=== PATIENT | female | born 1980 | race Caucasian/White ===

== ENCOUNTER 2022-02-20 18:25 | Emergency (ER) | payer MEDICARE, SELFPAY ==
[2022-02-20 18:26] VITALS: BP 118/79; PULSE 84; RESP 16; TEMP 36.2; O2SAT 98; BMI 19.8
[2022-02-20 20:07] VITALS: O2SAT 94
[2022-02-20] MEDS: predniSONE 20 MG Tablet 60 MG PO (20:52)
[2022-02-20] MEDS: Albuterol 2.5 MG/3 ML VIAL.NEB. INHALATION (21:10)
--- NOTE | 2022-02-20 21:45 | RAD_ITS ---
STUDY: X-RAY CHEST REASON FOR EXAM: Female, 41 years old. cough TECHNIQUE: PA and lateral views of the chest. COMPARISON: None. FINDINGS: The lungs are clear and expanded. There is no demonstrated pleural abnormality. There is moderate cardiac enlargement. Normal mediastinum and krystin. Normal visualized pulmonary arteries. Normal visualized aortic arch and descending thoracic aorta. Normal visualized thoracic spine. Normal visualized ribs, clavicles, and shoulders. There is no demonstrated abnormality of the visualized soft tissue structures of the upper abdomen. RAD/Chest PA and Lateral IMPRESSION: No active disease. Electronically Signed: Sven Winter MD at 22:02 EST ,
[2022-02-20 22:25] VITALS: PULSE 75; RESP 16; O2SAT 96
--- NOTE | 2022-02-20 22:57 | EDS_ITS ---
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 Patient has had prior tracheostomies. Patient is presenting with a couple days of chest congestion and now shortness of breath. Feels like an asthma attack. She recently moved to this area does not have a primary care doctor. She states she does have inhalers at home. She is been using them a couple times a day. She think she needs steroids. She denies any fever or chills. No other complaints at this time. Patient received breathing treatment in route via EMS and had significant improvement of her symptoms. [facility] Medical History Asthma CVA (cerebral vascular accident) History of endocarditis Home Medications prednisone 20 mg tablet 40 mg PO DAILY #8 tabs 02/20/22 [Rx Last Taken Unknown] Allergy/AdvReac Type Severity Reaction Status Date / Time No Known Allergies Allergy Verified 02/20/22 18:32 Surgical History Hx of tracheostomy Social History Smoking Status: Current every day smoker tobacco type: cigarettes ROS ROS ED Constitutional Constitutional ED: Denies chills or fever(s) Eyes Eyes: Denies change in vision ENT ENT ED: Denies rhinorrhea or sore throat Cardiovascular Cardiovascular: Denies chest pain or palpitations Respiratory/Chest Respiratory/Chest: Reports cough and dyspnea Gastrointestinal Gastrointestinal: Denies abdominal pain or vomiting Musculoskeletal Musculoskeletal: Denies arthralgias or myalgias Integumentary Denies rash Neurologic Neurologic: Denies weakness EXAM Physical Exam Const Vital Signs: 02/20/22 18:26 02/20/22 20:07 Temperature 97.2 F L Temperature Source Temporal Pulse Rate 84 Respiratory Rate 16 Respiratory Effort Normal Non-Labored Respiratory Depth Normal Respiratory Pattern Normal Blood Pressure 118/79 Blood Pressure Mean 92 Pulse Ox 98 Oxygen Delivery Method Room Air Room Air Constitutional Narrative: Thin, chronically ill-appearing HEENT Reports TM's clear and moist mucous membranes HEENT Narrative: Dentures in place Tympanic Membrane ED: Yes TM's clear Neck supple Neck Narrative: Scar in the center of the neck consistent with a prior tracheostomy Resp normal respiratory effort Resp Narrative: Coarse breath sounds throughout with end expiratory wheezing present Cardio regular rate and regular rhythm Cardio Narrative: Positive systolic murmur Extremity normal to inspection General Extremety ED: Negative for edema General Extremity: Negative for edema Neuro Neuro Narrative: Patient has dysphagia is somewhat difficult to understand but can write things down easily. Chronic deficit on the left side with associated muscle wasting of the left upper extremity Sensorium / Orientation: alert Psych mental status grossly normal Skin no wounds Rashes: no rashes MDM MDM MDM Narrative Medical decision making narrative: Patient evaluated for couple days of chest congestion and now shortness of breath with wheezing. Symptoms significantly improved with breathing treatment in route. Patient is given a second albuterol treatment. She has significant improvement of her breath sounds on repeat evaluation. Vital signs are normal and she is not requiring supplemental oxygen. At this time I do not think she needs lab work. Chest x-ray is obtained interpreted by myself as well as radiology does not show any active disease. Patient will be started on a prednisone burst and given first dose in the emergency room. She states she has albuterol at home and does not need any refills of this. There is no signs of a secondary pneumonia and I do not think antibiotics are indicated. Patient is given return precautions. She is given referral to primary care doctor as well as [facility]. She does not currently have a local primary care doctor as well as her history of stroke with subsequent disability that might make outpatient follow-up more difficult. Radiography Diagnostic Testing: Clinical Impression(s) from Imaging Studies Chest X-Ray 02/20/22 21:45 IMPRESSION: No active disease. Electronically Signed: Sven Winter MD at 22:02 EST , Discharge Plan Triage Chief Complaint: Asthma ED Provider: Paula Zamudio Dx/Rx/DC Orders Clinical Impression: Asthma exacerbation, Acute viral syndrome Instructions: ED Asthma, Acute (Adult), ED Viral Syndrome (Adult) Prescriptions: New prednisone 20 mg tablet 40 mg PO DAILY Qty: 8 0RF Primary Care Provider: Care Physician,No Primary Referrals: [facility] [Non-Staff] - As soon as possible Parish Magaña MD [Med Staff - Hydration Plant Operator] - As soon as possible Care Physician,No Primary [Primary Care Provider] - Disposition Disposition: Home, Self Care
== END 2022-02-20 23:21 | disposition home or self-care (01) ==
PROVIDERS: Emergency Provider Emergency Medicine; Visit Provider Emergency Medicine
DX: J45.901 Unspecified asthma with (acute) exacerbation (principal); B34.9 Viral infection, unspecified; F17.210 Nicotine dependence, cigarettes, uncomplicated; I69.320 Aphasia following cerebral infarction
CPT/HCPCS: 71046; 99284

== ENCOUNTER 2022-03-07 23:01 | Emergency (ER) | payer MEDICARE, MEDICAID, SELFPAY ==
[2022-03-07 23:02] VITALS: BP 105/64; PULSE 99; RESP 22; TEMP 36.6; O2SAT 94; BMI 20.2
[2022-03-07 23:08] VITALS: O2SAT 94
--- NOTE | 2022-03-07 23:18 | RAD_ITS ---
INDICATION: wheezing EXAMINATION/TECHNIQUE: X-RAY - XR Chest 1 View COMPARISON: 02/20/2023 FINDINGS: LIFE-SUPPORT AND LINES: 1. None HEART AND VESSELS: The cardiac silhouette, pulmonary vasculature have normal appearance. No evidence of congestive failure. LUNGS AND PLEURAL SPACES: There is subtle area of interstitial prominence in the RIGHT mid lung which appears to have developed in the interval. No consolidation noted. Interstitial prominence in the RIGHT infrahilar region. Stable blunting LEFT CP angle. No lobar consolidation. MEDIASTINUM AND HILAR REGIONS: No masses adenopathy noted. No areas of calcification. Visualized upper airway is normal in position. BONY ELEMENTS: No acute bony changes noted. RAD/Chest 1 View (Portable) IMPRESSION: 1. Subtle areas of interstitial prominence in the RIGHT midlung and in the RIGHT infrahilar region. Subtle interstitial infiltrate is a consideration. 2. Blunting of the LEFT CP angle, trace pleural fluid suspected. 3. No lobar consolidation or priya congestive failure. Electronically Signed: Sven Marroquin MD at 0:08 EST ,
--- NOTE | 2022-03-07 23:19 | EDS_ITS ---
HPI History of Present Illness Chief Complaint: Asthma Detail of Chief Complaint: 5 Dayhist presents Sunday. Informant: patient Onset/Context/Timing Onset: Days Context: gradual Timing: Continuous Quality: Positive for Wheezing Current Severity: Moderate Maximum Severity: Moderate Worsened by: Nothing Relieved by: Nothing Associated Symptoms Negative for cough, fever, sore throat, chills, sweats, clear sputum, white sputum, yellow sputum or green sputum Chest Pain: Positive for None Narrative Narrative: 41-year-old female history of asthma. Also history of 2 prior strokes with left-sided paralysis of the left arm and leg. History of IV drug abuse and endocarditis from that. She has had a prior tracheostomy. States since Sunday she has had wheezing and shortness of breath. Denies any fever. No chest pain. No hemoptysis. Similar to her prior asthma flareups. PE Risk Factors: Negative for Cancer, OCP + Smoking + > 35, Prior DVT or PE, Recent immobilization, Recent surgery or Recent travel Prior similar symptoms: Yes Recent Illness/Hospitalization: No PFSH PFSH Medical History Asthma CVA (cerebral vascular accident) History of endocarditis Home Medications albuterol sulfate 90 mcg/actuation aerosol inhaler inhalation 03/07/22 [History Last Taken Unknown] buspirone 5 mg tablet mg 03/07/22 [History Last Taken Unknown] carvedilol 3.125 mg tablet mg 03/07/22 [History Last Taken Unknown] cyclobenzaprine 10 mg tablet mg 03/07/22 [History Last Taken Unknown] docusate sodium 100 mg capsule mg PO 03/07/22 [History Last Taken Unknown] gabapentin 600 mg tablet mg 03/07/22 [History Last Taken Unknown] prednisone 20 mg tablet 40 mg PO DAILY 7 days #14 tabs 03/07/22 [Rx Last Taken Unknown] umeclidinium 62.5 mcg/actuation blister powder for inhalation (Incruse Ellipta) inhalation 03/07/22 [History Last Taken Unknown] Allergy/AdvReac Type Severity Reaction Status Date / Time No Known Allergies Allergy Verified 02/20/22 18:32 Surgical History Hx of tracheostomy Social History Smoking Status: Current every day smoker tobacco type: cigarettes ROS ROS ED ROS Narrative Wheezing. Short of breath. Review of Systems ROS Unobtainable: Denies due to encephalopathy Constitutional Constitutional ED: Denies chills or fever(s) Eyes Eyes: Denies blurry vision or change in vision ENT ENT ED: Denies ear pain, rhinorrhea or sore throat Cardiovascular Cardiovascular: Denies chest pain or palpitations Respiratory/Chest Respiratory/Chest: Reports dyspnea; Denies cough Gastrointestinal Gastrointestinal: Denies abdominal pain, constipation, diarrhea, melena, nausea or vomiting Genitourinary Genitourinary ED: Denies dysuria or hematuria Musculoskeletal Musculoskeletal: Denies arthralgias Integumentary Denies abscess or Abrasions Neurologic Neurologic: Denies headache(s) Psychiatric Psychiatric: Denies anxiety Endocrine Endocrinology: Denies cold intolerance Hematologic/Lymphatic Hematologic/Lymphatic: Denies easy bleeding or easy bruising Allergic/Immunologic Allergic/Immunologic ED: Denies mouth swelling or tongue swelling EXAM Physical Exam Narrative Exam Narrative: 41-year-old female vital signs are stable. Pulse ox 94% on room air. H EENT exam unremarkable. Neck nontender. No lymphadenopathy. No JVD. Well-healed midline tracheostomy scar. Closed. Lungs inspiratory and expiratory wheezing bilaterally. Heart regular rhythm rate about 99 no murmur. Chest wall nontender. Abdomen soft nontender. She has paralysis of her left arm and left leg from prior stroke. 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 Normal dorsi plantarflexion of her right leg. Calves are nontender without any edema. Const Vital Signs: 03/07/22 23:02 03/07/22 23:08 03/07/22 23:25 Temperature 97.9 F Temperature Source Temporal Pulse Rate 99 101 H Respiratory Rate 22 H 18 Respiratory Effort Normal Non-Labored Respiratory Depth Normal Respiratory Pattern Normal Blood Pressure 105/64 Blood Pressure Mean 77 Pulse Ox 94 Oxygen Delivery Method Room Air Room Air Positive well nourished and well developed; Negative for obese, cachectic, contractures or unkempt General Appearance ED: well developed and NAD; Negative for unkempt, cachectic, contractures or pallor Nutritional Appearance: Negative for cachectic or obese HEENT Reports moist mucous membranes; Denies dry mucous membranes atraumatic; Negative for trauma or tenderness Mouth ED: No dry mucous membranes Mouth: No dry mucous membranes Eyes PERRL and EOMs intact bilaterally General Eye ED: Negative for pale conjunctiva or scleral icterus Neck no lymphadenopathy, supple, no meningeal signs and no JVD General: Negative for tenderness Lymph Lymphatic: Negative for other Chest Wall Chest: Negative for other Resp No normal respiratory effort and No clear to auscultation bilaterally Resp Narrative: Increased respiratory effort. Wheezing throughout bilaterally both inspiratory and expiratory. No rales or rhonchi. Equal symmetrical. Prolonged expiratory phase. Auscultation: wheezes; Negative for rales or rhonchi Cardio regular rate, regular rhythm, S1 normal heart sound, S2 normal heart sound and no murmurs Rate: Negative for bradycardia or tachycardic Rhythm: abnormal rhythm GI non-tender, non-distended and no masses Inspection: Negative for other Auscultation: normoactive bowel sounds Palpation: soft; Negative for tender or guarding Back/Spine no CVA tenderness and normal to inspection General Back: Negative for CVA tenderness or tenderness Extremity normal to inspection Extremity Narrative: Left-sided paralysis. General Extremety ED: Negative for edema or tenderness General Extremity: Negative for edema Neuro oriented x3 Sensorium / Orientation: alert, oriented to person, oriented to place and oriented to time; Negative for orientation impaired, confused, lethargic or stuporous Speech: Negative for speech normal Motor Exam: Negative for strength 5/5 throughout Psych mental status grossly normal Appearance: Negative for unkempt Attitude: No agitated Mood & Affect: Negative for depressed, anxious or tearful Thought Process: normal thought process Skin no wounds General Skin Exam: Negative for jaundice or pallor Lesions: no lesions Rashes: no rashes Trauma: Negative for abrasion or laceration MDM MDM MDM Narrative Medical decision making narrative: 41-year-old female with extensive past medical history including stroke for left-sided paralysis and endocarditis from IV drug use. Has had wheezing now for 4 to 5 days. Appears to be an asthma flare. She will be treated with prednisone 60 mg p.o. with both the DuoNeb and albuterol aerosol. Chest x-ray will be obtained. Clinically do not think she has pneumonia. This does not appear to be cardiac. I do not hear any signs of pneumonia. I did review her prior records. Repeat exam the patient is improving. We discussed her normal chest x-ray results. Patient is improving after aerosols and prednisone. Her pulse ox is 94%. Prior to arrival she was hypoxic before the squad gave her an aerosol treatment. She feels comfortable being discharged to home. She has a primary care physician mari Acosta that she sees in [place]. Radiography Chest X-Ray - ED: 1 View, Read by ED Physician, Heart, Lungs, Mediastinum, Bony Structures, No Acute Disease and Chronic Changes Diagnostic Testing: Chest x-ray, portable, single view interpreted by myself shows no acute abnormality. Normal cardiac silhouette. No infiltrates. No pneumothorax. Discharge Plan Triage Chief Complaint: Asthma ED Provider: [place] Dx/Rx/DC Orders Clinical Impression: Acute asthma flare, History of stroke, History of endocarditis Instructions: ED Asthma, Acute (Adult) Prescriptions: New prednisone 20 mg tablet 40 mg PO DAILY 7 Days Qty: 14 0RF No Action cyclobenzaprine 10 mg tablet Label Comments: TAKE 1 TABLET BY MOUTH EVERY DAY AT BEDTIME buspirone 5 mg tablet Label Comments: TAKE 1 TABLET BY MOUTH THREE TIMES A DAY gabapentin 600 mg tablet Label Comments: TAKE 1 TABLET BY MOUTH THREE TIMES DAILY carvedilol 3.125 mg tablet Label Comments: TAKE 1 TABLET BY MOUTH TWICE A DAY docusate sodium 100 mg capsule PO Label Comments: TAKE 1 TO 2 CAPSULES BY MOUTH ONCE DAILY albuterol sulfate 90 mcg/actuation HFA aerosol inhaler INHALATION Label Comments: INHALE 1 TO 2 PUFFS EVERY 4 TO 6 HOURS NEEDED Incruse Ellipta 62.5 mcg/actuation blister with device INHALATION Label Comments: INHALE 1 PUFF BY MOUTH EVERY DAY Primary Care Provider: Care Physician,No Primary Referrals: Care Physician,No Primary [Primary Care Provider] - Activity Restrictions/Additional Instructions: Follow-up with your primary care provider. Prednisone daily 40 mg till your wheezing is resolved or its gone. Use your inhaler as needed. Return if worse. Disposition Disposition: Home, Self Care
[2022-03-07] MEDS: Ipratropium/Albuterol Sulfate 3 ML AMPUL.NEB INHALATION (23:24)
[2022-03-07] MEDS: Albuterol 2.5 MG/3 ML VIAL.NEB. INHALATION (23:24)
[2022-03-07 23:25] VITALS: PULSE 101; RESP 18
[2022-03-07] MEDS: predniSONE 20 MG Tablet 60 MG PO (23:30)
[2022-03-08 00:03] VITALS: BP 115/92; PULSE 100; RESP 18; O2SAT 95
== END 2022-03-08 00:04 | disposition home or self-care (01) ==
LOC: ED 23:40
PROVIDERS: Emergency Provider Emergency Medicine; Visit Provider Emergency Medicine
DX: J45.901 Unspecified asthma with (acute) exacerbation (principal); F17.210 Nicotine dependence, cigarettes, uncomplicated; Z86.73 Personal history of transient ischemic attack (TIA), and cerebral infarction without residual deficits; Z86.79 Personal history of other diseases of the circulatory system
CPT/HCPCS: 71045; 94640; 99284

== ENCOUNTER 2022-05-02 20:52 | Emergency (ER) | payer MEDICARE, MEDICAID, SELFPAY ==
[2022-05-02 20:53] VITALS: BP 129/95; PULSE 104; RESP 18; TEMP 35.5; O2SAT 92; BMI 20.3
--- NOTE | 2022-05-02 21:05 | ED.VIS.DYS ---
HPI History of Present Illness Chief Complaint: Shortness of Breath Detail of Chief Complaint: As of breath with productive cough. 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 Patient had endocarditis. She was treated at [facility]. Those records are not available through [facility]. Patient presents today because of productive cough of white-colored sputum with shortness of breath and wheezing. Patient quit smoking 1 month ago. She denies headache, photophobia, neck pain or stiffness. She denies ear pain or drainage. She does report mild nasal congestion. She denies sore throat. She denies chest discomfort. Patient states she drools due to the stroke. She denies GI symptoms. She denies urologic symptoms. PE Risk Factors: Negative for Cancer, OCP + Smoking + > 35, Prior DVT or PE, Recent immobilization, Recent surgery or Recent travel Prior similar symptoms: Yes Recent Illness/Hospitalization: No PFSH [facility] Medical History Asthma CVA (cerebral vascular accident) History of endocarditis Home Medications albuterol sulfate 90 mcg/actuation aerosol inhaler 90 mcg inhalation PRN PRN asthma 03/07/22 [History Last Taken Unknown] buspirone 5 mg tablet 5 mg PO TID 03/07/22 [History Last Taken Unknown] cyclobenzaprine 10 mg tablet 10 mg PO TID 03/07/22 [History Last Taken Unknown] gabapentin 600 mg tablet 600 mg PO TID 03/07/22 [History Last Taken Unknown] baclofen 10 mg tablet 10 mg PO TID 05/02/22 [History Last Taken Unknown] doxycycline monohydrate 100 mg capsule 100 mg PO BID #10 CAPSULES 05/02/22 [Rx Last Taken Unknown] prednisone 20 mg tablet 60 mg PO DAILY #15 TABLETS 05/02/22 [Rx Last Taken Unknown] Allergy/AdvReac Type Severity Reaction Status Date / Time No Known Allergies Allergy Verified 05/02/22 20:53 Surgical History Hx of tracheostomy Social History (Updated 05/02/22 @ 21:[address] Jermaine Orellana MD) household members: none Smoking Status: Former smoker substance use type: former substance user ROS ROS ED Constitutional Constitutional ED: Denies chills, fever(s), sweats or weight loss Eyes Eyes: Denies blurry vision, change in vision or diplopia ENT ENT ED: Denies ear pain, rhinorrhea or sore throat Cardiovascular Cardiovascular: Denies chest pain, orthopnea, palpitations, paroxysmal nocturnal dyspnea or racing heartbeat Respiratory/Chest Respiratory/Chest: Reports cough, dyspnea, dyspnea on exertion and sputum; Denies orthopnea or paroxysmal nocturnal dyspnea Gastrointestinal Gastrointestinal: Denies abdominal pain, melena, nausea or vomiting Genitourinary Genitourinary ED: Denies dysuria, hematuria or urinary frequency Musculoskeletal Musculoskeletal: Denies arthralgias, back pain, myalgias or neck pain Integumentary Denies Abrasions or rash Neurologic Neurologic: Reports weakness and other Details: Significant weakness left lower extremity and inability to use left upper extremity due to septic emboli secondary to endocarditis aortic valve ; Denies headache(s) or paresthesias Psychiatric Psychiatric: Denies anxiety or depression Endocrine Endocrinology: Denies cold intolerance or heat intolerance Hematologic/Lymphatic Hematologic/Lymphatic: Denies easy bleeding or easy bruising EXAM Physical Exam Const Vital Signs: 05/02/22 20:53 05/02/22 21:01 05/02/22 21:31 Temperature 96 F L Temperature Source Temporal Pulse Rate 104 H 98 Respiratory Rate 18 20 H Respiratory Effort Short of Breath Blood Pressure 129/95 H Blood Pressure Mean 106 Pulse Ox 92 Oxygen Delivery Method Room Air Positive well nourished and well developed Constitutional Narrative: Patient has minimal use of accessory muscles and minor/minimal retractions. General Appearance ED: well developed; Negative for pallor HEENT Reports moist mucous membranes HEENT Narrative: Head is atraumatic normocephalic. Ears normal. TMs normal. Nares patent. Posterior pharynx out erythema or exudate. Eyes PERRL and EOMs intact bilaterally General Eye ED: Negative for pale conjunctiva or scleral icterus Neck no lymphadenopathy, supple, no meningeal signs and no JVD Neck Narrative: Tracheostomy scar noted. There are suprasternal retractions noted. Resp No normal respiratory effort and No clear to auscultation bilaterally Auscultation: wheezes expiratory wheezes and throughout Cardio regular rhythm, S1 normal heart sound, S2 normal heart sound and no murmurs Rate: tachycardic GI non-tender, non-distended and no masses Back/Spine no CVA tenderness Extremity Extremity Narrative: Contractures left upper extremity due to prior stroke Neuro oriented x3 and No CN's II-XII intact bilaterally Neuro Narrative: Facial droop due to prior stroke [place] Coma Scale: document GCS findings Spontaneous Obeys Commands Oriented 15 Sensorium / Orientation: alert Speech: speech normal Gait (Neuro): Negative for normal gait Motor Exam: Negative for strength 5/5 throughout Psych mental status grossly normal Skin no wounds and skin turgor normal General Skin Exam: Negative for jaundice or pallor Lesions: no lesions Rashes: no rashes MDM MDM MDM Narrative Medical decision making narrative: Patient with productive cough wheezing abnormal respiratory findings will obtain chest x-ray to evaluate for pneumonia. Since she has history of asthma she was treated with aerosol treatments and given 60 mg of Solu-Medrol IV push. CBC was obtained to assess white count and rule out anemia. Basic metabolic panel to assess renal function and glucose. History & Record Review Additional record(s) reviewed:: Prior labs Lab Data Attestation: I reviewed the patient's lab results. Lab results narrative: White count is elevated 13.2 with no shift. There is eosinophils noted. Basic metabolic panel is unremarkable. Labs: Laboratory Results - last 24 hr 05/02/22 05/02/22 21:25 21:25 WBC 13.2 H RBC 5.04 Hgb 15.3 H Hct 43.3 MCV 85.9 MCH 30.4 MCHC 35.3 RDW Std Deviation 42.1 RDW Coeff of Min 13.8 Plt Count 208 MPV 10.0 Immature Gran % (Auto) 0.500 Neut % (Auto) 49.3 Lymph % (Auto) 25.5 [place] % (Auto) 8.6 Eos % (Auto) 14.8 H Baso % (Auto) 1.3 H Absolute Neuts (auto) 6.5 Absolute Lymphs (auto) 3.37 Nucleated RBC % 0 Sodium 139 Potassium 3.9 Chloride 107 Carbon Dioxide 26.0 Anion Gap 6 BUN 12 Creatinine 0.53 L Estim Creat Clear Calc 136.78 Est GFR (MDRD) Af Amer 166 Est GFR (MDRD) Non-Af 137 BUN/Creatinine Ratio 22.8 H Glucose 110 H Calcium 8.9 Radiography Chest X-Ray - ED: 2 View and Read by ED Physician (2 view x-ray of the chest independently viewed and interpreted by me at 2218. The chest x-ray is unremarkable. Cardiac silhouette and size normal. Perihilar region normal. Osseous structures are normal. There is no evidence of effusion or infiltrate.) Diagnostic Testing: Clinical Impression(s) from Imaging Studies Chest X-Ray 05/02/22 21:58 IMPRESSION: No confluent airspace disease. Query emphysema. Mild chronic interstitial changes. Electronically Signed: Baljai Hidalgo MD at 22:27 EDT Reading Location ID and State: [facility] / [place] Tel , Service support , Treatment and Re-Evaluation :: Patient was reassessed at 2222. Patient no longer has retraction use of accessory muscles. There is wheezing noted. Since patient has elevated white count productive cough will prescribe 5-day course of doxycycline and burst of steroids. Discharge Plan Triage Chief Complaint: Shortness of Breath ED Provider: Jermaine Orellana Dx/Rx/DC Orders Clinical Impression: Acute purulent bronchitis, Exacerbation of asthma, Eosinophilia, Embolic stroke involving middle cerebral artery Instructions: ED Upper Resp Infec Abx Tx Prescriptions: New prednisone 20 mg tablet 60 mg PO DAILY Qty: 15 0RF doxycycline monohydrate 100 mg capsule 100 mg PO BID Qty: 10 0RF No Action cyclobenzaprine 10 mg tablet 10 mg PO TID Label Comments: TAKE 1 TABLET BY MOUTH EVERY DAY AT BEDTIME buspirone 5 mg tablet 5 mg PO TID Label Comments: TAKE 1 TABLET BY MOUTH THREE TIMES A DAY gabapentin 600 mg tablet 600 mg PO TID Label Comments: TAKE 1 TABLET BY MOUTH THREE TIMES DAILY albuterol sulfate 90 mcg/actuation HFA aerosol inhaler 90 mcg INHALATION PRN PRN (Reason: asthma) Label Comments: INHALE 1 TO 2 PUFFS EVERY 4 TO 6 HOURS NEEDED baclofen 10 mg Tablet 10 mg PO TID Primary Care Provider: Care Physician,No Primary Referrals: Care Physician,No Primary [Primary Care Provider] - Doctor,Your [Non-Staff] - 3-5 Days Disposition Disposition: Home, Self Care
[2022-05-02] MEDS: Ipratropium/Albuterol Sulfate 3 ML AMPUL.NEB INHALATION (21:30)
[2022-05-02] MEDS: Albuterol 2.5 MG/3 ML VIAL.NEB. INHALATION (21:30)
[2022-05-02 21:31] VITALS: PULSE 98; RESP 20
[2022-05-02] MEDS: MethylPREDNISolone 125 MG/2 ML Vial 60 MG IV (21:32)
[2022-05-02 21:38] LABS: Absolute Lymphocyte Count 3.37 X10^3/uL (0.83-4.51); Absolute Neutrophil Count 6.5 X10^3/uL (2.0-7.7); Basophil# 0.17 X10^3/uL; Basophil% 1.3 % (0-1); Eosinophil# 1.96 X10^3/uL; Eosinophils% 14.8 % (0-5); Hematocrit 43.3 % (37-47); Hemoglobin 15.3 g/dL (12.0-15.0); Lymphocyte # 3.37 X10^3/ul (0.83-4.51); Lymphocyte % 25.5 % (19-41); Mean Corp Hgb Conc 35.3 g/dL (32-36); Mean Corpuscular Hgb 30.4 pg (27.0-32.0); Mean Corpuscular Volume 85.9 fL (81-99); Monocyte# 1.14 X10^3/uL; Monocyte% 8.6 % (0-10); NRBC Flagged by Analyzer 0 % (0-5); Neutrophil # 6.49 X10^3/uL (2.7-7.7); Neutrophil % 49.3 % (47-70); Platelet Count 208 K/mm3 (150-450); RBC Distribution Width CV 13.8 % (11.6-14.6); RBC Distribution Width SD 42.1 fl (35.1-43.9); Red Blood Count 5.04 M/mm3 (4.2-5.4); White Blood Count 13.2 K/mm3 (4.4-11.0)
[2022-05-02 21:44] LABS: Anion Gap 6 (5-15); BUN 12 mg/dL (7-18); BUN/Creat Ratio 22.8 RATIO (10-20); Calcium,Total 8.9 mg/dL (8.5-10.1); Chloride 107 mmol/L (98-107); Creatinine, Serum 0.53 mg/dL (0.55-1.02); EST Glomerular Filtration Rate 137 mL/min (>60); Est Glom Filt Rate - Afr Amer 166 mL/min (>60); Estimated Creatinine Clearance 136.78 ml/min; Glucose 110 mg/dL (74-106); Potassium 3.9 mmol/L (3.5-5.1); Sodium Level 139 mmol/L (136-145)
--- NOTE | 2022-05-02 21:58 | RAD_ITS ---
INDICATION: Productive cough and wheezing EXAMINATION: Frontal and lateral views of the chest. COMPARISON: Chest x-ray March 07, 2022. FINDINGS: Frontal and lateral views of the chest were obtained. The cardiac silhouette is mildly enlarged. Emphysematous changes are suspected, greatest in the left upper lung. Mild chronic interstitial changes are without significant change from the prior exam. No confluent airspace disease. No pleural effusion or pneumothorax. RAD/Chest PA and Lateral IMPRESSION: No confluent airspace disease. Query emphysema. Mild chronic interstitial changes. Electronically Signed: Balaji Hidalgo MD at 22:27 EDT ,
[2022-05-02] MEDS: Doxycycline 100 MG CAPSULE PO (22:51)
== END 2022-05-02 23:59 | disposition home or self-care (01) ==
PROVIDERS: Emergency Provider Emergency Medicine; Visit Provider Emergency Medicine
DX: J20.9 Acute bronchitis, unspecified (principal); J45.901 Unspecified asthma with (acute) exacerbation; D72.10 Eosinophilia, unspecified; Z79.899 Other long term (current) drug therapy; Z87.891 Personal history of nicotine dependence; I69.328 Other speech and language deficits following cerebral infarction
CPT/HCPCS: 71046; 80048; 85025; 94640; 96374; 99285; A4216

== ENCOUNTER 2022-05-16 21:32 | Inpatient (IN) | payer MEDICARE, MEDICAID, SELFPAY ==
[2022-05-16 21:33] VITALS: BP 159/9; PULSE 107; RESP 31; TEMP 35.8; O2SAT 99; BMI 20.2
--- NOTE | 2022-05-16 21:41 | EKG12_ITS ---
Test Reason : SOB Blood Pressure : / mmHG Vent. Rate : 099 BPM Atrial Rate : 099 BPM P-R Int : 152 ms QRS Dur : 116 ms QT Int : 354 ms P-R-T Axes : 086 107 054 degrees QTc Int : 454 ms Normal sinus rhythm Biatrial enlargement Pulmonary disease pattern Incomplete right bundle branch block Right ventricular hypertrophy Abnormal ECG Confirmed by ELYSIA LOPEZ, MING ([id number]), photographic editor ELISSA RASMUSSEN ([id number]) on 05/22/2022 6:55:48 AM Referred By: Confirmed By:CHIRAG NAIDU MD
[2022-05-16 22:00] VITALS: BP 119/96; PULSE 99; RESP 32; O2SAT 99
[2022-05-16] MEDS: Ipratropium/Albuterol Sulfate 3 ML AMPUL.NEB INHALATION (22:00)
[2022-05-16] MEDS: Albuterol 2.5 MG/3 ML VIAL.NEB. INHALATION ×2 (22:00)
[2022-05-16 22:01] VITALS: PULSE 101; PULSE 99; RESP 12; RESP 28; O2SAT 100
[2022-05-16] MEDS: MethylPREDNISolone 125 MG/2 ML Vial IV (22:05)
[2022-05-16] MEDS: Ondansetron 4 MG/2 ML Vial IV (22:13)
[2022-05-16 22:25] VITALS: O2SAT 99
--- NOTE | 2022-05-16 22:48 | EX.ED.DYSGE1 ---
HPI History of Present Illness Chief Complaint: Shortness of Breath Informant: patient Onset/Context/Timing Onset: Days Context: Gradual Onset Narrative Narrative: Patient presents in respiratory distress secondary to asthma exacerbation. She is a history of asthma. She also had endocarditis with septic emboli and a stroke. She has left-sided weakness. Patient states she started getting more short of breath again last evening, but does admit to being seen here 2 weeks ago with an asthma exacerbation states she never got back to baseline. She denies chest pain. EMS notes her pulse ox was in the 70s on room air. She was placed on a nonrebreather and transported with DuoNeb treatment. [facility] Medical History Asthma CVA (cerebral vascular accident) History of endocarditis no medical history Home Medications albuterol sulfate 90 mcg/actuation aerosol inhaler 90 mcg inhalation PRN PRN asthma 03/07/22 [History Last Taken Unknown] buspirone 5 mg tablet 5 mg PO TID 03/07/22 [History Last Taken Unknown] cyclobenzaprine 10 mg tablet 10 mg PO TID 03/07/22 [History Last Taken Unknown] gabapentin 600 mg tablet 600 mg PO TID 03/07/22 [History Last Taken Unknown] baclofen 10 mg tablet 10 mg PO TID 05/02/22 [History Last Taken Unknown] doxycycline monohydrate 100 mg capsule 100 mg PO BID #10 CAPSULES 05/02/22 [Rx Last Taken Unknown] prednisone 20 mg tablet 60 mg PO DAILY #15 TABLETS 05/02/22 [Rx Last Taken Unknown] Allergy/AdvReac Type Severity Reaction Status Date / Time No Known Allergies Allergy Verified 05/02/22 20:53 Surgical History Hx of tracheostomy Social History household members: none Smoking Status: Former smoker substance use type: former substance user ROS ROS ED Constitutional Constitutional ED: Denies chills or fever(s) Eyes Eyes: Denies change in vision or discharge from eye(s) ENT ENT ED: Denies discharge from eye(s), rhinorrhea or sore throat Cardiovascular Cardiovascular: Reports racing heartbeat; Denies chest pain or palpitations Respiratory/Chest Respiratory/Chest: Reports dyspnea; Denies cough Gastrointestinal Gastrointestinal: Reports nausea; Denies abdominal pain or vomiting Musculoskeletal Musculoskeletal: Denies back pain Integumentary Denies Abrasions or rash Neurologic Neurologic: Denies headache(s) or weakness Psychiatric Psychiatric: Reports anxiety Allergic/Immunologic Allergic/Immunologic ED: Denies lip swelling or urticaria EXAM Physical Exam Const Vital Signs: 05/16/22 21:33 05/16/22 22:01 05/16/22 22:01 Temperature 96.5 F L Temperature Source Temporal Pulse Rate 107 H 101 H 99 Respiratory Rate 31 H 28 H 28 H Respiratory Effort Respiratory Depth Respiratory Pattern Tachypnea Tachypnea Blood Pressure 159/9 H Blood Pressure Mean 59 Pulse Ox 99 100 Oxygen Delivery Method Non-Rebreather Oxygen Flow Rate (L/min) 15 Fraction of Inspired Oxygen (FIO2) 45 05/16/22 23:16 05/16/22 22:00 05/16/22 22:25 Temperature Temperature Source Pulse Rate 85 99 Respiratory Rate 16 32 H Respiratory Effort Short of Breath Labored Respiratory Depth Shallow Respiratory Pattern Tachypnea Blood Pressure 105/91 H 119/96 H Blood Pressure Mean 95 103 Pulse Ox 97 99 Oxygen Delivery Method Bi-pap Bi-pap Bi-pap Oxygen Flow Rate (L/min) Fraction of Inspired Oxygen (FIO2) 45 Positive well nourished and well developed General Appearance ED: well developed HEENT Reports normocephalic and head/scalp atraumatic HEENT Narrative: Old tracheostomy scar noted on anterior neck. Eyes PERRL and EOMs intact bilaterally Neck supple Chest Wall inspection of chest normal and palpation of chest normal Resp Resp Narrative: Tachypnea with diminished air movement throughout. Cardio regular rhythm Rate: tachycardic GI non-tender Palpation: soft Extremity Extremity Narrative: Left hand contracture secondary to prior stroke. Neuro oriented x3 Neuro Narrative: Chronic left-sided weakness secondary to prior stroke. Sensorium / Orientation: alert Psych Mood & Affect: anxious Skin no rashes or lesions noted MDM MDM MDM Narrative Medical decision making narrative: Patient is immediately placed on BiPAP. EKG obtained to evaluate for dysrhythmia. Chest x-ray obtained to evaluate for acute lung pathology, cardiac size, or mediastinal abnormality. Labwork obtained to evaluate for leukocytosis, anemia, and electrolyte derangement. Patient given Solu-Medrol along with DuoNeb and albuterol treatments. History & Record Review Discussion w/independent historian: EMS personnel and Patient Additional record(s) reviewed:: Prior ED visit Lab Data Labs: Laboratory Results - last 24 hr 05/16/22 05/16/22 05/16/22 22:05 22:05 22:05 WBC 15.8 H RBC 5.39 Hgb 16.4 H Hct 46.9 MCV 87.0 MCH 30.4 MCHC 35.0 RDW Std Deviation 40.7 RDW Coeff of Min 13.1 Plt Count 228 MPV 10.8 Immature Gran % (Auto) 1.800 H Neut % (Auto) 44.1 L Lymph % (Auto) 28.3 [place] % (Auto) 7.2 Eos % (Auto) 17.6 H Baso % (Auto) 1.0 Absolute Neuts (auto) 6.9 Absolute Lymphs (auto) 4.46 Nucleated RBC % 0 Differential Comment SCANNED Diff Path Review May foll D-Dimer Quant (PE/DVT) 0.47 Sodium 136 Potassium 4.2 Chloride 104 Carbon Dioxide 28.0 Anion Gap 4 L BUN 13 Creatinine 0.60 Estim Creat Clear Calc 120.03 Est GFR (MDRD) Af Amer 142 Est GFR (MDRD) Non-Af 118 BUN/Creatinine Ratio 21.6 H Glucose 85 Calcium 8.9 Troponin I High Sens 17 Serum , Qual 05/16/22 22:05 WBC RBC Hgb Hct MCV MCH MCHC RDW Std Deviation RDW Coeff of Min Plt Count MPV Immature Gran % (Auto) Neut % (Auto) Lymph % (Auto) [place] % (Auto) Eos % (Auto) Baso % (Auto) Absolute Neuts (auto) Absolute Lymphs (auto) Nucleated RBC % Differential Comment Diff Path Review D-Dimer Quant (PE/DVT) Sodium Potassium Chloride Carbon Dioxide Anion Gap BUN Creatinine Estim Creat Clear Calc Est GFR (MDRD) Af Amer Est GFR (MDRD) Non-Af BUN/Creatinine Ratio Glucose Calcium Troponin I High Sens Serum , Qual NEGATIVE Radiography Diagnostic Testing: Clinical Impression(s) from Imaging Studies Chest X-Ray 05/16/22 22:50 IMPRESSION: 1. No acute cardiopulmonary abnormality. 2. Chronic blunting of the left costophrenic angle unchanged. Electronically Signed: Ricardo Hyde MD at 23:19 EDT , EKG Initial EKG: Attestation: I personally reviewed and interpreted this EKG as follows: Interpretation: Sinus Rhythm (Sinus at 99 with no acute ischemia.) Differential Diagnosis Chest pain/SOB: pulmonary embolism Reason(s) PE less likely: Positive for D-Dimer negative, pneumothorax Reason(s) pneumothorax less likely: Positive for bilateral breath sounds and [employer] withhout PTX and pneumonia Reason(s) pneumonia less likely: Positive for no infiltrate on CXR, no elevation in WBC count and no noted fever Treatment and Re-Evaluation :: On repeat evaluation patient gives me thumbs up and states that she is feeling better. Respiratory rate is still in the mid to high 20s. She is sitting with her BiPAP mask on and texting on her phone. CBC reveals a white count of 15.8 with normal differential. Hemoglobin concentrated at 16.4. Chemistry studies unremarkable. Troponin is normal at 17. D-dimer is normal at 0.47. test is negative. Normal chest x-ray per my interpretation reveals clear lung fay bilaterally with no evidence of infiltrate or pneumothorax. Radiology interpretation is reviewed. EKG is sinus at 99 with no acute ischemia. At this time patient is much improved. We will take her off the BiPAP and transition her to nasal cannula. I will speak with hospitalist regarding admission. Discharge Plan Triage Chief Complaint: Shortness of Breath ED Provider: Lexi Navarro Dx/Rx/DC Orders Clinical Impression: Asthma exacerbation, Respiratory failure Prescriptions: No Action cyclobenzaprine 10 mg tablet 10 mg PO TID Label Comments: TAKE 1 TABLET BY MOUTH EVERY DAY AT BEDTIME buspirone 5 mg tablet 5 mg PO TID Label Comments: TAKE 1 TABLET BY MOUTH THREE TIMES A DAY gabapentin 600 mg tablet 600 mg PO TID Label Comments: TAKE 1 TABLET BY MOUTH THREE TIMES DAILY albuterol sulfate 90 mcg/actuation HFA aerosol inhaler 90 mcg INHALATION PRN PRN (Reason: asthma) Label Comments: INHALE 1 TO 2 PUFFS EVERY 4 TO 6 HOURS NEEDED baclofen 10 mg Tablet 10 mg PO TID prednisone 20 mg tablet 60 mg PO DAILY Qty: 15 0RF doxycycline monohydrate 100 mg capsule 100 mg PO BID Qty: 10 0RF Primary Care Provider: Care Physician,No Primary Referrals: Care Physician,No Primary [Primary Care Provider] - Disposition Disposition: Acute Care Hospital [facility]
--- NOTE | 2022-05-16 22:50 | RAD_ITS ---
EXAM: XR CHEST, 1 VIEW CLINICAL INDICATION: sob TECHNIQUE: Frontal view of the chest. This report was created using [employer] report generation technology. COMPARISON: 05/02/2022 and 02/20/2022. FINDINGS: LUNGS AND PLEURAL SPACES: Chronic blunting of the left costophrenic angle unchanged. No pneumothorax. No effusion. HEART: Unremarkable. Cardiac silhouette not enlarged. MEDIASTINUM: Central airways and mediastinal contour are unremarkable. BONES/JOINTS: Unremarkable. SOFT TISSUES: Unremarkable. RAD/Chest 1 View (Portable) IMPRESSION: 1. No acute cardiopulmonary abnormality. 2. Chronic blunting of the left costophrenic angle unchanged. Electronically Signed: Ricardo Hyde MD at 23:19 EDT ,
[2022-05-16 23:16] VITALS: BP 105/91; PULSE 85; RESP 16; O2SAT 97
[2022-05-16 23:21] LABS: Internal QC Validated? YES +Cl - CLEAR BKGD; Pregnancy, Serum, hCG Quali. NEGATIVE Negative
[2022-05-16 23:22] LABS: Absolute Lymphocyte Count 4.46 X10^3/uL (0.83-4.51); Absolute Neutrophil Count 6.9 X10^3/uL (2.0-7.7); Basophil# 0.16 X10^3/uL; Eosinophils% 17.6 % (0-5); Hematocrit 46.9 % (37-47); Hemoglobin 16.4 g/dL (12.0-15.0); Lymphocyte # 4.46 X10^3/ul (0.83-4.51); Lymphocyte % 28.3 % (19-41); Mean Corpuscular Hgb 30.4 pg (27.0-32.0); Mean Platelet Vol. 10.8 fl (6.2-12.0); Monocyte# 1.14 X10^3/uL; Monocyte% 7.2 % (0-10); NRBC Flagged by Analyzer 0 % (0-5); Neutrophil # 6.94 X10^3/uL (2.7-7.7); Neutrophil % 44.1 % (47-70); POSITIVE DIFFERENTIAL YES; Platelet Count 228 K/mm3 (150-450); RBC Distribution Width CV 13.1 % (11.6-14.6); RBC Distribution Width SD 40.7 fl (35.1-43.9); Red Blood Count 5.39 M/mm3 (4.2-5.4); White Blood Count 15.8 K/mm3 (4.4-11.0)
[2022-05-16 23:27] LABS: Anion Gap 4 (5-15); BUN 13 mg/dL (7-18); BUN/Creat Ratio 21.6 RATIO (10-20); Calcium,Total 8.9 mg/dL (8.5-10.1); Chloride 104 mmol/L (98-107); EST Glomerular Filtration Rate 118 mL/min (>60); Est Glom Filt Rate - Afr Amer 142 mL/min (>60); Estimated Creatinine Clearance 120.03 ml/min; Glucose 85 mg/dL (74-106); Potassium 4.2 mmol/L (3.5-5.1); Sodium Level 136 mmol/L (136-145); Troponin-I HS 17 pg/mL (3.0-54.0)
[2022-05-16 23:35] LABS: Differential Indicated SCAN CRITERIA MET; Eosinophil# 2.78 X10^3/uL
[2022-05-16 23:36] LABS: Differential Comment SCANNED
[2022-05-16 23:37] LABS: D-Dimer Quantitative (DVT/PE) 0.47 FEU/ug/m (0.27-0.49)
[2022-05-17] VITALS (16 sets, daily range): BP systolic 103–136; BP diastolic 67–82; PULSE 76–105; RESP 16–24; TEMP 36.1–37.6; O2SAT 89–98; BMI 18.8
--- NOTE | 2022-05-17 00:19 | PCM.HP.STD ---
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 Associated with a symptoms is wheezing. Patient was coughing but her coughing has since resolved. Also patient was diaphoretic. When paramedics found patient her oxygen saturation was about 76% on room air. Patient was placed on nonrebreather mask and received DuoNeb. On presentation to the emergency department her respiratory rate was in the 30s. Patient was pale, diaphoretic. She was placed on BiPAP and she was given Solu-Medrol. [facility] Medical History Asthma CVA (cerebral vascular accident) History of endocarditis Medical History no medical history Home Medications albuterol sulfate 90 mcg/actuation aerosol inhaler 90 mcg inhalation PRN PRN asthma 03/07/22 [History Last Taken Unknown] gabapentin 600 mg tablet 600 mg PO TID 03/07/22 [History Last Taken Unknown] baclofen 10 mg tablet 10 mg PO TID 05/02/22 [History Last Taken Unknown] Allergy/AdvReac Type Severity Reaction Status Date / Time No Known Allergies Allergy Verified 05/02/22 20:53 Family History (Updated 05/17/22 @ 00:[address] Patrice Larose MD) Other COPD (chronic obstructive pulmonary disease) Cancer Surgical History Hx of tracheostomy Social History household members: none Smoking Status: Former smoker substance use type: former substance user ROS ROS Narrative Pertinent positives and pertinent negatives as noted in HPI. All other systems were reviewed and are negative Vital Signs Vital Signs Vital Signs: 05/16/22 21:33 05/16/22 22:01 05/16/22 22:01 Temperature 96.5 F L Temperature Source Temporal Pulse Rate 107 H 101 H 99 Respiratory Rate 31 H 28 H 28 H Respiratory Effort Respiratory Depth Respiratory Pattern Tachypnea Tachypnea Blood Pressure 159/9 H Blood Pressure Mean 59 Pulse Ox 99 100 Oxygen Delivery Method Non-Rebreather Oxygen Flow Rate (L/min) 15 Fraction of Inspired Oxygen (FIO2) 45 05/16/22 23:16 05/16/22 22:00 05/16/22 22:25 Temperature Temperature Source Pulse Rate 85 99 Respiratory Rate 16 32 H Respiratory Effort Short of Breath Labored Respiratory Depth Shallow Respiratory Pattern Tachypnea Blood Pressure 105/91 H 119/96 H Blood Pressure Mean 95 103 Pulse Ox 97 99 Oxygen Delivery Method Bi-pap Bi-pap Bi-pap Oxygen Flow Rate (L/min) Fraction of Inspired Oxygen (FIO2) 45 Weight Weight: 60.4 kg Body Mass Index (BMI) 20.2 Physical Exam Narrative Physical exam: General: Well-nourished, well-developed. Head: Normocephalic, atraumatic, no tenderness Eyes: Vision is grossly intact. EOMI ENT, no trauma, moist mucous membranes, no rhinorrhea Neck: Nontender, No thyromegaly. CVS: Regular rate and rhythm. S1-S2 present. No murmur, gallop or rub. Respiratory : Tachypnea. Diminished. Wheezing, chest wall nontender Abdomen: Soft, nontender, nondistended, normal bowel sounds, no masses : Deferred Back: Nontender, no CVA tenderness, no midline spinal tenderness, deformities, step-offs Extremities: Nontender full range of motion, no trauma Skin: Normal color, no trauma, abrasions Neuro: Alert, oriented, cranial nerves II through XII grossly intact. Strength in right upper and right lower extremity 5 out of 5 and full range of motion. Left lower extremity with decreased range of motion and strength 4 out of 5. Flaccid left upper extremity and a contracted fingers of left hand Psychiatry: Normal mood. Normal affect. Not depressed. Not anxious. Results Lab / Micro Data Result Diagrams: 05/16/22 22:05 05/16/22 22:05 Labs: Laboratory Results - last 24 hr 05/16/22 22:05: WBC 15.8 H, RBC 5.39, Hgb 16.4 H, Hct 46.9, MCV 87.0, MCH 30.4, MCHC 35.0, RDW Std Deviation 40.7, RDW Coeff of Min 13.1, Plt Count 228, MPV 10.8, Immature Gran % (Auto) 1.800 H, Neut % (Auto) 44.1 L, Lymph % (Auto) 28.3, [place] % (Auto) 7.2, Eos % (Auto) 17.6 H, Baso % (Auto) 1.0, Absolute Neuts (auto) 6.9, Absolute Lymphs (auto) 4.46, Nucleated RBC % 0, Differential Comment SCANNED, Diff Path Review May foll 05/16/22 22:05: D-Dimer Quant (PE/DVT) 0.47 05/16/22 22:05: Sodium 136, Potassium 4.2, Chloride 104, Carbon Dioxide 28.0, Anion Gap 4 L, BUN 13, Creatinine 0.60, Estim Creat Clear Calc 120.03, Est GFR (MDRD) Af Amer 142, Est GFR (MDRD) Non-Af 118, BUN/Creatinine Ratio 21.6 H, Glucose 85, Calcium 8.9, Troponin I High Sens 17 05/16/22 22:05: Serum , Qual NEGATIVE Radiology Impression Chest X-Ray 05/16/22 22:50 IMPRESSION: 1. No acute cardiopulmonary abnormality. 2. Chronic blunting of the left costophrenic angle unchanged. Electronically Signed: Ricardo Hyde MD at 23:19 EDT , Assessment & Plan Assessment/Plan (1) Asthma exacerbation: PLAN: Plan Acute exacerbation of asthma with hypoxia Impression of chest x-ray by radiology: No acute cardiopulmonary process. Chest x-ray was visualized and independently interpreted. I agree with radiology interpretation. Review of records show the patient was seen at the emergency department on 05/02/2022 for acute purulent bronchitis. Scheduled DuoNeb Albuterol as needed Solu-Medrol ordered. Titrate down oxygen. At baseline patient does not use oxygen White count on presentation was 15,800 patient has no fever or chills. Monitor BMP and CBC DVT prophylaxis Subcutaneous Lovenox ordered. Charges/Coding Visit Charges Inpatient E&M: 87416 Init Hosp L2
[2022-05-17] MEDS: Ondansetron 4 MG/2 ML Vial IV (03:11)
[2022-05-17] MEDS: 0.9% Saline Lock 10 ML Syringe IV ×4 (03:13→21:04)
[2022-05-17] MEDS: Albuterol 2.5 MG/3 ML VIAL.NEB. INHALATION (04:32)
[2022-05-17] MEDS: Acetaminophen 325 MG Tablet 650 MG PO ×2 (05:42→15:35)
[2022-05-17] MEDS: Gabapentin 600 MG Tablet PO ×3 (05:43→21:04)
[2022-05-17] MEDS: Baclofen 10 MG Tablet PO ×3 (05:43→21:04)
[2022-05-17 06:19] LABS: Absolute Lymphocyte Count 0.99 X10^3/uL (0.83-4.51); Absolute Neutrophil Count 7.5 X10^3/uL (2.0-7.7); Basophil# 0.04 X10^3/uL; Basophil% 0.5 % (0-1); Eosinophil# 0.06 X10^3/uL; Eosinophils% 0.7 % (0-5); Hematocrit 45.7 % (37-47); Lymphocyte # 0.99 X10^3/ul (0.83-4.51); Lymphocyte % 11.4 % (19-41); Mean Corpuscular Hgb 30.2 pg (27.0-32.0); Mean Corpuscular Volume 86.2 fL (81-99); Mean Platelet Vol. 10.4 fl (6.2-12.0); Monocyte# 0.08 X10^3/uL; Monocyte% 0.9 % (0-10); NRBC Flagged by Analyzer 0 % (0-5); Neutrophil # 7.46 X10^3/uL (2.7-7.7); Neutrophil % 85.7 % (47-70); Platelet Count 165 K/mm3 (150-450); RBC Distribution Width CV 13.1 % (11.6-14.6); RBC Distribution Width SD 39.9 fl (35.1-43.9); White Blood Count 8.7 K/mm3 (4.4-11.0)
[2022-05-17 06:49] LABS: Anion Gap 5 (5-15); BUN 14 mg/dL (7-18); BUN/Creat Ratio 20.1 RATIO (10-20); Calcium,Total 9.2 mg/dL (8.5-10.1); Chloride 104 mmol/L (98-107); EST Glomerular Filtration Rate 99 mL/min (>60); Est Glom Filt Rate - Afr Amer 120 mL/min (>60); Glucose 167 mg/dL (74-106); Potassium 4.4 mmol/L (3.5-5.1); Sodium Level 133 mmol/L (136-145)
[2022-05-17] MEDS: guaiFENesin 600 MG Tablet PO ×2 (06:59→21:04)
[2022-05-17] MEDS: Ipratropium/Albuterol Sulfate 3 ML AMPUL.NEB INHALATION ×4 (07:19→21:12)
--- NOTE | 2022-05-17 10:10 | PCM.HOSP.N ---
Hospitalist Note Feeling better today compared to yesterday, still has high O2 requirement, continue current management and will likely be able to de-escalate tomorrow to oral prednisone
--- NOTE | 2022-05-17 10:55 | CASEMGMT ---
RN CM Face to Face with patient for initial transition planning/care coordination assessment. RN CM introduced self and role at [facility]. Patient lying in bed, alert and oriented. Patient willing to participate in assessment and is able to answer all questions appropriately. Care providers, pharmacy, and demographics verified. Patient wishes to discharge home. Patient states she has no further needs or concerns at this time. CM to follow for discharge planning needs that may arise. PCP: No PCP, was going to get established with [facility] Specialists: none Preferred Pharmacy: [facility] Insurance: [facility] Prescription Benefit: yes Living Will/HPOA: yes, step father Geoff Geronimo LNOK: step father, anton Living Arrangements: Patient lives with anton in a 2 story home. Fiance assists patient with ADLs and ambulating stairs. Transportation: [facility] DME/HHC: Patient has wheelchair, BSC, shower chair, grab bars, and nebulizer. No previous HHC, patient has been to [facility] previously. Patient voices interest in HHC but will not be able to setup until she is established with PCP. CM to provide HHC list for patient to use in the future once established with PCP Disposition Plan: Patient to discharge home with family support and follow-up plans in place. Rosemary LAMB, RN, CM
[2022-05-17] MEDS: Enoxaparin 40 MG/0.4 ML Syringe SC (11:52)
[2022-05-17 13:34] LABS: Pathologist Review Reviewed
[2022-05-17] MEDS: DiphenhydrAMINE 25 MG Capsule PO ×2 (16:22→23:40)
[2022-05-18] VITALS (7 sets, daily range): BP systolic 97–127; BP diastolic 59–86; PULSE 64–96; RESP 14–20; TEMP 36.6–36.8; O2SAT 94–98
[2022-05-18 05:30] LABS: Absolute Lymphocyte Count 1.59 X10^3/uL (0.83-4.51); Absolute Neutrophil Count 13.2 X10^3/uL (2.0-7.7); Basophil# 0.03 X10^3/uL; Basophil% 0.2 % (0-1); Hematocrit 38.1 % (37-47); Hemoglobin 13.5 g/dL (12.0-15.0); Lymphocyte # 1.59 X10^3/ul (0.83-4.51); Lymphocyte % 9.7 % (19-41); Mean Corp Hgb Conc 35.4 g/dL (32-36); Mean Corpuscular Hgb 30.8 pg (27.0-32.0); Monocyte# 1.42 X10^3/uL; Monocyte% 8.7 % (0-10); NRBC Flagged by Analyzer 0 % (0-5); Neutrophil # 13.21 X10^3/uL (2.7-7.7); Neutrophil % 80.7 % (47-70); Platelet Count 132 K/mm3 (150-450); RBC Distribution Width CV 13.1 % (11.6-14.6); RBC Distribution Width SD 40.3 fl (35.1-43.9); Red Blood Count 4.38 M/mm3 (4.2-5.4); White Blood Count 16.4 K/mm3 (4.4-11.0)
[2022-05-18] MEDS: Gabapentin 600 MG Tablet PO ×2 (05:44→13:42)
[2022-05-18] MEDS: 0.9% Saline Lock 10 ML Syringe IV (05:45)
[2022-05-18] MEDS: Baclofen 10 MG Tablet PO ×2 (05:45→13:42)
[2022-05-18 05:47] LABS: Anion Gap 4 (5-15); BUN 11 mg/dL (7-18); BUN/Creat Ratio 20.4 RATIO (10-20); Calcium,Total 8.4 mg/dL (8.5-10.1); Chloride 104 mmol/L (98-107); Creatinine, Serum 0.54 mg/dL (0.55-1.02); EST Glomerular Filtration Rate 134 mL/min (>60); Est Glom Filt Rate - Afr Amer 162 mL/min (>60); Estimated Creatinine Clearance 124.31 ml/min; Glucose 133 mg/dL (74-106); Potassium 4.1 mmol/L (3.5-5.1); Sodium Level 133 mmol/L (136-145)
[2022-05-18] MEDS: Ipratropium/Albuterol Sulfate 3 ML AMPUL.NEB INHALATION ×3 (07:14→15:20)
[2022-05-18] MEDS: Enoxaparin 40 MG/0.4 ML Syringe SC (09:15)
[2022-05-18] MEDS: guaiFENesin 600 MG Tablet PO (09:15)
[2022-05-18] MEDS: busPIRone 5 MG Tablet PO (11:03)
[2022-05-18] MEDS: Carvedilol 3.125 MG TABLET PO (12:03)
--- NOTE | 2022-05-18 12:11 | PCM.DC.SUM ---
Providers Date of Admission: 05/17/22 Date of Discharge: 05/18/22 Primary Care Physician: No Primary Care Phys Reason For Visit: ASTHMA EXACERBATION Diagnosis Discharge Diagnosis (1) Asthma exacerbation: Status: Acute Code(s): J45.901 - Unspecified asthma with (acute) exacerbation Medications at Discharge Home Medications gabapentin 600 mg tablet 600 mg PO TID 03/07/22 baclofen 10 mg tablet 10 mg PO TID 05/02/22 albuterol sulfate 90 mcg/actuation aerosol inhaler 90 mcg inhalation PRN PRN asthma 30 days #8.5 grams 05/18/22 carvedilol 3.125 mg tablet 3.125 mg PO BID heart 05/18/22 mometasone-formoterol HFA 200 mcg-5 mcg/actuation aerosol inhaler 2 inh inhalation Q12H #13 grams 05/18/22 prednisone 20 mg tablet See Rx Instructions .Route .COMPLEX #14 tabs 05/18/22 Hospital Course Summary of Care Provided Minutes Spent on Discharge: 32 Hospital Course: SALIMA MISTRY, is a 41 F with a significant history of asthma; 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 Correction to duration with 76% on room air and she is given DuoNebs and nonrebreather mask but respiratory rate was in the 30s and she was placed on BiPAP and given Solu-Medrol. Chest x-ray with no acute pulmonary process. She was admitted to the hospital and had albuterol, scheduled DuoNebs, Solu-Medrol and was placed on O2. By the following day she was significantly improved. By 05/18 she is maintaining her saturations on room air. She does not walk so walk test was not able to be performed but she did not qualify for O2 based on room air sat. She had no other complaints on day of discharge. Discharge instructions as followed: -[facility] discharge to establish care -You will be discharged on inhalers for your breathing as well as a course of steroids. -You will be discharged with a prescription for mometasone?formoterol inhaler for which you will use 2 elations twice daily for 7 days. -Additionally will be given another prescription for the albuterol inhaler which she will use as needed in addition to the medication that you will take twice daily -You will take prednisone 60 mg for 2 days followed by 40 mg for an additional 4 days -Continue other home medications -Please call your primary care provider's office upon discharge to schedule a hospital follow up within 1 week. -For any concerning signs or symptoms please call 911 or proceed to the nearest emergency department Physical Exam Narrative General: Alert, oriented, no apparent distress HEENT: Atraumatic, normocephalic Eyes: Anicteric, normal conjunctiva, extraocular movements grossly intact Neck: Supple Respiratory: Very faint wheeze in right upper lobe otherwise clear, normal respiratory effort Cardiovascular: Regular rate and rhythm GI: Soft, nontender, nondistended Extremities: No edema Musculoskeletal: Cannot move left upper extremity Neuro: Has residual paralysis from previous stroke Skin: No rashes appreciated Psych: Cooperative Weight / BMI Weight Weight: 56.3 kg Body Mass Index (BMI) 18.8 ABG / Lab / Microbiology Data Result Diagrams: 05/18/22 05:07 05/18/22 05:07 Laboratory: Laboratory Results - last 24 hr 05/16/22 22:05: Diff Path Review Reviewed 05/18/22 05:07: WBC 16.4 H, RBC 4.38, Hgb 13.5, Hct 38.1, MCV 87.0, MCH 30.8, MCHC 35.4, RDW Std Deviation 40.3, RDW Coeff of Min 13.1, Plt Count 132 L, MPV 11.0, Immature Gran % (Auto) 0.700, Neut % (Auto) 80.7 H, Lymph % (Auto) 9.7 L, [place] % (Auto) 8.7, Eos % (Auto) 0.0, Baso % (Auto) 0.2, Absolute Neuts (auto) 13.2 H, Absolute Lymphs (auto) 1.59, Nucleated RBC % 0 05/18/22 05:07: Sodium 133 L, Potassium 4.1, Chloride 104, Carbon Dioxide 25.0, Anion Gap 4 L, BUN 11, Creatinine 0.54 L, Estim Creat Clear Calc 124.31, Est GFR (MDRD) Af Amer 162, Est GFR (MDRD) Non-Af 134, BUN/Creatinine Ratio 20.4 H, Glucose 133 H, Calcium 8.4 L D/C Instructions Discharge Diet: No restrictions Meaningful Use Info Meaningful Use Diagnoses (Choose all that apply): None applicable Discharge Plan Admission Admit Date/Time: 05/17/22 00:12 Primary Reason for Your Visit: Shortness of breath Attending Provider: Leila Esparza Primary Care Provider: Care Physician,No Primary Consulting Providers: Patrice Larose Instructions Additional Instructions / Restrictions: DISCHARGE INSTRUCTIONS PLEASE READ *Please take this with you to your next doctors appointment* -Please follow with [facility] upon discharge to establish care -You will be discharged on inhalers for your breathing as well as a course of steroids. -You will be discharged with a prescription for mometasone?formoterol inhaler for which you will use 2 elations twice daily for 7 days. -Additionally will be given another prescription for the albuterol inhaler which she will use as needed in addition to the medication that you will take twice daily -You will take prednisone 60 mg for 2 days followed by 40 mg for an additional 4 days -Continue other home medications -Please call your primary care provider's office upon discharge to schedule a hospital follow up within 1 week. -For any concerning signs or symptoms please call 911 or proceed to the nearest emergency department Discharge Orders/Prescriptions Prescriptions: New prednisone 20 mg tablet See Rx Instructions .ROUTE .COMPLEX Qty: 14 0RF Rx Instructions: Take 60mg for 2 days followed by 40mg for 4 days mometasone-formoterol 200-5 mcg/actuation HFA aerosol inhaler 2 inh inhalation Q12H Qty: 13 0RF Rx Instructions: 2 inhalations twice daily for 7 days Continued gabapentin 600 mg tablet 600 mg PO TID Label Comments: TAKE 1 TABLET BY MOUTH THREE TIMES DAILY baclofen 10 mg Tablet 10 mg PO TID carvedilol 3.125 mg Tablet 3.125 mg PO BID Rx Instructions: must administer with a meal/food albuterol sulfate 90 mcg/actuation HFA aerosol inhaler 90 mcg INHALATION PRN PRN (Reason: asthma) 30 Days Qty: 8.5 0RF Referrals / Follow Up: Yue Chavis [Other] Care Physician,No Primary [Primary Care Provider] - Disposition Disposition (needs filled in before D/C Order can be placed): Home, Self Care Charges/Coding Visit Charges Inpatient E&M: 49548 Disch Hosp >30min
== END 2022-05-18 16:59 | disposition home or self-care (01) | DRG 202 ==
LOC: ED 05-17 00:02 → PCU 05-17 00:51
PROVIDERS: Admitting Provider Hospitalist; Emergency Provider Emergency Medicine; Visit Provider Internal Medicine
DX: J45.901 Unspecified asthma with (acute) exacerbation (principal); I69.354 Hemiplegia and hemiparesis following cerebral infarction affecting left non-dominant side; Z87.891 Personal history of nicotine dependence
CPT/HCPCS: 36415; 71045; 80048; 84484; 84703; 85025; 85379; 93005; 94002; 94640; 99285; A4216; J2405

== ENCOUNTER 2022-06-24 21:54 | Inpatient (IN) | payer MEDICARE, MEDICAID, SELFPAY ==
[2022-06-24 21:55] VITALS: BP 113/83; PULSE 109; RESP 18; TEMP 36.6; O2SAT 91; BMI 21.0
[2022-06-24 21:59] VITALS: O2SAT 92
--- NOTE | 2022-06-24 22:06 | EX.ED.DYSGE1 ---
HPI History of Present Illness Chief Complaint: Cough [facility] Medical History (Updated 06/25/22 @ 00:[address] Vani Jiménez MD) Asthma Embolic stroke involving middle cerebral artery Former tobacco use History of endocarditis History of substance abuse Home Medications gabapentin 600 mg tablet 600 mg PO TID nerve pain 03/07/22 [History Last Taken Unknown] baclofen 10 mg tablet 10 mg PO TID spasms 05/02/22 [History Last Taken Unknown] albuterol sulfate 90 mcg/actuation aerosol inhaler 90 mcg inhalation PRN PRN asthma 30 days #8.5 grams 05/18/22 [Rx Last Taken Unknown] carvedilol 3.125 mg tablet 3.125 mg PO BID blood pressure 05/18/22 [History Last Taken Unknown] mometasone-formoterol HFA 200 mcg-5 mcg/actuation aerosol inhaler 2 inh inhalation Q12H #13 grams 05/18/22 [Rx Last Taken Unknown] Allergy/AdvReac Type Severity Reaction Status Date / Time No Known Allergies Allergy Verified 05/02/22 20:53 Family History (Updated 06/25/22 @ 00:[address] Vani Jiménez MD) Father COPD (chronic obstructive pulmonary disease) Polysubstance abuse Mother Cancer Uterine CA. Surgical History (Updated 06/25/22 @ 00:[address] Vani Jiménez MD) Hx of tracheostomy Previous section S/P percutaneous endoscopic gastrostomy (PEG) tube placement Social History (Updated 06/25/22 @ 00:[address] Vani Jiménez MD) household members: none Smoking Status: Former smoker how long ago did patient quit smoking: Quit smoking 04/2022, smoked ~ 1 ppd since 19 y/o until quit recently. alcohol intake: never substance use type: former substance user Date of last use: Clean x 5 years as of 06/25/22. EXAM Physical Exam Const Vital Signs: 06/24/22 21:55 06/24/22 21:59 06/24/22 22:43 Temperature 97.9 F Temperature Source Oral Pulse Rate 109 H 103 H Respiratory Rate 18 20 H Respiratory Effort Normal Non-Labored Respiratory Depth Normal Respiratory Pattern Normal Blood Pressure 113/83 H Blood Pressure Mean 93 Pulse Ox 91 Oxygen Delivery Method Room Air Room Air Oxygen Flow Rate (L/min) 06/24/22 23:23 06/24/22 23:54 06/25/22 00:15 Temperature Temperature Source Pulse Rate 95 Respiratory Rate 18 Respiratory Effort Respiratory Depth Respiratory Pattern Blood Pressure Blood Pressure Mean Pulse Ox 92 86 Oxygen Delivery Method Nasal Cannula Room Air Oxygen Flow Rate (L/min) 1 06/25/22 00:00 06/25/22 00:38 06/25/22 00:52 Temperature 97.8 F Temperature Source Temporal Pulse Rate 100 105 H Respiratory Rate 22 H 24 H Respiratory Effort Respiratory Depth Respiratory Pattern Blood Pressure 103/71 121/79 H Blood Pressure Mean 81 93 Pulse Ox 90 96 96 Oxygen Delivery Method Nasal Cannula Nasal Cannula Nasal Cannula Oxygen Flow Rate (L/min) 3 3 3 MDM MDM MDM Narrative Medical decision making narrative: HISTORY OF PRESENT ILLNESS: 41-year-old female here with shortness of breath. Patient states that started 1 week ago has been getting worse. Think she is having an bad asthma attack. She does note a cough productive of white sputum. She denies smoking cigarettes. She denies any chest pain. Denies any lower extremity edema. Denies any bleeding diathesis such as melena, hematochezia, mopped assist hematuria or vaginal bleeding. She denies any volume loss such as vomiting, diarrhea. The patient denies recent surgery in the last 4 weeks or immobilization in the last 3 days, denies previous diagnosis of DVT or PE, hemoptysis, unilateral leg swelling or malignancy with treatment the last 6 months. No estrogen use noted. REVIEW OF SYMTPTOMS: Pertinent positives: Shortness of breath Pertinent negatives: Chest pain, syncope, lower extremity edema PHYSICAL EXAM: Nursing triage notes reviewed, Vital signs reviewed Constitutional: please see mdm HENT: MMM Eyes: Pupils equal round and reactive to light, Extraocular muscles intact Neck: No stridor, no JVD, full neck ROM, old tracheostomy scar noted Lungs: Increased work of breathing, diffuse wheezing, mild accessory muscle use, mild conversational dyspnea, no obvious focal consolidation on exam Heart: Regular rate and rhythm, No murmurs, No rubs and No gallops, 2+ distal pulses (radial, femoral, posterior tibial) in all extremities Abdomen: Soft, there is no tenderness, rigidity, rebound or guarding, no obvious peritoneal signs, no palpable pulsatile abdominal masses, no auscultated abdominal bruit : No CVAT Extremities: No edema, chronic contractures in the left upper and lower extremity secondary to chronic paralysis Neuro: Alert, oriented x3, intact sensation all 4 extremities, decreased movement in the left upper and lower extremity secondary to history of prior CVA, Skin: No rash or lesions noted MEDICAL DECISION MAKING: Chief Complaint: Shortness of breath External records reviewed: Chest x-ray from April 2022 shows no acute cardiopulmonary abnormality MDM Narrative: Patient was initially tachycardic, hypoxic with 89% with a good waveform on room air, with increased work of breathing and diffuse wheezing in bilateral fay with prolonged expiratory phase. I ordered nasal cannula oxygen immediately. Exam initially most consistent with obstructive lung disease likely asthma. I considered the following differential diagnosis: Asthma exacerbation, pneumonia, COVID, PE, ACS, arrhythmia IV access was difficult. This necessitated me placing a left external jugular vein 20-gauge Angiocath with the assistance of RN. I obtained a broad lab and imaging work-up to further elucidate etiology of patient's complaints. I considered pulmonary embolism given the patient's initial tachycardia obtain a D-dimer. D-dimer was negative essentially ruling out VTE. The remainder the patient's labs images were negative for arrhythmia, ACS, COVID, pneumonia. Patient was given breathing treatments here, steroids. She was monitored. She was transiently off oxygen saturating in the low 90s. We discussed admission versus discharge. During his discussion patient desatted to the upper 80s requiring nasal cannula oxygen. Given hypoxia and concern for severe asthma exacerbation I thought the patient to be admitted to the hospital. Discussed with hospitalist Dr. Jiménez. Dr. Jiménez recommended admission to [facility]. Factors affecting care: History of asthma, respiratory failure, endocarditis, CVA with chronic left-sided weakness, asthma Social determinants of health: History obtained from others: Shared decision making: I will have a discussion with the patient and or visitors regarding risk/benefits of further testing or admission. They will be made aware of of the risk/benefits inherent in this decision they will be given the opportunity to voice understanding. Consults: Internal medicine Lab Data Attestation: I reviewed the patient's lab results. Lab results narrative: CBC without leukocytosis, severe anemia, no thrombocytopenia. EKG with sinus tachycardia, right axis deviation, right bundle branch block, no STEMI. Similar to prior EKG in April of 2022 Troponin is negative, no evidence of myocardial ischemia D-dimer negative making VTE less likely BNP within normal limits making heart failure less likely Labs: Laboratory Results - last 24 hr 06/24/22 06/24/22 06/24/22 22:45 22:45 22:45 WBC 10.1 RBC 4.74 Hgb 14.1 Hct 42.2 MCV 89.0 MCH 29.7 MCHC 33.4 RDW Std Deviation 44.6 H RDW Coeff of Min 13.7 Plt Count 155 MPV 10.6 Immature Gran % (Auto) 0.200 Neut % (Auto) 38.3 L Lymph % (Auto) 31.2 Bland % (Auto) 7.3 Eos % (Auto) 21.7 H Baso % (Auto) 1.3 H Absolute Neuts (auto) 3.9 Absolute Lymphs (auto) 3.14 Nucleated RBC % 0 Differential Comment SCANNED Diff Path Review May foll D-Dimer Quant (PE/DVT) Sodium 140 Potassium 4.4 Chloride 112 H Carbon Dioxide 20.0 L Anion Gap 8 BUN 17 Creatinine 0.81 Estim Creat Clear Calc 92.89 Est GFR (MDRD) Af Amer 101 Est GFR (MDRD) Non-Af 84 BUN/Creatinine Ratio 21.1 H Glucose 106 Calcium 8.4 L Troponin I High Sens 11 B-Natriuretic Peptide 16.0 06/24/22 23:14 WBC RBC Hgb Hct MCV MCH MCHC RDW Std Deviation RDW Coeff of Min Plt Count MPV Immature Gran % (Auto) Neut % (Auto) Lymph % (Auto) [place] % (Auto) Eos % (Auto) Baso % (Auto) Absolute Neuts (auto) Absolute Lymphs (auto) Nucleated RBC % Differential Comment Diff Path Review D-Dimer Quant (PE/DVT) 0.40 Sodium Potassium Chloride Carbon Dioxide Anion Gap BUN Creatinine Estim Creat Clear Calc Est GFR (MDRD) Af Amer Est GFR (MDRD) Non-Af BUN/Creatinine Ratio Glucose Calcium Troponin I High Sens B-Natriuretic Peptide Radiography Chest X-Ray - ED: Read by ED Physician Diagnostic Testing: Clinical Impression(s) from Imaging Studies Chest X-Ray 06/24/22 22:13 IMPRESSION: No significant interval change. No acute cardiopulmonary disease process identified. Electronically Signed: Job Castillo MD at 23:55 EDT , I have personally reviewed the patient's chest x-ray. Chest x-ray is unremarkable for pulmonary edema, pneumothorax, pneumonia or focal cardiopulmonary abnormality. Discharge Plan Triage Chief Complaint: Cough ED Provider: Flaquito Solorio Dx/Rx/DC Orders Prescriptions: No Action gabapentin 600 mg tablet 600 mg PO TID Label Comments: TAKE 1 TABLET BY MOUTH THREE TIMES DAILY baclofen 10 mg Tablet 10 mg PO TID carvedilol 3.125 mg Tablet 3.125 mg PO BID Rx Instructions: must administer with a meal/food mometasone-formoterol 200-5 mcg/actuation HFA aerosol inhaler 2 inh inhalation Q12H Qty: 13 0RF Rx Instructions: 2 inhalations twice daily for 7 days albuterol sulfate 90 mcg/actuation HFA aerosol inhaler 90 mcg INHALATION PRN PRN (Reason: asthma) 30 Days Qty: 8.5 0RF Primary Care Provider: Care Physician,No Primary Referrals: Care Physician,No Primary [Primary Care Provider] - Disposition Disposition: Acute Care Hospital [facility]
--- NOTE | 2022-06-24 22:13 | RAD_ITS ---
EXAM: XR CHEST, 2 VIEWS CLINICAL INDICATION: Shortness of breath, wheezing TECHNIQUE: Frontal and lateral views of the chest. COMPARISON: Previous chest radiographs of 05/16/2022, 05/02/2022 and 02/20/2022.. FINDINGS: LUNGS AND PLEURAL SPACES: The lungs are not hyperinflated. Lateral view shows mild chronic parenchymal scarring in the upper retrosternal region. No acute pulmonary infiltrates are identified. No peribronchial cuffing is noted. There is chronic blunting of the left lateral costophrenic angle, consistent with basilar pleural thickening. No pneumothorax. HEART: Heart size remains mildly enlarged, with normal pulmonary vasculature. MEDIASTINUM: Central airways and mediastinal contour are unremarkable. BONES/JOINTS: No acute osseous abnormality. SOFT TISSUES: Unremarkable. RAD/Chest PA and Lateral IMPRESSION: No significant interval change. No acute cardiopulmonary disease process identified. Electronically Signed: Job Castillo MD at 23:55 EDT ,
--- NOTE | 2022-06-24 22:13 | EKG12_ITS ---
Test Reason : SOB Blood Pressure : / mmHG Vent. Rate : 104 BPM Atrial Rate : 104 BPM P-R Int : 148 ms QRS Dur : 116 ms QT Int : 356 ms P-R-T Axes : 076 056 022 degrees QTc Int : 468 ms Sinus tachycardia Possible Left atrial enlargement Incomplete right bundle branch block Borderline ECG Confirmed by ELYSIA LOPEZ, MING ([id number]), market editor GERARD MORA ([id number]) on 06/26/2022 2:47:37 PM Referred By: Confirmed By:CHIRAG NAIDU MD
[2022-06-24] MEDS: Ipratropium/Albuterol Sulfate 3 ML AMPUL.NEB INHALATION ×2 (22:31→23:54)
[2022-06-24 22:43] VITALS: PULSE 103; RESP 20
[2022-06-24 22:51] LABS: Absolute Lymphocyte Count 3.14 X10^3/uL (0.83-4.51); Absolute Neutrophil Count 3.9 X10^3/uL (2.0-7.7); Basophil# 0.13 X10^3/uL; Basophil% 1.3 % (0-1); Eosinophils% 21.7 % (0-5); Hematocrit 42.2 % (37-47); Hemoglobin 14.1 g/dL (12.0-15.0); Lymphocyte # 3.14 X10^3/ul (0.83-4.51); Lymphocyte % 31.2 % (19-41); Mean Corp Hgb Conc 33.4 g/dL (32-36); Mean Corpuscular Hgb 29.7 pg (27.0-32.0); Mean Platelet Vol. 10.6 fl (6.2-12.0); Monocyte# 0.74 X10^3/uL; Monocyte% 7.3 % (0-10); NRBC Flagged by Analyzer 0 % (0-5); Neutrophil # 3.85 X10^3/uL (2.7-7.7); Neutrophil % 38.3 % (47-70); POSITIVE DIFFERENTIAL YES; Platelet Count 155 K/mm3 (150-450); RBC Distribution Width CV 13.7 % (11.6-14.6); RBC Distribution Width SD 44.6 fl (35.1-43.9); Red Blood Count 4.74 M/mm3 (4.2-5.4); White Blood Count 10.1 K/mm3 (4.4-11.0)
[2022-06-24 22:56] LABS: Differential Indicated SCAN CRITERIA MET; Eosinophil# 2.19 X10^3/uL
[2022-06-24 23:09] LABS: Anion Gap 8 (5-15); BUN 17 mg/dL (7-18); BUN/Creat Ratio 21.1 RATIO (10-20); Calcium,Total 8.4 mg/dL (8.5-10.1); Chloride 112 mmol/L (98-107); Creatinine, Serum 0.81 mg/dL (0.55-1.02); EST Glomerular Filtration Rate 84 mL/min (>60); Est Glom Filt Rate - Afr Amer 101 mL/min (>60); Estimated Creatinine Clearance 92.89 ml/min; Glucose 106 mg/dL (74-106); Potassium 4.4 mmol/L (3.5-5.1); Sodium Level 140 mmol/L (136-145); Troponin-I HS 11 pg/mL (3.0-54.0)
[2022-06-24] MEDS: MethylPREDNISolone 125 MG/2 ML Vial IV (23:15)
[2022-06-24 23:23] VITALS: O2SAT 92
[2022-06-24 23:31] LABS: Differential Comment SCANNED
[2022-06-24 23:54] VITALS: PULSE 95; RESP 18
[2022-06-25] VITALS (20 sets, daily range): BP systolic 103–124; BP diastolic 64–85; PULSE 60–105; RESP 20–24; TEMP 36–36.9; O2SAT 65–98; BMI 20.4
--- NOTE | 2022-06-25 00:33 | HP.PCM.HOS_ITS ---
HPI - General General Date of Admission: 06/25/22 Date of Service: 06/25/22 Chief Complaint: Dyspnea, wheezing. 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 Work-up in the ED included T97.9, heart initially 109, BP 113/83, respiratory rate 18, 91% on room air however patient eventually was noted to be hypoxic 86% on room air requiring increased supplementation, CBC with WC 10.1, and 114.1, platelet 155 without marked shift, D-dimer 0.40, BMP with chloride 112, carbon oxide 20, calcium 8.4, BNP 16, troponin 11, chest x-ray with no acute cardiopulmonary findings, rapid SARS COVID and influenza antigen negative. In the ED patient ministered Solu-Medrol, magnesium sulfate 1 g IV x1, Haldol 2 mg IV x1 as well as DuoNeb therapies. [facility] Medical History Asthma Embolic stroke involving middle cerebral artery Former tobacco use History of endocarditis History of substance abuse Home Medications gabapentin 600 mg tablet 600 mg PO TID nerve pain 03/07/22 [History Last Taken Unknown] baclofen 10 mg tablet 10 mg PO TID spasms 05/02/22 [History Last Taken Unknown] albuterol sulfate 90 mcg/actuation aerosol inhaler 90 mcg inhalation PRN PRN asthma 30 days #8.5 grams 05/18/22 [Rx Last Taken Unknown] carvedilol 3.125 mg tablet 3.125 mg PO BID blood pressure 05/18/22 [History Last Taken Unknown] mometasone-formoterol HFA 200 mcg-5 mcg/actuation aerosol inhaler 2 inh inhalation Q12H Check with primary doctor 06/25/22 [History Last Taken 06/24/22] Allergy/AdvReac Type Severity Reaction Status Date / Time No Known Allergies Allergy Verified 05/02/22 20:53 Family History (Updated 06/25/22 @ 00:[address] Vani Jiménez MD) Father COPD (chronic obstructive pulmonary disease) Polysubstance abuse Mother Cancer Uterine CA. Surgical History Hx of tracheostomy Previous section S/P percutaneous endoscopic gastrostomy (PEG) tube placement Social History (Updated 06/25/22 @ 00:[address] Vani Jiménez MD) household members: none Smoking Status: Former smoker how long ago did patient quit smoking: Quit smoking 04/2022, smoked ~ 1 ppd since 19 y/o until quit recently. alcohol intake: never substance use type: former substance user Date of last use: Clean x 5 years as of 06/25/22. ROS ROS Narrative Admission Review of Systems: CONSTITUTIONAL: No weight loss, fever, chills, + weakness or fatigue. HEENT: + Mild congestion, sneezing. Eyes: No visual loss, blurred vision, double vision or yellow sclerae. Ears, Nose, Throat: No hearing loss, runny nose or sore throat. SKIN: No rash or itching, lesions, wounds. CARDIOVASCULAR: No chest pain, chest pressure or chest discomfort, palpitations, edema, orthopnea, syncopal events. RESPIRATORY: + shortness of breath, cough without marked sputum, wheezing, No hemoptysis. GASTROINTESTINAL: No anorexia, nausea, vomiting or diarrhea, abdominal pain, melena, BRBPR. GENITOURINARY: No dysuria, frequency, urgency or retention. NEUROLOGICAL: + s/p prior CVA with residual L sided weakness, LUE contractures, altered speech. No headache, dizziness, syncope, change in bowel or bladder control, seizure. MUSCULOSKELETAL: + muscle, back pain, joint pain or stiffness. HEMATOLOGIC: No anemia, bleeding or bruising. LYMPHATICS: No enlarged nodes. No history of splenectomy. PSYCHIATRIC: No history of depression or anxiety. ENDOCRINOLOGIC: No reports of sweating, cold or heat intolerance. No polyuria or polydipsia. ALLERGIES: + history of asthma, rhinitis. Vital Signs Vital Signs Vital Signs: 06/24/22 21:55 06/24/22 21:59 06/24/22 22:43 Temperature 97.9 F Temperature Source Oral Pulse Rate 109 H 103 H Respiratory Rate 18 20 H Respiratory Effort Normal Non-Labored Respiratory Depth Normal Respiratory Pattern Normal Blood Pressure 113/83 H Blood Pressure Mean 93 Pulse Ox 91 Oxygen Delivery Method Room Air Room Air Oxygen Flow Rate (L/min) 06/24/22 23:23 06/24/22 23:54 06/25/22 00:15 Temperature Temperature Source Pulse Rate 95 Respiratory Rate 18 Respiratory Effort Respiratory Depth Respiratory Pattern Blood Pressure Blood Pressure Mean Pulse Ox 92 86 Oxygen Delivery Method Nasal Cannula Room Air Oxygen Flow Rate (L/min) 1 06/25/22 00:00 Temperature Temperature Source Pulse Rate 100 Respiratory Rate 22 H Respiratory Effort Respiratory Depth Respiratory Pattern Blood Pressure 103/71 Blood Pressure Mean 81 Pulse Ox 90 Oxygen Delivery Method Nasal Cannula Oxygen Flow Rate (L/min) 3 Weight Weight: 139 lb 1.787 oz Body Mass Index (BMI) 21.0 Physical Exam Narrative Physical Examination: General: Awake, alert, oriented x 3 and cooperative, seated upright in the ED bed in no apparent distress but fatigued appearing. Skin: Normal color, normal turgor, no icterus, no cyanosis. HEENT: AT/NC, EOMI, PERRLA, moderately dry MM, no carotid bruits or JVD noted, chronically altered speech. Lungs: Diffusely diminished, tight, mildly increased RR but no respiratory distress noted, diffuse inspiratory and expiratory primarily wheezing. Heart: Mildly tachycardic with regular rhythm; no gallop, rub audible. Abdomen: Soft, NTTP, ND, distant normal BS, no HSM. Extremities: No cyanosis, no clubbing, no marked edema, s/p prior CVA w/ L sided weakness, LUE contracture. Neurological: Patient awake, alert, oriented as noted, chronically altered speech s/p CVA, cognitive function intact; pupils equally reactive to light and accommodation, cranial nerves grossly normal, s/p CVA with L sided weakness, LUE w/ chronic contractures, strength moderately to severely globally decreased secondary to underlying comorbidities and acute presentation. Psychiatric: Affect appears fatigued, no acute evidence of depressive or anxiety feelings. Results Lab / Micro Data Result Diagrams: 06/24/22 22:45 06/24/22 22:45 Labs: Laboratory Results - last 24 hr 06/24/22 22:45: WBC 10.1, RBC 4.74, Hgb 14.1, Hct 42.2, MCV 89.0, MCH 29.7, MCHC 33.4, RDW Std Deviation 44.6 H, RDW Coeff of Min 13.7, Plt Count 155, MPV 10.6, Immature Gran % (Auto) 0.200, Neut % (Auto) 38.3 L, Lymph % (Auto) 31.2, [place] % (Auto) 7.3, Eos % (Auto) 21.7 H, Baso % (Auto) 1.3 H, Absolute Neuts (auto) 3.9, Absolute Lymphs (auto) 3.14, Nucleated RBC % 0, Differential Comment SCANNED, Diff Path Review June06/24/22 22:45: Sodium 140, Potassium 4.4, Chloride 112 H, Carbon Dioxide 20.0 L , Anion Gap 8, BUN 17, Creatinine 0.81, Estim Creat Clear Calc 92.89, Est GFR (MDRD) Af Amer 101, Est GFR (MDRD) Non-Af 84, BUN/Creatinine Ratio 21.1 H, Gl ucose 106, Calcium 8.4 L, Troponin I High Sens 11 06/24/22 22:45: B-Natriuretic Peptide 16.0 06/24/22 23:14: D-Dimer Quant (PE/DVT) 0.40 Micro: Microbiology 06/24/22 22:18 Nasal Secretion SARS-CoV-2 & FLU Antigen (Rapid) - Final Radiology Impression Chest X-Ray 06/24/22 22:13 IMPRESSION: No significant interval change. No acute cardiopulmonary disease process identified. 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 #1. Acute hypoxia secondary to Acute on chronic Asthma exacerbation w/ allergic rhinitis: Will admit to medical surgical floor, maintain on oxygen with wean as tolerated to room air, will hold home inhaler and transition in the interim to ATC duonebs, PRN albuterol, IV methylprednisolone, HOB, IS parameters, per cussion vest, will obtain sputum culture if able to provide, procalcitonin, full respiratory viral panel and COVID PCR to be cautious, magnesium sulfate already administered in the ED. #2. Hx Endocarditis with septic emboli and CVA associated: Patient with residual L sided weakness and altered speech, maintain on fall precautions, encourage frequent positional changes, encourage continued clean status, continue chronic baclofen, Coreg therapy, not on statin. #3. Former tobacco use: Encourage continued tobacco cessation. #4. Former Substance abuse: Encourage continued clean status, notes clean x 5 years. #5. DVT prophylaxis: Lovenox. #6. CODE STATUS: Full code. Admission Evaluation Time spent evaluating chart, patient history, patient evaluation, care planning and discussion with specialists: 60 minutes. Charges/Coding Visit Charges Inpatient E&M: 28254 Init Hosp L2
[2022-06-25 01:36] LABS: Procalcitonin < 0.04 ng/mL (0.00-0.09)
[2022-06-25] MEDS: 0.9% Normal Saline 1,000 ML 100 ML IV (02:08)
[2022-06-25] MEDS: DiphenhydrAMINE 25 MG Capsule PO ×2 (02:27→15:01)
[2022-06-25] MEDS: Albuterol 2.5 MG/3 ML VIAL.NEB. INHALATION (05:12)
[2022-06-25] MEDS: Methylprednisolone Sod Succ 40 MG/ML VIAL IV ×3 (07:00→21:30)
[2022-06-25] MEDS: busPIRone 5 MG Tablet PO ×3 (07:01→21:29)
[2022-06-25] MEDS: Baclofen 10 MG Tablet PO ×3 (07:01→21:29)
[2022-06-25] MEDS: 0.9% Saline Lock 10 ML Syringe IV ×2 (07:04→21:49)
[2022-06-25] MEDS: Gabapentin 600 MG Tablet PO ×3 (07:06→21:29)
[2022-06-25 07:18] LABS: Absolute Lymphocyte Count 0.86 X10^3/uL (0.83-4.51); Absolute Neutrophil Count 6.1 X10^3/uL (2.0-7.7); Basophil# 0.05 X10^3/uL; Basophil% 0.7 % (0-1); Eosinophil# 0.04 X10^3/uL; Eosinophils% 0.6 % (0-5); Hematocrit 41.6 % (37-47); Hemoglobin 14.4 g/dL (12.0-15.0); Lymphocyte # 0.86 X10^3/ul (0.83-4.51); Mean Corp Hgb Conc 34.6 g/dL (32-36); Mean Corpuscular Hgb 30.4 pg (27.0-32.0); Mean Corpuscular Volume 87.9 fL (81-99); Mean Platelet Vol. 10.9 fl (6.2-12.0); Monocyte# 0.07 X10^3/uL; NRBC Flagged by Analyzer 0 % (0-5); Neutrophil # 6.08 X10^3/uL (2.7-7.7); Neutrophil % 85.1 % (47-70); Platelet Count 144 K/mm3 (150-450); RBC Distribution Width CV 13.7 % (11.6-14.6); RBC Distribution Width SD 43.8 fl (35.1-43.9); Red Blood Count 4.73 M/mm3 (4.2-5.4); White Blood Count 7.1 K/mm3 (4.4-11.0)
[2022-06-25 07:53] LABS: AST(SGOT) 18 U/L (15-37); Alanine Aminotransfer ALT/SGPT 18 U/L (13-56); Albumin, Serum 3.6 g/dL (3.2-5.0); Alkaline Phosphatase 79 U/L (45-117); Anion Gap 8 (5-15); BUN 16 mg/dL (7-18); BUN/Creat Ratio 19.6 RATIO (10-20); Calcium,Total 8.5 mg/dL (8.5-10.1); Chloride 108 mmol/L (98-107); Creatinine, Serum 0.82 mg/dL (0.55-1.02); EST Glomerular Filtration Rate 83 mL/min (>60); Est Glom Filt Rate - Afr Amer 100 mL/min (>60); Estimated Creatinine Clearance 88.55 ml/min; Globulin 3.7 g/dL (2.2-4.2); Glucose 182 mg/dL (74-106); Protein, Total 7.3 g/dL (6.4-8.2); Sodium Level 137 mmol/L (136-145)
[2022-06-25] MEDS: Ipratropium/Albuterol Sulfate 3 ML AMPUL.NEB INHALATION ×4 (07:55→19:44)
[2022-06-25] MEDS: Menthol/Lanolin/Calamine/Znox 113 GM Tube 1 APPLIC TOPICAL ×2 (11:10→21:30)
[2022-06-25] MEDS: Enoxaparin 40 MG/0.4 ML Syringe SC (11:11)
[2022-06-25] MEDS: Carvedilol 3.125 MG TABLET PO ×2 (11:12→21:29)
--- NOTE | 2022-06-25 11:26 | CPS ---
Pt is unable to I.S. or PEP Therapy. Pt did not want to try Vest Therapy @this time but says she will at the next tx.
--- NOTE | 2022-06-25 11:28 | NURSING ---
pt assisted with ordering diet, pt request aerosol and CPS notified pt unable to produce sputum at this time but given cup and instructions for collection
--- NOTE | 2022-06-25 11:38 | PN_ITS ---
Subjective Subjective Patient seen and examined. She was lying in bed. She had no active complaints. Her breathing had improved. She was on 4L of oxygen, though she said she felt her breathing was improving. Review of systems is otherwise negative. Objective Data Objective Data Vital Signs: Vital Signs Temp Pulse Resp BP Pulse Ox O2 Del Method O2 Flow Rate 98.1 F 85 20 H 118/70 97 Nasal Cannula 4 06/25/22 08:56 06/25/22 11:26 06/25/22 11:26 06/25/22 08:56 06/25/22 08:56 06/25/22 08:56 06/25/22 08:56 Oxygen Flow Rate (L/min) 4 Oxygen Delivery Method Nasal Cannula Weight: 134 lb 4.184 oz Body Mass Index (BMI) 20.4 Intake & Output: Intake and Output for Last 24 Hours 06/23/22 06/24/22 06/25/22 23:59 23:59 23:59 Intake Total 102 / 102 Output Total 50 / 50 Balance 102 / 102 -50 / -50 Lab / Micro Data Result Diagrams: 06/25/22 06:50 06/25/22 06:50 Labs: Laboratory Results - last 24 hr 06/24/22 22:45: WBC 10.1, RBC 4.74, Hgb 14.1, Hct 42.2, MCV 89.0, MCH 29.7, MCHC 33.4, RDW Std Deviation 44.6 H, RDW Coeff of Min 13.7, Plt Count 155, MPV 10.6, Immature Gran % (Auto) 0.200, Neut % (Auto) 38.3 L, Lymph % (Auto) 31.2, [place] % (Auto) 7.3, Eos % (Auto) 21.7 H, Baso % (Auto) 1.3 H, Absolute Neuts (auto) 3.9, Absolute Lymphs (auto) 3.14, Nucleated RBC % 0, Differential Comment SCANNED, Diff Path Review June06/24/22 22:45: Sodium 140, Potassium 4.4, Chloride 112 H, Carbon Dioxide 20.0 L , Anion Gap 8, BUN 17, Creatinine 0.81, Estim Creat Clear Calc 92.89, Est GFR (MDRD) Af Amer 101, Est GFR (MDRD) Non-Af 84, BUN/Creatinine Ratio 21.1 H, Glucose 106, Calcium 8.4 L, Troponin I High Sens 11 06/24/22 22:45: B-Natriuretic Peptide 16.0 06/24/22 23:14: D-Dimer Quant (PE/DVT) 0.40 06/25/22 00:45: Procalcitonin < 0.04 06/25/22 00:45: COVID-19 ([place]) Not Detected 06/25/22 06:50: WBC 7.1, RBC 4.73, Hgb 14.4, Hct 41.6, MCV 87.9, MCH 30.4, MCHC 34.6, RDW Std Deviation 43.8, RDW Coeff of Min 13.7, Plt Count 144 L, MPV 10.9, Immature Gran % (Auto) 0.600, Neut % (Auto) 85.1 H, Lymph % (Auto) 12.0 L, [place] % (Auto) 1.0, Eos % (Auto) 0.6, Baso % (Auto) 0.7, Absolute Neuts (auto) 6.1, Absolute Lymphs (auto) 0.86, Nucleated RBC % 0 06/25/22 06:50: Sodium 137, Potassium 4.0, Chloride 108 H, Carbon Dioxide 21.0, Anion Gap 8, BUN 16, Creatinine 0.82, Estim Creat Clear Calc 88.55, Est GFR (MDRD) Af Amer 100, Est GFR (MDRD) Non-Af 83, BUN/Creatinine Ratio 19.6, Glucose 182 H, Calcium 8.5, Total Bilirubin 0.40, AST 18, ALT 18, Alkaline Phosphatase 79, Total Protein 7.3, Albumin 3.6, Globulin 3.7, Albumin/Globulin Ratio 1.0 Micro: Microbiology 06/25/22 00:45 Mucosa - Nose Respiratory Panel (PCR) - Final 06/24/22 22:18 Nasal Secretion SARS-CoV-2 & FLU Antigen (Rapid) - Final Radiography Diagnostic Testing: Radiology Impression Chest X-Ray 06/24/22 22:13 IMPRESSION: No significant interval change. No acute cardiopulmonary disease process identified. Electronically Signed: Job Castillo MD at 23:55 EDT , Physical Exam Const alert and oriented x3 Constitutional Narrative: frail HEENT normocephalic, head/scalp atraumatic, moist oral mucous membranes and oropharynx normal Eyes PERRL and EOMs intact bilaterally Neck no lymphadenopathy and supple Lymph Lymphatic: no lymphadenopathy noted and no lymphedema noted Resp Resp Narrative: mildly diminished breath sounds bibasally, few crackles and rhonchi. On 4L of oxygen by nasal canula. Auscultation: rhonchi and wheezes Cardio regular rate, regular rhythm, S1 normal heart sound, S2 normal heart sound and no murmurs GI normal to inspection, nondistended, normoactive bowel sounds, soft to palpation and non-tender Extremity normal capillary refill, no clubbing, cyanosis or edema and no calf tenderness Skin General Skin Exam: no breakdown Neuro CN's II-XII intact bilaterally, no focal motor deficits and no sensory deficits noted Neuro Narrative: chronic left sided weakness Psych thought process normal, cooperative and affect normal Appearance: appropriate Assessment & Plan Assessment/Plan (1) Asthma exacerbation: PLAN: Plan # Hypoxia due to acute asthma exacerbation * on 4L of oxygen. * on IV solumedrol * breathing treatment with bronchodilators. * titrate oxygen to maintain sats >90% * respiratory panel was negative for influenza and covid 19 infection. * #History of CVA due to septic emboli from infective endocarditis * has residual left sided weakness * fall precautions. * on baclofen. Not on statin; unclear why * Pt/OT on board. Fall precautions. * #Hypertension; on carvedilol. DVT prophylaxis; lovenox Total time spent on evaluation and management of patient, reviewing chart and specialist notes, discussing plan with patient, discussion with nursing and a ncillary staff as well as documentation: 42 mins Charges/Coding Visit Charges Inpatient E&M: 89978 Subs Hosp L2
[2022-06-25] MEDS: guaiFENesin 1,200 MG Tablet 1200 MG PO ×2 (16:30→21:34)
[2022-06-25] MEDS: traZODone 50 MG Tablet PO (21:29)
[2022-06-26] VITALS (10 sets, daily range): BP systolic 105–112; BP diastolic 60–72; PULSE 72–104; RESP 18–20; TEMP 36.2–36.5; O2SAT 94–96
--- NOTE | 2022-06-26 03:22 | NURSING ---
Pt got into a coughing spell. po drop to 84%. resp called for breathing tx. increased 02 to 4lnc. Pt very anxious at this time
[2022-06-26] MEDS: Ipratropium/Albuterol Sulfate 3 ML AMPUL.NEB INHALATION ×5 (03:34→19:32)
[2022-06-26] MEDS: DiphenhydrAMINE 25 MG Capsule PO ×2 (03:53→23:05)
[2022-06-26] MEDS: Methylprednisolone Sod Succ 40 MG/ML VIAL IV ×3 (05:57→22:40)
[2022-06-26] MEDS: Baclofen 10 MG Tablet PO ×3 (05:57→22:41)
[2022-06-26] MEDS: Gabapentin 600 MG Tablet PO ×3 (05:57→22:41)
[2022-06-26] MEDS: busPIRone 5 MG Tablet PO ×3 (05:58→22:41)
[2022-06-26] MEDS: 0.9% Saline Lock 10 ML Syringe IV ×2 (05:59→22:50)
[2022-06-26 06:27] LABS: Absolute Lymphocyte Count 0.89 X10^3/uL (0.83-4.51); Absolute Neutrophil Count 8.8 X10^3/uL (2.0-7.7); Basophil# 0.02 X10^3/uL; Basophil% 0.2 % (0-1); Hematocrit 38.2 % (37-47); Hemoglobin 13.1 g/dL (12.0-15.0); Lymphocyte # 0.89 X10^3/ul (0.83-4.51); Lymphocyte % 8.8 % (19-41); Mean Corp Hgb Conc 34.3 g/dL (32-36); Mean Corpuscular Hgb 30.6 pg (27.0-32.0); Mean Corpuscular Volume 89.3 fL (81-99); Mean Platelet Vol. 11.2 fl (6.2-12.0); Monocyte% 3.9 % (0-10); NRBC Flagged by Analyzer 0 % (0-5); Neutrophil # 8.77 X10^3/uL (2.7-7.7); Neutrophil % 86.5 % (47-70); Platelet Count 131 K/mm3 (150-450); RBC Distribution Width CV 14.1 % (11.6-14.6); RBC Distribution Width SD 45.2 fl (35.1-43.9); Red Blood Count 4.28 M/mm3 (4.2-5.4); White Blood Count 10.1 K/mm3 (4.4-11.0)
[2022-06-26 07:00] LABS: Anion Gap 6 (5-15); BUN 15 mg/dL (7-18); BUN/Creat Ratio 28.8 RATIO (10-20); Calcium,Total 8.3 mg/dL (8.5-10.1); Chloride 109 mmol/L (98-107); Creatinine, Serum 0.52 mg/dL (0.55-1.02); EST Glomerular Filtration Rate 139 mL/min (>60); Est Glom Filt Rate - Afr Amer 168 mL/min (>60); Estimated Creatinine Clearance 139.64 ml/min; Glucose 219 mg/dL (74-106); Potassium 3.9 mmol/L (3.5-5.1); Sodium Level 140 mmol/L (136-145)
--- NOTE | 2022-06-26 07:44 | CPS ---
pt refused vest this morning
--- NOTE | 2022-06-26 08:31 | PN.HOSP_ITS ---
Reason for Visit Reason for Visit: Diagnoses Unspecified asthma with (acute) exacerbation (06/25/22) Subjective Subjective Sitting up in bed but very sleepy at time of exam Objective Data Objective Data Vital Signs: Vital Signs Temp Pulse Resp BP Pulse Ox O2 Del Method O2 Flow Rate 97.7 F L 90 18 105/64 94 Nasal Cannula 3 06/26/22 03:46 06/26/22 07:43 06/26/22 07:43 06/26/22 03:46 06/26/22 07:43 06/26/22 07:43 06/26/22 07:43 Oxygen Flow Rate (L/min) 3 Oxygen Delivery Method Nasal Cannula Weight: 60.9 kg Body Mass Index (BMI) 20.4 Intake & Output: Intake and Output for Last 24 Hours 06/24/22 06/25/22 06/26/22 23:59 23:59 23:59 Intake Total 102 / 102 2156 / 2156 Output Total 50 / 300 350 / 350 Balance 102 / 102 2106 / 1856 -350 / -350 Lab / Micro Data Result Diagrams: 06/26/22 05:54 06/26/22 05:54 Labs: Laboratory Results - last 24 hr 06/26/22 05:54: WBC 10.1, RBC 4.28, Hgb 13.1, Hct 38.2, MCV 89.3, MCH 30.6, MCHC 34.3, RDW Std Deviation 45.2 H, RDW Coeff of Min 14.1, Plt Count 131 L, MPV 11.2, Immature Gran % (Auto) 0.600, Neut % (Auto) 86.5 H, Lymph % (Auto) 8.8 L, [place] % (Auto) 3.9, Eos % (Auto) 0.0, Baso % (Auto) 0.2, Absolute Neuts (auto) 8.8 H, Absolute Lymphs (auto) 0.89, Nucleated RBC % 0 06/26/22 05:54: Sodium 140, Potassium 3.9, Chloride 109 H, Carbon Dioxide 25.0, Anion Gap 6, BUN 15, Creatinine 0.52 L, Estim Creat Clear Calc 139.64, Est GFR (MDRD) Af Amer 168, Est GFR (MDRD) Non-Af 139, BUN/Creatinine Ratio 28.8 H, Glucose 219 H, Calcium 8.3 L Micro: Microbiology 06/25/22 00:45 Mucosa - Nose Respiratory Panel (PCR) - Final 06/24/22 22:18 Nasal Secretion SARS-CoV-2 & FLU Antigen (Rapid) - Final Physical Exam Narrative General: Tired HEENT: Atraumatic, normocephalic Eyes: Anicteric, normal conjunctiva, extraocular movements grossly intact Neck: Supple Respiratory: Somewhat diminished bilaterally, normal respiratory effort Cardiovascular: Regular rate and rhythm GI: Soft, nontender, nondistended Extremities: No edema Musculoskeletal: Moving all extremities Neuro: Chronic deficits from previous stroke Skin: No rashes appreciated Psych: Cooperative Assessment & Plan Assessment/Plan (1) Asthma exacerbation: PLAN: Plan # Hypoxia due to acute asthma exacerbation * on 4L of oxygen. * on IV solumedrol * breathing treatment with bronchodilators. * titrate oxygen to maintain sats >90% * respiratory panel was negative for influenza and covid 19 infection. -06/26: Weaning O2, currently on 3 L, remains on IV Solu-Medrol and DuoNebs, will de-escalate as tolerated #History of CVA due to septic emboli from infective endocarditis * has residual left sided weakness * fall precautions. * on baclofen. Not on statin; unclear why * Pt/OT on board. Fall precautions. #Hypertension; on carvedilol. DVT prophylaxis; lovenox subq Total time spent on evaluation and management of patient, reviewing chart and specialist notes, discussing plan with patient, discussion with nursing and ancillary staff as well as documentation: 30 mins Charges/Coding Visit Charges Inpatient E&M: 58745 Subs Hosp L2
[2022-06-26] MEDS: Carvedilol 3.125 MG TABLET PO ×2 (09:31→22:41)
[2022-06-26] MEDS: Menthol/Lanolin/Calamine/Znox 113 GM Tube 1 APPLIC TOPICAL ×2 (09:31→23:14)
[2022-06-26] MEDS: Enoxaparin 40 MG/0.4 ML Syringe SC (09:32)
[2022-06-26] MEDS: guaiFENesin 1,200 MG Tablet 1200 MG PO ×2 (09:32→22:42)
--- NOTE | 2022-06-26 14:04 | CHAPLAIN ---
Type of Pastoral Visit _x__ Initial Visit ___ Follow-up Visit ___ On-call Visit ___ General Patient Visit ___ Spiritual Assessment ___ Family Conference ___ Bereavement ___ Rapid Response ___ Code Blue ___ Other (describe below) Pastoral Care Referral From _x__ Patient ___ Family ___ Nurse ___ Physician ___ Screener Operator ___ Financial Reporting Accountant ___ Other (describe below) Sacrament/Intervention _x__ Active listening ___ Anointing ___ Worship ___ Bereavement ___ Communion ___ Nancy exploration ___ ___ Life review _x__ Prayer ___ Reconciliation ___ Sacrament of Sick _x__ Supportive presence ___ Wedding ___ Other (describe below) Pastoral Comments patient is welcoming but is also hard to understand as her voice is petite and abnormal sounding; pt says she has lived with asthma all her life; pt has supportive instrument and electrical technician; pt asks for prayer
[2022-06-26] MEDS: traZODone 50 MG Tablet PO (22:41)
[2022-06-26] MEDS: Ibuprofen 400 MG Tablet PO (22:49)
[2022-06-27] VITALS (11 sets, daily range): BP systolic 97–113; BP diastolic 59–80; PULSE 76–92; RESP 16–26; TEMP 36.1–36.7; O2SAT 80–97
[2022-06-27] MEDS: Methylprednisolone Sod Succ 40 MG/ML VIAL IV (05:24)
[2022-06-27] MEDS: Gabapentin 600 MG Tablet PO ×3 (05:24→23:27)
[2022-06-27] MEDS: busPIRone 5 MG Tablet PO ×3 (05:25→23:26)
[2022-06-27] MEDS: Baclofen 10 MG Tablet PO ×3 (05:25→23:27)
[2022-06-27] MEDS: Ibuprofen 400 MG Tablet PO ×2 (05:25→23:41)
[2022-06-27] MEDS: 0.9% Saline Lock 10 ML Syringe IV (05:31)
[2022-06-27] MEDS: Ipratropium/Albuterol Sulfate 3 ML AMPUL.NEB INHALATION ×3 (07:15→19:30)
[2022-06-27 07:36] LABS: Absolute Lymphocyte Count 0.86 X10^3/uL (0.83-4.51); Absolute Neutrophil Count 10.1 X10^3/uL (2.0-7.7); Basophil# 0.01 X10^3/uL; Basophil% 0.1 % (0-1); Hematocrit 39.2 % (37-47); Hemoglobin 13.2 g/dL (12.0-15.0); Lymphocyte # 0.86 X10^3/ul (0.83-4.51); Lymphocyte % 7.5 % (19-41); Mean Corp Hgb Conc 33.7 g/dL (32-36); Mean Corpuscular Hgb 30.2 pg (27.0-32.0); Mean Corpuscular Volume 89.7 fL (81-99); Mean Platelet Vol. 10.9 fl (6.2-12.0); Monocyte# 0.46 X10^3/uL; NRBC Flagged by Analyzer 0 % (0-5); Neutrophil # 10.11 X10^3/uL (2.7-7.7); Neutrophil % 87.5 % (47-70); Platelet Count 148 K/mm3 (150-450); RBC Distribution Width CV 13.8 % (11.6-14.6); RBC Distribution Width SD 45.5 fl (35.1-43.9); Red Blood Count 4.37 M/mm3 (4.2-5.4); White Blood Count 11.5 K/mm3 (4.4-11.0)
[2022-06-27 07:55] LABS: AST(SGOT) 8 U/L (15-37); Alanine Aminotransfer ALT/SGPT 13 U/L (13-56); Albumin, Serum 3.1 g/dL (3.2-5.0); Alkaline Phosphatase 77 U/L (45-117); Anion Gap 5 (5-15); BUN 17 mg/dL (7-18); BUN/Creat Ratio 28.1 RATIO (10-20); Calcium,Total 8.2 mg/dL (8.5-10.1); Chloride 107 mmol/L (98-107); EST Glomerular Filtration Rate 117 mL/min (>60); Est Glom Filt Rate - Afr Amer 142 mL/min (>60); Estimated Creatinine Clearance 121.02 ml/min; Glucose 120 mg/dL (74-106); Protein, Total 6.1 g/dL (6.4-8.2); Sodium Level 140 mmol/L (136-145)
--- NOTE | 2022-06-27 08:34 | PN.HOSP_ITS ---
Reason for Visit Reason for Visit: Diagnoses Unspecified asthma with (acute) exacerbation (06/25/22) Subjective Subjective Still short of breath and coughing, does feel she is slowly improving Objective Data Objective Data Vital Signs: Vital Signs Temp Pulse Resp BP Pulse Ox O2 Del Method O2 Flow Rate 98.1 F 76 16 104/65 96 Room Air 2 06/27/22 07:59 06/27/22 07:59 06/27/22 07:59 06/27/22 07:59 06/27/22 08:04 06/27/22 08:04 06/27/22 07:59 Oxygen Flow Rate (L/min) 2 Oxygen Delivery Method Room Air Weight: 60.9 kg Body Mass Index (BMI) 20.4 Intake & Output: Intake and Output for Last 24 Hours 06/25/22 06/26/22 06/27/22 23:59 23:59 23:59 Intake Total 2156 / 2156 600 / 600 Output Total 50 / 300 850 / 850 Balance 2106 / 1856 -250 / -250 Lab / Micro Data Result Diagrams: 06/27/22 07:05 06/27/22 07:05 Labs: Laboratory Results - last 24 hr 06/27/22 07:05: WBC 11.5 H, RBC 4.37, Hgb 13.2, Hct 39.2, MCV 89.7, MCH 30.2, MCHC 33.7, RDW Std Deviation 45.5 H, RDW Coeff of Min 13.8, Plt Count 148 L, MPV 10.9, Immature Gran % (Auto) 0.900, Neut % (Auto) 87.5 H, Lymph % (Auto) 7.5 L, [place] % (Auto) 4.0, Eos % (Auto) 0.0, Baso % (Auto) 0.1, Absolute Neuts (auto) 10.1 H, Absolute Lymphs (auto) 0.86, Nucleated RBC % 0 06/27/22 07:05: Sodium 140, Potassium 4.0, Chloride 107, Carbon Dioxide 28.0, Anion Gap 5, BUN 17, Creatinine 0.60, Estim Creat Clear Calc 121.02, Est GFR (MDRD) Af Amer 142, Est GFR (MDRD) Non-Af 117, BUN/Creatinine Ratio 28.1 H, Glucose 120 H, Calcium 8.2 L, Total Bilirubin 0.30, AST 8 L, ALT 13, Alkaline Phosphatase 77, Total Protein 6.1 L, Albumin 3.1 L, Globulin 3.0, Albumin/Globulin Ratio 1.0 Micro: Microbiology 06/25/22 00:45 Mucosa - Nose Respiratory Panel (PCR) - Final 06/24/22 22:18 Nasal Secretion SARS-CoV-2 & FLU Antigen (Rapid) - Final Physical Exam Narrative General: Awake, alert, oriented HEENT: Atraumatic, normocephalic Eyes: Anicteric, normal conjunctiva, extraocular movements grossly intact Neck: Supple Respiratory: Somewhat diminished bilaterally, normal respiratory effort Cardiovascular: Regular rate and rhythm GI: Soft, nontender, nondistended Extremities: No edema Musculoskeletal: Moving all extremities Neuro: Chronic deficits from previous stroke Skin: No rashes appreciated Psych: Cooperative Assessment & Plan Assessment/Plan (1) Asthma exacerbation: PLAN: Plan # Hypoxia due to acute asthma exacerbation * on 4L of oxygen. * on IV solumedrol * breathing treatment with bronchodilators. * titrate oxygen to maintain sats >90% * respiratory panel was negative for influenza and covid 19 infection. -06/26: Weaning O2, currently on 3 L, remains on IV Solu-Medrol and DuoNebs, will de-escalate as tolerated -06/27: De-escalating IV Solu-Medrol to p.o. prednisone and will likely benefit from outpatient taper, DuoNebs changed to every 4 and as she was on home inhaled corticosteroid previously budesonide added. Possible DC tomorrow if tolerating this #History of CVA due to septic emboli from infective endocarditis * has residual left sided weakness * fall precautions. * on baclofen. #Hypertension; on carvedilol. DVT prophylaxis; lovenox subq Total time spent on evaluation and management of patient, reviewing chart and specialist notes, discussing plan with patient, discussion with nursing and ancillary staff as well as documentation: 30 mins Charges/Coding Visit Charges Inpatient E&M: 50030 Subs Hosp L2
[2022-06-27 09:35] LABS: Pathologist Review Reviewed
[2022-06-27] MEDS: Menthol/Lanolin/Calamine/Znox 113 GM Tube 1 APPLIC TOPICAL ×2 (10:50→23:27)
[2022-06-27] MEDS: guaiFENesin 1,200 MG Tablet 1200 MG PO ×2 (10:51→23:27)
[2022-06-27] MEDS: Carvedilol 3.125 MG TABLET PO ×2 (10:51→23:26)
[2022-06-27] MEDS: Enoxaparin 40 MG/0.4 ML Syringe SC (10:51)
--- NOTE | 2022-06-27 10:58 | CASEMGMT ---
BUBBA COOPER Assessment: Face to Face with pt for initial transition planning/care coordination assessment. RN ALLISON introduced self and role at [facility], pt voices understanding and consents to assessment. Pt is A/O x4 and answers all questions appropriately at this time. Pt at times is difficult to understand and writes answers with pen and paper. Pt sitting up in bed on RA in no distress. Care providers, pharmacy, and demographics verified/updated. Admitting Dx: asthma exac, hypoxia PCP:Mandy Acosta in [place] Specialists:Pt denies. Preferred Pharmacy: [facility] Insurance: [facility] Prescription Benefit: yes LNOK: SARAH Kate; Gael Pavon, sig other Living Arrangements: Pt lives with sig other in a two story home with 1 step to enter. Pt uses a w/c to enter and sig other lifts over the step. Sig other assists with all ADL/IADL's. Transportation: Pt sig other transports to medical appts. DME/HHC/SNF: Pt has a nebulizer and w/c at home. Pt denies hx of [facility] and has been to [facility] in [facility]. Pt states no concerns with going home at time of dc. She states it is ok to contact her sig other. She is asking for a new w/c. Will discuss with hospitalist. Pt states no further concerns/needs. CM to follow. Advised pt to ask CM if any further question/concerns/needs arise, voices understanding. Pt Goal: Home Plan: Home TC to sig other. He states he is able and willing to continue caring for pt and denies any other needs in the home.
--- NOTE | 2022-06-27 11:13 | NS ---
Call from BUBBA Luna- pt w/ hx of stroke, needs foods cut up. Added cut up foods to diet order. Earle Huerta MS, RDN, LD
[2022-06-27] MEDS: Budesonide Respules 0.5 MG/2 ML AMPUL.NEB. INHALATION (19:30)
[2022-06-27] MEDS: traZODone 50 MG Tablet PO (23:26)
[2022-06-27] MEDS: DiphenhydrAMINE 25 MG Capsule PO (23:42)
[2022-06-28] VITALS (10 sets, daily range): BP systolic 94–109; BP diastolic 58–70; PULSE 76–104; RESP 16–26; TEMP 36.4–36.8; O2SAT 93–97
[2022-06-28] MEDS: Ipratropium/Albuterol Sulfate 3 ML AMPUL.NEB INHALATION ×3 (00:35→19:44)
[2022-06-28 06:23] LABS: Absolute Lymphocyte Count 3.05 X10^3/uL (0.83-4.51); Absolute Neutrophil Count 4.7 X10^3/uL (2.0-7.7); Basophil# 0.01 X10^3/uL; Basophil% 0.1 % (0-1); Eosinophil# 0.02 X10^3/uL; Eosinophils% 0.2 % (0-5); Hematocrit 39.1 % (37-47); Hemoglobin 13.1 g/dL (12.0-15.0); Lymphocyte # 3.05 X10^3/ul (0.83-4.51); Lymphocyte % 35.4 % (19-41); Mean Corp Hgb Conc 33.5 g/dL (32-36); Mean Corpuscular Hgb 30.1 pg (27.0-32.0); Mean Corpuscular Volume 89.9 fL (81-99); Mean Platelet Vol. 10.3 fl (6.2-12.0); Monocyte# 0.83 X10^3/uL; Monocyte% 9.6 % (0-10); NRBC Flagged by Analyzer 0 % (0-5); Neutrophil # 4.65 X10^3/uL (2.7-7.7); Neutrophil % 54.1 % (47-70); Platelet Count 135 K/mm3 (150-450); RBC Distribution Width SD 46.1 fl (35.1-43.9); Red Blood Count 4.35 M/mm3 (4.2-5.4); White Blood Count 8.6 K/mm3 (4.4-11.0)
[2022-06-28 07:04] LABS: AST(SGOT) 9 U/L (15-37); Alanine Aminotransfer ALT/SGPT 14 U/L (13-56); Albumin, Serum 2.9 g/dL (3.2-5.0); Alkaline Phosphatase 65 U/L (45-117); Anion Gap 4 (5-15); BUN 23 mg/dL (7-18); BUN/Creat Ratio 35.3 RATIO (10-20); Calcium,Total 7.9 mg/dL (8.5-10.1); Chloride 107 mmol/L (98-107); Creatinine, Serum 0.65 mg/dL (0.55-1.02); EST Glomerular Filtration Rate 107 mL/min (>60); Est Glom Filt Rate - Afr Amer 130 mL/min (>60); Estimated Creatinine Clearance 111.72 ml/min; Globulin 2.9 g/dL (2.2-4.2); Glucose 88 mg/dL (74-106); Potassium 3.4 mmol/L (3.5-5.1); Protein, Total 5.8 g/dL (6.4-8.2); Sodium Level 140 mmol/L (136-145)
[2022-06-28] MEDS: Baclofen 10 MG Tablet PO (10:02)
[2022-06-28] MEDS: Carvedilol 3.125 MG TABLET PO ×2 (10:02→22:55)
[2022-06-28] MEDS: predniSONE 20 MG Tablet 60 MG PO (10:02)
[2022-06-28] MEDS: busPIRone 5 MG Tablet PO ×3 (10:02→23:27)
[2022-06-28] MEDS: guaiFENesin 1,200 MG Tablet 1200 MG PO ×2 (10:02→22:55)
[2022-06-28] MEDS: Enoxaparin 40 MG/0.4 ML Syringe SC (10:02)
[2022-06-28] MEDS: Menthol/Lanolin/Calamine/Znox 113 GM Tube 1 APPLIC TOPICAL ×2 (10:03→22:54)
[2022-06-28] MEDS: Potassium Chloride Oral Tablet 20 MEQ 40 MEQ PO (10:03)
[2022-06-28] MEDS: Gabapentin 600 MG Tablet PO ×3 (10:03→22:55)
[2022-06-28] MEDS: Albuterol 2.5 MG/3 ML VIAL.NEB. INHALATION (10:15)
--- NOTE | 2022-06-28 13:11 | PN.HOSP_ITS ---
Reason for Visit Reason for Visit: Diagnoses Unspecified asthma with (acute) exacerbation (06/25/22) Subjective Subjective Had been resting comfortably this morning but felt it became harder to breathe as the day went on, since she had slight cough but had not been able to bring up any sputum Objective Data Objective Data Vital Signs: Vital Signs Temp Pulse Resp BP Pulse Ox O2 Del Method O2 Flow Rate 97.8 F 104 H 26 H 108/67 93 Nasal Cannula 2 06/28/22 09:30 06/28/22 12:58 06/28/22 12:58 06/28/22 09:30 06/28/22 09:30 06/28/22 09:30 06/28/22 09:30 Oxygen Flow Rate (L/min) 2 Oxygen Delivery Method Nasal Cannula Weight: 60.9 kg Body Mass Index (BMI) 20.4 Intake & Output: Intake and Output for Last 24 Hours 06/26/22 06/27/22 06/28/22 23:59 23:59 23:59 Intake Total 600 / 600 Output Total 850 / 850 500 / 500 Balance -250 / -250 -500 / -500 Lab / Micro Data Result Diagrams: 06/28/22 06:14 06/28/22 06:14 Labs: Laboratory Results - last 24 hr 06/28/22 06:14: WBC 8.6, RBC 4.35, Hgb 13.1, Hct 39.1, MCV 89.9, MCH 30.1, MCHC 33.5, RDW Std Deviation 46.1 H, RDW Coeff of Min 14.0, Plt Count 135 L, MPV 10.3, Immature Gran % (Auto) 0.600, Neut % (Auto) 54.1, Lymph % (Auto) 35.4, [place] % (Auto) 9.6, Eos % (Auto) 0.2, Baso % (Auto) 0.1, Absolute Neuts (auto) 4.7, Absolute Lymphs (auto) 3.05, Nucleated RBC % 0 06/28/22 06:14: Sodium 140, Potassium 3.4 L, Chloride 107, Carbon Dioxide 29.0, Anion Gap 4 L, BUN 23 H, Creatinine 0.65, Estim Creat Clear Calc 111.72, Est GFR (MDRD) Af Amer 130, Est GFR (MDRD) Non-Af 107, BUN/Creatinine Ratio 35.3 H, G lucose 88, Calcium 7.9 L, Total Bilirubin 0.30, AST 9 L, ALT 14, Alkaline Phosphatase 65, Total Protein 5.8 L, Albumin 2.9 L, Globulin 2.9, Albumin/Globulin Ratio 1.0 Micro: Microbiology 06/25/22 00:45 Mucosa - Nose Respiratory Panel (PCR) - Final 06/24/22 22:18 Nasal Secretion SARS-CoV-2 & FLU Antigen (Rapid) - Final Physical Exam Narrative General: Awake, alert, oriented HEENT: Atraumatic, normocephalic Eyes: Anicteric, normal conjunctiva, extraocular movements grossly intact Neck: Supple Respiratory: On reevaluation diffuse wheezing today, somewhat increased respiratory effort Cardiovascular: Regular rate and rhythm GI: Soft, nontender, nondistended Extremities: No edema Musculoskeletal: Chronic deficits from previous stroke noted Neuro: Chronic deficits from previous stroke Skin: No rashes appreciated Psych: Cooperative Assessment & Plan Assessment/Plan (1) Asthma exacerbation: PLAN: Plan # Hypoxia due to acute asthma exacerbation * on 4L of oxygen. * on IV solumedrol * breathing treatment with bronchodilators. * titrate oxygen to maintain sats >90% * respiratory panel was negative for influenza and covid 19 infection. -06/26: Weaning O2, currently on 3 L, remains on IV Solu-Medrol and DuoNebs, will de-escalate as tolerated -06/27: De-escalating IV Solu-Medrol to p.o. prednisone and will likely benefit from outpatient taper, DuoNebs changed to every 4 and as she was on home inhaled corticosteroid previously budesonide added. Possible DC tomorrow if tolerating this -06/28: Had difficulty with de-escalation of steroids and spacing out of nebs and has been acutely wheezy and more tachypneic. 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 * on baclofen. #Hypertension; on carvedilol. DVT prophylaxis; lovenox subq Total time spent on evaluation and management of patient, reviewing chart and specialist notes, discussing plan with patient, discussion with nursing and ancillary staff as well as documentation: 30 mins Charges/Coding Visit Charges Inpatient E&M: 32041 Subs Hosp L2
--- NOTE | 2022-06-28 13:15 | RAD_ITS ---
STUDY: X-RAY CHEST REASON FOR EXAM: Female, 41 years old. Respiratory distress TECHNIQUE: AP and lateral views of the chest. COMPARISON: Comparison is made with prior study dated June 24, 2022. FINDINGS: The lungs are clear and expanded. There is no demonstrated pleural abnormality. There is moderate cardiac enlargement. Normal mediastinum and krystin. Normal visualized pulmonary arteries. Normal visualized aortic arch and descending thoracic aorta. Normal visualized thoracic spine. Normal visualized ribs, clavicles, and shoulders. There is no demonstrated abnormality of the visualized soft tissue structures of the upper abdomen. RAD/Chest PA and Lateral IMPRESSION: Moderate cardiomegaly. No acute abnormality is seen. Electronically Signed: Kyle Carrasco MD at 13:30 EDT ,
[2022-06-28] MEDS: Baclofen 10 MG Tablet 5 MG PO ×2 (14:52→22:54)
[2022-06-28] MEDS: Methylprednisolone Sod Succ 40 MG/ML VIAL IV ×2 (14:54→22:54)
[2022-06-28] MEDS: Ibuprofen 400 MG Tablet PO (22:56)
[2022-06-28] MEDS: DiphenhydrAMINE 25 MG Capsule PO (22:56)
[2022-06-28] MEDS: 0.9% Saline Lock 10 ML Syringe IV (23:23)
[2022-06-29] VITALS (9 sets, daily range): BP systolic 97–108; BP diastolic 61–67; PULSE 76–96; RESP 16–22; TEMP 36.6–36.9; O2SAT 94–95
[2022-06-29 06:05] LABS: Absolute Lymphocyte Count 0.83 X10^3/uL (0.83-4.51); Absolute Neutrophil Count 7.9 X10^3/uL (2.0-7.7); Basophil# 0.02 X10^3/uL; Basophil% 0.2 % (0-1); Hematocrit 38.6 % (37-47); Lymphocyte # 0.83 X10^3/ul (0.83-4.51); Mean Corp Hgb Conc 33.7 g/dL (32-36); Mean Corpuscular Volume 89.1 fL (81-99); Mean Platelet Vol. 10.4 fl (6.2-12.0); Monocyte# 0.37 X10^3/uL; NRBC Flagged by Analyzer 0 % (0-5); Neutrophil # 7.93 X10^3/uL (2.7-7.7); Neutrophil % 85.5 % (47-70); Platelet Count 143 K/mm3 (150-450); RBC Distribution Width CV 13.5 % (11.6-14.6); RBC Distribution Width SD 44.1 fl (35.1-43.9); Red Blood Count 4.33 M/mm3 (4.2-5.4); White Blood Count 9.3 K/mm3 (4.4-11.0)
[2022-06-29] MEDS: Baclofen 10 MG Tablet 5 MG PO ×3 (06:19→22:15)
[2022-06-29] MEDS: Ibuprofen 400 MG Tablet PO (06:19)
[2022-06-29] MEDS: 0.9% Saline Lock 10 ML Syringe IV ×3 (06:19→22:16)
[2022-06-29] MEDS: Gabapentin 600 MG Tablet PO ×3 (06:20→22:15)
[2022-06-29] MEDS: busPIRone 5 MG Tablet PO ×3 (06:20→22:15)
[2022-06-29] MEDS: Methylprednisolone Sod Succ 40 MG/ML VIAL IV (06:20)
[2022-06-29 06:36] LABS: ALB/GLOB Ratio 1.1 RATIO (0.9-2.4); AST(SGOT) 13 U/L (15-37); Alanine Aminotransfer ALT/SGPT 19 U/L (13-56); Albumin, Serum 3.1 g/dL (3.2-5.0); Alkaline Phosphatase 73 U/L (45-117); Anion Gap 3 (5-15); BUN 17 mg/dL (7-18); BUN/Creat Ratio 30.2 RATIO (10-20); Calcium,Total 8.1 mg/dL (8.5-10.1); Chloride 106 mmol/L (98-107); Creatinine, Serum 0.56 mg/dL (0.55-1.02); EST Glomerular Filtration Rate 127 mL/min (>60); Est Glom Filt Rate - Afr Amer 154 mL/min (>60); Estimated Creatinine Clearance 129.67 ml/min; Globulin 2.8 g/dL (2.2-4.2); Glucose 166 mg/dL (74-106); Potassium 4.4 mmol/L (3.5-5.1); Protein, Total 5.9 g/dL (6.4-8.2); Sodium Level 138 mmol/L (136-145)
[2022-06-29] MEDS: Ipratropium/Albuterol Sulfate 3 ML AMPUL.NEB INHALATION ×3 (07:51→19:59)
--- NOTE | 2022-06-29 07:51 | CPS ---
Pt declined Vest Therapy.
--- NOTE | 2022-06-29 08:31 | PN.HOSP_ITS ---
Reason for Visit Reason for Visit: Diagnoses Unspecified asthma with (acute) exacerbation (06/25/22) Subjective Subjective Feeling better today, no longer in respiratory distress Objective Data Objective Data Vital Signs: Vital Signs Temp Pulse Resp BP Pulse Ox O2 Del Method O2 Flow Rate 98 F 96 22 H 104/67 94 Nasal Cannula 2 06/29/22 03:19 06/29/22 07:51 06/29/22 07:51 06/29/22 03:19 06/29/22 07:51 06/29/22 07:51 06/29/22 07:51 Oxygen Flow Rate (L/min) 2 Oxygen Delivery Method Nasal Cannula Weight: 60.9 kg Body Mass Index (BMI) 20.4 Intake & Output: Intake and Output for Last 24 Hours 06/27/22 06/28/22 06/29/22 23:59 23:59 23:59 Intake Total 104 / 104 Output Total 500 / 500 Balance -396 / -396 Lab / Micro Data Result Diagrams: 06/29/22 05:55 06/29/22 05:55 Labs: Laboratory Results - last 24 hr 06/29/22 05:55: WBC 9.3, RBC 4.33, Hgb 13.0, Hct 38.6, MCV 89.1, MCH 30.0, MCHC 33.7, RDW Std Deviation 44.1 H, RDW Coeff of Min 13.5, Plt Count 143 L, MPV 10.4, Immature Gran % (Auto) 1.300 H, Neut % (Auto) 85.5 H, Lymph % (Auto) 9.0 L , [place] % (Auto) 4.0, Eos % (Auto) 0.0, Baso % (Auto) 0.2, Absolute Neuts (auto) 7.9 H, Absolute Lymphs (auto) 0.83, Nucleated RBC % 0 06/29/22 05:55: Sodium 138, Potassium 4.4, Chloride 106, Carbon Dioxide 29.0, Anion Gap 3 L, BUN 17, Creatinine 0.56, Estim Creat Clear Calc 129.67, Est GFR (MDRD) Af Amer 154, Est GFR (MDRD) Non-Af 127, BUN/Creatinine Ratio 30.2 H, Glucose 166 H, Calcium 8.1 L, Total Bilirubin 0.20, AST 13 L, ALT 19, Alkaline Phosphatase 73, Total Protein 5.9 L, Albumin 3.1 L, Globulin 2.8, Albumin/Globulin Ratio 1.1 Micro: Microbiology 06/28/22 14:40 Mucosa - Nasopharyngeal Respiratory Panel (PCR) - Final 06/28/22 14:40 Nasal Secretion SARS-CoV-2 & FLU Antigen (Rapid) - Final 06/25/22 00:45 Mucosa - Nose Respiratory Panel (PCR) - Final 06/24/22 22:18 Nasal Secretion SARS-CoV-2 & FLU Antigen (Rapid) - Final Radiography Diagnostic Testing: Radiology Impression Chest X-Ray 06/28/22 13:15 IMPRESSION: Moderate cardiomegaly. No acute abnormality is seen. Electronically Signed: Kyle Carrasco MD at 13:30 EDT , Physical Exam Narrative General: Awake, alert, oriented HEENT: Atraumatic, normocephalic Eyes: Anicteric, normal conjunctiva, extraocular movements grossly intact Neck: Supple Respiratory: No wheezes appreciated, no increased work of breathing Cardiovascular: Regular rate and rhythm GI: Soft, nontender, nondistended Extremities: No edema Musculoskeletal: Chronic deficits from previous stroke noted Neuro: Chronic deficits from previous stroke Skin: No rashes appreciated Psych: Cooperative Assessment & Plan Assessment/Plan (1) Asthma exacerbation: PLAN: Plan # Hypoxia due to acute asthma exacerbation * on 4L of oxygen. * on IV solumedrol * breathing treatment with bronchodilators. * titrate oxygen to maintain sats >90% * respiratory panel was negative for influenza and covid 19 infection. -06/26: Weaning O2, currently on 3 L, remains on IV Solu-Medrol and DuoNebs, will de-escalate as tolerated -06/27: De-escalating IV Solu-Medrol to p.o. prednisone and will likely benefit from outpatient taper, DuoNebs changed to every 4 and as she was on home inhaled corticosteroid previously budesonide added. Possible DC tomorrow if tolerating this -06/28: Had difficulty with de-escalation of steroids and spacing out of nebs and has been acutely wheezy and more tachypneic. 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 * on baclofen. #Hypertension; on carvedilol. DVT prophylaxis; lovenox subq Total time spent on evaluation and management of patient, reviewing chart and specialist notes, discussing plan with patient, discussion with nursing and ancillary staff as well as documentation: 30 mins Charges/Coding Visit Charges Inpatient E&M: 89200 Subs Hosp L2
[2022-06-29] MEDS: guaiFENesin 1,200 MG Tablet 1200 MG PO ×2 (09:52→22:16)
[2022-06-29] MEDS: Enoxaparin 40 MG/0.4 ML Syringe SC (09:53)
[2022-06-29] MEDS: Menthol/Lanolin/Calamine/Znox 113 GM Tube 1 APPLIC TOPICAL ×2 (09:54→22:15)
[2022-06-29] MEDS: Metoprolol Tartrate 25 MG Tablet 12.5 MG PO (10:00)
--- NOTE | 2022-06-29 11:05 | CASEMGMT ---
Addendum entered by Shanique Solomon 06/29/22 14:50: [facility] liaison called and states that w/c is available and asks if pt wants this delivered to her home. BUBBA COOPER into room, pt states yes, it can be delivered to her home but no one is there before 3pm. Updated Graciela. She then asks if pt family can black pickler at [facility]. BUBBA COOPER into pt room and she states to call her sig other for this. TC to sig other, he states he can pick this up tomorrow. Provided sig other with available times for pickup and when office is closed for lunch. Addendum entered by Shanique Solomon 06/29/22 11:40: Referral for w/c sent to [facility] via [facility] at this time. Original Note: Pt is interested in a new w/c. Measured pt hip to hip at 20 inches. Spoke with Graciela from [facility], she will see if there is a chair available at the [facility].
--- NOTE | 2022-06-29 12:13 | CASEMGMT ---
Social Work As per admitting assessment manager, pt has Geoff SMITH, but is not able to bring in the document. Pt does not have LW. BAKARI Garcia
[2022-06-29] MEDS: Methylprednisolone Sod Succ 40 MG/ML VIAL 20 MG IV ×2 (13:56→22:16)
[2022-06-29] MEDS: traZODone 50 MG Tablet PO (22:21)
[2022-06-30] VITALS (10 sets, daily range): BP systolic 96–114; BP diastolic 66–84; PULSE 78–99; RESP 16–20; TEMP 36.3–37.5; O2SAT 93–98
[2022-06-30] MEDS: Baclofen 10 MG Tablet 5 MG PO ×3 (06:01→22:24)
[2022-06-30] MEDS: 0.9% Saline Lock 10 ML Syringe IV (06:01)
[2022-06-30] MEDS: Gabapentin 600 MG Tablet PO (06:01)
[2022-06-30] MEDS: busPIRone 5 MG Tablet PO ×3 (06:01→22:24)
[2022-06-30] MEDS: Methylprednisolone Sod Succ 40 MG/ML VIAL 20 MG IV (06:01)
[2022-06-30 06:18] LABS: Absolute Neutrophil Count 11.8 X10^3/uL (2.0-7.7); Basophil# 0.02 X10^3/uL; Basophil% 0.1 % (0-1); Hematocrit 40.4 % (37-47); Hemoglobin 13.5 g/dL (12.0-15.0); Lymphocyte % 6.6 % (19-41); Mean Corp Hgb Conc 33.4 g/dL (32-36); Mean Corpuscular Hgb 30.1 pg (27.0-32.0); Monocyte# 0.72 X10^3/uL; Monocyte% 5.3 % (0-10); NRBC Flagged by Analyzer 0 % (0-5); Neutrophil # 11.78 X10^3/uL (2.7-7.7); Neutrophil % 86.2 % (47-70); Platelet Count 152 K/mm3 (150-450); RBC Distribution Width CV 13.5 % (11.6-14.6); RBC Distribution Width SD 44.6 fl (35.1-43.9); Red Blood Count 4.49 M/mm3 (4.2-5.4); White Blood Count 13.7 K/mm3 (4.4-11.0)
[2022-06-30 07:20] LABS: AST(SGOT) 9 U/L (15-37); Alanine Aminotransfer ALT/SGPT 15 U/L (13-56); Alkaline Phosphatase 73 U/L (45-117); Anion Gap 5 (5-15); BUN 19 mg/dL (7-18); BUN/Creat Ratio 35.1 RATIO (10-20); Chloride 102 mmol/L (98-107); Creatinine, Serum 0.54 mg/dL (0.55-1.02); EST Glomerular Filtration Rate 133 mL/min (>60); Est Glom Filt Rate - Afr Amer 161 mL/min (>60); Estimated Creatinine Clearance 134.47 ml/min; Glucose 159 mg/dL (74-106); Potassium 4.2 mmol/L (3.5-5.1); Sodium Level 136 mmol/L (136-145)
[2022-06-30] MEDS: Ipratropium/Albuterol Sulfate 3 ML AMPUL.NEB INHALATION ×3 (07:37→19:26)
--- NOTE | 2022-06-30 08:33 | PCM.PN.HOSP ---
Reason for Visit Reason for Visit: Diagnoses Unspecified asthma with (acute) exacerbation (06/25/22) Subjective Subjective Slow bleed for better, doing better on slow steroid taper Objective Data Objective Data Vital Signs: Vital Signs Temp Pulse Resp BP Pulse Ox O2 Del Method O2 Flow Rate 97.4 F L 80 16 105/75 94 Nasal Cannula 2 06/30/22 05:45 06/30/22 07:37 06/30/22 07:37 06/30/22 05:45 06/30/22 07:37 06/30/22 07:37 06/30/22 07:37 Oxygen Flow Rate (L/min) 2 Oxygen Delivery Method Nasal Cannula Weight: 60.9 kg Body Mass Index (BMI) 20.4 Intake & Output: Intake and Output for Last 24 Hours 06/28/22 06/29/22 06/30/22 23:59 23:59 23:59 Intake Total 104 / 104 300 / 300 Output Total 500 / 500 100 / 100 Balance -396 / -396 200 / 200 Lab / Micro Data Result Diagrams: 06/30/22 05:30 06/30/22 05:30 Labs: Laboratory Results - last 24 hr 06/30/22 05:30: WBC 13.7 H, RBC 4.49, Hgb 13.5, Hct 40.4, MCV 90.0, MCH 30.1, MCHC 33.4, RDW Std Deviation 44.6 H, RDW Coeff of Min 13.5, Plt Count 152, MPV 11.0, Immature Gran % (Auto) 1.800 H, Neut % (Auto) 86.2 H, Lymph % (Auto) 6.6 L, [place] % (Auto) 5.3, Eos % (Auto) 0.0, Baso % (Auto) 0.1, Absolute Neuts (auto) 11.8 H, Absolute Lymphs (auto) 0.90, Nucleated RBC % 0 06/30/22 05:30: Sodium 136, Potassium 4.2, Chloride 102, Carbon Dioxide 29.0, Anion Gap 5, BUN 19 H, Creatinine 0.54 L, Estim Creat Clear Calc 134.47, Est GFR (MDRD) Af Amer 161, Est GFR (MDRD) Non-Af 133, BUN/Creatinine Ratio 35.1 H, Glucose 159 H, Calcium 8.0 L, Total Bilirubin 0.40, AST 9 L, ALT 15, Alkaline Phosphatase 73, Total Protein 6.0 L, Albumin 3.0 L, Globulin 3.0, Albumin/Globulin Ratio 1.0 Micro: Microbiology 06/28/22 14:40 Mucosa - Nasopharyngeal Respiratory Panel (PCR) - Final 06/28/22 14:40 Nasal Secretion SARS-CoV-2 & FLU Antigen (Rapid) - Final 06/25/22 00:45 Mucosa - Nose Respiratory Panel (PCR) - Final 06/24/22 22:18 Nasal Secretion SARS-CoV-2 & FLU Antigen (Rapid) - Final Physical Exam Narrative General: Awake, alert, oriented HEENT: Atraumatic, normocephalic Eyes: Anicteric, normal conjunctiva, extraocular movements grossly intact Neck: Supple Respiratory: No wheezes appreciated, breathing more comfortably Cardiovascular: Regular rate and rhythm GI: Soft, nontender, nondistended Extremities: No edema Musculoskeletal: Chronic deficits from previous stroke noted Neuro: Chronic deficits from previous stroke Skin: No rashes appreciated Psych: Cooperative Assessment & Plan Assessment/Plan (1) Asthma exacerbation: PLAN: Plan # Hypoxia due to acute asthma exacerbation on 4L of oxygen. on IV solumedrol breathing treatment with bronchodilators. titrate oxygen to maintain sats >90% respiratory panel was negative for influenza and covid 19 infection. -06/26: Weaning O2, currently on 3 L, remains on IV Solu-Medrol and DuoNebs, will de-escalate as tolerated -06/27: De-escalating IV Solu-Medrol to p.o. prednisone and will likely benefit from outpatient taper, DuoNebs changed to every 4 and as she was on home inhaled corticosteroid previously budesonide added. Possible DC tomorrow if tolerating this -06/28: Had difficulty with de-escalation of steroids and spacing out of nebs and has been acutely wheezy and more tachypneic. Chest x-ray with no acute process, will give IV mag, change back to IV steroids and increase nebs as well as check for viral pathogens -06/29: We will change from carvedilol to a cardioselective beta-fany, go down to 20 IV every 8 Methylpred today and try to transition to oral steroids again tomorrow, start ICS/LABA 2 puffs twice daily and attempt to wean nebs -06/30: Did well with 20 IV every 8 and Methylpred which is equivalent to 75 mg of prednisone in a day. We will give an additional 40 of prednisone orally which will give the equivalent of 65 of prednisone today and will start 60 oral prednisone tomorrow and slow taper. Likely can DC home tomorrow. 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 on baclofen. #Hypertension; on carvedilol. DVT prophylaxis; lovenox subq Total time spent on evaluation and management of patient, reviewing chart and specialist notes, discussing plan with patient, discussion with nursing and ancillary staff as well as documentation: 30 mins Charges/Coding Visit Charges Inpatient E&M: 97361 Subs Hosp L2
[2022-06-30] MEDS: predniSONE 20 MG Tablet 40 MG PO (09:48)
[2022-06-30] MEDS: Menthol/Lanolin/Calamine/Znox 113 GM Tube 1 APPLIC TOPICAL ×2 (09:48→22:43)
[2022-06-30] MEDS: guaiFENesin 1,200 MG Tablet 1200 MG PO ×2 (10:21→22:25)
--- NOTE | 2022-06-30 13:16 | NURSING ---
Addendum entered by Joy Hampton 06/30/22 16:13: Pt now states that she is on her period. Notified Dr Esparza, said to cancel occult stool and urinalysis order. Original Note: Pt had bowel movement and voided in bedside commode. Urine was blood tinged. Purewick was also brownish color. Hard to tell if there is blood in stool or if it is from urine. Pt states her last period was two weeks ago. Seems unsure of whether it is time for her period again. This RN contacted Dr Esparza, ordered urinalysis and occult blood sample for next void/BM since these samples are contaminated
[2022-06-30] MEDS: Gabapentin 300 MG Capsule 600 MG PO ×2 (14:21→22:24)
[2022-06-30] MEDS: Ibuprofen 400 MG Tablet PO ×2 (15:57→22:34)
[2022-06-30] MEDS: DiphenhydrAMINE 25 MG Capsule PO (18:19)
[2022-06-30] MEDS: traZODone 50 MG Tablet PO (22:35)
--- NOTE | 2022-06-30 23:36 | NURSING ---
Pt received ibuprofen for period cramps per request.
[2022-07-01] VITALS (9 sets, daily range): BP systolic 100–116; BP diastolic 63–78; PULSE 80–93; RESP 16–18; TEMP 36.4–36.7; O2SAT 93–98
[2022-07-01] MEDS: Gabapentin 300 MG Capsule 600 MG PO ×2 (05:37→13:44)
[2022-07-01] MEDS: Baclofen 10 MG Tablet 5 MG PO ×2 (05:38→13:41)
[2022-07-01] MEDS: busPIRone 5 MG Tablet PO ×2 (05:38→13:41)
[2022-07-01] MEDS: Ipratropium/Albuterol Sulfate 3 ML AMPUL.NEB INHALATION ×2 (07:03→13:20)
[2022-07-01 07:47] LABS: Absolute Lymphocyte Count 2.04 X10^3/uL (0.83-4.51); Absolute Neutrophil Count 5.5 X10^3/uL (2.0-7.7); Basophil# 0.07 X10^3/uL; Basophil% 0.8 % (0-1); Eosinophil# 0.04 X10^3/uL; Eosinophils% 0.5 % (0-5); Hematocrit 40.5 % (37-47); Hemoglobin 13.4 g/dL (12.0-15.0); Lymphocyte # 2.04 X10^3/ul (0.83-4.51); Mean Corp Hgb Conc 33.1 g/dL (32-36); Mean Corpuscular Hgb 30.4 pg (27.0-32.0); Mean Corpuscular Volume 91.8 fL (81-99); Mean Platelet Vol. 10.1 fl (6.2-12.0); Monocyte# 0.86 X10^3/uL; Monocyte% 9.7 % (0-10); NRBC Flagged by Analyzer 0 % (0-5); Neutrophil # 5.48 X10^3/uL (2.7-7.7); Neutrophil % 61.6 % (47-70); Platelet Count 133 K/mm3 (150-450); RBC Distribution Width CV 13.6 % (11.6-14.6); RBC Distribution Width SD 45.4 fl (35.1-43.9); Red Blood Count 4.41 M/mm3 (4.2-5.4); White Blood Count 8.9 K/mm3 (4.4-11.0)
[2022-07-01] MEDS: predniSONE 20 MG Tablet 60 MG PO (07:49)
[2022-07-01] MEDS: guaiFENesin 1,200 MG Tablet 1200 MG PO (07:49)
[2022-07-01] MEDS: Menthol/Lanolin/Calamine/Znox 113 GM Tube 1 APPLIC TOPICAL (07:50)
[2022-07-01 08:30] LABS: ALB/GLOB Ratio 0.9 RATIO (0.9-2.4); AST(SGOT) 9 U/L (15-37); Alanine Aminotransfer ALT/SGPT 17 U/L (13-56); Albumin, Serum 2.7 g/dL (3.2-5.0); Alkaline Phosphatase 68 U/L (45-117); Anion Gap 5 (5-15); BUN 30 mg/dL (7-18); BUN/Creat Ratio 57.1 RATIO (10-20); Calcium,Total 7.8 mg/dL (8.5-10.1); Chloride 102 mmol/L (98-107); Creatinine, Serum 0.52 mg/dL (0.55-1.02); EST Glomerular Filtration Rate 138 mL/min (>60); Est Glom Filt Rate - Afr Amer 166 mL/min (>60); Estimated Creatinine Clearance 139.64 ml/min; Globulin 2.9 g/dL (2.2-4.2); Glucose 89 mg/dL (74-106); Potassium 4.2 mmol/L (3.5-5.1); Protein, Total 5.6 g/dL (6.4-8.2); Sodium Level 136 mmol/L (136-145)
[2022-07-01] MEDS: Enoxaparin 40 MG/0.4 ML Syringe SC (09:32)
[2022-07-01] MEDS: Metoprolol Tartrate 25 MG Tablet 12.5 MG PO (09:33)
[2022-07-01] MEDS: Ibuprofen 400 MG Tablet PO (09:41)
--- NOTE | 2022-07-01 09:47 | NURSING ---
Requested a breathing treatment, respiratory called for this.
[2022-07-01] MEDS: Albuterol 2.5 MG/3 ML VIAL.NEB. INHALATION (09:53)
--- NOTE | 2022-07-01 12:39 | DCINST_ITS ---
Discharge Instructions Diet Discharge Diet: No restrictions Activity Discharge Activity: - (Prescription for wheelchair will be provided) Follow Up Care Test Results: Test results from this visit will be discussed in further detail at your follow- up appointment, if applicable. Discharge Plan Admission Admit Date/Time: 06/25/22 00:37 Primary Reason for Your Visit: Shortness of breath Attending Provider: Leila Esparza Primary Care Provider: Care Physician,No Primary Consulting Providers: Vani Jiménez ; Julia Holcomb Instructions Patient Instructions: About Your Asthma Action Plan, Acute Severe Asthma Additional Instructions / Restrictions: DISCHARGE INSTRUCTIONS PLEASE READ *Please take this with you to your next doctors appointment* -You will be discharged on a prednisone taper: -60 mg daily x3 days -50mg daily x3 days -40mg daily x3 days -30mg daily x3 days -20mg daily x3 days -10mg daily x3 days -Prescriptions for your inhalers have been sent to preferred pharmacy on file -Would recommend following up closely with your PCP and repeat blood work in 3 to 5 days. Call your primary care physician's office to obtain order for CBC and BMP -He will stop taking her carvedilol as this can worsen your breathing and instead you will take metoprolol, a prescription for this has been sent to preferred pharmacy on file -Please call your primary care provider's office upon discharge to schedule a hospital follow up within 1 week. -If you do not have a primary care physician of list of local primary care physicians can be provided for you upon discharge. Please ask for this list prior to discharge -For any concerning signs or symptoms please call 911 or proceed to the nearest emergency department Discharge Orders/Prescriptions Prescriptions: New prednisone 20 mg Tablet See Taper PO BREAKFAST Qty: 32 0RF Taper: Prednisone Taper 60 mg WITH BREAKFAST for 3 Days and 0 Hour 50 mg WITH BREAKFAST for 3 Days and 0 Hour 40 mg WITH BREAKFAST for 3 Days and 0 Hour 30 mg WITH BREAKFAST for 3 Days and 0 Hour 20 mg WITH BREAKFAST for 3 Days and 0 Hour 10 mg WITH BREAKFAST for 3 Days and 0 Hour metoprolol tartrate 25 mg Tablet 12.5 mg PO BID 30 Days Qty: 30 0RF Continued gabapentin 600 mg tablet 600 mg PO TID Label Comments: TAKE 1 TABLET BY MOUTH THREE TIMES DAILY baclofen 10 mg Tablet 10 mg PO TID buspirone 5 mg tablet 5 mg PO TID trazodone 50 mg tablet 50 mg PO QHS Label Comments: TAKE 1 TABLET BY MOUTH EVERYDAY AT BEDTIME albuterol sulfate 90 mcg/actuation HFA aerosol inhaler 90 mcg INHALATION PRN PRN (Reason: asthma) 30 Days Qty: 8.5 0RF mometasone-formoterol 200-5 mcg/actuation HFA aerosol inhaler 2 inh inhalation Q12H 30 Days Qty: 13 0RF Rx Instructions: 2 inhalations twice daily for 7 days Discontinued carvedilol 3.125 mg Tablet 3.125 mg PO BID Rx Instructions: must administer with a meal/food Referrals / Follow Up: Care Physician,No Primary [Primary Care Provider] - See Referral Note (-If you do not have a primary care physician of list of local primary care physicians can be provided for you upon discharge. Please ask for this list prior to discharge) Disposition Disposition (needs filled in before D/C Order can be placed): Home, Self Care
--- NOTE | 2022-07-01 12:46 | PCM.DC.SUM ---
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 #Hypertension Medications at Discharge Home Medications gabapentin 600 mg tablet 600 mg PO TID nerve pain 03/07/22 baclofen 10 mg tablet 10 mg PO TID spasms 05/02/22 buspirone 5 mg tablet 5 mg PO TID Check with primary doctor 06/25/22 trazodone 50 mg tablet 50 mg PO QHS Check with primary doctor 06/25/22 albuterol sulfate 90 mcg/actuation aerosol inhaler 90 mcg inhalation PRN PRN asthma 30 days #8.5 grams 07/01/22 metoprolol tartrate 25 mg tablet 12.5 mg PO BID 30 days #30 tabs 07/01/22 mometasone-formoterol HFA 200 mcg-5 mcg/actuation aerosol inhaler 2 inh inhalation Q12H Check with primary doctor 30 days #13 grams 07/01/22 prednisone 20 mg tablet See Taper PO BREAKFAST #32 tabs 07/01/22 Hospital Course Summary of Care Provided Minutes Spent on Discharge: 31 Hospital Course: The patient is a 41 y/o F w/ PMHx: HTN, Hx Endocarditis with septic emboli and CVA associated with residual L sided weakness and altered speech, Asthma, Former tobacco use, Former Substance abuse, most recently discharged 05/18/22 following treatment and interventions for an acute asthma exacerbation discharged on prednisone taper and memetasone-formoterol inhaler who presented to the [facility] ED on 06/25/22 with increasing shortness of breath and repeat asthma exacerbation. She required IV Solu-Medrol and O2. Respiratory panel and COVID were negative. Did attempt to de-escalate IV steroids to p.o. prednisone on 06/27 but had significant wheezing and flare of symptoms with respiratory distress. Went back on 40 IV every 8 and tapered to 40 IV p.o. and then back to oral and she did well on that. On day of discharge no wheezing, breathing better, denied any cough, no burning on urination, no belly pain or any other complaints. Looking forward to going home. Discharge instructions as followed: -You will be discharged on a prednisone taper: ? -60 mg daily x3 days ? -50mg daily x3 days ? -40mg daily x3 days ? -30mg daily x3 days ? -20mg daily x3 days ? -10mg daily x3 days -Prescriptions for your inhalers have been sent to preferred pharmacy on file -Would recommend following up closely with your PCP and repeat blood work in 3 to 5 days. Call your primary care physician's office to obtain order for CBC and BMP -He will stop taking her carvedilol as this can worsen your breathing and instead you will take metoprolol, a prescription for this has been sent to preferred pharmacy on file -Please call your primary care provider's office upon discharge to schedule a hospital follow up within 1 week. -If you do not have a primary care physician of list of local primary care physicians can be provided for you upon discharge.? Please ask for this list prior to discharge -For any concerning signs or symptoms please call 911 or proceed to the nearest emergency department Physical Exam Narrative General: Awake, alert, oriented HEENT: Atraumatic, normocephalic Eyes: Anicteric, normal conjunctiva, extraocular movements grossly intact Neck: Supple Respiratory: No wheezes appreciated, breathing comfortably Cardiovascular: Regular rate and rhythm GI: Soft, nontender, nondistended Extremities: No edema Musculoskeletal: Chronic deficits from previous stroke noted Neuro: Chronic deficits from previous stroke Skin: No rashes appreciated Psych: Cooperative Weight / BMI Weight Weight: 60.9 kg Body Mass Index (BMI) 20.4 ABG / Lab / Microbiology Data Result Diagrams: 07/01/22 07:25 07/01/22 07:25 Laboratory: Laboratory Results - last 24 hr 07/01/22 07:25: WBC 8.9, RBC 4.41, Hgb 13.4, Hct 40.5, MCV 91.8, MCH 30.4, MCHC 33.1, RDW Std Deviation 45.4 H, RDW Coeff of Min 13.6, Plt Count 133 L, MPV 10.1, Immature Gran % (Auto) 4.400 H, Neut % (Auto) 61.6, Lymph % (Auto) 23.0, [place] % (Auto) 9.7, Eos % (Auto) 0.5, Baso % (Auto) 0.8, Absolute Neuts (auto) 5.5, Absolute Lymphs (auto) 2.04, Nucleated RBC % 0 07/01/22 07:25: Sodium 136, Potassium 4.2, Chloride 102, Carbon Dioxide 29.0, Anion Gap 5, BUN 30 H, Creatinine 0.52 L, Estim Creat Clear Calc 139.64, Est GFR (MDRD) Af Amer 166, Est GFR (MDRD) Non-Af 138, BUN/Creatinine Ratio 57.1 H, Glucose 89, Calcium 7.8 L, Total Bilirubin 0.30, AST 9 L, ALT 17, Alkaline Phosphatase 68, Total Protein 5.6 L, Albumin 2.7 L, Globulin 2.9, Albumin/Globulin Ratio 0.9 Microbiology: Microbiology 06/28/22 14:40 Mucosa - Nasopharyngeal Respiratory Panel (PCR) - Final 06/28/22 14:40 Nasal Secretion SARS-CoV-2 & FLU Antigen (Rapid) - Final 06/25/22 00:45 Mucosa - Nose Respiratory Panel (PCR) - Final 06/24/22 22:18 Nasal Secretion SARS-CoV-2 & FLU Antigen (Rapid) - Final D/C Instructions Discharge Diet: No restrictions Meaningful Use Info Meaningful Use Diagnoses (Choose all that apply): None applicable Discharge Plan Admission Admit Date/Time: 06/25/22 00:37 Primary Reason for Your Visit: Shortness of breath Attending Provider: Leila Esparza Primary Care Provider: Care Physician,No Primary Consulting Providers: Vani Jiménez ; Julia Holcomb Instructions Patient Instructions: About Your Asthma Action Plan, Acute Severe Asthma Additional Instructions / Restrictions: DISCHARGE INSTRUCTIONS PLEASE READ *Please take this with you to your next doctors appointment* -You will be discharged on a prednisone taper: -60 mg daily x3 days -50mg daily x3 days -40mg daily x3 days -30mg daily x3 days -20mg daily x3 days -10mg daily x3 days -Prescriptions for your inhalers have been sent to [facility] pharmacy on file -Would recommend following up closely with your PCP and repeat blood work in 3 to 5 days. Call your primary care physician's office to obtain order for CBC and BMP -He will stop taking her carvedilol as this can worsen your breathing and instead you will take metoprolol, a prescription for this has been sent to [facility] pharmacy on file -Please call your primary care provider's office upon discharge to schedule a hospital follow up within 1 week. -If you do not have a primary care physician of list of local primary care physicians can be provided for you upon discharge. Please ask for this list prior to discharge -For any concerning signs or symptoms please call 911 or proceed to the nearest emergency department Discharge Orders/Prescriptions Prescriptions: New prednisone 20 mg Tablet See Taper PO BREAKFAST Qty: 32 0RF Taper: Prednisone Taper 60 mg WITH BREAKFAST for 3 Days and 0 Hour 50 mg WITH BREAKFAST for 3 Days and 0 Hour 40 mg WITH BREAKFAST for 3 Days and 0 Hour 30 mg WITH BREAKFAST for 3 Days and 0 Hour 20 mg WITH BREAKFAST for 3 Days and 0 Hour 10 mg WITH BREAKFAST for 3 Days and 0 Hour metoprolol tartrate 25 mg Tablet 12.5 mg PO BID 30 Days Qty: 30 0RF Continued gabapentin 600 mg tablet 600 mg PO TID Label Comments: TAKE 1 TABLET BY MOUTH THREE TIMES DAILY baclofen 10 mg Tablet 10 mg PO TID buspirone 5 mg tablet 5 mg PO TID trazodone 50 mg tablet 50 mg PO QHS Label Comments: TAKE 1 TABLET BY MOUTH EVERYDAY AT BEDTIME albuterol sulfate 90 mcg/actuation HFA aerosol inhaler 90 mcg INHALATION PRN PRN (Reason: asthma) 30 Days Qty: 8.5 0RF mometasone-formoterol 200-5 mcg/actuation HFA aerosol inhaler 2 inh inhalation Q12H 30 Days Qty: 13 0RF Rx Instructions: 2 inhalations twice daily for 7 days Discontinued carvedilol 3.125 mg Tablet 3.125 mg PO BID Rx Instructions: must administer with a meal/food Referrals / Follow Up: Care Physician,No Primary [Primary Care Provider] - See Referral Note (-If you do not have a primary care physician of list of local primary care physicians can be provided for you upon discharge. Please ask for this list prior to discharge) Disposition Disposition (needs filled in before D/C Order can be placed): Home, Self Care Charges/Coding Visit Charges Inpatient E&M: 65148 Disch Hosp >30min
== END 2022-07-01 14:23 | disposition home or self-care (01) | DRG 202 ==
LOC: ED 22:51 → MS3 06-25 00:56
PROVIDERS: Student in an Organized Health Care Education/Training Program; Admitting Provider Family Medicine; Emergency Provider Emergency Medicine; Visit Provider Internal Medicine
DX: J45.901 Unspecified asthma with (acute) exacerbation (principal); I69.354 Hemiplegia and hemiparesis following cerebral infarction affecting left non-dominant side; I10 Essential (primary) hypertension; I69.328 Other speech and language deficits following cerebral infarction; R09.02 Hypoxemia; Z79.899 Other long term (current) drug therapy; Z86.79 Personal history of other diseases of the circulatory system; Z87.891 Personal history of nicotine dependence
CPT/HCPCS: 36415; 71046; 80048; 80053; 83880; 84145; 84484; 85025; 85379; 87428; 87633; 87635; 93005; 94640; 94667; 94668; 94762; 99285; J7030; A4216; J3475; U0003; U0005

== ENCOUNTER 2022-07-29 06:03 | Inpatient (IN) | payer MEDICARE, MEDICAID, SELFPAY ==
[2022-07-29] VITALS (18 sets, daily range): BP systolic 96–123; BP diastolic 59–97; PULSE 89–115; RESP 18–36; TEMP 36.3–36.7; O2SAT 83–99; BMI 21.7; BMI 20.9
--- NOTE | 2022-07-29 06:25 | EX.ED.DYSGE1 ---
HPI History of Present Illness Chief Complaint: Asthma Informant: patient and EMS Narrative Narrative: Patient is a 41-year-old female with past medical history of IV drug abuse and septic emboli from that. She also has asthma but states that she does not need supplemental oxygen normally secondary to her asthma and that is controlled with home albuterol treatments. She denies any daily maintenance inhaler. She was seen 1 month ago secondary to a similar event and had to be admitted secondary to hypoxia. Patient states that she felt normal throughout the day on Sunday but throughout the night into this morning was having difficulty breathing that was not responding to her home treatments and therefore EMS was called. EMS states when they arrived patient had increased work of breathing and her pulse ox was 63% on room air. [facility] Medical History (Updated 07/29/22 @ 07:[address] Sunny Monroe DO) Asthma Embolic stroke involving middle cerebral artery Former tobacco use Hepatitis History of endocarditis History of substance abuse Home Medications gabapentin 600 mg tablet 600 mg PO TID nerve pain 03/07/22 [History Last Taken 06/24/22] baclofen 10 mg tablet 10 mg PO TID spasms 05/02/22 [History Last Taken 06/24/22] buspirone 5 mg tablet 5 mg PO TID Check with primary doctor 06/25/22 [History Last Taken 06/24/22] trazodone 50 mg tablet 50 mg PO QHS Check with primary doctor 06/25/22 [History Last Taken Unknown] albuterol sulfate 90 mcg/actuation aerosol inhaler 90 mcg inhalation PRN PRN asthma 30 days #8.5 grams 07/01/22 [Rx Last Taken Unknown] metoprolol tartrate 25 mg tablet 12.5 mg PO BID 30 days #30 tabs 07/01/22 [Rx Last Taken Unknown] mometasone-formoterol HFA 200 mcg-5 mcg/actuation aerosol inhaler 2 inh inhalation Q12H Check with primary doctor 30 days #13 grams 07/01/22 [Rx Last Taken Unknown] prednisone 20 mg tablet See Taper PO BREAKFAST #32 tabs 07/01/22 [Rx Last Taken Unknown] Allergy/AdvReac Type Severity Reaction Status Date / Time No Known Allergies Allergy Verified 07/29/22 06:10 Family History (Updated 06/25/22 @ 00:[address] Vani Jiménez MD) Father COPD (chronic obstructive pulmonary disease) Polysubstance abuse Mother Cancer Uterine CA. Surgical History Hx of tracheostomy Previous section S/P percutaneous endoscopic gastrostomy (PEG) tube placement Social History (Updated 06/25/22 @ 00:[address] Vani Jiménez MD) household members: none Smoking Status: Former smoker how long ago did patient quit smoking: Quit smoking 04/2022, smoked ~ 1 ppd since 19 y/o until quit recently. alcohol intake: never substance use type: former substance user Date of last use: Clean x 5 years as of 06/25/22. ROS ROS ED Constitutional Constitutional ED: Denies chills or fever(s) ENT ENT ED: Reports rhinorrhea; Denies sore throat Cardiovascular Cardiovascular: Denies chest pain Respiratory/Chest Respiratory/Chest: Reports cough and dyspnea Gastrointestinal Gastrointestinal: Denies abdominal pain, diarrhea, nausea or vomiting Genitourinary Genitourinary ED: Denies dysuria Musculoskeletal Musculoskeletal: Denies myalgias Integumentary Denies rash Neurologic Neurologic: Denies headache(s) Hematologic/Lymphatic Hematologic/Lymphatic: Denies easy bleeding or easy bruising EXAM Physical Exam Const Vital Signs: 07/29/22 06:04 07/29/22 06:09 07/29/22 06:10 Temperature 97.6 F L 97.6 F L Temperature Source Temporal Temporal Pulse Rate 115 H 114 H Respiratory Rate 36 H 36 H Respiratory Effort Short of Breath Labored Accessory Muscle Use Head [place] Respiratory Pattern Tachypnea Blood Pressure 121/80 H 121/80 H Blood Pressure Mean 93 93 Pulse Ox 84 83 Oxygen Delivery Method Room Air Nasal Cannula Nasal Cannula Oxygen Flow Rate (L/min) 3 5 Fraction of Inspired Oxygen (FIO2) 07/29/22 06:27 07/29/22 06:25 07/29/22 07:05 Temperature Temperature Source Pulse Rate 89 110 H Respiratory Rate 21 H 22 H Respiratory Effort Respiratory Pattern Blood Pressure Blood Pressure Mean Pulse Ox 96 98 Oxygen Delivery Method Nasal Cannula Oxygen Flow Rate (L/min) 4.5 Fraction of Inspired Oxygen (FIO2) 35 07/29/22 07:13 Temperature 97.4 F L Temperature Source Temporal Pulse Rate 96 Respiratory Rate 22 H Respiratory Effort Respiratory Pattern Blood Pressure 102/59 L Blood Pressure Mean 73 Pulse Ox 97 Oxygen Delivery Method Airvo Oxygen Flow Rate (L/min) 40 Fraction of Inspired Oxygen (FIO2) 35 Positive well nourished and well developed General Appearance ED: well developed HEENT Reports dry mucous membranes HEENT Narrative: No tongue or lip swelling noted no airway edema or compromise. There is mucus present in the posterior pharynx but no secondary changes to suggest infection Mouth ED: Yes dry mucous membranes Mouth: dry mucous membranes Eyes PERRL and EOMs intact bilaterally General Eye ED: Yes pale conjunctiva Neck supple and no JVD Neck Narrative: No nuchal rigidity or meningeal signs or crepitance noted Chest Wall palpation of chest normal Chest Narrative: No bony deformity or crepitance present Resp Resp Narrative: Patient is in respiratory distress with tachypnea retractions and accessory muscle use. Breath sounds are severely diminished throughout with diffuse inspiratory and expiratory wheezing. Cardio regular rhythm Rate: tachycardic and other Other Details: Radial pulses are plus 2 out of 4 bilaterally are equal and symmetric Extremity normal to inspection Extremity Narrative: No asymmetric edema no pitting edema negative Homans' sign bilaterally Neuro oriented x3 and CN's II-XII intact bilaterally Sensorium / Orientation: alert Psych Psych Narrative: Patient has a flat affect Skin no rashes or lesions noted Skin Narrative: Skin is pale in color but capillary refill is less than 3 seconds MDM MDM MDM Narrative Medical decision making narrative: Patient presented to the ER in respiratory distress with tachypnea retractions and accessory muscle use. Moreover EMS reported a room air pulse ox of 63% at home and patient states that she does not need supplemental oxygen normally. Chart review reveals that she was admitted approximate 1 month ago for the same event. At that time work-up was negative for infection acute blood loss anemia electrolyte derangement or cardiac event. As patient has diffuse inspiratory and expiratory wheezing that came on suddenly this is most consistent with repeat bronchospasm from her asthma. As the previous work-up was negative regarding DVT/PE or cardiac event I do not feel the need to recheck a troponin or proBNP or D-dimer. Patient was given repeat breathing treatment upon arrival with minimal symptom improvement. Her pulse ox did increase to 95 to 96% on 5 to 6 L but she remained with tachypnea retractions and accessory muscle use and therefore she was transitioned to high flow nasal cannula/Airvo at 40 L and 35% and her work of breathing improved and her pulse ox remained in the mid 90s. At this time she is requiring supplemental oxygen to keep her pulse ox greater than 90% at rest and as she does not have this at home she cannot be discharged and now will need to be admitted to the hospital once again for further care. Secondary to this medicine was contacted and they do agree to accept the patient at this time Lab Data Attestation: I reviewed the patient's lab results. Labs: Laboratory Results - last 24 hr 07/29/22 07/29/22 06:45 06:45 WBC 9.0 RBC 4.71 Hgb 14.5 Hct 41.9 MCV 89.0 MCH 30.8 MCHC 34.6 RDW Std Deviation 45.1 H RDW Coeff of Min 14.2 Plt Count 180 MPV 10.4 Immature Gran % (Auto) 0.400 Neut % (Auto) 62.4 Lymph % (Auto) 22.1 [place] % (Auto) 8.4 Eos % (Auto) 5.8 H Baso % (Auto) 0.9 Absolute Neuts (auto) 5.6 Absolute Lymphs (auto) 2.00 Nucleated RBC % 0 Sodium 140 Potassium 4.1 Chloride 112 H Carbon Dioxide 23.0 Anion Gap 5 BUN 15 Creatinine 0.61 Estim Creat Clear Calc 124.90 Est GFR (MDRD) Af Amer 140 Est GFR (MDRD) Non-Af 116 BUN/Creatinine Ratio 24.7 H Glucose 105 Calcium 8.4 L Magnesium 2.0 Radiography Diagnostic Testing: Clinical Impression(s) from Imaging Studies Chest X-Ray 07/29/22 07:15 IMPRESSION: Moderate cardiomegaly. Electronically Signed: Blas Farfan MD at 7:36 EDT , 1 view chest x-ray as interpreted by the emergency medicine physician reveals no acute infiltrate pneumothorax or pleural effusion Management Discussion w/another healthcare provider: Hospitalist Discharge Plan Dx/Rx/DC Orders Clinical Impression: Acute respiratory failure with hypoxia, Asthma exacerbation, Former tobacco use, History of embolic stroke Disposition Disposition: [facility]
[2022-07-29] MEDS: Ipratropium/Albuterol Sulfate 3 ML AMPUL.NEB INHALATION ×5 (06:27→23:40)
[2022-07-29 06:51] LABS: Absolute Neutrophil Count 5.6 X10^3/uL (2.0-7.7); Basophil# 0.08 X10^3/uL; Basophil% 0.9 % (0-1); Eosinophil# 0.52 X10^3/uL; Eosinophils% 5.8 % (0-5); Hematocrit 41.9 % (37-47); Hemoglobin 14.5 g/dL (12.0-15.0); Lymphocyte % 22.1 % (19-41); Mean Corp Hgb Conc 34.6 g/dL (32-36); Mean Corpuscular Hgb 30.8 pg (27.0-32.0); Mean Platelet Vol. 10.4 fl (6.2-12.0); Monocyte# 0.76 X10^3/uL; Monocyte% 8.4 % (0-10); NRBC Flagged by Analyzer 0 % (0-5); Neutrophil # 5.64 X10^3/uL (2.7-7.7); Neutrophil % 62.4 % (47-70); Platelet Count 180 K/mm3 (150-450); RBC Distribution Width CV 14.2 % (11.6-14.6); RBC Distribution Width SD 45.1 fl (35.1-43.9); Red Blood Count 4.71 M/mm3 (4.2-5.4)
[2022-07-29 07:05] LABS: BUN 15 mg/dL (7-18); Creatinine, Serum 0.61 mg/dL (0.55-1.02); Glucose 105 mg/dL (74-106)
[2022-07-29 07:06] LABS: Anion Gap 5 (5-15); BUN/Creat Ratio 24.7 RATIO (10-20); Calcium,Total 8.4 mg/dL (8.5-10.1); Chloride 112 mmol/L (98-107); EST Glomerular Filtration Rate 116 mL/min (>60); Est Glom Filt Rate - Afr Amer 140 mL/min (>60); Potassium 4.1 mmol/L (3.5-5.1); Sodium Level 140 mmol/L (136-145)
--- NOTE | 2022-07-29 07:15 | RAD_ITS ---
INDICATION: dyspnea EXAMINATION/TECHNIQUE: X-RAY - XR Chest 1 View COMPARISON: 06/28/2022 FINDINGS: LINES/DEVICES: None. LUNGS: No consolidation, edema or effusion. No pneumothorax. MEDIASTINUM AND CARDIOVASCULAR STRUCTURES: Moderate cardiomegaly. BONES AND SOFT TISSUES: Unremarkable. RAD/Chest 1 View (Portable) IMPRESSION: Moderate cardiomegaly. Electronically Signed: Blas Farfan MD at 7:36 EDT ,
[2022-07-29] MEDS: MethylPREDNISolone 125 MG/2 ML Vial IV (07:40)
--- NOTE | 2022-07-29 07:56 | NURSING ---
MED SURG MARTINEZ RESP FAILURE WITH HYPOXIA/ASTHMA EXAC
--- NOTE | 2022-07-29 08:12 | PCM.HP.STD ---
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 She had been in her usual health until the night prior to presentation when she had increasing shortness of breath and when she woke up in the morning her symptoms were refractory to inhalers. She had squad called and on arrival she had an O2 sat of 63% and was placed on nasal cannula, in the ED she was satting 93% on 5 to 6 L nasal cannula however due to increased work of breathing she was placed on Airvo and still satting low to mid 90s. She was given albuterol, Methylpred, mag and did start to have some improvement. Hospitalist consulted for admission. Patient seen at bedside and she is upset and apologizing that she had come back to the hospital for an asthma exacerbation and perseverated on this, had difficulty answering further questions but was able to say that she had a cough over this past week with sputum, mostly had worsening shortness of breath over the past 2 days, denied fever. [facility] Medical History (Updated 07/29/22 @ 07:[address] Sunny Monroe, DO) Asthma Embolic stroke involving middle cerebral artery Former tobacco use Hepatitis History of endocarditis History of substance abuse Home Medications gabapentin 600 mg tablet 600 mg PO TID nerve pain 03/07/22 [History Last Taken 06/24/22] baclofen 10 mg tablet 10 mg PO TID spasms 05/02/22 [History Last Taken 06/24/22] buspirone 5 mg tablet 5 mg PO TID Check with primary doctor 06/25/22 [History Last Taken 06/24/22] trazodone 50 mg tablet 50 mg PO QHS Check with primary doctor 06/25/22 [History Last Taken Unknown] albuterol sulfate 90 mcg/actuation aerosol inhaler 90 mcg inhalation PRN PRN asthma 30 days #8.5 grams 05/13/23 [Rx Last Taken Unknown] metoprolol tartrate 25 mg tablet 12.5 mg PO BID 30 days #30 tabs 07/01/22 [Rx Last Taken Unknown] mometasone-formoterol HFA 200 mcg-5 mcg/actuation aerosol inhaler 2 inh inhalation Q12H Check with primary doctor 30 days #13 grams 07/01/22 [Rx Last Taken Unknown] prednisone 20 mg tablet See Taper PO BREAKFAST #32 tabs 07/01/22 [Rx Last Taken Unknown] Allergy/AdvReac Type Severity Reaction Status Date / Time No Known Allergies Allergy Verified 07/29/22 06:10 Family History (Updated 06/25/22 @ 00:[address] Vani Jiménez MD) Father COPD (chronic obstructive pulmonary disease) Polysubstance abuse Mother Cancer Uterine CA. Surgical History Hx of tracheostomy Previous section S/P percutaneous endoscopic gastrostomy (PEG) tube placement Social History (Updated 06/25/22 @ 00:[address] Vani Jiménez MD) household members: none Smoking Status: Former smoker how long ago did patient quit smoking: Quit smoking 04/2022, smoked ~ 1 ppd since 19 y/o until quit recently. alcohol intake: never substance use type: former substance user Date of last use: Clean x 5 years as of 06/25/22. ROS ROS Narrative Patient denied fever, did endorse cough with sputum and shortness of breath over the past day, had difficulty answering any other questions due to perseverating on apologizing for going back to the hospital Vital Signs Vital Signs Vital Signs: 07/29/22 06:04 07/29/22 06:09 07/29/22 06:10 Temperature 97.6 F L 97.6 F L Temperature Source Temporal Temporal Pulse Rate 115 H 114 H Respiratory Rate 36 H 36 H Respiratory Effort Short of Breath Labored Accessory Muscle Use Head [place] Respiratory Pattern Tachypnea Blood Pressure 121/80 H 121/80 H Blood Pressure Mean 93 93 Pulse Ox 84 83 Oxygen Delivery Method Room Air Nasal Cannula Nasal Cannula Oxygen Flow Rate (L/min) 3 5 Fraction of Inspired Oxygen (FIO2) 07/29/22 06:27 07/29/22 06:25 07/29/22 07:05 Temperature Temperature Source Pulse Rate 89 110 H Respiratory Rate 21 H 22 H Respiratory Effort Respiratory Pattern Blood Pressure Blood Pressure Mean Pulse Ox 96 98 Oxygen Delivery Method Nasal Cannula Oxygen Flow Rate (L/min) 4.5 Fraction of Inspired Oxygen (FIO2) 35 07/29/22 07:13 07/29/22 08:05 Temperature 97.4 F L 97.3 F L Temperature Source Temporal Temporal Pulse Rate 96 111 H Respiratory Rate 22 H 20 H Respiratory Effort Respiratory Pattern Blood Pressure 102/59 L 123/97 H Blood Pressure Mean 73 105 Pulse Ox 97 98 Oxygen Delivery Method Airvo Airvo Oxygen Flow Rate (L/min) 40 40 Fraction of Inspired Oxygen (FIO2) 35 35 Weight Weight: 64.7 kg Body Mass Index (BMI) 21.7 Physical Exam Narrative General: Was resting comfortably, when woken up patient anxious HEENT: Atraumatic Eyes: Anicteric, normal conjunctiva, extraocular movements grossly intact Neck: Supple Respiratory: Slight increased work of breathing without accessory muscle use at time of exam, Airvo in place, poor airflow bilaterally Cardiovascular: Regular rhythm GI: Soft, nontender, nondistended Extremities: No edema Musculoskeletal: Does not move left upper extremity Neuro: History of CVA, does not move left upper extremity/has residual deficits Skin: No rashes appreciated Psych: Appears anxious Results Lab / Micro Data Result Diagrams: 07/29/22 06:45 07/29/22 06:45 Labs: Laboratory Results - last 24 hr 07/29/22 06:45: Sodium 140, Potassium 4.1, Chloride 112 H, Carbon Dioxide 23.0, Anion Gap 5, BUN 15, Creatinine 0.61, Estim Creat Clear Calc 124.90, Est GFR (MDRD) Af Amer 140, Est GFR (MDRD) Non-Af 116, BUN/Creatinine Ratio 24.7 H, Glucose 105, Calcium 8.4 L, Magnesium 2.0 07/29/22 06:45: WBC 9.0, RBC 4.71, Hgb 14.5, Hct 41.9, MCV 89.0, MCH 30.8, MCHC 34.6, RDW Std Deviation 45.1 H, RDW Coeff of Min 14.2, Plt Count 180, MPV 10.4, Immature Gran % (Auto) 0.400, Neut % (Auto) 62.4, Lymph % (Auto) 22.1, [place] % (Auto) 8.4, Eos % (Auto) 5.8 H, Baso % (Auto) 0.9, Absolute Neuts (auto) 5.6, Absolute Lymphs (auto) 2.00, Nucleated RBC % 0 Radiology Impression Chest X-Ray 07/29/22 07:15 IMPRESSION: Moderate cardiomegaly. 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
[2022-07-29 10:31] LABS: Allen Test Negative; Base Excess 0 mmol/L (-2 to +2); Bicarbonate 25.1 mmol/L (22-26); FI02 36; O2 Delivery Device Cannula; PO2 49 mmHG (75-100); SITE R Radial; SO2 83 % (95-99); Total Carbon Dioxide 26 mmol/L; pCO2 42.8 mmHg (35-45); pH 7.38 (7.35-7.45)
[2022-07-29 10:57] LABS: Blood Gas Specimen Type VEN
--- NOTE | 2022-07-29 11:50 | CASEMGMT ---
BUBBA COOPER Face to Face with patient for initial transition planning/care coordination assessment. RN ALLISON introduced self and role at [facility]. Patient lying in bed, alert and oriented. Patient willing to participate in assessment and is able to answer all questions appropriately. Care providers, pharmacy, and demographics verified. Patient wishes to discharge home, denies need for home health at this time. Patient states she has no further needs or concerns at this time. CM to follow for discharge planning needs that may arise. PCP: Jaxon Mallory Specialists: none Preferred Pharmacy: [facility] Insurance: [id number] Prescription Benefit: yes Living Will/HPOA: yes, step father Geoff Geronimo LNOK: Step brother, significant other Living Arrangements: Patient lives with significant other in a 2 floor apartment. Significant other carries patient up to apartment. Significant other assists patient with ADLs. Transportation: friend or public DME/HHC: Patient has wheelchair and nebulizer at home. Patient denies HHC. Patient has been to [facility] in the past. Will monitor for home oxygen, prefers [employer]. Disposition Plan: Patient to discharge home with support of significant other and follow-up plans in place. Will monitor for home oxygen at discharge. Rosemary LAMB, RN, CM
[2022-07-29] MEDS: Azithromycin 250 MG Tablet 500 MG PO (12:05)
[2022-07-29] MEDS: guaiFENesin 1,200 MG Tablet 1200 MG PO ×2 (12:05→21:13)
[2022-07-29] MEDS: Enoxaparin 40 MG/0.4 ML Syringe SC (12:05)
[2022-07-29] MEDS: Gabapentin 300 MG Capsule PO ×2 (15:13→21:14)
[2022-07-29] MEDS: 0.9% Saline Lock 10 ML Syringe IV ×2 (15:13→21:14)
[2022-07-29] MEDS: Baclofen 10 MG Tablet 5 MG PO ×2 (15:13→21:13)
[2022-07-29] MEDS: busPIRone 5 MG Tablet PO ×2 (15:13→21:13)
[2022-07-29] MEDS: traZODone 50 MG Tablet PO (21:13)
[2022-07-29] MEDS: Metoprolol Tartrate 25 MG Tablet 12.5 MG PO (21:24)
[2022-07-30] VITALS (12 sets, daily range): BP systolic 102–107; BP diastolic 61–81; PULSE 88–96; RESP 16–18; TEMP 36.7–36.9; O2SAT 94–97
[2022-07-30] MEDS: Ipratropium/Albuterol Sulfate 3 ML AMPUL.NEB INHALATION ×6 (02:51→22:50)
--- NOTE | 2022-07-30 02:55 | CPS ---
PEP & IS not done due to patient sleeping
[2022-07-30] MEDS: busPIRone 5 MG Tablet PO ×3 (05:23→22:35)
[2022-07-30] MEDS: Gabapentin 300 MG Capsule PO ×3 (05:23→22:34)
[2022-07-30] MEDS: 0.9% Saline Lock 10 ML Syringe IV ×2 (05:23→14:25)
[2022-07-30] MEDS: Baclofen 10 MG Tablet 5 MG PO ×3 (05:23→22:34)
[2022-07-30 06:14] LABS: Absolute Lymphocyte Count 1.15 X10^3/uL (0.83-4.51); Absolute Neutrophil Count 8.3 X10^3/uL (2.0-7.7); Basophil# 0.02 X10^3/uL; Basophil% 0.2 % (0-1); Eosinophil# 0.01 X10^3/uL; Eosinophils% 0.1 % (0-5); Hematocrit 37.8 % (37-47); Hemoglobin 13.1 g/dL (12.0-15.0); Lymphocyte # 1.15 X10^3/ul (0.83-4.51); Lymphocyte % 10.7 % (19-41); Mean Corp Hgb Conc 34.7 g/dL (32-36); Mean Corpuscular Hgb 31.1 pg (27.0-32.0); Mean Corpuscular Volume 89.8 fL (81-99); Mean Platelet Vol. 10.8 fl (6.2-12.0); Monocyte# 1.26 X10^3/uL; Monocyte% 11.7 % (0-10); NRBC Flagged by Analyzer 0 % (0-5); Neutrophil # 8.29 X10^3/uL (2.7-7.7); Neutrophil % 76.8 % (47-70); Platelet Count 173 K/mm3 (150-450); RBC Distribution Width CV 14.3 % (11.6-14.6); RBC Distribution Width SD 45.1 fl (35.1-43.9); Red Blood Count 4.21 M/mm3 (4.2-5.4); White Blood Count 10.8 K/mm3 (4.4-11.0)
[2022-07-30 06:45] LABS: ALB/GLOB Ratio 1.2 RATIO (0.9-2.4); AST(SGOT) 11 U/L (15-37); Alanine Aminotransfer ALT/SGPT 18 U/L (13-56); Albumin, Serum 3.4 g/dL (3.2-5.0); Alkaline Phosphatase 77 U/L (45-117); Anion Gap 5 (5-15); BUN 11 mg/dL (7-18); BUN/Creat Ratio 18.4 RATIO (10-20); Calcium,Total 8.4 mg/dL (8.5-10.1); Chloride 111 mmol/L (98-107); EST Glomerular Filtration Rate 119 mL/min (>60); Est Glom Filt Rate - Afr Amer 143 mL/min (>60); Globulin 2.9 g/dL (2.2-4.2); Glucose 108 mg/dL (74-106); Potassium 3.5 mmol/L (3.5-5.1); Protein, Total 6.3 g/dL (6.4-8.2); Sodium Level 140 mmol/L (136-145)
--- NOTE | 2022-07-30 08:12 | PCM.PN.HOSP ---
Reason for Visit Reason for Visit: Diagnoses Unspecified asthma with (acute) exacerbation (07/29/22) Subjective Subjective Feeling much better today, minimal cough with no production of sputum Objective Data Objective Data Vital Signs: Vital Signs Temp Pulse Resp BP Pulse Ox O2 Del Method O2 Flow Rate 98.0 F 94 18 104/81 H 94 Nasal Cannula 3 07/30/22 05:15 07/30/22 07:08 07/30/22 07:08 07/30/22 05:15 07/30/22 07:08 07/30/22 07:55 07/30/22 07:55 FiO2 35 07/29/22 08:05 Oxygen Flow Rate (L/min) 3 Oxygen Delivery Method Nasal Cannula Weight: 62.596 kg Body Mass Index (BMI) 20.9 Intake & Output: Intake and Output for Last 24 Hours 07/28/22 07/29/22 07/30/22 23:59 23:59 23:59 Intake Total 454 / 454 Output Total 150 / 150 Balance 454 / 304 -150 / -150 Lab / Micro Data Result Diagrams: 07/30/22 05:59 07/30/22 05:59 Labs: Laboratory Results - last 24 hr 07/30/22 05:59: WBC 10.8, RBC 4.21, Hgb 13.1, Hct 37.8, MCV 89.8, MCH 31.1, MCHC 34.7, RDW Std Deviation 45.1 H, RDW Coeff of Min 14.3, Plt Count 173, MPV 10.8, Immature Gran % (Auto) 0.500, Neut % (Auto) 76.8 H, Lymph % (Auto) 10.7 L, [place] % (Auto) 11.7 H, Eos % (Auto) 0.1, Baso % (Auto) 0.2, Absolute Neuts (auto) 8.3 H, Absolute Lymphs (auto) 1.15, Nucleated RBC % 0 07/30/22 05:59: Sodium 140, Potassium 3.5, Chloride 111 H, Carbon Dioxide 24.0, Anion Gap 5, BUN 11, Creatinine 0.60, Estim Creat Clear Calc 124.40, Est GFR (MDRD) Af Amer 143, Est GFR (MDRD) Non-Af 119, BUN/Creatinine Ratio 18.4, Glucose 108 H, Calcium 8.4 L, Total Bilirubin 0.50, AST 11 L, ALT 18, Alkaline Phosphatase 77, Total Protein 6.3 L, Albumin 3.4, Globulin 2.9, Albumin/Globulin Ratio 1.2 Micro: Microbiology 07/29/22 10:00 Mucosa - Nasopharyngeal Respiratory Panel (PCR) - Final 07/29/22 09:35 Nasal Secretion SARS-CoV-2 Antigen (Rapid) - Final ABG Data ABG results: ABG 07/29/22 10:26 Specimen Type JEAN CLAUDE Sample Site R Radial pH 7.38 Bicarbonate Actual 25.1 Total CO2 26 Base Excess 0 O2 Saturation 83 L O2 % 36 ABG pCO2 42.8 ABG pO2 49 L Kei Test Negative O2 Delivery Device Cannula Physical Exam Narrative General: Laying in bed resting HEENT: Atraumatic Eyes: Anicteric, normal conjunctiva, extraocular movements grossly intact Neck: Supple Respiratory: Air flow improving, no increased work of breathing Cardiovascular: Regular rhythm GI: Soft, nontender, nondistended Extremities: No edema Musculoskeletal: Does not move left upper extremity Neuro: History of CVA, does not move left upper extremity/has residual deficits Skin: No rashes appreciated Psych: Calm and cooperative Assessment & Plan Assessment/Plan (1) Asthma exacerbation: PLAN: Plan #Acute exacerbation of chronic asthma -Admit to floor, continuous O2 monitoring -Chest x-ray: Without acute process, no pneumonia appreciated -We will obtain COVID, respiratory panel, sputum culture if able -O2 in place, wean as tolerated -IV methylprednisone -Scheduled DuoNebs -Incentive spirometer -Mucinex -She received mag infusion as well -07/30: Improving with current measures, previously of de-escalated to oral steroids too quickly patient significantly decompensates, will change DuoNebs to every 4 while awake and continue IV Methylpred through today and azithromycin, may be able to de-escalate to oral and space out nebs tomorrow if patient doing well #History of CVA due to septic 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
[2022-07-30] MEDS: Enoxaparin 40 MG/0.4 ML Syringe SC (08:44)
[2022-07-30] MEDS: Azithromycin 250 MG Tablet 500 MG PO (08:44)
[2022-07-30] MEDS: Metoprolol Tartrate 25 MG Tablet 12.5 MG PO ×2 (08:45→22:35)
[2022-07-30] MEDS: guaiFENesin 1,200 MG Tablet 1200 MG PO ×2 (08:45→22:34)
--- NOTE | 2022-07-30 11:00 | NURSING ---
This RN taking over care of patient at this time.
[2022-07-30] MEDS: Ibuprofen 200 MG Tablet PO (12:46)
[2022-07-30] MEDS: traZODone 50 MG Tablet PO (22:34)
[2022-07-30] MEDS: MELATONIN 3 MG TABLET PO (22:34)
[2022-07-31] VITALS (12 sets, daily range): BP systolic 100–104; BP diastolic 63–83; PULSE 85–92; RESP 16–20; TEMP 36.4–37.1; O2SAT 93–96
[2022-07-31] MEDS: Ipratropium/Albuterol Sulfate 3 ML AMPUL.NEB INHALATION ×5 (02:55→19:03)
[2022-07-31] MEDS: busPIRone 5 MG Tablet PO ×3 (06:27→21:23)
[2022-07-31] MEDS: 0.9% Saline Lock 10 ML Syringe IV ×2 (06:28→09:52)
[2022-07-31] MEDS: Gabapentin 300 MG Capsule PO ×3 (06:28→21:22)
[2022-07-31] MEDS: Baclofen 10 MG Tablet 5 MG PO ×3 (06:28→21:22)
[2022-07-31 06:44] LABS: Absolute Neutrophil Count 8.2 X10^3/uL (2.0-7.7); Basophil# 0.01 X10^3/uL; Basophil% 0.1 % (0-1); Hematocrit 38.1 % (37-47); Hemoglobin 12.7 g/dL (12.0-15.0); Mean Corp Hgb Conc 33.3 g/dL (32-36); Mean Corpuscular Hgb 30.3 pg (27.0-32.0); Mean Corpuscular Volume 90.9 fL (81-99); Mean Platelet Vol. 11.1 fl (6.2-12.0); NRBC Flagged by Analyzer 0 % (0-5); Neutrophil # 8.17 X10^3/uL (2.7-7.7); Neutrophil % 82.1 % (47-70); Platelet Count 174 K/mm3 (150-450); RBC Distribution Width CV 14.6 % (11.6-14.6); RBC Distribution Width SD 47.2 fl (35.1-43.9); Red Blood Count 4.19 M/mm3 (4.2-5.4)
[2022-07-31 07:09] LABS: ALB/GLOB Ratio 1.1 RATIO (0.9-2.4); AST(SGOT) 10 U/L (15-37); Alanine Aminotransfer ALT/SGPT 14 U/L (13-56); Albumin, Serum 3.3 g/dL (3.2-5.0); Alkaline Phosphatase 65 U/L (45-117); Anion Gap 4 (5-15); BUN 15 mg/dL (7-18); BUN/Creat Ratio 23.8 RATIO (10-20); Calcium,Total 8.5 mg/dL (8.5-10.1); Chloride 109 mmol/L (98-107); Creatinine, Serum 0.63 mg/dL (0.55-1.02); EST Glomerular Filtration Rate 111 mL/min (>60); Est Glom Filt Rate - Afr Amer 135 mL/min (>60); Estimated Creatinine Clearance 118.47 ml/min; Globulin 2.9 g/dL (2.2-4.2); Glucose 113 mg/dL (74-106); Potassium 4.1 mmol/L (3.5-5.1); Protein, Total 6.2 g/dL (6.4-8.2); Sodium Level 139 mmol/L (136-145)
--- NOTE | 2022-07-31 09:14 | PN.HOSP_ITS ---
Reason for Visit Reason for Visit: Diagnoses Unspecified asthma with (acute) exacerbation (07/29/22) Subjective Subjective Breathing better. Currently off oxygen. Objective Data Objective Data Vital Signs: Vital Signs Temp Pulse Resp BP Pulse Ox O2 Del Method O2 Flow Rate 36.4 C L 88 16 104/63 94 Nasal Cannula 2 07/31/22 06:30 07/31/22 06:46 07/31/22 06:46 07/31/22 06:30 07/31/22 06:46 07/31/22 06:46 07/31/22 06:46 FiO2 35 07/29/22 08:05 Oxygen Flow Rate (L/min) 2 Oxygen Delivery Method Nasal Cannula Weight: 62.596 kg Body Mass Index (BMI) 20.9 Intake & Output: Intake and Output for Last 24 Hours 07/29/22 07/30/22 07/31/22 23:59 23:59 23:59 Intake Total 454 / 454 240 / 240 Output Total 500 / 650 250 / 250 Balance 454 / 304 -260 / -410 -250 / -250 Lab / Micro Data Result Diagrams: 07/31/22 06:21 07/31/22 06:21 Labs: Laboratory Results - last 24 hr 07/31/22 06:21: WBC 10.0, RBC 4.19 L, Hgb 12.7, Hct 38.1, MCV 90.9, MCH 30.3, MCHC 33.3, RDW Std Deviation 47.2 H, RDW Coeff of Min 14.6, Plt Count 174, MPV 11.1, Immature Gran % (Auto) 0.800, Neut % (Auto) 82.1 H, Lymph % (Auto) 10.0 L, [place] % (Auto) 7.0, Eos % (Auto) 0.0, Baso % (Auto) 0.1, Absolute Neuts (auto) 8.2 H, Absolute Lymphs (auto) 1.00, Nucleated RBC % 0 07/31/22 06:21: Sodium 139, Potassium 4.1, Chloride 109 H, Carbon Dioxide 26.0, Anion Gap 4 L, BUN 15, Creatinine 0.63, Estim Creat Clear Calc 118.47, Est GFR (MDRD) Af Amer 135, Est GFR (MDRD) Non-Af 111, BUN/Creatinine Ratio 23.8 H, Glucose 113 H, Calcium 8.5, Total Bilirubin 0.50, AST 10 L, ALT 14, Alkaline Phosphatase 65, Total Protein 6.2 L, Albumin 3.3, Globulin 2.9, Albumin/Globulin Ratio 1.1 Micro: Microbiology 07/29/22 10:00 Mucosa - Nasopharyngeal Respiratory Panel (PCR) - Final 07/29/22 09:35 Nasal Secretion SARS-CoV-2 Antigen (Rapid) - Final Physical Exam Const Constitutional Narrative: dysarthria. Resp normal respiratory effort, no retractions, no use of accessory muscles and clear to auscultation bilaterally Cardio regular rate, regular rhythm, S1 normal heart sound and S2 normal heart sound GI normal to inspection, nondistended, normoactive bowel sounds, soft to palpation, non-tender and non-distended Assessment & Plan Assessment/Plan (1) Asthma exacerbation: PLAN: CXR unremarkable Respiratory panel and COVID [address], wean as tolerated IV methylprednisone, change to prednisone. Scheduled DuoNebs Incentive spirometer Mucinex She received mag infusion as well PLAN: 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-on baclofen, gabapentin-supportive care * HTN hx-On metoprolol, holdin parameters added #DVT ppx: Lovenox subcu Charges/Coding Visit Charges Inpatient E&M: 93382 Subs Hosp L2
[2022-07-31] MEDS: Enoxaparin 40 MG/0.4 ML Syringe SC (09:40)
[2022-07-31] MEDS: Metoprolol Tartrate 25 MG Tablet 12.5 MG PO ×2 (09:40→21:23)
[2022-07-31] MEDS: guaiFENesin 1,200 MG Tablet 1200 MG PO ×2 (09:41→21:22)
[2022-07-31] MEDS: Azithromycin 250 MG Tablet 500 MG PO (09:41)
[2022-07-31] MEDS: predniSONE 20 MG Tablet 40 MG PO (14:26)
--- NOTE | 2022-07-31 14:35 | CHAPLAIN ---
Type of Pastoral Visit ___ Initial Visit ___ Follow-up Visit ___ On-call Visit ___ General Patient Visit ___ Spiritual Assessment ___ Family Conference ___ Bereavement ___ Rapid Response ___ Code Blue ___ Other (describe below) Pastoral Care Referral From _x__ Patient ___ Family ___ Nurse ___ Physician ___ Can Patcher ___ Barrel Assembler ___ Other (describe below) Sacrament/Intervention _x__ Active listening ___ Anointing ___ Worship ___ Bereavement ___ Communion ___ Nancy exploration ___ _x__ Life review _x__ Prayer ___ Reconciliation ___ Sacrament of Sick ___ Supportive presence ___ Wedding ___ Other (describe below) Pastoral Comments patient has difficulty in speaking clearly; pt is quick to give thanks for waking up and living today; pt speaks of her experience and her nancy which helps her in these times; when asked about concerns pt was willing to identify 'weekness'
[2022-07-31] MEDS: Ibuprofen 200 MG Tablet PO ×2 (14:48→21:36)
[2022-07-31] MEDS: traZODone 50 MG Tablet PO (21:22)
[2022-08-01 04:00] VITALS: BP 100/77; PULSE 83; RESP 18; TEMP 36.6; O2SAT 93
[2022-08-01] MEDS: Ibuprofen 200 MG Tablet PO (04:59)
[2022-08-01] MEDS: Baclofen 10 MG Tablet 5 MG PO (04:59)
[2022-08-01] MEDS: busPIRone 5 MG Tablet PO (04:59)
[2022-08-01] MEDS: Gabapentin 300 MG Capsule PO (04:59)
[2022-08-01 07:13] LABS: Basophil# 0.02 X10^3/uL; Basophil% 0.3 % (0-1); Differential Indicated SCAN CRITERIA MET; Eosinophil# 0.01 X10^3/uL; Eosinophils% 0.1 % (0-5); Hemoglobin 13.5 g/dL (12.0-15.0); Lymphocyte % 25.1 % (19-41); Mean Corp Hgb Conc 33.8 g/dL (32-36); Mean Corpuscular Hgb 30.7 pg (27.0-32.0); Mean Corpuscular Volume 90.9 fL (81-99); Mean Platelet Vol. 11.5 fl (6.2-12.0); Monocyte# 0.84 X10^3/uL; Monocyte% 10.6 % (0-10); NRBC Flagged by Analyzer 0 % (0-5); Neutrophil # 5.01 X10^3/uL (2.7-7.7); Neutrophil % 62.9 % (47-70); POSITIVE COUNT YES; Platelet Count 142 K/mm3 (150-450); RBC Distribution Width CV 14.6 % (11.6-14.6); RBC Distribution Width SD 46.9 fl (35.1-43.9)
[2022-08-01 07:41] LABS: Differential Comment SCANNED
--- NOTE | 2022-08-01 07:45 | PN.HOSP_ITS ---
Reason for Visit Reason for Visit: Diagnoses Unspecified asthma with (acute) exacerbation (07/29/22) Subjective Subjective Breathing better. Feels well. Anxious to go home. Objective Data Objective Data Vital Signs: Vital Signs Temp Pulse Resp BP Pulse Ox O2 Del Method O2 Flow Rate 36.6 C 83 18 100/77 93 Room Air 2 08/01/22 04:00 08/01/22 04:00 08/01/22 04:00 08/01/22 04:00 08/01/22 04:00 08/01/22 04:00 07/31/22 06:46 FiO2 35 07/29/22 08:05 Oxygen Flow Rate (L/min) 2 Oxygen Delivery Method Room Air Weight: 62.596 kg Body Mass Index (BMI) 20.9 Intake & Output: Intake and Output for Last 24 Hours 07/30/22 07/31/22 08/01/22 23:59 23:59 23:59 Intake Total 240 / 240 340 / 340 Output Total 500 / 650 350 / 350 Balance -260 / -410 -10 / -10 Lab / Micro Data Result Diagrams: 08/01/22 06:25 08/01/22 06:25 Labs: Laboratory Results - last 24 hr 08/01/22 06:25: WBC 8.0, RBC 4.40, Hgb 13.5, Hct 40.0, MCV 90.9, MCH 30.7, MCHC 33.8, RDW Std Deviation 46.9 H, RDW Coeff of Min 14.6, Plt Count 142 L, MPV 11.5, Immature Gran % (Auto) 1.000 H, Neut % (Auto) 62.9, Lymph % (Auto) 25.1, [place] % (Auto) 10.6 H, Eos % (Auto) 0.1, Baso % (Auto) 0.3, Absolute Neuts (auto) 5.0, Absolute Lymphs (auto) 2.00, Nucleated RBC % 0, Differential Comment SCANNED Micro: Microbiology 07/29/22 10:00 Mucosa - Nasopharyngeal Respiratory Panel (PCR) - Final 07/29/22 09:35 Nasal Secretion SARS-CoV-2 Antigen (Rapid) - Final Physical Exam Const alert and no apparent distress Resp Resp Narrative: Expiratory wheeze. No respiratory distress. No conversational dyspnea. Cardio regular rate, regular rhythm, S1 normal heart sound and S2 normal heart sound Assessment & Plan Assessment/Plan (1) Asthma exacerbation: PLAN: CXR unremarkable Respiratory panel and COVID [address], wean as tolerated IV methylprednisone, change to prednisone. Scheduled DuoNebs Incentive spirometer Mucinex She received mag infusion as well We will plan for prednisone taper. 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
[2022-08-01 07:52] LABS: ALB/GLOB Ratio 0.9 RATIO (0.9-2.4); AST(SGOT) 9 U/L (15-37); Alanine Aminotransfer ALT/SGPT 15 U/L (13-56); Albumin, Serum 2.7 g/dL (3.2-5.0); Alkaline Phosphatase 60 U/L (45-117); Anion Gap 5 (5-15); BUN 18 mg/dL (7-18); BUN/Creat Ratio 32.6 RATIO (10-20); Chloride 108 mmol/L (98-107); Creatinine, Serum 0.55 mg/dL (0.55-1.02); EST Glomerular Filtration Rate 130 mL/min (>60); Est Glom Filt Rate - Afr Amer 157 mL/min (>60); Globulin 3.1 g/dL (2.2-4.2); Glucose 79 mg/dL (74-106); Potassium 3.7 mmol/L (3.5-5.1); Protein, Total 5.8 g/dL (6.4-8.2); Sodium Level 136 mmol/L (136-145)
[2022-08-01 08:39] VITALS: BP 111/76; PULSE 95; RESP 20; TEMP 36.7; O2SAT 93
[2022-08-01 08:44] VITALS: PULSE 95
[2022-08-01] MEDS: predniSONE 20 MG Tablet 40 MG PO (08:44)
[2022-08-01] MEDS: Azithromycin 250 MG Tablet 500 MG PO (08:44)
[2022-08-01] MEDS: Metoprolol Tartrate 25 MG Tablet 12.5 MG PO (08:44)
[2022-08-01] MEDS: Enoxaparin 40 MG/0.4 ML Syringe SC (08:45)
[2022-08-01] MEDS: guaiFENesin 1,200 MG Tablet 1200 MG PO (08:49)
--- NOTE | 2022-08-01 09:23 | PCM.DC ---
Discharge Instructions Diet Discharge Diet: Low fat / Low cholesterol Dressing / Incision Call your doctor if you observe: Fever of 101 or Higher and Shortness of breath Follow Up Care Test Results: Test results from this visit will be discussed in further detail at your follow-up appointment, if applicable. Discharge Plan Admission Admit Date/Time: 07/29/22 08:11 Primary Reason for Your Visit: Asthma exacerbation. Attending Provider: Jn Arreola Primary Care Provider: Care Physician,No Primary Consulting Providers: Leila Esparza Instructions Additional Instructions / Restrictions: You presented with an asthma exacerbation and did well with steroids and breathing treatments. We will have a prescription for a prednisone taper, please complete as instructed. He also have a prescription for albuterol for your nebulizer. Please follow-up with a primary care provider at your earliest convenience to get established and maek referrals to specialists including a neurologist for your history of stroke as well as thermite welder for your asthma. Discharge Orders/Prescriptions Prescriptions: New albuterol sulfate 2.5 mg /3 mL (0.083 %) Solution For Nebulization 2.5 mg inhalation Q2H PRN PRN (Reason: Shortness of Breath/Wheezing) Qty: 75 0RF azithromycin 250 mg Tablet 500 mg PO Q24 Qty: 1 0RF Mucus Relief ER 1,200 mg Tablet Extended Release 12hr 1,200 mg PO BID Qty: 20 0RF prednisone 10 mg tablet 10 mg PO DAILY Qty: 22 0RF Rx Instructions: 4 tabs daily for 1 days, then 3 tabs daily for 3 days, then 2 tabs daily for 3 days, then 1 tab daily for 3 days Continued gabapentin 600 mg tablet 600 mg PO TID Label Comments: TAKE 1 TABLET BY MOUTH THREE TIMES DAILY baclofen 10 mg Tablet 10 mg PO TID buspirone 5 mg tablet 5 mg PO TID trazodone 50 mg tablet 50 mg PO QHS Label Comments: TAKE 1 TABLET BY MOUTH EVERYDAY AT BEDTIME metoprolol tartrate 25 mg Tablet 12.5 mg PO BID 30 Days Qty: 30 0RF albuterol sulfate 90 mcg/actuation HFA aerosol inhaler 90 mcg INHALATION PRN PRN (Reason: asthma) 30 Days Qty: 8.5 0RF mometasone-formoterol 200-5 mcg/actuation HFA aerosol inhaler 2 inh inhalation Q12H 30 Days Qty: 13 0RF Rx Instructions: 2 inhalations twice daily for 7 days Discontinued prednisone 20 mg Tablet See Taper PO BREAKFAST Qty: 32 0RF Taper: Prednisone Taper 60 mg WITH BREAKFAST for 3 Days and 0 Hour 50 mg WITH BREAKFAST for 3 Days and 0 Hour 40 mg WITH BREAKFAST for 3 Days and 0 Hour 30 mg WITH BREAKFAST for 3 Days and 0 Hour 20 mg WITH BREAKFAST for 3 Days and 0 Hour 10 mg WITH BREAKFAST for 3 Days and 0 Hour Referrals / Follow Up: Care Physician,No Primary [Primary Care Provider] - Disposition Disposition (needs filled in before D/C Order can be placed): Home, Self Care
--- NOTE | 2022-08-01 09:29 | DS.PCM_ITS ---
Providers Date of Admission: 07/29/22 Primary Care Physician: No Primary Care Phys Reason For Visit: ASTHMA EXACERBATION Diagnosis Discharge Diagnosis (1) Asthma exacerbation: Status: Resolved Code(s): J45.901 - Unspecified asthma with (acute) exacerbation Plan: CXR unremarkable Respiratory panel and COVID [address], wean as tolerated IV methylprednisone, change to prednisone. Scheduled DuoNebs Incentive spirometer Mucinex She received mag infusion as well We will plan for prednisone taper. 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-on baclofen, gabapentin-supportive care * HTN hx-On metoprolol, holdin parameters added #DVT ppx: Lovenox subcu Medications at Discharge Home Medications gabapentin 600 mg tablet 600 mg PO TID nerve pain 03/07/22 baclofen 10 mg tablet 10 mg PO TID spasms 05/02/22 buspirone 5 mg tablet 5 mg PO TID Check with primary doctor 06/25/22 trazodone 50 mg tablet 50 mg PO QHS Check with primary doctor 06/25/22 albuterol sulfate 90 mcg/actuation aerosol inhaler 90 mcg inhalation PRN PRN asthma 30 days #8.5 grams 07/01/22 metoprolol tartrate 25 mg tablet 12.5 mg PO BID 30 days #30 tabs 07/01/22 mometasone-formoterol HFA 200 mcg-5 mcg/actuation aerosol inhaler 2 inh inhalation Q12H Check with primary doctor 30 days #13 grams 07/01/22 albuterol sulfate 2.5 mg/3 mL (0.083 %) solution for nebulization 2.5 mg (3 mL) inhalation Q2H PRN PRN Shortness of Breath/Wheezing #75 mL 08/01/22 azithromycin 250 mg tablet 500 mg PO Q24 #1 TAB 08/01/22 guaifenesin 1,200 mg tablet, extended release 12 hr (Mucus Relief ER) 1,200 mg PO BID #20 tabs 08/01/22 prednisone 10 mg tablet 10 mg PO DAILY #22 tabs 08/01/22 Weight / BMI Weight Weight: 62.596 kg Body Mass Index (BMI) 20.9 ABG / Lab / Microbiology Data Result Diagrams: 08/01/22 06:25 08/01/22 06:25 Laboratory: Laboratory Results - last 24 hr 08/01/22 06:25: WBC 8.0, RBC 4.40, Hgb 13.5, Hct 40.0, MCV 90.9, MCH 30.7, MCHC 33.8, RDW Std Deviation 46.9 H, RDW Coeff of Min 14.6, Plt Count 142 L, MPV 11.5, Immature Gran % (Auto) 1.000 H, Neut % (Auto) 62.9, Lymph % (Auto) 25.1, Bowman % (Auto) 10.6 H, Eos % (Auto) 0.1, Baso % (Auto) 0.3, Absolute Neuts (auto) 5.0, Absolute Lymphs (auto) 2.00, Nucleated RBC % 0, Differential Comment SCANNED 08/01/22 06:25: Sodium 136, Potassium 3.7, Chloride 108 H, Carbon Dioxide 23.0, Anion Gap 5, BUN 18, Creatinine 0.55, Estim Creat Clear Calc 135.70, Est GFR (MDRD) Af Amer 157, Est GFR (MDRD) Non-Af 130, BUN/Creatinine Ratio 32.6 H, Glucose 79, Calcium 8.0 L, Total Bilirubin 0.30, AST 9 L, ALT 15, Alkaline Phosphatase 60, Total Protein 5.8 L, Albumin 2.7 L, Globulin 3.1, A lbumin/Globulin Ratio 0.9 Microbiology: Microbiology 07/29/22 10:00 Mucosa - Nasopharyngeal Respiratory Panel (PCR) - Final 07/29/22 09:35 Nasal Secretion SARS-CoV-2 Antigen (Rapid) - Final D/C Instructions Discharge Diet: Low fat / Low cholesterol Call your doctor if you observe: Fever of 101 or Higher and Shortness of breath Meaningful Use Info Meaningful Use Diagnoses (Choose all that apply): None applicable Discharge Plan Admission Admit Date/Time: 07/29/22 08:11 Primary Reason for Your Visit: Asthma exacerbation. Attending Provider: Jn Arreola Primary Care Provider: Care Physician,No Primary Consulting Providers: Leila Esparza Instructions Additional Instructions / Restrictions: You presented with an asthma exacerbation and did well with steroids and bal athing treatments. We will have a prescription for a prednisone taper, please complete as instructed. He also have a prescription for albuterol for your nebulizer. Please follow-up with a primary care provider at your earliest convenience to get established and maek referrals to specialists including a neurologist for your history of stroke as well as supervisor brake repair for your asthma. Discharge Orders/Prescriptions Prescriptions: New albuterol sulfate 2.5 mg /3 mL (0.083 %) Solution For Nebulization 2.5 mg inhalation Q2H PRN PRN (Reason: Shortness of Breath/Wheezing) Qty: 75 0RF azithromycin 250 mg Tablet 500 mg PO Q24 Qty: 1 0RF Mucus Relief ER 1,200 mg Tablet Extended Release 12hr 1,200 mg PO BID Qty: 20 0RF prednisone 10 mg tablet 10 mg PO DAILY Qty: 22 0RF Rx Instructions: 4 tabs daily for 1 days, then 3 tabs daily for 3 days, then 2 tabs daily for 3 days, then 1 tab daily for 3 days Continued gabapentin 600 mg tablet 600 mg PO TID Label Comments: TAKE 1 TABLET BY MOUTH THREE TIMES DAILY baclofen 10 mg Tablet 10 mg PO TID buspirone 5 mg tablet 5 mg PO TID trazodone 50 mg tablet 50 mg PO QHS Label Comments: TAKE 1 TABLET BY MOUTH EVERYDAY AT BEDTIME metoprolol tartrate 25 mg Tablet 12.5 mg PO BID 30 Days Qty: 30 0RF albuterol sulfate 90 mcg/actuation HFA aerosol inhaler 90 mcg INHALATION PRN PRN (Reason: asthma) 30 Days Qty: 8.5 0RF mometasone-formoterol 200-5 mcg/actuation HFA aerosol inhaler 2 inh inhalation Q12H 30 Days Qty: 13 0RF Rx Instructions: 2 inhalations twice daily for 7 days Discontinued prednisone 20 mg Tablet See Taper PO BREAKFAST Qty: 32 0RF Taper: Prednisone Taper 60 mg WITH BREAKFAST for 3 Days and 0 Hour 50 mg WITH BREAKFAST for 3 Days and 0 Hour 40 mg WITH BREAKFAST for 3 Days and 0 Hour 30 mg WITH BREAKFAST for 3 Days and 0 Hour 20 mg WITH BREAKFAST for 3 Days and 0 Hour 10 mg WITH BREAKFAST for 3 Days and 0 Hour Referrals / Follow Up: Care Physician,No Primary [Primary Care Provider] - Disposition Disposition (needs filled in before D/C Order can be placed): Home, Self Care Charges/Coding Visit Charges Inpatient E&M: 62585 Disch Hosp
--- NOTE | 2022-08-01 10:22 | CASEMGMT ---
Addendum entered by Jhonny Gonzalez 08/01/22 15:47: 1400: E-mail received from Bren that referral was received and they are reviewing it. Awaiting acceptance. 1545: Pt has been discharged. No response from [facility] yet re: acceptance. Mery @ [facility] aware referral w/[facility] is pending. She states she will continue to try and contact PCP Martinez re: following for HHC or may need to f/u with [facility] re: acceptance and appt so HHC can be started. Addendum entered by Jhonny Gonzalez 08/01/22 12:53: Per Bren @ [facility], she has not received referral yet. She clarified that e-mail address is [email or web address]. Re-sent at this time. Addendum entered by Jhonny Gonzalez 08/01/22 12:03: BUBBA COOPER spoke w/Bren @ [facility]. She requests referral be emailed to her @ [facility]. She states they will review the referral and will try to respond to this RN ALLISON by the end of the day. Addendum entered by Jhonny Gonzalez 08/01/22 10:53: Gael voiced understanding of the info provided and denies having any further questions. Original Note: RN ALLISON NOTE: Discharge order is in. RN CM to room. Introduced self and role. Pt states would like some assistance in the home w/bathing and would also like a nurse to f/u d/t her asthma/breathing. Pt discussed that if HHC is set up for SN that OT could also see her to assess/educate on bathing @ home. Pt agreeable to this. She was made aware that OT or an aide would not be able to follow long-term, as it would just be while needing the skilled service. Pt voices understanding. Pt states would like [facility] and declines wanting list of other HHC options. Order placed for HHC: SN, OT, and SW and referral made w/Mery @ [facility]. Per Mery, she has attempted to contact pt's PCP, Bonita Henriquez, but has been unsuccessful w/reaching her. Pt states Bonita has her own practice and is only in on [facility]. Pt verified Bonita's contact # is [phone] and also provided # of [phone], which pt states is Bonita's personal #. Mery @ [facility] made aware. Mery has been unable to reach pt's PCP. Pt made aware establishment of HHC is not able to be set up today, as her PCP/Bonita Henriquez is unable to be reached at this time. She voices understanding and states is okay w/going home, even w/HHC not being able to be set up. She was made aware [facility] will continue to try and reach her PCP to inquire if she is able to follow pt for HHC orders and will contact her fiance to f/u with him. She voices understanding. Pt states her fiance will be picking her up today, but that he is not driving currently and will be finding them a ride to take pt home. Discussed possible option of [facility] and asked pt if she is interested in referral so PCP can come to her home. She asked BUBBA COOPER to contact her fiance to discuss this w/him. Call placed to Gael/[place]. Discussed HHC w/him and made aware [facility] working on contacting PCP re: following for HH. Also made aware of Waiver program/[facility] Home info provided to pt. Discussed [facility] ([facility]). Gael payne would be agreeable to referral to them. Call to Bren @ [facility] re: referral. No answer. VM left. Awaiting return call. Elyse LAMB RN, CM
--- NOTE | 2022-08-01 10:25 | CASEMGMT ---
Social Work SW met with pt and provided information on the [place] [facility] Waiver Program. Pt appreciative of information and will review. Pt denies SW making a referral at this time. Pt has phone number to call if she would like to initiate this service. No other SW needs. SRINATH Smith
--- NOTE | 2022-08-01 10:30 | CASEMGMT ---
Discharge Planning HH referral sent to [facility] via [facility]. May Estrada, Discharge Planning Asst.
--- NOTE | 2022-08-01 10:48 | PHA.DC.MC ---
Pharmacy Service has performed discharge medication reconciliation and counseling for this patient. 1. AZITHROMYCIN 500MG PO X1 2. GUAIFENESIN 1200MG PO BID The patient's discharge medication list was reviewed for discrepancies and discrepancies were resolved. Home Medications gabapentin 600 mg tablet 600 mg PO TID nerve pain 03/07/22 baclofen 10 mg tablet 10 mg PO TID spasms 05/02/22 buspirone 5 mg tablet 5 mg PO TID Check with primary doctor 06/25/22 trazodone 50 mg tablet 50 mg PO QHS Check with primary doctor 06/25/22 albuterol sulfate 90 mcg/actuation aerosol inhaler 90 mcg inhalation PRN PRN asthma 30 days #8.5 grams 07/01/22 metoprolol tartrate 25 mg tablet 12.5 mg PO BID 30 days #30 tabs 07/01/22 mometasone-formoterol HFA 200 mcg-5 mcg/actuation aerosol inhaler 2 inh inhalation Q12H Check with primary doctor 30 days #13 grams 07/01/22 albuterol sulfate 2.5 mg/3 mL (0.083 %) solution for nebulization 2.5 mg (3 mL) inhalation Q2H PRN PRN Shortness of Breath/Wheezing #75 mL 08/01/22 azithromycin 500 mg tablet 500 mg PO DAILY #1 TAB 08/01/22 guaifenesin 1,200 mg tablet, extended release 12 hr (Mucus Relief ER) 1,200 mg PO BID #20 tabs 08/01/22 prednisone 10 mg tablet 10 mg PO DAILY #22 tabs 08/01/22 The patient was counseled on the following discharge medications and changes in medications for homegoing were reviewed. The Reason for Use, instructions for use, and potential side effects were reviewed for all new medications. The patient's questions regarding all of their medications were answered. The patient was able to verbally demonstrate an understanding of their discharge medications. Patient counseled by instructor adjunct pharmacy technicianFabian.
[2022-08-01 11:12] VITALS: PULSE 89; RESP 18
[2022-08-01] MEDS: Ipratropium/Albuterol Sulfate 3 ML AMPUL.NEB INHALATION (11:12)
[2022-08-01 15:17] VITALS: BP 138/90; PULSE 74; RESP 16; TEMP 36.5; O2SAT 94
--- NOTE | 2022-08-02 13:06 | CASEMGMT ---
BUBBA COOPER NOTE: Call received from Bren @ [facility] ([facility]). They are able to accept pt. They will reach out to pt's fiance (per pt's request) to notify him and to make arrangements for PCP to meet w/pt to get established for care w/them. Bren states they will try and schedule 1st appt ONUR, as pt wants [facility] set up. Bren is hoping appt can be scheduled as early as this Sun, or at the latest, early next week. She states they will reach out to [facility] once they get this arranged. Mery @ [facility] made aware of above. Elyse LAMB RN CM
== END 2022-08-01 15:26 | disposition home or self-care (01) | DRG 202 ==
LOC: ED 07:33 → MS3 08:27
PROVIDERS: Admitting Provider Internal Medicine; Emergency Provider Emergency Medicine
DX: J45.901 Unspecified asthma with (acute) exacerbation (principal); J96.01 Acute respiratory failure with hypoxia; I69.354 Hemiplegia and hemiparesis following cerebral infarction affecting left non-dominant side; I10 Essential (primary) hypertension; I69.322 Dysarthria following cerebral infarction; Z79.51 Long term (current) use of inhaled steroids; Z79.899 Other long term (current) drug therapy; Z86.79 Personal history of other diseases of the circulatory system; Z87.891 Personal history of nicotine dependence
CPT/HCPCS: 36415; 36600; 71045; 80048; 80053; 82803; 83735; 85025; 87633; 87811; 94640; 94660; 94668; 94762; 99252; 99285; A4216; G0463

== ENCOUNTER 2022-08-18 23:27 | Emergency (ER) | payer MEDICARE, MEDICAID, SELFPAY ==
--- NOTE | 2022-08-18 00:20 | RAD_ITS ---
STUDY: X-RAY CHEST REASON FOR EXAM: Female, 41 years old patient with cough. TECHNIQUE: Single AP portable view of the chest. COMPARISON: July 29, 2022. FINDINGS: Cardiac monitoring leads are present. The lungs are clear and expanded. There is no demonstrated pleural abnormality. There is mild cardiac enlargement. Normal mediastinum and krystin. Normal visualized pulmonary arteries. Normal visualized aortic arch and descending thoracic aorta. Normal visualized thoracic spine. Normal visualized ribs, clavicles, and shoulders. There is no demonstrated abnormality of the visualized soft tissue structures of the upper abdomen. RAD/Chest 1 View (Portable) IMPRESSION: Cardiomegaly without obvious acute cardiopulmonary disease. Electronically Signed: Jennifer Chaney MD at 0:44 EDT ,
[2022-08-18 23:28] VITALS: BP 138/90; PULSE 113; RESP 25; TEMP 36.7; O2SAT 93; BMI 22.0
[2022-08-18 23:31] VITALS: O2SAT 93
[2022-08-18 23:56] VITALS: PULSE 106; RESP 26
[2022-08-18] MEDS: predniSONE 20 MG Tablet 60 MG PO (23:56)
[2022-08-18] MEDS: Ipratropium/Albuterol Sulfate 3 ML AMPUL.NEB INHALATION ×2 (23:56→23:57)
--- NOTE | 2022-08-19 00:05 | CPS ---
[2356] Additional x1 Duoneb given to pt. in ER as well
--- NOTE | 2022-08-19 01:36 | EX.ED.DYSGE1 ---
HPI History of Present Illness Chief Complaint: Asthma Informant: patient and EMS Narrative Narrative: Patient is a 41-year-old female with past medical history of asthma as well as previous smoking who quit roughly 3 to 4 months ago and left-sided paralysis. She states that today she had increasing shortness of breath that was not responding to her home medication and therefore called EMS. EMS states when they arrived patient was awake and alert but having increased rate of breathing and her pulse ox was 84% on room air. They gave her an DuoNeb treatment and transported to the hospital because she has needed admission in the past secondary to asthma exacerbations. Patient denies any known sick contacts and she denies any fevers chills or chest pain associated with this. [facility] Medical History (Updated 08/19/22 @ 06:[address] Sunny Monroe, ) Asthma Embolic stroke involving middle cerebral artery Former tobacco use Former tobacco use Hepatitis History of embolic stroke History of endocarditis History of substance abuse Home Medications gabapentin 600 mg tablet 600 mg PO TID nerve pain 03/07/22 [History Last Taken 06/24/22] baclofen 10 mg tablet 10 mg PO TID spasms 05/02/22 [History Last Taken 06/24/22] buspirone 5 mg tablet 5 mg PO TID Check with primary doctor 06/25/22 [History Last Taken 06/24/22] trazodone 50 mg tablet 50 mg PO QHS Check with primary doctor 06/25/22 [History Last Taken Unknown] albuterol sulfate 90 mcg/actuation aerosol inhaler 90 mcg inhalation PRN PRN asthma 30 days #8.5 grams 07/01/22 [Rx Last Taken Unknown] metoprolol tartrate 25 mg tablet 12.5 mg (1/2 x 25 mg) PO BID 30 days #30 tabs 07/01/22 [Rx Last Taken Unknown] mometasone-formoterol HFA 200 mcg-5 mcg/actuation aerosol inhaler 2 inh inhalation Q12H Check with primary doctor 30 days #13 grams 07/01/22 [Rx Last Taken Unknown] albuterol sulfate 2.5 mg/3 mL (0.083 %) solution for nebulization 2.5 mg (3 mL) inhalation Q2H PRN PRN Shortness of Breath/Wheezing #75 mL 08/01/22 [Rx Last Taken Unknown] azithromycin 500 mg tablet 500 mg PO DAILY #1 TAB 08/01/22 [Rx Last Taken Unknown] guaifenesin 1,200 mg tablet, extended release 12 hr (Mucus Relief ER) 1,200 mg PO BID #20 tabs 08/01/22 [Rx Last Taken Unknown] prednisone 10 mg tablet 10 mg PO DAILY #22 tabs 08/01/22 [Rx Last Taken Unknown] prednisone 10 mg tablet 10 mg PO DAILY #30 TABLETS 08/19/22 [Rx Last Taken Unknown] Allergy/AdvReac Type Severity Reaction Status Date / Time No Known Allergies Allergy Verified 07/29/22 06:10 Family History (Updated 06/25/22 @ 00:[address] Vani Jiménez MD) Father COPD (chronic obstructive pulmonary disease) Polysubstance abuse Mother Cancer Uterine CA. Surgical History Hx of tracheostomy Previous section S/P percutaneous endoscopic gastrostomy (PEG) tube placement Social History (Updated 06/25/22 @ 00:[address] Vani Jiménez MD) household members: none Smoking Status: Former smoker how long ago did patient quit smoking: Quit smoking 04/2022, smoked ~ 1 ppd since 19 y/o until quit recently. alcohol intake: never substance use type: former substance user Date of last use: Clean x 5 years as of 06/25/22. ROS ROS ED Constitutional Constitutional ED: Denies chills or fever(s) ENT ENT ED: Denies sore throat Cardiovascular Cardiovascular: Denies chest pain Respiratory/Chest Respiratory/Chest: Reports cough and dyspnea Gastrointestinal Gastrointestinal: Denies abdominal pain, diarrhea, nausea or vomiting Genitourinary Genitourinary ED: Denies dysuria Musculoskeletal Musculoskeletal: Denies myalgias Integumentary Denies rash Neurologic Neurologic: Denies headache(s) Hematologic/Lymphatic Hematologic/Lymphatic: Denies easy bleeding or easy bruising EXAM Physical Exam Const Vital Signs: 08/18/22 23:28 08/18/22 23:31 08/18/22 23:56 Temperature 98.1 F Temperature Source Temporal Pulse Rate 113 H 106 H Respiratory Rate 25 H 26 H Respiratory Effort Short of Breath Respiratory Depth Normal Respiratory Pattern Normal Tachypnea Blood Pressure 138/90 H Blood Pressure Mean 106 Pulse Ox 93 Oxygen Delivery Method Room Air Room Air 08/19/22 01:56 08/19/22 02:05 Temperature Temperature Source Pulse Rate 99 Respiratory Rate 13 22 H Respiratory Effort Respiratory Depth Respiratory Pattern Blood Pressure Blood Pressure Mean Pulse Ox 96 Oxygen Delivery Method Positive well nourished and well developed General Appearance ED: well developed HEENT HEENT Narrative: No tongue or lip swelling no oral lesions no airway edema or compromise Eyes PERRL and EOMs intact bilaterally Neck supple and no JVD Chest Wall palpation of chest normal Resp Resp Narrative: Patient is mildly tachypneic with diminished breath sounds with diffuse inspiratory and expiratory wheezing present. Cardio regular rhythm Rate: tachycardic Extremity Extremity Narrative: No asymmetric edema no pitting edema negative Homans' sign bilaterally Neuro oriented x3 and CN's II-XII intact bilaterally Neuro Narrative: Patient has chronic findings of paralysis to the left arm and leg but no new or acute findings Sensorium / Orientation: alert Psych mental status grossly normal Skin no rashes or lesions noted MDM MDM MDM Narrative Medical decision making narrative: Patient arrived to the ER with improvement to her pulse ox compared to what EMS had at home as she is now 92 to 94% on room air. However patient does have a significant history of asthma exacerbations requiring admission and his differential diagnosis also includes pneumonia versus pneumothorax or pleural effusion I did elect to perform a chest x-ray. Chest x-ray revealed no acute finding. I do not feel there is need for blood work at this time as the patient had spontaneous improvement of her hypoxia and work of breathing which is 1 breathing medication. She was given 2 more DuoNebs and watched in the ER for approximately 2 hours. Her pulse ox remained 92 to 96% on room air and her work of breathing was greatly diminished from her initial presentation. Therefore at this time as patient is not displaying any hypoxia at rest and work of breathing has improved I do not feel she requires admission to the hospital at this time and can be discharged home with symptomatic care. History & Record Review Discussion w/independent historian: EMS personnel and Patient Radiography Diagnostic Testing: Clinical Impression(s) from Imaging Studies Chest X-Ray 08/18/22 00:20 IMPRESSION: Cardiomegaly without obvious acute cardiopulmonary disease. Electronically Signed: Jennifer Chaney MD at 0:44 EDT , Chest x-ray as interpreted by the emergency medicine physician reveals no acute infiltrate pneumothorax or pleural effusion Discharge Plan Triage Chief Complaint: Asthma ED Provider: Sunny Monroe Dx/Rx/DC Orders Clinical Impression: Asthma exacerbation, History of embolic stroke, Former tobacco use Instructions: Asthma Action Plan, Controlling Your Asthma Prescriptions: New prednisone 10 mg tablet 10 mg PO DAILY Qty: 30 0RF Rx Instructions: 4 po qd x 3 days, 3 po qd x 3 days, 2 po qd x 3 days, 1 po qd x 3 days No Action gabapentin 600 mg tablet 600 mg PO TID Patient Comments: TAKE 1 TABLET BY MOUTH THREE TIMES DAILY baclofen 10 mg Tablet 10 mg PO TID buspirone 5 mg tablet 5 mg PO TID trazodone 50 mg tablet 50 mg PO QHS Patient Comments: TAKE 1 TABLET BY MOUTH EVERYDAY AT BEDTIME metoprolol tartrate 25 mg Tablet 12.5 mg PO BID 30 Days Qty: 30 0RF albuterol sulfate 90 mcg/actuation HFA aerosol inhaler 90 mcg INHALATION PRN PRN (Reason: asthma) 30 Days Qty: 8.5 0RF mometasone-formoterol 200-5 mcg/actuation HFA aerosol inhaler 2 inh inhalation Q12H 30 Days Qty: 13 0RF Rx Instructions: 2 inhalations twice daily for 7 days albuterol sulfate 2.5 mg /3 mL (0.083 %) Solution For Nebulization 2.5 mg inhalation Q2H PRN PRN (Reason: Shortness of Breath/Wheezing) Qty: 75 0RF Mucus Relief ER 1,200 mg Tablet Extended Release 12hr 1,200 mg PO BID Qty: 20 0RF prednisone 10 mg tablet 10 mg PO DAILY Qty: 22 0RF Rx Instructions: 4 tabs daily for 1 days, then 3 tabs daily for 3 days, then 2 tabs daily for 3 days, then 1 tab daily for 3 days azithromycin 500 mg tablet 500 mg PO DAILY Qty: 1 0RF Primary Care Provider: Care Physician,No Primary Referrals: Joaquim Lance DO [Med Staff - Active Staff] - Care Physician,No Primary [Primary Care Provider] - Disposition Disposition: Home, Self Care Discharge Date/Time: 08/19/22 02:07
[2022-08-19 01:56] VITALS: RESP 13
[2022-08-19 02:05] VITALS: PULSE 99; RESP 22; O2SAT 96
== END 2022-08-19 02:07 | disposition home or self-care (01) ==
PROVIDERS: Emergency Provider Emergency Medicine; Visit Provider Emergency Medicine
DX: J45.901 Unspecified asthma with (acute) exacerbation (principal); Z87.891 Personal history of nicotine dependence; Z79.899 Other long term (current) drug therapy; Z86.73 Personal history of transient ischemic attack (TIA), and cerebral infarction without residual deficits
CPT/HCPCS: 71045; 94640; 99284

== ENCOUNTER 2022-09-05 15:22 | Emergency (ER) | payer MEDICARE, MEDICAID, SELFPAY ==
[2022-09-05 15:23] VITALS: BP 110/86; PULSE 96; RESP 16; TEMP 36.6; O2SAT 96
[2022-09-05 15:25] VITALS: BMI 22.8
--- NOTE | 2022-09-05 15:41 | ED.VIS.DYS ---
HPI History of Present Illness Chief Complaint: Asthma Informant: patient and spouse/S.O. Narrative Narrative: Patient presents with exacerbation of asthma. This patient states her asthma started acting up yesterday because of the smoke from [place]. It still going today. But it sounds like she is not using her nebulizer more than normal. Her states that she used it maybe a couple hours ago but she states it was somewhere in the morning that she last used her inhaler. She has more wheezing. But she does not have any more coughing than normal. No change in sputum. No fevers chills. No chest pain. No leg swelling. Patient used to smoke but quit many months ago. She is also had prior stroke about 5 years ago with left-sided weakness. She had tracheostomy when she had a stroke not due to her breathing problems. There have been no change in medicines. She was on prednisone just about 2 to 3 weeks ago. She was doing well until yesterday. [facility] Medical History Asthma Embolic stroke involving middle cerebral artery Former tobacco use Former tobacco use Hepatitis History of embolic stroke History of endocarditis History of substance abuse Home Medications gabapentin 600 mg tablet 600 mg PO TID nerve pain 03/07/22 [History Last Taken 06/24/22] baclofen 10 mg tablet 10 mg PO TID spasms 05/02/22 [History Last Taken 06/24/22] buspirone 5 mg tablet 5 mg PO TID Check with primary doctor 06/25/22 [History Last Taken 06/24/22] trazodone 50 mg tablet 50 mg PO QHS Check with primary doctor 06/25/22 [History Last Taken Unknown] albuterol sulfate 90 mcg/actuation aerosol inhaler 90 mcg inhalation PRN PRN asthma 30 days #8.5 grams 07/01/22 [Rx Last Taken Unknown] metoprolol tartrate 25 mg tablet 12.5 mg (1/2 x 25 mg) PO BID 30 days #30 tabs 07/01/22 [Rx Last Taken Unknown] mometasone-formoterol HFA 200 mcg-5 mcg/actuation aerosol inhaler 2 inh inhalation Q12H Check with primary doctor 30 days #13 grams 07/01/22 [Rx Last Taken Unknown] albuterol sulfate 2.5 mg/3 mL (0.083 %) solution for nebulization 2.5 mg (3 mL) inhalation Q2H PRN PRN Shortness of Breath/Wheezing #75 mL 08/01/22 [Rx Last Taken Unknown] azithromycin 500 mg tablet 500 mg PO DAILY #1 TAB 08/01/22 [Rx Last Taken Unknown] guaifenesin 1,200 mg tablet, extended release 12 hr (Mucus Relief ER) 1,200 mg PO BID #20 tabs 08/01/22 [Rx Last Taken Unknown] prednisone 10 mg tablet 10 mg PO DAILY #22 tabs 08/01/22 [Rx Last Taken Unknown] prednisone 10 mg tablet 10 mg PO DAILY #30 TABLETS 08/19/22 [Rx Last Taken Unknown] albuterol sulfate 2.5 mg/3 mL (0.083 %) solution for nebulization 2.5 mg (3 mL) inhalation Q4H PRN #25 vials 09/05/22 [Rx Last Taken Unknown] ipratropium bromide 0.02 % solution for inhalation 2.5 ml inhalation Q6H PRN shortness of breath or wheezing #62.5 mL 09/05/22 [Rx Last Taken Unknown] prednisone 20 mg tablet 40 mg (2 x 20 mg) PO DAILY #10 TABLETS 09/05/22 [Rx Last Taken Unknown] Allergy/AdvReac Type Severity Reaction Status Date / Time No Known Allergies Allergy Verified 09/05/22 15:25 Family History Father COPD (chronic obstructive pulmonary disease) Polysubstance abuse Mother Cancer Uterine CA. Surgical History Hx of tracheostomy Previous section S/P percutaneous endoscopic gastrostomy (PEG) tube placement Social History household members: none Smoking Status: Former smoker how long ago did patient quit smoking: Quit smoking 04/2022, smoked ~ 1 ppd since 19 y/o until quit recently. alcohol intake: never substance use type: former substance user Date of last use: Clean x 5 years as of 06/25/22. ROS ROS ED ROS Narrative A complete review of systems was performed and is negative except as documented in the history of present illness. Some specific details below. Constitutional: No recent fevers or chills. No malaise. EYE: No discharge ENT: No difficulty swallowing. No swelling. No pain. CV: No chest pain or palpitations. She does have a prior history of endocarditis but has not been having fevers or symptoms related to this. Respiratory: See history of present illness. GI: No abdominal pain. No nausea vomiting diarrhea. No blood in stool. : No frequency dysuria or hematuria. Musculoskeletal: No recent trauma. No pains. No swelling. Skin: No rash. Nondiaphoretic. Neuro: No weakness or numbness. Endocrine: No polyuria or polydipsia. EXAM Physical Exam Narrative Exam Narrative: CONSTITUTIONAL: Patient is nontoxic in appearance. The patient looks comfortable. Work of breathing looks normal. However, I can hear some wheezing from the bedside. HEENT: No notable trauma. Mucous membranes moist. No swelling. EYES: No conjunctival injection. No proptosis. NECK:No JVD. No stridor. Well-healed tracheotomy scar. CARDIOVASCULAR: Regular rate. Regular rhythm. No notable murmur. No JVD. RESPIRATORY: No respiratory distress. Breathing is unlabored. But patient does have some diffuse expiratory wheezes. I hear no rhonchi. No indication of pain with a deep breath. No coughing while I am in the room. GASTROINTESTINAL: Not distended. Bowel sounds are normal. No tenderness. GENITOURINARY: No tenderness over the bladder. No CVA tenderness. MUSCULOSKELETAL: Atraumatic. No peripheral edema. No cord. No tenderness along the deep venous system. No asymmetry. No distended veins. NEUROLOGICAL: Patient is alert and appropriate. Patient has both left-sided weakness and speech difficulties remaining from her prior stroke but this is not new or worse. SKIN: No noted rashes. No diaphoresis. No pallor. PSYCHIATRIC: Patient is calm. Mood is appropriate. Const Vital Signs: 09/05/22 15:23 09/05/22 15:56 09/05/22 16:13 Temperature 98 F Temperature Source Temporal Pulse Rate 96 98 Respiratory Rate 16 16 Respiratory Effort Normal Non-Labored Blood Pressure 110/86 H Blood Pressure Mean 94 Pulse Ox 96 Oxygen Delivery Method Room Air MDM MDM MDM Narrative Medical decision making narrative: Dependent interpretation the patient's single view chest x-ray shows no sign of acute process. No pneumothorax or infiltrate. Final reading by radiology is nonspecific cardiomegaly. No acute cardiopulmonary pathology. Patient is rechecked. Her wheezes are almost gone. She has a hint of wheeze when she coughs or with forced expiration. She states she feels well. I now find out that she does not have any meds for her nebulizer. She has been out of them for a few days. I will write for albuterol and Atrovent. We will do a short course of steroids. She is anxious to leave. Radiography Diagnostic Testing: Clinical Impression(s) from Imaging Studies Chest X-Ray 09/05/22 16:13 IMPRESSION: Nonspecific cardiomegaly. No acute cardiopulmonary pathology. Electronically Signed: Dewey Marrufo MD at 16:26 EDT , EKG Initial EKG: Comments: And isMy independent interpretation of the patient's EKG done for borderline tachycardia rhythm with right bundle branch block. Overall rate is 95. No ventricular ectopy. DC interval is normal. QRS duration is a bit long and 120 ms. QTc is normal. Discharge Plan Triage Chief Complaint: Asthma ED Provider: Von Barragan Dx/Rx/DC Orders Clinical Impression: Asthma exacerbation Instructions: ED Asthma, Acute (Adult) Prescriptions: New albuterol sulfate 2.5 mg /3 mL (0.083 %) solution for nebulization 2.5 mg inhalation Q4H PRN Qty: 25 2RF Rx Instructions: Use q4 hours and PRN for wheezing prednisone 20 mg tablet 40 mg PO DAILY Qty: 10 0RF ipratropium bromide 0.02 % solution 2.5 ml inhalation Q6H PRN (Reason: shortness of breath or wheezing) Qty: 62.5 1RF No Action gabapentin 600 mg tablet 600 mg PO TID Patient Comments: TAKE 1 TABLET BY MOUTH THREE TIMES DAILY baclofen 10 mg Tablet 10 mg PO TID buspirone 5 mg tablet 5 mg PO TID trazodone 50 mg tablet 50 mg PO QHS Patient Comments: TAKE 1 TABLET BY MOUTH EVERYDAY AT BEDTIME metoprolol tartrate 25 mg Tablet 12.5 mg PO BID 30 Days Qty: 30 0RF albuterol sulfate 90 mcg/actuation HFA aerosol inhaler 90 mcg INHALATION PRN PRN (Reason: asthma) 30 Days Qty: 8.5 0RF mometasone-formoterol 200-5 mcg/actuation HFA aerosol inhaler 2 inh inhalation Q12H 30 Days Qty: 13 0RF Rx Instructions: 2 inhalations twice daily for 7 days albuterol sulfate 2.5 mg /3 mL (0.083 %) Solution For Nebulization 2.5 mg inhalation Q2H PRN PRN (Reason: Shortness of Breath/Wheezing) Qty: 75 0RF Mucus Relief ER 1,200 mg Tablet Extended Release 12hr 1,200 mg PO BID Qty: 20 0RF prednisone 10 mg tablet 10 mg PO DAILY Qty: 22 0RF Rx Instructions: 4 tabs daily for 1 days, then 3 tabs daily for 3 days, then 2 tabs daily for 3 days, then 1 tab daily for 3 days azithromycin 500 mg tablet 500 mg PO DAILY Qty: 1 0RF prednisone 10 mg tablet 10 mg PO DAILY Qty: 30 0RF Rx Instructions: 4 po qd x 3 days, 3 po qd x 3 days, 2 po qd x 3 days, 1 po qd x 3 days Primary Care Provider: Alin Mueller Referrals: Alin Mueller MD [Primary Care Provider] - 3-5 Days if not improving Disposition Disposition: Home, Self Care
[2022-09-05] MEDS: predniSONE 20 MG Tablet 60 MG PO (15:48)
[2022-09-05] MEDS: Albuterol 2.5 MG/3 ML VIAL.NEB. INHALATION (15:48)
[2022-09-05] MEDS: Ipratropium/Albuterol Sulfate 3 ML AMPUL.NEB INHALATION (15:48)
[2022-09-05 15:56] VITALS: PULSE 98; RESP 16
--- NOTE | 2022-09-05 16:13 | RAD_ITS ---
STUDY: X-RAY CHEST REASON FOR EXAM: Female, 41 years old. cough TECHNIQUE: AP portable COMPARISON: August 19, 2022. FINDINGS: The lungs are clear and expanded. There is no demonstrated pleural abnormality. Heart is enlarged.. Normal mediastinum and krystin. Normal visualized pulmonary arteries. Normal visualized aortic arch and descending thoracic aorta. Normal visualized thoracic spine. Normal visualized ribs, clavicles, and shoulders. There is no demonstrated abnormality of the visualized soft tissue structures of the upper abdomen. RAD/Chest 1 View (Portable) IMPRESSION: Nonspecific cardiomegaly. No acute cardiopulmonary pathology. Electronically Signed: Dewey Marrufo MD at 16:26 EDT ,
== END 2022-09-05 18:26 | disposition home or self-care (01) ==
PROVIDERS: Emergency Provider Emergency Medicine; PCP Internal Medicine; Visit Provider Emergency Medicine
DX: J45.901 Unspecified asthma with (acute) exacerbation (principal); Z86.73 Personal history of transient ischemic attack (TIA), and cerebral infarction without residual deficits; Z87.891 Personal history of nicotine dependence
CPT/HCPCS: 71045; 93005; 94640; 99282

== ENCOUNTER 2022-09-18 22:29 | Emergency (ER) | payer MEDICARE, MEDICAID, SELFPAY ==
[2022-09-18 22:30] VITALS: BP 133/94; PULSE 106; PULSE 107; RESP 18; RESP 22; TEMP 36.6; O2SAT 92; BMI 19.8
[2022-09-18] MEDS: Albuterol 2.5 MG/3 ML VIAL.NEB. INHALATION (22:30)
[2022-09-18] MEDS: Ipratropium/Albuterol Sulfate 3 ML AMPUL.NEB INHALATION ×2 (22:30→23:29)
[2022-09-18 23:14] VITALS: O2SAT 95
--- NOTE | 2022-09-18 23:24 | CPS ---
x1 Albuterol given to pt. in ER as well
--- NOTE | 2022-09-18 23:49 | CPS ---
[2329] x1 Duoneb given additionally to pt. in ER. Pre-HR = 101, RR = 20 with clear, diminished breath sounds. Scattered wheezes noted. Post-HR = 91, RR = 20 with clearer breath sounds through out. Scattered wheezes are still noted.
[2022-09-19] MEDS: predniSONE 20 MG Tablet 60 MG PO (00:21)
--- NOTE | 2022-09-19 00:21 | EX.ED.DYSGE1 ---
HPI History of Present Illness Chief Complaint: Shortness of Breath Informant: patient and EMS Narrative Narrative: Patient is a 41-year-old female with past medical history of polysubstance abuse which led to embolic stroke and paralysis of her left side. She also has a past medical history of asthma. She states that over the last 24 to 48 hours she has had increasing shortness of breath and wheeze for which she has been trying her home inhaler and nebulizer with minimal symptom improvement. She states that symptoms seem to be worse today and with this she called EMS and they brought her in for evaluation. She denies any need for supplemental oxygen at home [facility] Medical History Asthma Embolic stroke involving middle cerebral artery Former tobacco use Former tobacco use Hepatitis History of embolic stroke History of endocarditis History of substance abuse Home Medications gabapentin 600 mg tablet 600 mg PO TID nerve pain 03/07/22 [History Last Taken 06/24/22] baclofen 10 mg tablet 10 mg PO TID spasms 05/02/22 [History Last Taken 06/24/22] buspirone 5 mg tablet 5 mg PO TID Check with primary doctor 06/25/22 [History Last Taken 06/24/22] trazodone 50 mg tablet 50 mg PO QHS Check with primary doctor 06/25/22 [History Last Taken Unknown] albuterol sulfate 90 mcg/actuation aerosol inhaler 90 mcg inhalation PRN PRN asthma 30 days #8.5 grams 07/01/22 [Rx Last Taken Unknown] metoprolol tartrate 25 mg tablet 12.5 mg (1/2 x 25 mg) PO BID 30 days #30 tabs 07/01/22 [Rx Last Taken Unknown] mometasone-formoterol HFA 200 mcg-5 mcg/actuation aerosol inhaler 2 inh inhalation Q12H Check with primary doctor 30 days #13 grams 07/01/22 [Rx Last Taken Unknown] albuterol sulfate 2.5 mg/3 mL (0.083 %) solution for nebulization 2.5 mg (3 mL) inhalation Q2H PRN PRN Shortness of Breath/Wheezing #75 mL 08/01/22 [Rx Last Taken Unknown] azithromycin 500 mg tablet 500 mg PO DAILY #1 TAB 08/01/22 [Rx Last Taken Unknown] guaifenesin 1,200 mg tablet, extended release 12 hr (Mucus Relief ER) 1,200 mg PO BID #20 tabs 08/01/22 [Rx Last Taken Unknown] prednisone 10 mg tablet 10 mg PO DAILY #22 tabs 08/01/22 [Rx Last Taken Unknown] prednisone 10 mg tablet 10 mg PO DAILY #30 TABLETS 08/19/22 [Rx Last Taken Unknown] albuterol sulfate 2.5 mg/3 mL (0.083 %) solution for nebulization 2.5 mg (3 mL) inhalation Q4H PRN #25 vials 09/05/22 [Rx Last Taken Unknown] ipratropium bromide 0.02 % solution for inhalation 2.5 ml inhalation Q6H PRN shortness of breath or wheezing #62.5 mL 09/05/22 [Rx Last Taken Unknown] prednisone 20 mg tablet 40 mg (2 x 20 mg) PO DAILY #10 TABLETS 09/05/22 [Rx Last Taken Unknown] fluticasone fur. 100 mcg-umeclid 62.5 mcg-vilant 25 mcg inhalat.powder (Trelegy Ellipta) 1 inh inhalation DAILY #60 ea 09/19/22 [Rx Last Taken Unknown] prednisone 10 mg tablet 10 mg PO DAILY #48 TABLETS 09/19/22 [Rx Last Taken Unknown] Allergy/AdvReac Type Severity Reaction Status Date / Time No Known Allergies Allergy Verified 09/18/22 22:34 Family History Father COPD (chronic obstructive pulmonary disease) Polysubstance abuse Mother Cancer Uterine CA. Surgical History Hx of tracheostomy Previous section S/P percutaneous endoscopic gastrostomy (PEG) tube placement Social History household members: none Smoking Status: Unknown if ever smoked how long ago did patient quit smoking: Quit smoking 04/2022, smoked ~ 1 ppd since 19 y/o until quit recently. alcohol intake: never substance use type: former substance user Date of last use: Clean x 5 years as of 06/25/22. ROS ROS ED Constitutional Constitutional ED: Denies chills or fever(s) ENT ENT ED: Denies rhinorrhea or sore throat Cardiovascular Cardiovascular: Denies chest pain Respiratory/Chest Respiratory/Chest: Reports cough and dyspnea Gastrointestinal Gastrointestinal: Denies abdominal pain, diarrhea, nausea or vomiting Genitourinary Genitourinary ED: Denies dysuria Musculoskeletal Musculoskeletal: Denies myalgias Integumentary Denies rash Neurologic Neurologic: Denies headache(s) Hematologic/Lymphatic Hematologic/Lymphatic: Denies easy bleeding or easy bruising EXAM Physical Exam Const Vital Signs: 09/18/22 22:30 09/18/22 23:13 09/18/22 23:14 Temperature 97.9 F Temperature Source Oral Pulse Rate 106 H Respiratory Rate 18 Respiratory Effort Normal Non-Labored Respiratory Depth Normal Respiratory Pattern Normal Blood Pressure 133/94 H Blood Pressure Mean 107 Pulse Ox 92 95 Oxygen Delivery Method Room Air Nasal Cannula Oxygen Flow Rate (L/min) 2 09/18/22 22:30 09/19/22 00:24 Temperature Temperature Source Pulse Rate 107 H 93 Respiratory Rate 22 H 18 Respiratory Effort Respiratory Depth Respiratory Pattern Tachypnea Blood Pressure 111/68 Blood Pressure Mean Pulse Ox 91 Oxygen Delivery Method Oxygen Flow Rate (L/min) Positive well nourished and well developed General Appearance ED: well developed HEENT Reports moist mucous membranes HEENT Narrative: No tongue or lip swelling no oral lesions no airway edema or compromise Eyes PERRL and EOMs intact bilaterally General Eye ED: Negative for pale conjunctiva Neck supple and no JVD Neck Narrative: No crepitance palpated Chest Wall palpation of chest normal Resp Resp Narrative: Breath sounds are diminished throughout with diffuse inspiratory and expiratory wheezing and rhonchi in the bilateral lobes. There is tachypnea with slight accessory muscle use present upon arrival. Cardio regular rate and regular rhythm Extremity normal to inspection Extremity Narrative: No asymmetric edema no pitting edema negative Homans' sign bilaterally Neuro oriented x3 and CN's II-XII intact bilaterally Neuro Narrative: Patient has paralysis of her left arm secondary to previous embolic stroke no new or acute changes noted Sensorium / Orientation: alert Psych mental status grossly normal Skin no rashes or lesions noted MDM MDM MDM Narrative Medical decision making narrative: Patient arrived to the ER with increased work of breathing and diffuse inspiratory expiratory wheezing consistent with asthma exacerbation. She was given breathing medications and steroids. Following application of these medications she had improvement of her breath sounds and work of breathing. Differential diagnosis does include pneumonia versus pneumothorax versus pleural effusion versus acute asthma exacerbation. Based on the patient's history asthma exacerbation is most likely diagnosis and as symptoms have improved with oral steroids and breathing medications this goes against pneumonia pneumothorax or pleural effusion as a cause of her symptom. Therefore do not feel need for imaging or laboratory studies at this time. Following application of the medication work of breathing improved and pulse ox was 90 to 92% on room air. Therefore at this time as patient is not requiring supplemental oxygen and has had improvement of symptoms with treatment I do not feel there is need for further work-up and she is otherwise safe for discharge History & Record Review Discussion w/independent historian: EMS personnel and Patient Discharge Plan Triage Chief Complaint: Shortness of Breath ED Provider: Sunny Monroe Dx/Rx/DC Orders Clinical Impression: Asthma exacerbation, History of embolic stroke Instructions: Asthma Action Plan, ED Asthma, Acute (Adult) Prescriptions: New prednisone 10 mg tablet 10 mg PO DAILY Qty: 48 0RF Rx Instructions: 6 po qd x 3 days, 4 po qd x 3 days, 2 po qd x 3 days, 1 po qd x 3 days Trelegy Ellipta 100-62.5-25 mcg blister with device 1 inh inhalation DAILY Qty: 60 0RF No Action gabapentin 600 mg tablet 600 mg PO TID Patient Comments: TAKE 1 TABLET BY MOUTH THREE TIMES DAILY baclofen 10 mg Tablet 10 mg PO TID buspirone 5 mg tablet 5 mg PO TID trazodone 50 mg tablet 50 mg PO QHS Patient Comments: TAKE 1 TABLET BY MOUTH EVERYDAY AT BEDTIME metoprolol tartrate 25 mg Tablet 12.5 mg PO BID 30 Days Qty: 30 0RF albuterol sulfate 90 mcg/actuation HFA aerosol inhaler 90 mcg INHALATION PRN PRN (Reason: asthma) 30 Days Qty: 8.5 0RF mometasone-formoterol 200-5 mcg/actuation HFA aerosol inhaler 2 inh inhalation Q12H 30 Days Qty: 13 0RF Rx Instructions: 2 inhalations twice daily for 7 days albuterol sulfate 2.5 mg /3 mL (0.083 %) Solution For Nebulization 2.5 mg inhalation Q2H PRN PRN (Reason: Shortness of Breath/Wheezing) Qty: 75 0RF Mucus Relief ER 1,200 mg Tablet Extended Release 12hr 1,200 mg PO BID Qty: 20 0RF prednisone 10 mg tablet 10 mg PO DAILY Qty: 22 0RF Rx Instructions: 4 tabs daily for 1 days, then 3 tabs daily for 3 days, then 2 tabs daily for 3 days, then 1 tab daily for 3 days azithromycin 500 mg tablet 500 mg PO DAILY Qty: 1 0RF prednisone 10 mg tablet 10 mg PO DAILY Qty: 30 0RF Rx Instructions: 4 po qd x 3 days, 3 po qd x 3 days, 2 po qd x 3 days, 1 po qd x 3 days albuterol sulfate 2.5 mg /3 mL (0.083 %) solution for nebulization 2.5 mg inhalation Q4H PRN Qty: 25 2RF Rx Instructions: Use q4 hours and PRN for wheezing prednisone 20 mg tablet 40 mg PO DAILY Qty: 10 0RF ipratropium bromide 0.02 % solution 2.5 ml inhalation Q6H PRN (Reason: shortness of breath or wheezing) Qty: 62.5 1RF Primary Care Provider: Alin Mueller Referrals: Alin Mueller MD [Primary Care Provider] - Activity Restrictions/Additional Instructions: Please take the medications that were prescribed this evening as directed in order to prevent recurrent asthma flares and return to the ER should you have any further concerns or worsening of symptoms Disposition Disposition: Home, Self Care Discharge Date/Time: 09/19/22 01:34
[2022-09-19 00:24] VITALS: BP 111/68; PULSE 93; RESP 18; O2SAT 91
== END 2022-09-19 01:34 | disposition home or self-care (01) ==
PROVIDERS: Emergency Provider Emergency Medicine; PCP Internal Medicine; Visit Provider Emergency Medicine
DX: J45.901 Unspecified asthma with (acute) exacerbation (principal); I69.354 Hemiplegia and hemiparesis following cerebral infarction affecting left non-dominant side; Z87.891 Personal history of nicotine dependence
CPT/HCPCS: 94640; 99284

== ENCOUNTER 2022-10-11 12:42 | Emergency (ER) | payer MEDICARE, MEDICAID, SELFPAY ==
[2022-10-11 12:42] VITALS: BP 100/65; PULSE 85; RESP 25; TEMP 36.1; O2SAT 93; BMI 24.0
[2022-10-11 12:55] VITALS: O2SAT 97
--- NOTE | 2022-10-11 13:00 | ED.VIS.DYS ---
HPI History of Present Illness Chief Complaint: Shortness of Breath Informant: patient and EMS Narrative Narrative: Patient presents with exacerbation of asthma. Patient's been having problems again for about 2 days. No known specific inciting event this time. But she is having frequent exacerbations for which we are seeing her. I talked to her about being on an inhaled steroid and she states that she is not on 1. Last time she was here she was prescribed Trelegy Ellipta. But she states her insurance would not fill it and they had no substitute so she was not able to get this filled. She is coughing but no sputum production. She states she wonders if this is her heart causing this although she has never had heart problems. She did have a stroke. I cannot get from her that she is ever had heart attack or rhythm problems or congestive heart failure. She had a tracheostomy secondary to the stroke 5 years ago. She evidently did have endocarditis. It sounds like this was part of her stroke and likely related to prior drug abuse. But no history of valvular destruction. She has not been having fevers. She does not smoke anymore. She said it sounds like her only meds for asthma at home are albuterol nebulizer and MDI. [facility] Medical History (Updated 10/11/22 @ 15:[address] Von Barragan MD) Asthma Cardiac tamponade Embolic stroke involving middle cerebral artery Essential hypertension Former tobacco use Hemiplegia and hemiparesis following cerebral infarction affecting left non-dominant side Hepatitis History of embolic stroke History of endocarditis History of noncompliance with medical treatment History of substance abuse Holosystolic murmur Insomnia MRSA (methicillin resistant Staphylococcus aureus) Neuropathy Opioid dependence Polyarthritis Rheumatic tricuspid insufficiency Right sided cerebral hemisphere cerebrovascular accident (CVA) Home Medications gabapentin 600 mg tablet 600 mg PO TID nerve pain 03/07/22 [History Last Taken 06/24/22] baclofen 10 mg tablet 10 mg PO TID spasms 05/02/22 [History Last Taken 06/24/22] buspirone 5 mg tablet 5 mg PO TID Check with primary doctor 06/25/22 [History Last Taken 06/24/22] trazodone 50 mg tablet 50 mg PO QHS Check with primary doctor 06/25/22 [History Last Taken Unknown] albuterol sulfate 90 mcg/actuation aerosol inhaler 90 mcg inhalation PRN PRN asthma 30 days #8.5 grams 05/13/23 [Rx Last Taken Unknown] metoprolol tartrate 25 mg tablet 12.5 mg (1/2 x 25 mg) PO BID 30 days #30 tabs 07/01/22 [Rx Last Taken Unknown] mometasone-formoterol HFA 200 mcg-5 mcg/actuation aerosol inhaler 2 inh inhalation Q12H Check with primary doctor 30 days #13 grams 07/01/22 [Rx Last Taken Unknown] albuterol sulfate 2.5 mg/3 mL (0.083 %) solution for nebulization 2.5 mg (3 mL) inhalation Q4H PRN #25 vials 09/05/22 [Rx Last Taken Unknown] ipratropium bromide 0.02 % solution for inhalation 2.5 ml inhalation Q6H PRN shortness of breath or wheezing #62.5 mL 09/05/22 [Rx Last Taken Unknown] fluticasone fur. 100 mcg-umeclid 62.5 mcg-vilant 25 mcg inhalat.powder (Trelegy Ellipta) 1 inh inhalation DAILY #60 ea 09/19/22 [Rx Last Taken Unknown] prednisone 10 mg tablet 10 mg PO DAILY #48 TABLETS 09/19/22 [Rx Last Taken Unknown] albuterol sulfate 2.5 mg/3 mL (0.083 %) solution for nebulization 2.5 mg (3 mL) inhalation Q4H PRN #25 vials 10/11/22 [Rx Last Taken Unknown] fluticasone propionate 110 mcg/actuation HFA aerosol inhaler (Flovent HFA) 1 puff inhalation BID #12 grams 10/11/22 [Rx Last Taken Unknown] ipratropium bromide 0.02 % solution for inhalation 2.5 ml inhalation Q6H PRN shortness of breath or wheezing #62.5 mL 10/11/22 [Rx Last Taken Unknown] prednisone 20 mg tablet 60 mg (3 x 20 mg) PO DAILY #15 TABLETS 10/11/22 [Rx Last Taken Unknown] Allergy/AdvReac Type Severity Reaction Status Date / Time No Known Allergies Allergy Verified 10/11/22 12:57 Family History Father COPD (chronic obstructive pulmonary disease) Polysubstance abuse Mother Cancer Uterine CA. Surgical History Hx of needle biopsy Hx of tracheostomy Previous section S/P percutaneous endoscopic gastrostomy (PEG) tube placement Social History (Updated 09/20/22 @ 13:57 by Gracie Weiss) household members: none Smoking Status: Former smoker how long ago did patient quit smoking: Quit smoking 04/2022, smoked ~ 1 ppd since 19 y/o until quit recently. alcohol intake: current alcohol intake frequency: holidays/special occasions only substance use type: former substance user Date of last use: Clean x 5 years as of 06/25/22. and heroin ROS ROS ED Constitutional Constitutional ED: Denies chills or fever(s) Eyes Eyes: Denies change in vision ENT ENT ED: Denies rhinorrhea or sore throat Cardiovascular Cardiovascular: Denies chest pain, palpitations or racing heartbeat Respiratory/Chest Respiratory/Chest: Reports cough and dyspnea; Denies sputum Gastrointestinal Gastrointestinal: Denies nausea or vomiting Musculoskeletal Musculoskeletal: Denies myalgias Integumentary Denies rash Neurologic Neurologic: Denies headache(s) Endocrine Endocrinology: Denies polydipsia or polyuria Allergic/Immunologic Allergic/Immunologic ED: Denies urticaria EXAM Physical Exam Narrative Exam Narrative: CONSTITUTIONAL: Patient is nontoxic in appearance. The patient looks comfortable. Work of breathing looks normal. Despite her history she actually looks comfortable in the room. Saturations are about 93 to 94% on room air showing no significant hypoxia at this point. Patient admits she is feeling a lot better after the ambulance gave her a DuoNeb treatment. HEENT: No notable trauma. Mucous membranes moist. EYES: No conjunctival injection. No proptosis. NECK:No JVD. No stridor. She has well-healed tracheostomy scar CARDIOVASCULAR: Regular rate. Regular rhythm. No notable murmur. No JVD. RESPIRATORY: No respiratory distress. Breathing is unlabored. She does have expiratory wheezes still. No rhonchi. No pain with a deep breath. GASTROINTESTINAL: Not distended. Bowel sounds are normal. No tenderness. No guarding. No rebound. No palpable mass. No bruit is heard. GENITOURINARY: No tenderness over the bladder. No CVA tenderness. MUSCULOSKELETAL: Atraumatic. No peripheral edema. NEUROLOGICAL: Patient is alert and appropriate. Left-sided weakness consistent with her prior CVA. SKIN: No noted rashes. No diaphoresis. PSYCHIATRIC: Patient is calm. Mood is appropriate. Const Vital Signs: 10/11/22 12:42 10/11/22 12:55 10/11/22 13:06 Temperature 97 F L Temperature Source Temporal Pulse Rate 85 88 Respiratory Rate 25 H 24 H Respiratory Effort Normal Non-Labored Blood Pressure 100/65 Blood Pressure Mean 76 Pulse Ox 93 Oxygen Delivery Method Room Air Room Air 10/11/22 14:03 Temperature Temperature Source Pulse Rate 87 Respiratory Rate 16 Respiratory Effort Blood Pressure 110/69 Blood Pressure Mean 82 Pulse Ox 98 Oxygen Delivery Method Room Air MDM MDM MDM Narrative Medical decision making narrative: With think patient CBC is normal. Patient's electrolytes are normal. Patient's troponin is normal. Patient's beta natruretic peptide is normal Plan depend interpretation the patient's single view chest x-ray. Cardiac silhouette could be slightly enlarged but this is an AP film. No acute infiltrative process or pneumothorax. Final reading is stable cardiomegaly. I listen the patient again. She only has a hint of wheeze with forced expiration. Her sats are 97% on room air. She feels good and will go home. I will try to write for an affordable inhaled steroid. I recommend she start this after a day or 2 on oral steroids as sometimes they can initiate bronchospasm. It sounds like she is out of ipratropium so I will write for this and I will write for extra albuterol just to be careful. It sounds like she runs out of medicines not uncommonly and does not have great follow-up so we will try to help with this. Lab Data Attestation: I reviewed the patient's lab results. Labs: Laboratory Results - last 24 hr 10/11/22 13:41 WBC 8.8 RBC 4.63 Hgb 14.3 Hct 41.9 MCV 90.5 MCH 30.9 MCHC 34.1 RDW Std Deviation 46.5 H RDW Coeff of Min 14.2 Plt Count MPV Not Reportable Immature Gran % (Auto) 0.300 Neut % (Auto) 57.3 Lymph % (Auto) 24.5 Barry % (Auto) 7.8 Eos % (Auto) 9.0 H Baso % (Auto) 1.1 H Absolute Neuts (auto) 5.1 Absolute Lymphs (auto) 2.16 Nucleated RBC % 0 Differential Comment SCANNED Platelet Estimate ADEQUATE Sodium 137 Potassium 4.0 Chloride 107 Carbon Dioxide 24.0 Anion Gap 6 BUN 10 Creatinine 0.68 Estim Creat Clear Calc 112.05 Est GFR (MDRD) Af Amer 124 Est GFR (MDRD) Non-Af 103 BUN/Creatinine Ratio 14.8 Glucose 93 Calcium 8.9 Troponin I High Sens 8 B-Natriuretic Peptide 19.4 Radiography Diagnostic Testing: Clinical Impression(s) from Imaging Studies Chest X-Ray 10/11/22 13:05 IMPRESSION: Stable cardiomegaly. Electronically Signed: Leslye Callejas MD at 13:45 EDT , Discharge Plan Triage Chief Complaint: Shortness of Breath ED Provider: Von Barragan Dx/Rx/DC Orders Clinical Impression: Asthma exacerbation, History of endocarditis, History of CVA with residual deficit Instructions: ED Asthma, Acute (Adult) Prescriptions: New albuterol sulfate 2.5 mg /3 mL (0.083 %) solution for nebulization 2.5 mg inhalation Q4H PRN Qty: 25 0RF Rx Instructions: Use q4 hours and PRN for wheezing prednisone 20 mg tablet 60 mg PO DAILY Qty: 15 0RF ipratropium bromide 0.02 % solution 2.5 ml inhalation Q6H PRN (Reason: shortness of breath or wheezing) Qty: 62.5 1RF fluticasone propionate [Flovent HFA] 110 mcg/actuation HFA aerosol inhaler 1 puff inhalation BID Qty: 12 0RF No Action gabapentin 600 mg tablet 600 mg PO TID Patient Comments: TAKE 1 TABLET BY MOUTH THREE TIMES DAILY baclofen 10 mg Tablet 10 mg PO TID buspirone 5 mg tablet 5 mg PO TID trazodone 50 mg tablet 50 mg PO QHS Patient Comments: TAKE 1 TABLET BY MOUTH EVERYDAY AT BEDTIME metoprolol tartrate 25 mg Tablet 12.5 mg PO BID 30 Days Qty: 30 0RF albuterol sulfate 90 mcg/actuation HFA aerosol inhaler 90 mcg INHALATION PRN PRN (Reason: asthma) 30 Days Qty: 8.5 0RF mometasone-formoterol 200-5 mcg/actuation HFA aerosol inhaler 2 inh inhalation Q12H 30 Days Qty: 13 0RF Rx Instructions: 2 inhalations twice daily for 7 days albuterol sulfate 2.5 mg /3 mL (0.083 %) solution for nebulization 2.5 mg inhalation Q4H PRN Qty: 25 2RF Rx Instructions: Use q4 hours and PRN for wheezing ipratropium bromide 0.02 % solution 2.5 ml inhalation Q6H PRN (Reason: shortness of breath or wheezing) Qty: 62.5 1RF prednisone 10 mg tablet 10 mg PO DAILY Qty: 48 0RF Rx Instructions: 6 po qd x 3 days, 4 po qd x 3 days, 2 po qd x 3 days, 1 po qd x 3 days Trelegy Ellipta 100-62.5-25 mcg blister with device 1 inh inhalation DAILY Qty: 60 0RF Primary Care Provider: Alin Mueller Referrals: Alin Mueller MD [Primary Care Provider] - 3-5 Days Disposition Disposition: Home, Self Care
--- NOTE | 2022-10-11 13:05 | RAD_ITS ---
INDICATION: Shortness of breath EXAMINATION/TECHNIQUE: X-RAY - XR Chest 1 View COMPARISON: Prior study dated: September 05, 2022 FINDINGS: LINES/DEVICES: None. LUNGS: No consolidation, edema or effusion. No pneumothorax. MEDIASTINUM AND CARDIOVASCULAR STRUCTURES: There is stable cardiomegaly. Central airways and mediastinal contour are unremarkable. BONES AND SOFT TISSUES: Unremarkable. RAD/Chest 1 View (Portable) IMPRESSION: Stable cardiomegaly. Electronically Signed: Leslye Callejas MD at 13:45 EDT ,
[2022-10-11 13:06] VITALS: PULSE 88; RESP 24
[2022-10-11] MEDS: Ipratropium/Albuterol Sulfate 3 ML AMPUL.NEB INHALATION (13:06)
[2022-10-11] MEDS: Albuterol 2.5 MG/3 ML VIAL.NEB. INHALATION (13:45)
[2022-10-11 13:50] LABS: Absolute Lymphocyte Count 2.16 X10^3/uL (0.83-4.51); Absolute Neutrophil Count 5.1 X10^3/uL (2.0-7.7); Basophil% 1.1 % (0-1); Eosinophil# 0.79 X10^3/uL; Hematocrit 41.9 % (37-47); Hemoglobin 14.3 g/dL (12.0-15.0); Lymphocyte # 2.16 X10^3/ul (0.83-4.51); Lymphocyte % 24.5 % (19-41); Mean Corp Hgb Conc 34.1 g/dL (32-36); Mean Corpuscular Hgb 30.9 pg (27.0-32.0); Mean Corpuscular Volume 90.5 fL (81-99); Monocyte# 0.69 X10^3/uL; Monocyte% 7.8 % (0-10); NRBC Flagged by Analyzer 0 % (0-5); Neutrophil # 5.05 X10^3/uL (2.7-7.7); Neutrophil % 57.3 % (47-70); POSITIVE COUNT YES; RBC Distribution Width CV 14.2 % (11.6-14.6); RBC Distribution Width SD 46.5 fl (35.1-43.9); Red Blood Count 4.63 M/mm3 (4.2-5.4); White Blood Count 8.8 K/mm3 (4.4-11.0)
[2022-10-11] MEDS: predniSONE 20 MG Tablet 60 MG PO (13:57)
[2022-10-11 14:00] LABS: Anion Gap 6 (5-15); BUN 10 mg/dL (7-18); BUN/Creat Ratio 14.8 RATIO (10-20); Calcium,Total 8.9 mg/dL (8.5-10.1); Chloride 107 mmol/L (98-107); Creatinine, Serum 0.68 mg/dL (0.55-1.02); EST Glomerular Filtration Rate 103 mL/min (>60); Est Glom Filt Rate - Afr Amer 124 mL/min (>60); Estimated Creatinine Clearance 112.05 ml/min; Glucose 93 mg/dL (74-106); Sodium Level 137 mmol/L (136-145); Troponin-I HS 8 pg/mL (3.0-54.0)
[2022-10-11 14:03] VITALS: BP 110/69; PULSE 87; RESP 16; O2SAT 98
[2022-10-11 14:15] LABS: Differential Indicated SCAN CRITERIA MET
[2022-10-11 14:31] LABS: BNP,B-Type NATRIURETIC PEPTIDE 19.4 pg/mL (0-100)
[2022-10-11 14:39] LABS: Differential Comment SCANNED; Platelet Estimate ADEQUATE (ADEQ)
[2022-10-11 15:49] VITALS: BP 138/69; PULSE 67; RESP 15; O2SAT 95
== END 2022-10-11 15:50 | disposition home or self-care (01) ==
PROVIDERS: Emergency Provider Emergency Medicine; PCP Internal Medicine; Visit Provider Emergency Medicine
DX: J45.901 Unspecified asthma with (acute) exacerbation (principal); I69.354 Hemiplegia and hemiparesis following cerebral infarction affecting left non-dominant side; I10 Essential (primary) hypertension; Z79.899 Other long term (current) drug therapy; Z86.79 Personal history of other diseases of the circulatory system; Z87.891 Personal history of nicotine dependence
CPT/HCPCS: 71045; 80048; 83880; 84484; 85025; 93005; 94640; 99285

== ENCOUNTER 2022-10-26 18:34 | Emergency (ER) | payer MEDICARE, MEDICAID, SELFPAY ==
[2022-10-26 18:35] VITALS: BP 122/99; PULSE 111; RESP 24; TEMP 36.8; O2SAT 92
--- NOTE | 2022-10-26 19:08 | RAD_ITS ---
STUDY: X-RAY CHEST REASON FOR EXAM: Female, 42 years old. sob TECHNIQUE: Single AP portable view of the chest. COMPARISON: 10/11/2022. FINDINGS: Exam is limited due to patient''s positioning and superimposition artifact over the right lung field. The lungs are clear and expanded. There is no demonstrated pleural abnormality. There is mild cardiac enlargement. Normal mediastinum and krystin. Normal visualized pulmonary arteries. Normal visualized aortic arch and descending thoracic aorta. Normal visualized thoracic spine. Normal visualized ribs, clavicles, and shoulders. There is no demonstrated abnormality of the visualized soft tissue structures of the upper abdomen. RAD/Chest 1 View (Portable) IMPRESSION: No acute cardiopulmonary disease within the limits of the exam described. Electronically Signed: Jaqueline Washington MD at 19:30 EDT ,
[2022-10-26 20:30] VITALS: BMI 23.7
--- NOTE | 2022-10-26 20:44 | ED.VIS.DYS ---
HPI History of Present Illness Chief Complaint: Shortness of Breath Informant: patient Narrative Narrative: Patient is here with her asthma acting up again. Is been acting up for about 4 days. She states she used to be on prednisone all the time. But she has not seen a chimney repairer in a while. She does have significant asthma. She does not smoke but her boyfriend does smoke. But he leaves the house to smoke. She also has a history of endocarditis from IV drug use in the past. She always wonders if this is her heart. Last time I saw her I did do work-up including troponin BNP and other blood work that was all negative. Patient is coughing but no sputum. No fevers. No chest pain. No swelling or weight gain. She was able to fill Flovent inhaler and states she is using it. She states she has albuterol at home. She has nebulizer and meds for it also. Biggest thing she wants is steroid because they help so much. [facility] Medical History Asthma Cardiac tamponade Embolic stroke involving middle cerebral artery Essential hypertension Former tobacco use Hemiplegia and hemiparesis following cerebral infarction affecting left non-dominant side Hepatitis History of embolic stroke History of endocarditis History of noncompliance with medical treatment History of substance abuse Holosystolic murmur Insomnia MRSA (methicillin resistant Staphylococcus aureus) Neuropathy Opioid dependence Polyarthritis Rheumatic tricuspid insufficiency Right sided cerebral hemisphere cerebrovascular accident (CVA) Home Medications gabapentin 600 mg tablet 600 mg PO TID nerve pain 03/07/22 [History Last Taken 06/24/22] baclofen 10 mg tablet 10 mg PO TID spasms 05/02/22 [History Last Taken 06/24/22] buspirone 5 mg tablet 5 mg PO TID Check with primary doctor 06/25/22 [History Last Taken 06/24/22] trazodone 50 mg tablet 50 mg PO QHS Check with primary doctor 06/25/22 [History Last Taken Unknown] albuterol sulfate 90 mcg/actuation aerosol inhaler 90 mcg inhalation PRN PRN asthma 30 days #8.5 grams 07/01/22 [Rx Last Taken Unknown] metoprolol tartrate 25 mg tablet 12.5 mg (1/2 x 25 mg) PO BID 30 days #30 tabs 07/01/22 [Rx Last Taken Unknown] mometasone-formoterol HFA 200 mcg-5 mcg/actuation aerosol inhaler 2 inh inhalation Q12H Check with primary doctor 30 days #13 grams 07/01/22 [Rx Last Taken Unknown] albuterol sulfate 2.5 mg/3 mL (0.083 %) solution for nebulization 2.5 mg (3 mL) inhalation Q4H PRN #25 vials 09/05/22 [Rx Last Taken Unknown] ipratropium bromide 0.02 % solution for inhalation 2.5 ml inhalation Q6H PRN shortness of breath or wheezing #62.5 mL 09/05/22 [Rx Last Taken Unknown] fluticasone fur. 100 mcg-umeclid 62.5 mcg-vilant 25 mcg inhalat.powder (Trelegy Ellipta) 1 inh inhalation DAILY #60 ea 09/19/22 [Rx Last Taken Unknown] prednisone 10 mg tablet 10 mg PO DAILY #48 TABLETS 09/19/22 [Rx Last Taken Unknown] albuterol sulfate 2.5 mg/3 mL (0.083 %) solution for nebulization 2.5 mg (3 mL) inhalation Q4H PRN #25 vials 10/11/22 [Rx Last Taken Unknown] fluticasone propionate 110 mcg/actuation HFA aerosol inhaler (Flovent HFA) 1 puff inhalation BID #12 grams 10/11/22 [Rx Last Taken Unknown] ipratropium bromide 0.02 % solution for inhalation 2.5 ml inhalation Q6H PRN shortness of breath or wheezing #62.5 mL 10/11/22 [Rx Last Taken Unknown] prednisone 20 mg tablet 60 mg (3 x 20 mg) PO DAILY #15 TABLETS 10/11/22 [Rx Last Taken Unknown] prednisone 20 mg tablet 60 mg (3 x 20 mg) PO DAILY #15 TABLETS 10/26/22 [Rx Last Taken Unknown] Allergy/AdvReac Type Severity Reaction Status Date / Time No Known Allergies Allergy Verified 10/11/22 12:57 Family History Father COPD (chronic obstructive pulmonary disease) Polysubstance abuse Mother Cancer Uterine CA. Surgical History Hx of needle biopsy Hx of tracheostomy Previous section S/P percutaneous endoscopic gastrostomy (PEG) tube placement Social History household members: none Smoking Status: Former smoker how long ago did patient quit smoking: Quit smoking 04/2022, smoked ~ 1 ppd since 19 y/o until quit recently. alcohol intake: current alcohol intake frequency: holidays/special occasions only substance use type: former substance user Date of last use: Clean x 5 years as of 06/25/22. and heroin ROS ROS ED ROS Narrative A complete review of systems was performed and is negative except as documented in the history of present illness. Some specific details below. Constitutional: No recent fevers or chills. No myalgias or malaise. EYE: No discharge ENT: No difficulty swallowing. No swelling. No pain. No reflux symptoms. CV: No chest pain palpitations or syncope. Respiratory: See history of present illness. GI: No abdominal pain. No nausea vomiting diarrhea. No blood in stool. : No frequency dysuria or hematuria. Musculoskeletal: No recent trauma. No pains. No swelling. Skin: No rash. Nondiaphoretic. Neuro: No new weakness or numbness. Endocrine: No polyuria or polydipsia. EXAM Physical Exam Narrative Exam Narrative: CONSTITUTIONAL: Patient is nontoxic in appearance. The patient looks comfortable. Work of breathing looks normal despite her wheezing. HEENT: No notable trauma. Mucous membranes moist. No sinus tenderness. No indication of pain with swallowing. EYES: No conjunctival injection. No proptosis. NECK:No JVD. No stridor. CARDIOVASCULAR: Regular rate. Regular rhythm. Patient is wheezing a fair amount and I do not know for sure if I hear her murmur. No JVD. RESPIRATORY: No respiratory distress. Breathing is unlabored. However the patient does have expiratory wheezes throughout her saturations are normal at 92% on room air though. No hypoxia noted. Despite the wheezing she looks surprisingly comfortable. I think this is likely because she has had significant asthma for many years. GASTROINTESTINAL: Not distended. Bowel sounds are normal. No tenderness. No guarding. No rebound. No palpable mass. No bruit is heard. GENITOURINARY: No tenderness over the bladder. No CVA tenderness. MUSCULOSKELETAL: Atraumatic. No peripheral edema. No cord. No tenderness along the deep venous system. No asymmetry. No distended veins. NEUROLOGICAL: Patient is alert and appropriate. She has chronic left-sided weakness from prior stroke related to endocarditis and drug use about 5 or 6 years ago. SKIN: No noted rashes. No diaphoresis. PSYCHIATRIC: Patient is calm. Mood is appropriate. Const Vital Signs: 10/26/22 18:35 10/26/22 20:30 10/26/22 20:30 Temperature 98.2 F Temperature Source Temporal Pulse Rate 111 H Respiratory Rate 24 H Respiratory Effort Respiratory Depth Respiratory Pattern Blood Pressure 122/99 H Blood Pressure Mean 106 Pulse Ox 92 Oxygen Delivery Method Room Air Room Air Room Air 10/26/22 20:30 10/26/22 20:51 Temperature Temperature Source Pulse Rate 99 Respiratory Rate 22 H Respiratory Effort Short of Breath Respiratory Depth Shallow Respiratory Pattern Tachypnea Tachypnea Blood Pressure Blood Pressure Mean Pulse Ox Oxygen Delivery Method Room Air MDM MDM MDM Narrative Medical decision making narrative: Independent interpretation the patient's single AP view chest x-ray shows no infiltrate. Mild cardiomegaly which is not new. Final reading is similar. Patient really wants to get steroids. It sounds like she used to be on long-term steroids. I will give her prednisone here. We will write for meds. I will give her some treatments before we get her home. She would like to go home. She looks comfortable. She has dealt with this for many years. I will give her number of chimney repairer locally. We discussed reasons to return. I rechecked her after treatment. She is breathing better. She still has some wheeze. She states she had a coughing fit but almost feels better after that now. We discussed that she needs to follow-up with pulmonology. She needs to avoid exposure to smoke from her significant other. There is evidently also a lot of animals and cats and I think this dander is likely contributing to her recurrent symptoms. Radiography Diagnostic Testing: Clinical Impression(s) from Imaging Studies Chest X-Ray 10/26/22 19:08 IMPRESSION: No acute cardiopulmonary disease within the limits of the exam described. Electronically Signed: Jaqueline Washington MD at 19:30 EDT , Discharge Plan Triage Chief Complaint: Shortness of Breath ED Provider: Von Barragan Dx/Rx/DC Orders Clinical Impression: Asthma exacerbation Instructions: ED Asthma, Acute (Adult) Prescriptions: New prednisone 20 mg tablet 60 mg PO DAILY Qty: 15 0RF No Action gabapentin 600 mg tablet 600 mg PO TID Patient Comments: TAKE 1 TABLET BY MOUTH THREE TIMES DAILY baclofen 10 mg Tablet 10 mg PO TID buspirone 5 mg tablet 5 mg PO TID trazodone 50 mg tablet 50 mg PO QHS Patient Comments: TAKE 1 TABLET BY MOUTH EVERYDAY AT BEDTIME metoprolol tartrate 25 mg Tablet 12.5 mg PO BID 30 Days Qty: 30 0RF albuterol sulfate 90 mcg/actuation HFA aerosol inhaler 90 mcg INHALATION PRN PRN (Reason: asthma) 30 Days Qty: 8.5 0RF mometasone-formoterol 200-5 mcg/actuation HFA aerosol inhaler 2 inh inhalation Q12H 30 Days Qty: 13 0RF Rx Instructions: 2 inhalations twice daily for 7 days albuterol sulfate 2.5 mg /3 mL (0.083 %) solution for nebulization 2.5 mg inhalation Q4H PRN Qty: 25 2RF Rx Instructions: Use q4 hours and PRN for wheezing ipratropium bromide 0.02 % solution 2.5 ml inhalation Q6H PRN (Reason: shortness of breath or wheezing) Qty: 62.5 1RF prednisone 10 mg tablet 10 mg PO DAILY Qty: 48 0RF Rx Instructions: 6 po qd x 3 days, 4 po qd x 3 days, 2 po qd x 3 days, 1 po qd x 3 days Trelegy Ellipta 100-62.5-25 mcg blister with device 1 inh inhalation DAILY Qty: 60 0RF albuterol sulfate 2.5 mg /3 mL (0.083 %) solution for nebulization 2.5 mg inhalation Q4H PRN Qty: 25 0RF Rx Instructions: Use q4 hours and PRN for wheezing prednisone 20 mg tablet 60 mg PO DAILY Qty: 15 0RF ipratropium bromide 0.02 % solution 2.5 ml inhalation Q6H PRN (Reason: shortness of breath or wheezing) Qty: 62.5 1RF fluticasone propionate [Flovent HFA] 110 mcg/actuation HFA aerosol inhaler 1 puff inhalation BID Qty: 12 0RF Primary Care Provider: Alin Mueller Referrals: Alin Mueller MD [Primary Care Provider] - Joaquim Lance DO [Med Staff - Active Staff] - As soon as possible Disposition Disposition: Home, Self Care
[2022-10-26 20:51] VITALS: PULSE 99; RESP 22
[2022-10-26] MEDS: Ipratropium/Albuterol Sulfate 3 ML AMPUL.NEB INHALATION (20:51)
[2022-10-26] MEDS: Albuterol 2.5 MG/3 ML VIAL.NEB. INHALATION (20:51)
--- NOTE | 2022-10-26 21:14 | CPS ---
x1 Albuterol given to pt. in ER as well
[2022-10-26] MEDS: predniSONE 20 MG Tablet 60 MG PO (21:17)
[2022-10-26 21:57] VITALS: BP 133/67; PULSE 82; RESP 19; O2SAT 96
== END 2022-10-26 21:58 | disposition home or self-care (01) ==
PROVIDERS: Emergency Provider Emergency Medicine; PCP Internal Medicine; Visit Provider Emergency Medicine
DX: J45.901 Unspecified asthma with (acute) exacerbation (principal); Z87.891 Personal history of nicotine dependence; Z86.73 Personal history of transient ischemic attack (TIA), and cerebral infarction without residual deficits
CPT/HCPCS: 71045; 87811; 94640; 94760; 99282

== ENCOUNTER 2022-11-26 17:09 | Emergency (ER) | payer MEDICARE, MEDICAID, SELFPAY ==
[2022-11-26] VITALS (7 sets, daily range): BP systolic 116–130; BP diastolic 86–91; PULSE 88–90; RESP 20–25; TEMP 36.3; O2SAT 86–94; BMI 24.3
--- NOTE | 2022-11-26 17:22 | EX.ED.DYSGE1 ---
HPI History of Present Illness Chief Complaint: Shortness of Breath Informant: patient Onset/Context/Timing Onset: Days (3 days) Context: Gradual Onset Narrative Narrative: Patient presents with 3-day history of shortness of breath. She has a history of asthma and states it feels like her asthma is acting up on her. She does tend to get symptoms when the weather changes this time of year. She denies chest pain or fever. She has been using her nebulizer without significant improvement. She is no longer on chronic steroids. It appears she was last in the ER about a month ago and got steroids at that time. [facility] Medical History Asthma Asthma exacerbation Cardiac tamponade Embolic stroke involving middle cerebral artery Essential hypertension Former tobacco use Hemiplegia and hemiparesis following cerebral infarction affecting left non-dominant side Hepatitis History of embolic stroke History of endocarditis History of noncompliance with medical treatment History of substance abuse Holosystolic murmur Insomnia MRSA (methicillin resistant Staphylococcus aureus) Neuropathy Opioid dependence Polyarthritis Rheumatic tricuspid insufficiency Right sided cerebral hemisphere cerebrovascular accident (CVA) Home Medications gabapentin 600 mg tablet 600 mg PO TID nerve pain 03/07/22 [History Last Taken 06/24/22] baclofen 10 mg tablet 10 mg PO TID spasms 05/02/22 [History Last Taken 06/24/22] buspirone 5 mg tablet 5 mg PO TID Check with primary doctor 06/25/22 [History Last Taken 06/24/22] trazodone 50 mg tablet 50 mg PO QHS Check with primary doctor 06/25/22 [History Last Taken Unknown] albuterol sulfate 90 mcg/actuation aerosol inhaler 90 mcg inhalation PRN PRN asthma 30 days #8.5 grams 07/01/22 [Rx Last Taken Unknown] mometasone-formoterol HFA 200 mcg-5 mcg/actuation aerosol inhaler 2 inh inhalation Q12H Check with primary doctor 30 days #13 grams 07/01/22 [Rx Last Taken Unknown] albuterol sulfate 2.5 mg/3 mL (0.083 %) solution for nebulization 2.5 mg (3 mL) inhalation Q4H PRN #25 vials 09/05/22 [Rx Last Taken Unknown] ipratropium bromide 0.02 % solution for inhalation 2.5 ml inhalation Q6H PRN shortness of breath or wheezing #62.5 mL 09/05/22 [Rx Last Taken Unknown] fluticasone fur. 100 mcg-umeclid 62.5 mcg-vilant 25 mcg inhalat.powder (Trelegy Ellipta) 1 inh inhalation DAILY #60 ea 09/19/22 [Rx Last Taken Unknown] albuterol sulfate 2.5 mg/3 mL (0.083 %) solution for nebulization 2.5 mg (3 mL) inhalation Q4H PRN #25 vials 10/11/22 [Rx Last Taken Unknown] fluticasone propionate 110 mcg/actuation HFA aerosol inhaler (Flovent HFA) 1 puff inhalation BID #12 grams 10/11/22 [Rx Last Taken Unknown] ipratropium bromide 0.02 % solution for inhalation 2.5 ml inhalation Q6H PRN shortness of breath or wheezing #62.5 mL 10/11/22 [Rx Last Taken Unknown] prednisone 20 mg tablet 60 mg (3 x 20 mg) PO DAILY #15 TABLETS 10/26/22 [Rx Last Taken Unknown] diltiazem HCl 120 mg capsule,extended release 24 hr 120 mg PO DAILY #90 caps 10/30/22 [Rx Last Taken Unknown] prednisone 20 mg tablet 60 mg (3 x 20 mg) PO DAILY #15 TABLETS 11/26/22 [Rx Last Taken Unknown] Allergy/AdvReac Type Severity Reaction Status Date / Time No Known Allergies Allergy Verified 11/26/22 17:18 Family History Father COPD (chronic obstructive pulmonary disease) Polysubstance abuse Mother Cancer Uterine CA. Surgical History Hx of needle biopsy Hx of tracheostomy Previous section S/P percutaneous endoscopic gastrostomy (PEG) tube placement Social History household members: none Smoking Status: Former smoker how long ago did patient quit smoking: Quit smoking 04/2022, smoked ~ 1 ppd since 19 y/o until quit recently. alcohol intake: current alcohol intake frequency: holidays/special occasions only substance use type: former substance user Date of last use: Clean x 5 years as of 06/25/22. and heroin caffeine: Yes Type: carbonated beverages Number of servings: 6 ROS ROS ED Constitutional Constitutional ED: Denies chills or fever(s) Eyes Eyes: Denies discharge from eye(s) ENT ENT ED: Denies discharge from eye(s), rhinorrhea or sore throat Cardiovascular Cardiovascular: Denies chest pain or palpitations Respiratory/Chest Respiratory/Chest: Reports cough and dyspnea Gastrointestinal Gastrointestinal: Denies abdominal pain, nausea or vomiting Musculoskeletal Musculoskeletal: Denies back pain or extremity pain Integumentary Denies Abrasions or rash Neurologic Neurologic: Denies headache(s) Psychiatric Psychiatric: Denies anxiety or depression Allergic/Immunologic Allergic/Immunologic ED: Denies lip swelling or urticaria EXAM Physical Exam Const Vital Signs: 11/26/22 17:09 11/26/22 17:18 11/26/22 17:29 Temperature 97.3 F L Temperature Source Temporal Pulse Rate 90 Respiratory Rate 20 H Respiratory Effort Short of Breath Labored Respiratory Depth Shallow Respiratory Pattern Tachypnea Blood Pressure 125/91 H Blood Pressure Mean 102 Pulse Ox 91 86 Oxygen Delivery Method Room Air Room Air Room Air Oxygen Flow Rate (L/min) 11/26/22 17:30 11/26/22 17:36 11/26/22 17:43 Temperature Temperature Source Pulse Rate 90 88 Respiratory Rate 25 H 20 H Respiratory Effort Respiratory Depth Respiratory Pattern Normal Blood Pressure 130/86 H Blood Pressure Mean 100 Pulse Ox 90 94 Oxygen Delivery Method Nasal Cannula Nasal Cannula Oxygen Flow Rate (L/min) 2 2 Positive well nourished and well developed General Appearance ED: well developed HEENT Reports dry mucous membranes Mouth ED: Yes dry mucous membranes Mouth: dry mucous membranes Eyes EOMs intact bilaterally Chest Wall inspection of chest normal and palpation of chest normal Resp Resp Narrative: Mild tachypnea with wheezes bilaterally. Cardio regular rate and regular rhythm GI non-tender Palpation: soft Extremity Extremity Narrative: Chronic left-sided weakness from previous CVA. Neuro oriented x3 Psych mental status grossly normal Skin no rashes or lesions noted MDM MDM MDM Narrative Medical decision making narrative: Patient is given 60 mg of p.o. prednisone along with a DuoNeb treatment/albuterol treatments. Radiography Diagnostic Testing: Clinical Impression(s) from Imaging Studies Chest X-Ray 10/08/23 18:05 IMPRESSION: Normal x-ray examination of the chest. Electronically Signed: vSen Winter MD at 18:53 EDT , Treatment and Re-Evaluation :: Patient did drop her O2 sat to 86% on room air prior to initiation of treatment. She was placed on 2 L nasal cannula. Patient was given p.o. prednisone along with albuterol and Atrovent treatments. Portable chest x-ray was obtained. Per my interpretation no evidence of focal infiltrate. Radiology interpretation is reviewed and agrees. Patient was taken off of supplemental oxygen. Her O2 sat is maintaining at 94% on room air. She does not want to be admitted to the hospital. She has a pulse ox at home that she will monitor her oxygen level. She has albuterol to use at home and I will write her prescription for prednisone. Return instructions are given. Discharge Plan Triage Chief Complaint: Shortness of Breath ED Provider: Lexi Navarro Dx/Rx/DC Orders Clinical Impression: Asthma exacerbation Instructions: ED Asthma, Acute (Adult) Prescriptions: New prednisone 20 mg tablet 60 mg PO DAILY Qty: 15 0RF No Action diltiazem HCl 120 mg capsule,extended release 24hr 120 mg PO DAILY Qty: 90 2RF gabapentin 600 mg tablet 600 mg PO TID Patient Comments: TAKE 1 TABLET BY MOUTH THREE TIMES DAILY baclofen 10 mg Tablet 10 mg PO TID buspirone 5 mg tablet 5 mg PO TID trazodone 50 mg tablet 50 mg PO QHS Patient Comments: TAKE 1 TABLET BY MOUTH EVERYDAY AT BEDTIME albuterol sulfate 90 mcg/actuation HFA aerosol inhaler 90 mcg INHALATION PRN PRN (Reason: asthma) 30 Days Qty: 8.5 0RF mometasone-formoterol 200-5 mcg/actuation HFA aerosol inhaler 2 inh inhalation Q12H 30 Days Qty: 13 0RF Rx Instructions: 2 inhalations twice daily for 7 days albuterol sulfate 2.5 mg /3 mL (0.083 %) solution for nebulization 2.5 mg inhalation Q4H PRN Qty: 25 2RF Rx Instructions: Use q4 hours and PRN for wheezing ipratropium bromide 0.02 % solution 2.5 ml inhalation Q6H PRN (Reason: shortness of breath or wheezing) Qty: 62.5 1RF Trelegy Ellipta 100-62.5-25 mcg blister with device 1 inh inhalation DAILY Qty: 60 0RF albuterol sulfate 2.5 mg /3 mL (0.083 %) solution for nebulization 2.5 mg inhalation Q4H PRN Qty: 25 0RF Rx Instructions: Use q4 hours and PRN for wheezing ipratropium bromide 0.02 % solution 2.5 ml inhalation Q6H PRN (Reason: shortness of breath or wheezing) Qty: 62.5 1RF fluticasone propionate [Flovent HFA] 110 mcg/actuation HFA aerosol inhaler 1 puff inhalation BID Qty: 12 0RF prednisone 20 mg tablet 60 mg PO DAILY Qty: 15 0RF Primary Care Provider: Alin Mueller Referrals: Ronald Craft MD [Med Staff - Active Staff] - As Needed Alin Mueller MD [Primary Care Provider] - 3-5 Days if not improving Disposition Disposition: Home, Self Care
[2022-11-26] MEDS: predniSONE 20 MG Tablet 60 MG PO (17:26)
[2022-11-26] MEDS: Albuterol 2.5 MG/3 ML VIAL.NEB. INHALATION ×2 (17:43)
[2022-11-26] MEDS: Ipratropium/Albuterol Sulfate 3 ML AMPUL.NEB INHALATION (17:43)
--- NOTE | 2022-11-26 18:05 | RAD_ITS ---
STUDY: X-RAY CHEST REASON FOR EXAM: Female, 42 years old. sob TECHNIQUE: Single AP portable view of the chest. COMPARISON: 10/26/2022 FINDINGS: The lungs are clear and expanded. There is no demonstrated pleural abnormality. Normal size heart. Normal mediastinum and krystin. Normal visualized pulmonary arteries. Normal visualized aortic arch and descending thoracic aorta. Normal visualized thoracic spine. Normal visualized ribs, clavicles, and shoulders. There is no demonstrated abnormality of the visualized soft tissue structures of the upper abdomen. RAD/Chest 1 View (Portable) IMPRESSION: Normal x-ray examination of the chest. Electronically Signed: Sven Winter MD at 18:53 EDT ,
== END 2022-11-26 19:52 | disposition home or self-care (01) ==
PROVIDERS: Emergency Provider Emergency Medicine; PCP Internal Medicine; Visit Provider Emergency Medicine
DX: J45.901 Unspecified asthma with (acute) exacerbation (principal); Z87.891 Personal history of nicotine dependence
CPT/HCPCS: 71045; 94640; 99282

== ENCOUNTER 2022-12-11 20:03 | Emergency (ER) | payer MEDICARE, MEDICAID, SELFPAY ==
[2022-12-11 20:04] VITALS: BP 120/92; PULSE 102; RESP 18; TEMP 36.1; O2SAT 94
[2022-12-11 21:28] VITALS: PULSE 116; RESP 20; O2SAT 90
--- NOTE | 2022-12-11 22:09 | EDS_ITS ---
HPI History of Present Illness Chief Complaint: Shortness of Breath Detail of Chief Complaint: Asthma attack. Informant: patient and family Onset/Context/Timing Onset: Today, Yesterday and Days Context: gradual Timing: Continuous Quality: Positive for Wheezing Current Severity: Moderate Maximum Severity: Moderate Worsened by: Nothing Relieved by: Albuterol Associated Symptoms cough Chest Pain: Positive for None Narrative Narrative: 42-year-old female history of asthma also history of IV drug abuse, endocarditis and prior stroke with left-sided paralysis. Patient believes she has had an asthma attack last several days. She has an inhaler at home. She is currently not on any steroids. Denies being ill. Has had a mild cough but no fever. No hemoptysis. No leg pain or swelling. No history of DVT or PE. PE Risk Factors: Negative for Cancer, OCP + Smoking + > 35, Prior DVT or PE, Recent immobilization, Recent surgery or Recent travel Prior similar symptoms: Yes Recent Illness/Hospitalization: No PFSH PFSH Medical History Asthma Asthma exacerbation Cardiac tamponade Embolic stroke involving middle cerebral artery Essential hypertension Former tobacco use Hemiplegia and hemiparesis following cerebral infarction affecting left non- dominant side Hepatitis History of embolic stroke History of endocarditis History of noncompliance with medical treatment History of substance abuse Holosystolic murmur Insomnia MRSA (methicillin resistant Staphylococcus aureus) Neuropathy Opioid dependence Polyarthritis Rheumatic tricuspid insufficiency Right sided cerebral hemisphere cerebrovascular accident (CVA) Home Medications gabapentin 600 mg tablet 600 mg PO TID nerve pain 03/07/22 [History Last Taken 06/24/22] baclofen 10 mg tablet 10 mg PO TID spasms 05/02/22 [History Last Taken 06/24/22] buspirone 5 mg tablet 5 mg PO TID Check with primary doctor 06/25/22 [History Last Taken 06/24/22] trazodone 50 mg tablet 50 mg PO QHS Check with primary doctor 06/25/22 [History Last Taken Unknown] albuterol sulfate 90 mcg/actuation aerosol inhaler 90 mcg inhalation PRN PRN asthma 30 days #8.5 grams 07/01/22 [Rx Last Taken Unknown] mometasone-formoterol HFA 200 mcg-5 mcg/actuation aerosol inhaler 2 inh inhalation Q12H Check with primary doctor 30 days #13 grams 07/01/22 [Rx Last Taken Unknown] albuterol sulfate 2.5 mg/3 mL (0.083 %) solution for nebulization 2.5 mg (3 mL) inhalation Q4H PRN #25 vials 09/05/22 [Rx Last Taken Unknown] ipratropium bromide 0.02 % solution for inhalation 2.5 ml inhalation Q6H PRN shortness of breath or wheezing #62.5 mL 09/05/22 [Rx Last Taken Unknown] fluticasone fur. 100 mcg-umeclid 62.5 mcg-vilant 25 mcg inhalat.powder (Trelegy Ellipta) 1 inh inhalation DAILY #60 ea 09/19/22 [Rx Last Taken Unknown] albuterol sulfate 2.5 mg/3 mL (0.083 %) solution for nebulization 2.5 mg (3 mL) inhalation Q4H PRN #25 vials 10/11/22 [Rx Last Taken Unknown] fluticasone propionate 110 mcg/actuation HFA aerosol inhaler (Flovent HFA) 1 puff inhalation BID #12 grams 10/11/22 [Rx Last Taken Unknown] ipratropium bromide 0.02 % solution for inhalation 2.5 ml inhalation Q6H PRN shortness of breath or wheezing #62.5 mL 10/11/22 [Rx Last Taken Unknown] prednisone 20 mg tablet 60 mg (3 x 20 mg) PO DAILY #15 TABLETS 10/26/22 [Rx Last Taken Unknown] diltiazem HCl 120 mg capsule,extended release 24 hr 120 mg PO DAILY #90 caps 10/30/22 [Rx Last Taken Unknown] prednisone 20 mg tablet 60 mg (3 x 20 mg) PO DAILY #15 TABLETS 11/26/22 [Rx Last Taken Unknown] prednisone 20 mg tablet 40 mg (2 x 20 mg) PO DAILY 7 days #14 tabs 12/11/22 [Rx Last Taken Unknown] Allergy/AdvReac Type Severity Reaction Status Date / Time No Known Allergies Allergy Verified 12/11/22 20:04 Family History Father COPD (chronic obstructive pulmonary disease) Polysubstance abuse Mother Cancer Uterine CA. Surgical History Hx of needle biopsy Hx of tracheostomy Previous section S/P percutaneous endoscopic gastrostomy (PEG) tube placement Social History household members: none Smoking Status: Former smoker how long ago did patient quit smoking: Quit smoking 04/2022, smoked ~ 1 ppd since 19 y/o until quit recently. alcohol intake: current alcohol intake frequency: holidays/special occasions only substance use type: former substance user Date of last use: Clean x 5 years as of 06/25/22. and heroin caffeine: Yes Type: carbonated beverages Number of servings: 6 ROS ROS ED ROS Narrative Wheezing. Short of breath. Review of Systems ROS Unobtainable: Denies due to encephalopathy Constitutional Constitutional ED: Denies chills or fever(s) Eyes Eyes: Denies blurry vision ENT ENT ED: Denies ear pain Cardiovascular Cardiovascular: Denies chest pain Respiratory/Chest Respiratory/Chest: Reports cough and dyspnea Gastrointestinal Gastrointestinal: Denies abdominal pain, nausea or vomiting Genitourinary Genitourinary ED: Denies dysuria or hematuria Musculoskeletal Musculoskeletal: Denies arthralgias Integumentary Denies abscess Neurologic Neurologic: Denies headache(s) Psychiatric Psychiatric: Denies anxiety or depression Allergic/Immunologic Allergic/Immunologic ED: Denies mouth swelling or tongue swelling EXAM Physical Exam Narrative Exam Narrative: 42-year-old female no acute distress vital signs are stable. Her pulse ox is 94%. She was brought in by squad they treated with aerosol treatment she felt much improved. HEENT exam posterior pharynx unremarkable. No stridor. No drooling. Moist weeks membranes. Neck nontender. Well-healed closed prior tracheostomy. Lungs expiratory wheezing throughout both sides. No rales or rhonchi. Equal symmetrical. Heart tachycardic rate about 110. Chest wall nontender. Abdomen soft nontender. She has left-sided paralysis of the arm and leg. She has normal strength on the right upper and right lower extremity. Calves are nontender without edema. Neurologically left-sided paralysis of upper and lower extremity. Decreased speech from prior stroke. But understandable. Const Vital Signs: 12/11/22 20:04 12/11/22 21:28 12/11/22 21:28 Temperature 97 F L Temperature Source Temporal Pulse Rate 102 H 116 H Respiratory Rate 18 20 H Respiratory Effort Short of Breath Respiratory Depth Normal Respiratory Pattern Tachypnea Blood Pressure 120/92 H Blood Pressure Mean 101 Pulse Ox 94 90 Oxygen Delivery Method Room Air Room Air Room Air 12/11/22 22:20 12/11/22 23:00 Temperature Temperature Source Pulse Rate 94 91 Respiratory Rate 20 H 20 H Respiratory Effort Respiratory Depth Respiratory Pattern Normal Normal Blood Pressure Blood Pressure Mean Pulse Ox Oxygen Delivery Method Positive well nourished and well developed; Negative for obese, cachectic, contractures or unkempt General Appearance ED: well developed and NAD; Negative for unkempt, cachectic, contractures or pallor Nutritional Appearance: Negative for cachectic or obese HEENT Reports moist mucous membranes atraumatic; Negative for trauma or tenderness Eyes PERRL and EOMs intact bilaterally General Eye ED: Negative for pale conjunctiva Neck no lymphadenopathy, supple, no meningeal signs and no JVD General: Negative for tenderness Lymph Lymphatic: Negative for other Chest Wall Chest: Negative for other Resp No normal respiratory effort and No clear to auscultation bilaterally Resp Narrative: Increased respiratory rate. Bilateral expiratory wheezing. Consistent with asthma. Auscultation: wheezes; Negative for rales or rhonchi Cardio regular rhythm, S1 normal heart sound and S2 normal heart sound; Negative for regular rate Rate: tachycardic GI non-tender, non-distended and no masses Inspection: Negative for other Auscultation: normoactive bowel sounds Palpation: soft; Negative for tender or guarding Back/Spine no CVA tenderness and normal to inspection General Back: Negative for CVA tenderness or tenderness Extremity Negative for normal to inspection Extremity Narrative: Left-sided Nate paralysis. General Extremety ED: Negative for edema or tenderness General Extremity: Negative for edema Neuro oriented x3 Sensorium / Orientation: alert, oriented to person, oriented to place and oriented to time Motor Exam: strength abnormal; Negative for strength 5/5 throughout Psych mental status grossly normal Appearance: Negative for unkempt Attitude: No agitated Mood & Affect: Negative for depressed Thought Process: normal thought process Skin no wounds and skin turgor normal General Skin Exam: Negative for jaundice or pallor Lesions: no lesions Rashes: no rashes Trauma: Negative for abrasion or laceration MDM MDM MDM Narrative Medical decision making narrative: 42-year-old with extensive past medical history with what appears to be an asthma flare. She will be treated with oral prednisone DuoNeb and albuterol aerosols and a chest x-ray will be obtained. Repeat exam patient is doing much better at 11:28 PM. Her breathing is much improved after the oral prednisone and aerosol treatments. She still has a few scattered expiratory wheezes but she feels much improved. She is satting appropriately in the mid 90s. She feels comfortable being discharged home. She has inhalers at home. She will be given a prescription for prednisone 40 mg a day for the next week. Follow-up if not improving or return if worse. History & Record Review Discussion w/independent historian: Patient Additional record(s) reviewed:: Prior inpatient record, Prior outpatient record and Prior ED visit Radiography Chest X-Ray - ED: 1 View, Read by ED Physician, Read by Radiologist, Normal, Heart, Lungs, Mediastinum, Bony Structures and No Acute Disease Diagnostic Testing: Clinical Impression(s) from Imaging Studies Chest X-Ray 12/11/22 22:46 IMPRESSION: Normal x-ray examination of the chest. Electronically Signed: Sven Winter MD at 23:15 EDT , Chest x-ray,, portable, single view interpreted by myself and the radiologist shows no acute abnormality. Normal cardiac silhouette. Normal lung fay. No pneumothorax. No infiltrate. Discharge Plan Triage Chief Complaint: Shortness of Breath ED Provider: [place] Dx/Rx/DC Orders Clinical Impression: Asthma, History of embolic stroke, History of intravenous drug abuse, History of endocarditis Instructions: ED Asthma, Acute (Adult) Prescriptions: New prednisone 20 mg tablet 40 mg PO DAILY 7 Days Qty: 14 0RF No Action diltiazem HCl 120 mg capsule,extended release 24hr 120 mg PO DAILY Qty: 90 2RF gabapentin 600 mg tablet 600 mg PO TID Patient Comments: TAKE 1 TABLET BY MOUTH THREE TIMES DAILY baclofen 10 mg Tablet 10 mg PO TID buspirone 5 mg tablet 5 mg PO TID trazodone 50 mg tablet 50 mg PO QHS Patient Comments: TAKE 1 TABLET BY MOUTH EVERYDAY AT BEDTIME albuterol sulfate 90 mcg/actuation HFA aerosol inhaler 90 mcg INHALATION PRN PRN (Reason: asthma) 30 Days Qty: 8.5 0RF mometasone-formoterol 200-5 mcg/actuation HFA aerosol inhaler 2 inh inhalation Q12H 30 Days Qty: 13 0RF Rx Instructions: 2 inhalations twice daily for 7 days prednisone 20 mg tablet 60 mg PO DAILY Qty: 15 0RF albuterol sulfate 2.5 mg /3 mL (0.083 %) solution for nebulization 2.5 mg inhalation Q4H PRN Qty: 25 2RF Rx Instructions: Use q4 hours and PRN for wheezing ipratropium bromide 0.02 % solution 2.5 ml inhalation Q6H PRN (Reason: shortness of breath or wheezing) Qty: 62.5 1RF Trelegy Ellipta 100-62.5-25 mcg blister with device 1 inh inhalation DAILY Qty: 60 0RF albuterol sulfate 2.5 mg /3 mL (0.083 %) solution for nebulization 2.5 mg inhalation Q4H PRN Qty: 25 0RF Rx Instructions: Use q4 hours and PRN for wheezing ipratropium bromide 0.02 % solution 2.5 ml inhalation Q6H PRN (Reason: shortness of breath or wheezing) Qty: 62.5 1RF fluticasone propionate [Flovent HFA] 110 mcg/actuation HFA aerosol inhaler 1 puff inhalation BID Qty: 12 0RF prednisone 20 mg tablet 60 mg PO DAILY Qty: 15 0RF Primary Care Provider: Alin Mueller Referrals: Alin Mueller MD [Primary Care Provider] - 3-5 Days if not improving Activity Restrictions/Additional Instructions: 40 mg of prednisone each day starting tomorrow. Use your inhalers as needed. Follow-up if not improving or return if feeling worse. Disposition Disposition: Home, Self Care
[2022-12-11] MEDS: predniSONE 20 MG Tablet 60 MG PO (22:12)
[2022-12-11 22:20] VITALS: PULSE 94; RESP 20
[2022-12-11] MEDS: Ipratropium/Albuterol Sulfate 3 ML AMPUL.NEB INHALATION (22:20)
[2022-12-11] MEDS: Albuterol 2.5 MG/3 ML VIAL.NEB. INHALATION ×2 (22:25→23:00)
--- NOTE | 2022-12-11 22:46 | RAD_ITS ---
STUDY: X-RAY CHEST REASON FOR EXAM: Female, 42 years old. wheezing TECHNIQUE: Single AP portable view of the chest. COMPARISON: 11/26/2022 FINDINGS: The patient is rotated to the left. The lungs are clear and expanded. There is no demonstrated pleural abnormality. Normal size heart. Normal mediastinum and krystin. Normal visualized pulmonary arteries. Normal visualized aortic arch and descending thoracic aorta. Normal visualized thoracic spine. Normal visualized ribs, clavicles, and shoulders. There is no demonstrated abnormality of the visualized soft tissue structures of the upper abdomen. RAD/Chest 1 View (Portable) IMPRESSION: Normal x-ray examination of the chest. Electronically Signed: Sven Winter MD at 23:15 EDT ,
[2022-12-11 23:00] VITALS: PULSE 91; RESP 20
[2022-12-11 23:46] VITALS: BP 121/76; PULSE 100; RESP 19; O2SAT 93
== END 2022-12-11 23:47 | disposition home or self-care (01) ==
PROVIDERS: Emergency Provider Emergency Medicine; PCP Internal Medicine; Visit Provider Emergency Medicine
DX: J45.901 Unspecified asthma with (acute) exacerbation (principal); Z87.891 Personal history of nicotine dependence; Z86.73 Personal history of transient ischemic attack (TIA), and cerebral infarction without residual deficits
CPT/HCPCS: 71045; 94640; 99284

== ENCOUNTER 2023-01-09 15:59 | Emergency (ER) | payer MEDICARE, MEDICAID, SELFPAY ==
[2023-01-09 16:01] VITALS: BP 129/88; PULSE 96; RESP 18; TEMP 36.3; O2SAT 95
[2023-01-09 17:00] VITALS: RESP 19; O2SAT 93
--- NOTE | 2023-01-09 17:11 | EDS_ITS ---
HPI History of Present Illness Chief Complaint: Shortness of Breath Informant: patient Onset/Context/Timing Onset: Days Context: gradual Timing: Continuous Quality: Positive for Wheezing Worsened by: Coughing Relieved by: Nothing Associated Symptoms cough; Negative for rhinorrhea, post nasal drip, ear pain, fever, sore throat, chills, clear sputum, white sputum, yellow sputum or green sputum Chest Pain: Positive for None Narrative Narrative: Patient presents with shortness of breath that has been getting worse over the past few days. Patient states she feels like she is wheezing. Patient admits to a cough. Patient denies any sputum production. Patient denies any fevers or chills. Patient denies any chest pain. Patient denies any sore throat or rhinorrhea. Patient states her breathing is worse with coughing. Patient states she has been using her inhalers at home with no improvement. 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- dominant side Hepatitis History of embolic stroke History of endocarditis History of noncompliance with medical treatment History of substance abuse Holosystolic murmur Insomnia MRSA (methicillin resistant Staphylococcus aureus) Neuropathy Opioid dependence Polyarthritis Rheumatic tricuspid insufficiency Right sided cerebral hemisphere cerebrovascular accident (CVA) Home Medications gabapentin 600 mg tablet 600 mg PO TID nerve pain 03/07/22 [History Last Taken 06/24/22] baclofen 10 mg tablet 10 mg PO TID spasms 05/02/22 [History Last Taken 06/24/22] buspirone 5 mg tablet 5 mg PO TID Check with primary doctor 06/25/22 [History Last Taken 06/24/22] trazodone 50 mg tablet 50 mg PO QHS Check with primary doctor 06/25/22 [History Last Taken Unknown] albuterol sulfate 90 mcg/actuation aerosol inhaler 90 mcg inhalation PRN PRN asthma 30 days #8.5 grams 07/01/22 [Rx Last Taken Unknown] mometasone-formoterol HFA 200 mcg-5 mcg/actuation aerosol inhaler 2 inh inh alation Q12H Check with primary doctor 30 days #13 grams 07/01/22 [Rx Last Taken Unknown] albuterol sulfate 2.5 mg/3 mL (0.083 %) solution for nebulization 2.5 mg (3 mL) inhalation Q4H PRN #25 vials 09/05/22 [Rx Last Taken Unknown] ipratropium bromide 0.02 % solution for inhalation 2.5 ml inhalation Q6H PRN shortness of breath or wheezing #62.5 mL 09/05/22 [Rx Last Taken Unknown] fluticasone fur. 100 mcg-umeclid 62.5 mcg-vilant 25 mcg inhalat.powder (Trelegy Ellipta) 1 inh inhalation DAILY #60 ea 09/19/22 [Rx Last Taken Unknown] albuterol sulfate 2.5 mg/3 mL (0.083 %) solution for nebulization 2.5 mg (3 mL) inhalation Q4H PRN #25 vials 10/11/22 [Rx Last Taken Unknown] fluticasone propionate 110 mcg/actuation HFA aerosol inhaler (Flovent HFA) 1 puff inhalation BID #12 grams 10/11/22 [Rx Last Taken Unknown] ipratropium bromide 0.02 % solution for inhalation 2.5 ml inhalation Q6H PRN shortness of breath or wheezing #62.5 mL 10/11/22 [Rx Last Taken Unknown] diltiazem HCl 120 mg capsule,extended release 24 hr 120 mg PO DAILY #90 caps 10/30/22 [Rx Last Taken Unknown] prednisone 20 mg tablet 40 mg (2 x 20 mg) PO DAILY 7 days #10 tabs 01/09/23 [Rx Last Taken Unknown] Allergy/AdvReac Type Severity Reaction Status Date / Time No Known Allergies Allergy Verified 01/09/23 16:00 Family History Father COPD (chronic obstructive pulmonary disease) Polysubstance abuse Mother Cancer Uterine CA. Surgical History Hx of needle biopsy Hx of tracheostomy Previous section S/P percutaneous endoscopic gastrostomy (PEG) tube placement Social History household members: none Smoking Status: Former smoker how long ago did patient quit smoking: Quit smoking 04/2022, smoked ~ 1 ppd since 19 y/o until quit recently. alcohol intake: current alcohol intake frequency: holidays/special occasions only substance use type: former substance user Date of last use: Clean x 5 years as of 06/25/22. and heroin caffeine: Yes Type: carbonated beverages Number of servings: 6 ROS ROS ED Constitutional Constitutional ED: Denies chills or fever(s) Eyes Eyes: Denies blurry vision or change in vision ENT ENT ED: Denies rhinorrhea or sore throat Cardiovascular Cardiovascular: Denies chest pain or palpitations Respiratory/Chest Respiratory/Chest: Reports cough and dyspnea Gastrointestinal Gastrointestinal: Denies nausea or vomiting Genitourinary Genitourinary ED: Denies dysuria or hematuria Musculoskeletal Musculoskeletal: Denies back pain or neck pain Integumentary Reports rash; Denies abscess Neurologic Neurologic: Denies headache(s) or weakness Allergic/Immunologic Allergic/Immunologic ED: Denies mouth swelling or urticaria EXAM Physical Exam Const Vital Signs: 01/09/23 16:01 01/09/23 17:00 01/09/23 17:00 Temperature 97.4 F L Temperature Source Temporal Pulse Rate 96 Respiratory Rate 18 19 H Respiratory Depth Respiratory Pattern Blood Pressure 129/88 H Blood Pressure Mean 101 Pulse Ox 95 93 Oxygen Delivery Method Room Air Room Air Room Air 01/09/23 17:23 01/09/23 17:23 Temperature Temperature Source Pulse Rate 88 Respiratory Rate 20 H Respiratory Depth Normal Respiratory Pattern Bradypnea Tachypnea Blood Pressure Blood Pressure Mean Pulse Ox Oxygen Delivery Method Room Air Positive well nourished and well developed General Appearance ED: well developed and NAD HEENT Reports moist mucous membranes Neck supple, no meningeal signs and no JVD Resp normal respiratory effort Auscultation: wheezes expiratory wheezes and throughout Cardio regular rate and regular rhythm GI non-tender and non-distended Neuro oriented x3, CN's II-XII intact bilaterally and no sensory deficits noted [place] Coma Scale: document GCS findings Spontaneous Obeys Commands Oriented 15 Sensorium / Orientation: alert Motor Exam: strength abnormal other (There is left hemiparesis from previous stroke.) Psych mental status grossly normal Skin Skin Narrative: There is an erythematous macular rash over the distal anterior thighs bilaterally, worse on the right. There are no vesicles or pustules. There is no discharge or drainage. There are no petechia noted. MDM MDM MDM Narrative Medical decision making narrative: Differential diagnosis includes asthma exacerbation, viral illness, pneumonia, bronchitis, and upper respiratory infection. CBC will be obtained to assess for leukocytosis and anemia. Basic metabolic profile will be obtained to assess for electrolyte abnormality and renal function. COVID-19 rapid antigen will be obtained to assess for COVID-19 infection. Chest x-ray will be obtained to assess for pneumonia and pneumothorax. History & Record Review Discussion w/independent historian: Patient and Significant other Additional record(s) reviewed:: Prior ED visit and Prior labs Lab Data Attestation: I reviewed the patient's lab results. Lab results narrative: CBC was reviewed and was within normal limits. Basic metabolic profile was reviewed and was within normal limits. COVID-19 rapid antigen was reviewed and was negative. Labs: Laboratory Results - last 24 hr 01/09/23 18:00 WBC 7.0 RBC 4.62 Hgb 14.1 Hct 39.6 MCV 85.7 MCH 30.5 MCHC 35.6 RDW Std Deviation 41.1 RDW Coeff of Min 13.5 Plt Count 151 MPV 10.2 Immature Gran % (Auto) 0.300 Neut % (Auto) 34.9 L Lymph % (Auto) 36.9 [place] % (Auto) 8.9 Eos % (Auto) 17.7 H Baso % (Auto) 1.3 H Absolute Neuts (auto) 2.5 Absolute Lymphs (auto) 2.58 Nucleated RBC % 0 Sodium 141 Potassium 3.7 Chloride 109 H Carbon Dioxide 28.0 Anion Gap 4 L BUN 11 Creatinine 0.70 Estim Creat Clear Calc 107.77 Est GFR (MDRD) Af Amer 120 Est GFR (MDRD) Non-Af 99 BUN/Creatinine Ratio 15.8 Glucose 109 H Calcium 8.7 Radiography Diagnostic Testing: Clinical Impression(s) from Imaging Studies Chest X-Ray 01/09/23 17:36 IMPRESSION: No radiographic evidence of acute cardiopulmonary disease. Electronically Signed: Jordi Greco MD at 17:56 EST , [place] and lateral chest x-ray was obtained. There are 2 views. On my independent interpretation, lung fay are clear. There is normal cardiac silhouette. Bony thorax is normal. There is no acute process noted. Radiologist also interpreted the x-ray and agrees. Treatment and Re-Evaluation :: Patient was given a DuoNeb aerosol here. Patient was given a dose of prednisone. Patient is feeling better on reevaluation. Patient was sleeping on reevaluation but awakened easily. Patient was advised of her findings. Patient was given a prescription for a short course of prednisone. Patient was instructed to continue her inhalers and aerosols at home. Patient was instructed to follow-up with her primary care physician in 5 to 7 days. Patient understood and was agreeable with plan. All questions were answered. Discharge Plan Triage Chief Complaint: Shortness of Breath ED Provider: Jn Hagan Dx/Rx/DC Orders Clinical Impression: Asthma, Essential hypertension Instructions: ED Asthma, Acute (Adult) Prescriptions: Continued prednisone 20 mg tablet 40 mg PO DAILY 7 Days Qty: 10 0RF Discontinued prednisone 20 mg tablet 60 mg PO DAILY Qty: 15 0RF prednisone 20 mg tablet 60 mg PO DAILY Qty: 15 0RF No Action diltiazem HCl 120 mg capsule,extended release 24hr 120 mg PO DAILY Qty: 90 2RF gabapentin 600 mg tablet 600 mg PO TID Patient Comments: TAKE 1 TABLET BY MOUTH THREE TIMES DAILY baclofen 10 mg Tablet 10 mg PO TID buspirone 5 mg tablet 5 mg PO TID trazodone 50 mg tablet 50 mg PO QHS Patient Comments: TAKE 1 TABLET BY MOUTH EVERYDAY AT BEDTIME albuterol sulfate 90 mcg/actuation HFA aerosol inhaler 90 mcg INHALATION PRN PRN (Reason: asthma) 30 Days Qty: 8.5 0RF mometasone-formoterol 200-5 mcg/actuation HFA aerosol inhaler 2 inh inhalation Q12H 30 Days Qty: 13 0RF Rx Instructions: 2 inhalations twice daily for 7 days albuterol sulfate 2.5 mg /3 mL (0.083 %) solution for nebulization 2.5 mg inhalation Q4H PRN Qty: 25 2RF Rx Instructions: Use q4 hours and PRN for wheezing ipratropium bromide 0.02 % solution 2.5 ml inhalation Q6H PRN (Reason: shortness of breath or wheezing) Qty: 62.5 1RF Trelegy Ellipta 100-62.5-25 mcg blister with device 1 inh inhalation DAILY Qty: 60 0RF albuterol sulfate 2.5 mg /3 mL (0.083 %) solution for nebulization 2.5 mg inhalation Q4H PRN Qty: 25 0RF Rx Instructions: Use q4 hours and PRN for wheezing ipratropium bromide 0.02 % solution 2.5 ml inhalation Q6H PRN (Reason: shortness of breath or wheezing) Qty: 62.5 1RF fluticasone propionate [Flovent HFA] 110 mcg/actuation HFA aerosol inhaler 1 puff inhalation BID Qty: 12 0RF Primary Care Provider: Alin Mueller Referrals: Alin Mueller MD [Primary Care Provider] - 3-5 Days Disposition Disposition: Home, Self Care
[2023-01-09 17:13] VITALS: BMI 24.5
[2023-01-09] MEDS: Ipratropium/Albuterol Sulfate 3 ML AMPUL.NEB INHALATION (17:22)
[2023-01-09 17:23] VITALS: PULSE 88; RESP 20; O2SAT 93
[2023-01-09] MEDS: predniSONE 20 MG Tablet 40 MG PO (17:32)
--- NOTE | 2023-01-09 17:36 | RAD_ITS ---
EXAM: XR CHEST, 2 VIEWS CLINICAL INDICATION: Dyspnea TECHNIQUE: Frontal and lateral views of the chest. COMPARISON: 12/11/2022 FINDINGS: LUNGS AND PLEURAL SPACES: Unremarkable. No consolidation or edema. No pneumothorax. No effusion. HEART: Unremarkable. Cardiac silhouette not enlarged. MEDIASTINUM: Central airways and mediastinal contour are unremarkable. BONES/JOINTS: Unremarkable. No acute fracture. SOFT TISSUES: Unremarkable. RAD/Chest PA and Lateral IMPRESSION: No radiographic evidence of acute cardiopulmonary disease. Electronically Signed: Jordi Greco MD at 17:56 EST ,
[2023-01-09 18:05] LABS: Absolute Lymphocyte Count 2.58 X10^3/uL (0.83-4.51); Absolute Neutrophil Count 2.5 X10^3/uL (2.0-7.7); Basophil# 0.09 X10^3/uL; Basophil% 1.3 % (0-1); Eosinophil# 1.24 X10^3/uL; Eosinophils% 17.7 % (0-5); Hematocrit 39.6 % (37-47); Hemoglobin 14.1 g/dL (12.0-15.0); Lymphocyte # 2.58 X10^3/ul (0.83-4.51); Lymphocyte % 36.9 % (19-41); Mean Corp Hgb Conc 35.6 g/dL (32-36); Mean Corpuscular Hgb 30.5 pg (27.0-32.0); Mean Corpuscular Volume 85.7 fL (81-99); Mean Platelet Vol. 10.2 fl (6.2-12.0); Monocyte# 0.62 X10^3/uL; Monocyte% 8.9 % (0-10); NRBC Flagged by Analyzer 0 % (0-5); Neutrophil # 2.45 X10^3/uL (2.7-7.7); Neutrophil % 34.9 % (47-70); Platelet Count 151 K/mm3 (150-450); RBC Distribution Width CV 13.5 % (11.6-14.6); RBC Distribution Width SD 41.1 fl (35.1-43.9); Red Blood Count 4.62 M/mm3 (4.2-5.4)
[2023-01-09 18:20] LABS: Anion Gap 4 (5-15); BUN 11 mg/dL (7-18); BUN/Creat Ratio 15.8 RATIO (10-20); Calcium,Total 8.7 mg/dL (8.5-10.1); Chloride 109 mmol/L (98-107); EST Glomerular Filtration Rate 99 mL/min (>60); Est Glom Filt Rate - Afr Amer 120 mL/min (>60); Estimated Creatinine Clearance 107.77 ml/min; Glucose 109 mg/dL (74-106); Potassium 3.7 mmol/L (3.5-5.1); Sodium Level 141 mmol/L (136-145)
[2023-01-09 19:21] VITALS: BP 94/69; PULSE 91; RESP 15; O2SAT 92
[2023-01-09 19:23] VITALS: BP 94/69; PULSE 91; RESP 15; O2SAT 92
== END 2023-01-09 19:25 | disposition home or self-care (01) ==
PROVIDERS: Emergency Provider Emergency Medicine; PCP Internal Medicine; Visit Provider Emergency Medicine
DX: J45.909 Unspecified asthma, uncomplicated (principal); I10 Essential (primary) hypertension; Z86.73 Personal history of transient ischemic attack (TIA), and cerebral infarction without residual deficits; Z87.891 Personal history of nicotine dependence
CPT/HCPCS: 71046; 80048; 85025; 87811; 94640; 94760; 99282

== ENCOUNTER 2023-02-13 19:29 | Inpatient (IN) | payer MEDICARE, MEDICAID, SELFPAY ==
[2023-02-13 19:29] VITALS: BP 109/82; PULSE 134; RESP 18; TEMP 36.2; O2SAT 96
[2023-02-13 21:44] VITALS: O2SAT 87
--- NOTE | 2023-02-13 22:30 | EX.ED.DYSGE1 ---
HPI History of Present Illness Chief Complaint: Overdose Informant: patient Limited: intoxicated Onset/Context/Timing Onset: Today Context: Gradual Onset Timing: Continuous Quality: Aching Location: Left thigh and hip Worsened by: Nothing Relieved by: Nothing Narrative Narrative: Patient presents after taking too many gabapentin today. Patient states she was taking them gradually throughout the day today. Patient states she was taking them because she was still in significant pain in her left hip and thigh. Patient denies any suicidal ideations. Patient admits to some shortness of breath. Patient admits to an episode of nausea and vomiting earlier today. Patient denies any fevers or chills. Patient denies any recent trauma or injury. [facility] Medical History Asthma Asthma exacerbation Cardiac tamponade Embolic stroke involving middle cerebral artery Essential hypertension Former tobacco use Hemiplegia and hemiparesis following cerebral infarction affecting left non-dominant side Hepatitis History of embolic stroke History of endocarditis History of noncompliance with medical treatment History of substance abuse Holosystolic murmur Insomnia MRSA (methicillin resistant Staphylococcus aureus) Neuropathy Opioid dependence Polyarthritis Rheumatic tricuspid insufficiency Right sided cerebral hemisphere cerebrovascular accident (CVA) Home Medications gabapentin 600 mg tablet 600 mg PO TID nerve pain 03/07/22 [History Last Taken 06/24/22] baclofen 10 mg tablet 10 mg PO TID spasms 05/02/22 [History Last Taken 06/24/22] buspirone 5 mg tablet 5 mg PO TID Check with primary doctor 06/25/22 [History Last Taken 06/24/22] trazodone 50 mg tablet 50 mg PO QHS Check with primary doctor 06/25/22 [History Last Taken Unknown] albuterol sulfate 90 mcg/actuation aerosol inhaler 90 mcg inhalation PRN PRN asthma 30 days #8.5 grams 07/01/22 [Rx Last Taken Unknown] mometasone-formoterol HFA 200 mcg-5 mcg/actuation aerosol inhaler 2 inh inhalation Q12H Check with primary doctor 30 days #13 grams 07/01/22 [Rx Last Taken Unknown] albuterol sulfate 2.5 mg/3 mL (0.083 %) solution for nebulization 2.5 mg (3 mL) inhalation Q4H PRN #25 vials 09/05/22 [Rx Last Taken Unknown] ipratropium bromide 0.02 % solution for inhalation 2.5 ml inhalation Q6H PRN shortness of breath or wheezing #62.5 mL 09/05/22 [Rx Last Taken Unknown] fluticasone fur. 100 mcg-umeclid 62.5 mcg-vilant 25 mcg inhalat.powder (Trelegy Ellipta) 1 inh inhalation DAILY #60 ea 09/19/22 [Rx Last Taken Unknown] albuterol sulfate 2.5 mg/3 mL (0.083 %) solution for nebulization 2.5 mg (3 mL) inhalation Q4H PRN #25 vials 10/11/22 [Rx Last Taken Unknown] fluticasone propionate 110 mcg/actuation HFA aerosol inhaler (Flovent HFA) 1 puff inhalation BID #12 grams 10/11/22 [Rx Last Taken Unknown] ipratropium bromide 0.02 % solution for inhalation 2.5 ml inhalation Q6H PRN shortness of breath or wheezing #62.5 mL 10/11/22 [Rx Last Taken Unknown] diltiazem HCl 120 mg capsule,extended release 24 hr 120 mg PO DAILY #90 caps 10/30/22 [Rx Last Taken Unknown] prednisone 20 mg tablet 40 mg (2 x 20 mg) PO DAILY 7 days #10 tabs 01/09/23 [Rx Last Taken Unknown] Allergy/AdvReac Type Severity Reaction Status Date / Time No Known Allergies Allergy Verified 02/13/23 19:29 Family History Father COPD (chronic obstructive pulmonary disease) Polysubstance abuse Mother Cancer Uterine CA. Surgical History Hx of needle biopsy Hx of tracheostomy Previous section S/P percutaneous endoscopic gastrostomy (PEG) tube placement Social History household members: none Smoking Status: Former smoker how long ago did patient quit smoking: Quit smoking 04/2022, smoked ~ 1 ppd since 19 y/o until quit recently. alcohol intake: current alcohol intake frequency: holidays/special occasions only substance use type: former substance user Date of last use: Clean x 5 years as of 06/25/22. and heroin caffeine: Yes Type: carbonated beverages Number of servings: 6 ROS ROS ED Constitutional Constitutional ED: Denies chills or fever(s) Eyes Eyes: Denies blurry vision or change in vision ENT ENT ED: Denies rhinorrhea or sore throat Cardiovascular Cardiovascular: Denies chest pain or palpitations Respiratory/Chest Respiratory/Chest: Reports dyspnea; Denies cough Gastrointestinal Gastrointestinal: Reports nausea and vomiting Genitourinary Genitourinary ED: Denies dysuria or hematuria Integumentary Denies abscess or rash Neurologic Neurologic: Denies headache(s) or weakness Allergic/Immunologic Allergic/Immunologic ED: Denies mouth swelling or urticaria EXAM Physical Exam Const Vital Signs: 02/13/23 19:29 02/13/23 21:44 02/13/23 23:05 Temperature 97.2 F L Temperature Source Temporal Pulse Rate 134 H 115 H Respiratory Rate 18 24 H Respiratory Pattern Tachypnea Blood Pressure 109/82 H Blood Pressure Mean 91 Pulse Ox 96 87 Oxygen Delivery Method Room Air Oxygen Flow Rate (L/min) 02/14/23 02:25 02/14/23 03:44 02/14/23 04:23 Temperature Temperature Source Pulse Rate 115 H 111 H Respiratory Rate 25 H 30 H Respiratory Pattern Blood Pressure 126/99 H 118/86 H Blood Pressure Mean 108 96 Pulse Ox 91 94 98 Oxygen Delivery Method Nasal Cannula Nasal Cannula Nasal Cannula Oxygen Flow Rate (L/min) 2 2 3 Positive well nourished and well developed General Appearance ED: well developed and NAD HEENT Reports moist mucous membranes Neck supple and no JVD Resp normal respiratory effort Auscultation: wheezes scattered wheezes Cardio regular rhythm Rate: tachycardic GI non-tender and non-distended Palpation: soft Neuro oriented x3, CN's II-XII intact bilaterally and no sensory deficits noted Sensorium / Orientation: stuporous Motor Exam: strength 5/5 throughout Skin no wounds MDM MDM MDM Narrative Medical decision making narrative: Differential diagnosis includes gabapentin overdose, coingestion overdose, alcohol intoxication, electrolyte abnormality, infection, and dehydration. CBC will be obtained to assess for leukocytosis and anemia. Basic metabolic profile will be obtained to assess for electrolyte abnormality and renal function. Urinalysis will be obtained to assess for urinary tract infection. Urine tox screen will be obtained to assess for substance abuse. Serum alcohol level will be obtained to assess for alcohol intoxication. Acetaminophen and salicylate levels will be obtained to assess for coingestion overdose. Chest x-ray will be obtained to assess for pneumonia and pneumothorax. EKG will be obtained to assess for cardiac dysrhythmia and cardiac ischemia. Lab Data Attestation: I reviewed the patient's lab results. Lab results narrative: CBC was reviewed and shows a leukocytosis of 34.4. Hemoglobin was slightly elevated at 15.9. Remainder is within normal limits. Basic metabolic profile was reviewed and was essentially within normal limits. Urinalysis was reviewed. There is no evidence of urinary tract infection or hematuria. Urine hCG was reviewed and was negative. Urine tox screen was reviewed and was negative. Serum alcohol level was reviewed and was negative. Acetaminophen level was reviewed and was less than 2.0. Salicylate level was reviewed and was less than 1.7. Labs: Laboratory Results - last 24 hr 02/13/23 02/14/23 02/14/23 23:10 00:15 02:10 WBC 34.4 H* RBC 5.20 Hgb 15.9 H Hct 45.7 MCV 87.9 MCH 30.6 MCHC 34.8 RDW Std Deviation 44.5 H RDW Coeff of Min 13.8 Plt Count TNP MPV 10.2 Immature Gran % (Auto) 1.200 H Neut % (Auto) 86.5 H Lymph % (Auto) 5.3 L [place] % (Auto) 6.5 Eos % (Auto) 0.3 Baso % (Auto) 0.2 Absolute Neuts (auto) 29.7 H Absolute Lymphs (auto) 1.83 Nucleated RBC % 0 Differential Comment SCANNED Platelet Estimate SLT DEC Sodium 132 L Potassium 4.0 Chloride 97 L Carbon Dioxide 27.0 Anion Gap 8 BUN 16 Creatinine 0.87 Estim Creat Clear Calc 86.71 Est GFR (MDRD) Af Amer 92 Est GFR (MDRD) Non-Af 76 BUN/Creatinine Ratio 18.3 Glucose 110 H Calcium 8.8 Urine Color Yellow Urine Clarity Clear Urine pH 8.0 Ur Specific Mars 1.010 Urine Protein 30 H Urine Glucose (UA) Normal Urine Ketones Negative Urine Occult Blood Negative Urine Nitrite Negative Urine Bilirubin Negative Urine Urobilinogen 4 H Ur Leukocyte Esterase Negative Urine RBC 0 SEEN Urine WBC 0 SEEN Ur Squamous Epith Cells 0-5 SEEN Urine Bacteria 0 SEEN Urine Mucus 0 SEEN Urine Test Negative Salicylates < 1.7 L Urine Opiates Screen NEGATIVE Urine Methadone Screen NEGATIVE Acetaminophen < 2.0 L Ur Barbiturates Screen NEGATIVE Ur Phencyclidine Scrn NEGATIVE Ur Amphetamines Screen NEGATIVE MDMA (Ecstasy) Screen NEGATIVE U Benzodiazepines Scrn NEGATIVE Urine Cocaine Screen NEGATIVE U Cannabinoids Screen NEGATIVE Ur Drug Screen Comment Ethyl Alcohol < 3.0 Radiography Chest X-Ray - ED: 2 View, Read by ED Physician and Read by Radiologist Diagnostic Testing: Clinical Impression(s) from Imaging Studies Chest X-Ray 02/13/23 23:24 IMPRESSION: 1. Right lower lobe pneumonia, atelectasis, or aspiration. 2. Cardiomegaly. Electronically Signed: Sven Winter MD at 23:43 EST , [place] and lateral chest x-rays obtained. There are 2 views. On my independent interpretation, there is a right lower lobe infiltrate. There is cardiomegaly noted. Bony thorax is normal. There is no pneumothorax. Radiologist also interpreted the x-ray and agrees. EKG Initial EKG: Interpretation: Sinus Tachycardia (117), RBBB and Non-Specific ST Changes Comments: EKG was obtained. On my independent interpretation, it shows sinus tachycardia with a rate of 117. KS interval was normal at 138 ms. QRS interval is normal at 118 ms. QTc interval was 449 ms. There is right axis deviation at 130. There is a right bundle branch block pattern noted. There are nonspecific ST-T wave changes noted. This was unchanged compared to previous EKG. Prior EKG tracings: available for review Prior: Unchanged (10/11/2022) Treatment and Re-Evaluation :: Patient was given IV fluids. Patient was given a DuoNeb aerosol. Patient initially was refusing lab work and IV fluids. Patient was initially given a dose of oral Zithromax prior to obtaining lab work. Patient did later consent to obtaining lab work and IV fluids. After lab work was obtained, patient was given a dose of IV Rocephin. Patient's oxygen saturation dropped to 87% on room air. Because of the chest x-ray findings, and hypoxia, I recommended admission to the hospital. Case will be discussed with the hospitalist for admission. He will admit the patient to his service. Patient understood and was agreeable with the plan. All questions were answered. Discharge Plan Triage Chief Complaint: Overdose ED Provider: Jn Hagan Dx/Rx/DC Orders Clinical Impression: Aspiration pneumonia, Hypoxia, Accidental overdose of gabapentin Prescriptions: No Action diltiazem HCl 120 mg capsule,extended release 24hr 120 mg PO DAILY Qty: 90 2RF gabapentin 600 mg tablet 600 mg PO TID Patient Comments: TAKE 1 TABLET BY MOUTH THREE TIMES DAILY baclofen 10 mg Tablet 10 mg PO TID buspirone 5 mg tablet 5 mg PO TID trazodone 50 mg tablet 50 mg PO QHS Patient Comments: TAKE 1 TABLET BY MOUTH EVERYDAY AT BEDTIME albuterol sulfate 90 mcg/actuation HFA aerosol inhaler 90 mcg INHALATION PRN PRN (Reason: asthma) 30 Days Qty: 8.5 0RF mometasone-formoterol 200-5 mcg/actuation HFA aerosol inhaler 2 inh inhalation Q12H 30 Days Qty: 13 0RF Rx Instructions: 2 inhalations twice daily for 7 days prednisone 20 mg tablet 40 mg PO DAILY 7 Days Qty: 10 0RF albuterol sulfate 2.5 mg /3 mL (0.083 %) solution for nebulization 2.5 mg inhalation Q4H PRN Qty: 25 2RF Rx Instructions: Use q4 hours and PRN for wheezing ipratropium bromide 0.02 % solution 2.5 ml inhalation Q6H PRN (Reason: shortness of breath or wheezing) Qty: 62.5 1RF Trelegy Ellipta 100-62.5-25 mcg blister with device 1 inh inhalation DAILY Qty: 60 0RF albuterol sulfate 2.5 mg /3 mL (0.083 %) solution for nebulization 2.5 mg inhalation Q4H PRN Qty: 25 0RF Rx Instructions: Use q4 hours and PRN for wheezing ipratropium bromide 0.02 % solution 2.5 ml inhalation Q6H PRN (Reason: shortness of breath or wheezing) Qty: 62.5 1RF fluticasone propionate [Flovent HFA] 110 mcg/actuation HFA aerosol inhaler 1 puff inhalation BID Qty: 12 0RF Primary Care Provider: Alin Mueller Referrals: Alin Mueller MD [Primary Care Provider] - Disposition Disposition: Acute Care Hospital [facility]
--- NOTE | 2023-02-13 22:36 | EKG12_ITS ---
Test Reason : DYSRHYTHMIA Blood Pressure : / mmHG Vent. Rate : 117 BPM Atrial Rate : 117 BPM P-R Int : 138 ms QRS Dur : 118 ms QT Int : 322 ms P-R-T Axes : 070 130 033 degrees QTc Int : 449 ms Sinus tachycardia Possible Left atrial enlargement Right axis deviation Incomplete right bundle branch block Right ventricular hypertrophy Abnormal ECG Confirmed by BEATRIS LOPEZ, ASHLEIGH ([id number]), editor house organ ELISSA RASMUSSEN ([id number]) on 02/20/2023 8:22:58 AM Referred By: Confirmed By:ASHLEIGH SPEAR MD
[2023-02-13 23:05] VITALS: PULSE 115; RESP 24
[2023-02-13] MEDS: Ipratropium/Albuterol Sulfate 3 ML AMPUL.NEB INHALATION (23:05)
--- NOTE | 2023-02-13 23:24 | RAD_ITS ---
STUDY: X-RAY CHEST REASON FOR EXAM: Female, 42 years old. Cough TECHNIQUE: PA and lateral views of the chest. COMPARISON: 01/09/2023 FINDINGS: Alveolar opacity in the lower right lung consistent with right lower lobe pneumonia, atelectasis, or aspiration. There is no demonstrated pleural abnormality. There is moderate cardiac enlargement. Normal mediastinum and krystin. Normal visualized pulmonary arteries. Normal visualized aortic arch and descending thoracic aorta. Normal visualized thoracic spine. Normal visualized ribs, clavicles, and shoulders. There is no demonstrated abnormality of the visualized soft tissue structures of the upper abdomen. RAD/Chest PA and Lateral IMPRESSION: 1. Right lower lobe pneumonia, atelectasis, or aspiration. 2. Cardiomegaly. Electronically Signed: Sven Winter MD at 23:43 EST ,
--- NOTE | 2023-02-13 23:26 | ED.RN ---
ATTEMPTED IV START. UNSUCCESSFUL. CHARGE NURSE ATTEMTED IV START, UNSUCCESSFUL. PT REFUSES ANYMORE ATTEMPTS. PT IS A DIFFICULT IV START.
[2023-02-13 23:28] LABS: Bacteria 0 SEEN /hpf (None Seen); Mucous, Urine 0 SEEN /hpf (<or=2+); Red Blood Cells-Urine 0 SEEN /hpf (0-5); White Blood Cells 0 SEEN /hpf (0-5)
[2023-02-13 23:44] LABS: Color, Urine Yellow (Yellow); Glucose, Dipstick Normal (Normal); Ketone-Dipstick Negative (Negative); Leukocyte Esterase-Dipstick Negative /ul (Negative); Nitrite-Dipstick Negative (Negative); Occult Blood-Urine Negative /ul (Negative); Protein-Dipstick 30 mg/dl (Negative); Urine Bilirubin Dipstick Negative (Negative); Urine Clarity Clear (Clear); Urine Urobilinogen 4 mg/dl (Normal)
[2023-02-13 23:51] LABS: Squamous Epithelial Cells - UA 0-5 SEEN /hpf (5-10)
[2023-02-13 23:59] LABS: Amphetamine Urine VISTA NEGATIVE (<1000 ng/mL); Barbiturate Urine VISTA NEGATIVE (< 200 ng/mL); Benzodiazepine Urine VISTA NEGATIVE (< 200 ng/mL); Cocaine Urine VISTA NEGATIVE (< 300 ng/mL); Ecstacy Urine VISTA NEGATIVE (< 500 ng/mL); Methadone Urine VISTA NEGATIVE (< 300 ng/mL); PCP Urine VISTA NEGATIVE (< 25 ng/mL); THC Urine VISTA NEGATIVE (< 50 ng/mL); Vista UDS pH Range 8
[2023-02-14] VITALS (13 sets, daily range): BP systolic 96–126; BP diastolic 62–99; PULSE 92–118; RESP 16–32; TEMP 36–36.9; O2SAT 91–98; BMI 25.4
[2023-02-14 00:34] LABS: Internal QC Validated? YES +Cl - CLEAR BKGD; Pregnancy, Urine Negative Negative
[2023-02-14] MEDS: Azithromycin 250 MG Tablet 500 MG PO (02:17)
[2023-02-14] MEDS: 0.9% Normal Saline (1000mL) 1,000 ML 1000 ML IV (02:18)
[2023-02-14 02:22] LABS: Absolute Lymphocyte Count 1.83 X10^3/uL (0.83-4.51); Absolute Neutrophil Count 29.7 X10^3/uL (2.0-7.7); Basophil# 0.08 X10^3/uL; Basophil% 0.2 % (0-1); Eosinophils% 0.3 % (0-5); Hematocrit 45.7 % (37-47); Hemoglobin 15.9 g/dL (12.0-15.0); Lymphocyte # 1.83 X10^3/ul (0.83-4.51); Lymphocyte % 5.3 % (19-41); Mean Corp Hgb Conc 34.8 g/dL (32-36); Mean Corpuscular Hgb 30.6 pg (27.0-32.0); Mean Corpuscular Volume 87.9 fL (81-99); Mean Platelet Vol. 10.2 fl (6.2-12.0); Monocyte# 2.24 X10^3/uL; Monocyte% 6.5 % (0-10); NRBC Flagged by Analyzer 0 % (0-5); Neutrophil # 29.71 X10^3/uL (2.7-7.7); Neutrophil % 86.5 % (47-70); POSITIVE COUNT YES; POSITIVE DIFFERENTIAL YES; POSITIVE MORPHOLOGY YES; RBC Distribution Width CV 13.8 % (11.6-14.6); RBC Distribution Width SD 44.5 fl (35.1-43.9)
[2023-02-14 02:25] LABS: Differential Indicated SCAN CRITERIA MET; White Blood Count 34.4 K/mm3 (4.4-11.0)
[2023-02-14 02:40] LABS: Anion Gap 8 (5-15); BUN 16 mg/dL (7-18); BUN/Creat Ratio 18.3 RATIO (10-20); Calcium,Total 8.8 mg/dL (8.5-10.1); Chloride 97 mmol/L (98-107); Creatinine, Serum 0.87 mg/dL (0.55-1.02); EST Glomerular Filtration Rate 76 mL/min (>60); Est Glom Filt Rate - Afr Amer 92 mL/min (>60); Estimated Creatinine Clearance 86.71 ml/min; Glucose 110 mg/dL (74-106); Sodium Level 132 mmol/L (136-145)
[2023-02-14 03:00] LABS: Differential Comment SCANNED; Platelet Estimate SLT DEC (ADEQ)
[2023-02-14 03:43] LABS: Acetaminophen (Tylenol) Level < 2.0 ug/mL (10.0-30.0); Alcohol, Blood (Medical)-Serum < 3.0 mg/dL; Salicylate < 1.7 mg/dL (2.8-20.0)
[2023-02-14] MEDS: Ipratropium/Albuterol Sulfate 3 ML AMPUL.NEB INHALATION ×4 (04:14→18:50)
[2023-02-14] MEDS: Ceftriaxone 2 GM in 0.9% Normal Saline (50mL MB+) 50 ML IV (04:19)
--- NOTE | 2023-02-14 05:39 | PCM.HP.STD ---
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 She has persistent pain over her left hip and thigh and has been taking gabapentin steadily throughout the day for the same. There was no suicidal ideations. Following the injection she has had multiple episodes of nausea and vomiting. Since then she also has significant shortness of breath and associated cough. No fever or chills. She lives with her fianc? who takes care of her and helps her out in her medications. Has a history of smoking cigarettes but has been abstinent for the last 1 year. Due to her dysphagia following prior stroke some of her history is difficult to discern. At the time of presentation in the ED, she was afebrile, tachycardic with SpO2 of 87% on room air. She had leukocytosis, hemoglobin of 15.9, and thrombocytopenia, UA was normal, and urine tox screen was negative. Chest x-ray showed right lower lobe lobe pneumonia, atelectasis or aspiration and cardiomegaly [facility] Medical History Asthma Asthma exacerbation Cardiac tamponade Embolic stroke involving middle cerebral artery Essential hypertension Former tobacco use Hemiplegia and hemiparesis following cerebral infarction affecting left non-dominant side Hepatitis History of embolic stroke History of endocarditis History of noncompliance with medical treatment History of substance abuse Holosystolic murmur Insomnia MRSA (methicillin resistant Staphylococcus aureus) Neuropathy Opioid dependence Polyarthritis Rheumatic tricuspid insufficiency Right sided cerebral hemisphere cerebrovascular accident (CVA) Home Medications gabapentin 600 mg tablet 800 mg PO TID nerve pain 03/07/22 [History Last Taken 06/24/22] baclofen 10 mg tablet 10 mg PO TID spasms 05/02/22 [History Last Taken 06/24/22] trazodone 50 mg tablet 50 mg PO QHS Check with primary doctor 06/25/22 [History Last Taken Unknown] albuterol sulfate 90 mcg/actuation aerosol inhaler 90 mcg inhalation PRN PRN asthma 30 days #8.5 grams 07/01/22 [Rx Last Taken Unknown] mometasone-formoterol HFA 200 mcg-5 mcg/actuation aerosol inhaler 2 inh inhalation Q12H Check with primary doctor 30 days #13 grams 07/01/22 [Rx Last Taken Unknown] albuterol sulfate 2.5 mg/3 mL (0.083 %) solution for nebulization 2.5 mg (3 mL) inhalation Q4H PRN #25 vials 09/05/22 [Rx Last Taken Unknown] ipratropium bromide 0.02 % solution for inhalation 2.5 ml inhalation Q6H PRN shortness of breath or wheezing #62.5 mL 09/05/22 [Rx Last Taken Unknown] fluticasone fur. 100 mcg-umeclid 62.5 mcg-vilant 25 mcg inhalat.powder (Trelegy Ellipta) 1 inh inhalation DAILY #60 ea 09/19/22 [Rx Last Taken Unknown] albuterol sulfate 2.5 mg/3 mL (0.083 %) solution for nebulization 2.5 mg (3 mL) inhalation Q4H PRN #25 vials 10/11/22 [Rx Last Taken Unknown] fluticasone propionate 110 mcg/actuation HFA aerosol inhaler (Flovent HFA) 1 puff inhalation BID #12 grams 10/11/22 [Rx Last Taken Unknown] diltiazem HCl 120 mg capsule,extended release 24 hr 120 mg PO DAILY #90 caps 10/30/22 [Rx Last Taken Unknown] prednisone 20 mg tablet 40 mg (2 x 20 mg) PO DAILY 7 days #10 tabs 01/09/23 [Rx Last Taken Unknown] Allergy/AdvReac Type Severity Reaction Status Date / Time No Known Allergies Allergy Verified 02/13/23 19:29 Family History Father COPD (chronic obstructive pulmonary disease) Polysubstance abuse Mother Cancer Uterine CA. Surgical History Hx of needle biopsy Hx of tracheostomy Previous section S/P percutaneous endoscopic gastrostomy (PEG) tube placement Social History household members: none Smoking Status: Former smoker how long ago did patient quit smoking: Quit smoking 04/2022, smoked ~ 1 ppd since 19 y/o until quit recently. alcohol intake: current alcohol intake frequency: holidays/special occasions only substance use type: former substance user Date of last use: Clean x 5 years as of 06/25/22. and heroin caffeine: Yes Type: carbonated beverages Number of servings: 6 ROS Constitutional Constitutional: Reports fatigue; Denies anorexia, change in weight, chills, fever(s), malaise, night sweats, weakness or other Eyes Eyes: Denies blurry vision, change in eye color, change in vision, discharge from eye(s), double vision, erythema, eye pain, loss of vision or other ENT HEENT: Denies abnormal hearing, dysphagia, ear pain, epistaxis, headache(s), hearing loss, nasal congestion, nasal discharge, post nasal drip, sinus pressure, sore throat or other Cardiovascular Cardiovascular: Reports chest pain; Denies claudication, dyspnea on exertion, edema, lightheadedness, orthopnea, palpitations, paroxysmal nocturnal dyspnea, rapid heart rate, syncope or other Respiratory/Chest Respiratory/Chest: Reports cough, dyspnea, excessive phlegm production, productive cough and shortness of breath at rest Gastrointestinal Gastrointestinal: Denies abdominal pain, coffee ground emesis, constipation, diarrhea, dyspepsia, hematemesis, hematochezia, loose stools, melena, nausea, vomiting or other Genitourinary Genitourinary: Denies burning urination, difficulty urinating, dysuria, hematuria, nocturia, urinary frequency, urinary hesitancy, urinary incontinence, urinary urgency or other Musculoskeletal Musculoskeletal: Denies arthralgias, back pain, joint pain, joint stiffness, joint swelling, myalgias, neck pain or other Neurologic Neurologic: Denies abnormal gait, abnormal speech, confusion, disequilibrium, dizziness, focal weakness, headache(s), numbness, paresthesias, seizure-like activity, seizures, syncope, tingling, tremor(s) or other Psychiatric Psychiatric: Denies anxiety, depression, homicidal ideation, suicidal ideation or other Endocrine Endocrinology: Denies change in body appearance, cold intolerance, excessive sweating, heat intolerance, polydipsia, polyuria or other Hematologic/Lymphatic Hematologic/Lymphatic: Denies anemia, easy bleeding, easy bruising, lymphadenopathy or other Allergic/Immunologic Allergic/Immunologic: Denies rhinitis, hives, eczemia, asthma or other Vital Signs Vital Signs Vital Signs: 02/13/23 19:29 02/13/23 21:44 02/13/23 23:05 Temperature 97.2 F L Temperature Source Temporal Pulse Rate 134 H 115 H Respiratory Rate 18 24 H Respiratory Pattern Tachypnea Blood Pressure 109/82 H Blood Pressure Mean 91 Pulse Ox 96 87 Oxygen Delivery Method Room Air Oxygen Flow Rate (L/min) 02/14/23 02:25 02/14/23 03:44 02/14/23 04:23 Temperature Temperature Source Pulse Rate 115 H 111 H Respiratory Rate 25 H 30 H Respiratory Pattern Blood Pressure 126/99 H 118/86 H Blood Pressure Mean 108 96 Pulse Ox 91 94 98 Oxygen Delivery Method Nasal Cannula Nasal Cannula Nasal Cannula Oxygen Flow Rate (L/min) 2 2 3 02/14/23 04:14 Temperature Temperature Source Pulse Rate 108 H Respiratory Rate 32 H Respiratory Pattern Tachypnea Blood Pressure Blood Pressure Mean Pulse Ox Oxygen Delivery Method Oxygen Flow Rate (L/min) Weight Weight: 167 lb 8.821 oz Body Mass Index (BMI) 25.4 Physical Exam HEENT normocephalic Neck no lymphadenopathy Resp Resp Narrative: Significantly reduced breath sounds on the right infrascapular region Cardio regular rate and regular rhythm GI normal to inspection, nondistended, normoactive bowel sounds Extremity normal to inspection Neuro oriented x3 Sensorium / Orientation: awake and alert Results Medical Records Data Attestation: I reviewed the patient's medical records Lab / Micro Data Attestation: I reviewed the patient's lab results. 02/14/23 02:10 02/14/23 02:10 Labs: Laboratory Results - last 24 hr 02/13/23 23:10: Urine Color Yellow, Urine Clarity Clear, Urine pH 8.0, Ur Specific [place] 1.010, Urine Protein 30 H, Urine Glucose (UA) Normal, Urine Ketones Negative, Urine Occult Blood Negative, Urine Nitrite Negative, Urine Bilirubin Negative, Urine Urobilinogen 4 H, Ur Leukocyte Esterase Negative, Urine RBC 0 SEEN, Urine WBC 0 SEEN, Ur Squamous Epith Cells 0-5 SEEN, Urine Bacteria 0 SEEN, Urine Mucus 0 SEEN, Urine Opiates Screen NEGATIVE, Urine Methadone Screen NEGATIVE, Ur Barbiturates Screen NEGATIVE, Ur Phencyclidine Scrn NEGATIVE, Ur Amphetamines Screen NEGATIVE, MDMA (Ecstasy) Screen NEGATIVE, U Benzodiazepines Scrn NEGATIVE, Urine Cocaine Screen NEGATIVE, U Cannabinoids Screen NEGATIVE, Ur Drug Screen Comment 02/14/23 00:15: Urine Test Negative 02/14/23 02:10: WBC 34.4 H*, RBC 5.20, Hgb 15.9 H, Hct 45.7, MCV 87.9, MCH 30.6, MCHC 34.8, RDW Std Deviation 44.5 H, RDW Coeff of Min 13.8, Plt Count TNP, MPV 10.2, Immature Gran % (Auto) 1.200 H, Neut % (Auto) 86.5 H, Lymph % (Auto) 5.3 L, [place] % (Auto) 6.5, Eos % (Auto) 0.3, Baso % (Auto) 0.2, Absolute Neuts (auto) 29.7 H, Absolute Lymphs (auto) 1.83, Nucleated RBC % 0, Differential Comment SCANNED, Platelet Estimate SLT DEC, Sodium 132 L, Potassium 4.0, Chloride 97 L, Carbon Dioxide 27.0, Anion Gap 8, BUN 16, Creatinine 0.87, Estim Creat Clear Calc 86.71, Est GFR (MDRD) Af Amer 92, Est GFR (MDRD) Non-Af 76, BUN/Creatinine Ratio 18.3, Glucose 110 H, Calcium 8.8, Salicylates < 1.7 L, Acetaminophen < 2.0 L, Ethyl Alcohol < 3.0 Imagaing Radiology Impression Chest X-Ray 02/13/23 23:24 IMPRESSION: 1. Right lower lobe pneumonia, atelectasis, or aspiration. 2. Cardiomegaly. Electronically Signed: Sven Winter MD at 23:43 EST , Assessment & Plan Assessment/Plan (1) Accidental overdose of gabapentin: PLAN: Plan Ms Guaman, 42 year female presents the ED with concerns of accidental gabapentin ingestion overdose and with worsening cough and shortness of breath. There are no concerning features of gabapentin overdose at this time, her urine tox screen is negative. She likely has aspiration pneumonitis with significant leukocytosis and requires supplemental oxygen therapy. 1. Acute on chronic respiratory failure: Likely related to aspiration pneumonia following the nausea vomiting. Breath sounds significantly reduced on the right side, x-ray suggestive of right-sided consolidation. -Will start her on ceftriaxone to cover for community-acquired pneumonia, and oxygen support. -Will also get speech evaluation to rule out any aspiration episodes -Bronchopulmonary hygiene 2. Accidental gabapentin overdose: No features of somnolence, agitation hallucination or rhabdomyolysis present. Will repeat morning labs tomorrow. Continue supportive measures. Will hold off gabapentin at this time and gradually reintroduce tomorrow. No concerns of renal injury. 3. Prior stroke: Speech therapy evaluation to rule out any ongoing aspiration. No active concerns at this time. 4. Cardiomegaly on x-ray: Will consider echocardiogram only if there is no improvement with antibiotic therapy, follow-up with cardiology as an outpatient. 5. Asthma: Continue home medications, no concerns of asthma exacerbation at this time Charges/Coding Visit Charges Inpatient E&M: 25415 Init Hosp L2
[2023-02-14 06:47] LABS: Absolute Lymphocyte Count 1.64 X10^3/uL (0.83-4.51); Absolute Neutrophil Count 25.9 X10^3/uL (2.0-7.7); Basophil# 0.13 X10^3/uL; Basophil% 0.4 % (0-1); Eosinophil# 0.03 X10^3/uL; Eosinophils% 0.1 % (0-5); Hematocrit 42.2 % (37-47); Hemoglobin 14.5 g/dL (12.0-15.0); Lymphocyte # 1.64 X10^3/ul (0.83-4.51); Lymphocyte % 5.5 % (19-41); Mean Corp Hgb Conc 34.4 g/dL (32-36); Mean Corpuscular Hgb 30.3 pg (27.0-32.0); Mean Corpuscular Volume 88.1 fL (81-99); Mean Platelet Vol. 10.3 fl (6.2-12.0); Monocyte# 1.74 X10^3/uL; Monocyte% 5.8 % (0-10); NRBC Flagged by Analyzer 0 % (0-5); Neutrophil # 25.94 X10^3/uL (2.7-7.7); Neutrophil % 87.2 % (47-70); POSITIVE DIFFERENTIAL YES; Platelet Count 151 K/mm3 (150-450); RBC Distribution Width CV 13.7 % (11.6-14.6); RBC Distribution Width SD 44.1 fl (35.1-43.9); Red Blood Count 4.79 M/mm3 (4.2-5.4); White Blood Count 29.8 K/mm3 (4.4-11.0)
[2023-02-14 06:57] LABS: Differential Indicated SCAN CRITERIA MET
[2023-02-14 06:58] LABS: International Normalized Ratio 1.5; Prothrombin Time (Protime)PT. 17.8 SECONDS (11.7-14.9)
[2023-02-14 07:22] LABS: ALB/GLOB Ratio 0.8 RATIO (0.9-2.4); AST(SGOT) 18 U/L (15-37); Alanine Aminotransfer ALT/SGPT 16 U/L (13-56); Albumin, Serum 2.9 g/dL (3.2-5.0); Alkaline Phosphatase 82 U/L (45-117); Anion Gap 8 (5-15); BUN 13 mg/dL (7-18); Bilirubin, Direct 0.31 mg/dL (0.00-0.30); Calcium,Total 8.1 mg/dL (8.5-10.1); Chloride 101 mmol/L (98-107); Creatinine, Serum 0.59 mg/dL (0.55-1.02); EST Glomerular Filtration Rate 119 mL/min (>60); Est Glom Filt Rate - Afr Amer 144 mL/min (>60); Estimated Creatinine Clearance 123.26 ml/min; Globulin 3.5 g/dL (2.2-4.2); Glucose 131 mg/dL (74-106); Magnesium 1.7 mg/dL (1.6-2.6); Phosphorus 2.8 mg/dL (2.5-4.9); Potassium 3.3 mmol/L (3.5-5.1); Protein, Total 6.4 g/dL (6.4-8.2); Sodium Level 133 mmol/L (136-145); Thyroid Stim Hormone (TSH) 0.58 uIU/mL (0.358-3.74)
[2023-02-14] MEDS: Budesonide Respules 0.5 MG/2 ML AMPUL.NEB. INHALATION ×2 (07:47→18:50)
[2023-02-14] MEDS: Baclofen 10 MG Tablet PO ×2 (10:25→18:03)
[2023-02-14] MEDS: dilTIAZem CD 120 MG Capsule PO (10:25)
[2023-02-14] MEDS: Ampicillin/Sulbactam 3 GM in 0.9% Normal Saline (100mL MB+) 100 ML IV ×2 (13:12→22:12)
--- NOTE | 2023-02-14 14:06 | CHAPLAIN ---
Type of Pastoral Visit ___ Initial Visit ___ Follow-up Visit ___ On-call Visit ___ General Patient Visit ___ Spiritual Assessment ___ Family Conference ___ Bereavement ___ Rapid Response ___ Code Blue ___ Other (describe below) Pastoral Care Referral From ___ Patient ___ Family ___ Nurse ___ Physician ___ School Library Media Program Director ___ Assistant Professor Of Forestry ___ Other (describe below) Sacrament/Intervention ___ Active listening ___ Anointing ___ Christianity ___ Bereavement ___ Communion ___ Nancy exploration ___ ___ Life review ___ Prayer ___ Reconciliation ___ Sacrament of Sick ___ Supportive presence ___ Wedding ___ Other (describe below) Pastoral Comments patient is sleeping
--- NOTE | 2023-02-14 16:12 | CHAPLAIN ---
Type of Pastoral Visit _x__ Initial Visit ___ Follow-up Visit ___ On-call Visit ___ General Patient Visit ___ Spiritual Assessment ___ Family Conference ___ Bereavement ___ Rapid Response ___ Code Blue ___ Other (describe below) Pastoral Care Referral From _x__ Patient ___ Family ___ Nurse ___ Physician ___ Window Glass Cutter Off ___ Extrusion Utility Worker ___ Other (describe below) Sacrament/Intervention _x__ Active listening ___ Anointing ___ Christian ___ Bereavement ___ Communion ___ Nancy exploration ___ ___ Life review _x__ Prayer ___ Reconciliation ___ Sacrament of Sick _x__ Supportive presence ___ Wedding ___ Other (describe below) Pastoral Comments patient is welcoming; pt has been seen before and she remembers this instructor bridge; pt states that she is doing fine right now; pt does ask for prayer for her support; pt says that life continues on and that she does not have worries; pt welcomes spiritual care support for the future as well
[2023-02-14] MEDS: Ondansetron 4 MG/2 ML Vial IV (18:05)
--- NOTE | 2023-02-14 19:00 | CASEMGMT ---
RN?CM?DRAFTER CIVIL?CM?to room to meet with patient for initial transition planning/care coordination?assessment.?RN?CM?introduced self and role at [facility].? Pt voices understanding and consents to?assessment?at this time.? Pt resting in bed in no distress at this time.? Pt is A/O at this time and answers all questions appropriately.?? Care providers, pharmacy, and demographics verified/updated at this time. PCP: Alin Mueller from [facility] Specialists:none Preferred Pharmacy: [facility] Retail Insurance: MCR, [employer] Prescription Benefit:?Yes Living Will/HPOA:? Step-father, Geoff, is HCPOA LNOK: Step-father/HCPOA, sig other, Gael Living Arrangements: Lives in 2nd-floor apt. Sig other, Gael, carries pt up and down the stairs and assists pt w/ADL's and does IADL's. Pt states He does everything . Transportation:?friend or public transportation. Gael will assist her w/going home in a taxi @ discharge. DME: States has the following DME:?pt has a shower chair, BSC, W/C, nebulizer, and pulse ox. She does not have home o2. She does not have a medical alert button and does not want any information on one. She states when Gael is not home that she just texts him anything she needs. Pt states she would like a hospital bed. Pt states no need for further DME at this time.? HHC/SNF: Pt has been to [facility] in the past and states she has not had HHC in the past. Pt is not sure if she will want any HHC at discharge. PT/OT evals pending. Pt wishes to return home and states has no concerns with going home at time of discharge.? CM?to follow for home oxygen needs and any further discharge planning/needs.? Pt voices no further concerns/needs at this time.? Advised pt to ask for?CM?if any further questions/concerns/needs arise.? Voices understanding. PLAN:??Home w/sig other support Follow for possible HHC. PT/OT hans pending. CM to assist w/getting hospital bed. Elyse BSN?RN?CM
[2023-02-14] MEDS: guaiFENesin 1,200 MG Tablet 1200 MG PO (20:26)
[2023-02-14] MEDS: Ibuprofen 400 MG Tablet PO (20:26)
[2023-02-14] MEDS: traZODone 50 MG Tablet PO (20:26)
[2023-02-15] VITALS (12 sets, daily range): BP systolic 91–102; BP diastolic 60–70; PULSE 86–92; RESP 16–18; TEMP 36.3–36.8; O2SAT 83–95
[2023-02-15] MEDS: Ampicillin/Sulbactam 3 GM in 0.9% Normal Saline (100mL MB+) 100 ML IV (05:50)
[2023-02-15] MEDS: Ipratropium/Albuterol Sulfate 3 ML AMPUL.NEB INHALATION ×2 (06:57→13:36)
--- NOTE | 2023-02-15 08:18 | DCINST_ITS ---
Discharge Instructions Diet Discharge Diet: Soft diet (staff assist w/ daniella set up-cut food into small bitesized pieces-straws OK) Activity Discharge Activity: Return to Normal Activity and May Not Drive Weight Bearing Status: Weight bearing as tolerated Dressing / Incision Call your doctor if you observe: Fever of 101 or Higher, Coldness, Increased Pain, Numbness or Tingling, Change in Color, Inability to urinate, Inability to have a bowel movement, Using more than 1 pad per hour, Shortness of breath, Dizziness, Fainting spells, Swelling in the ankles, Chest pain, Prolonged hiccupping, Increased palpitations (irregular heartbeat) and Calf discomfort Follow Up Care When: IN 2 WEEKS Test Results: Test results from this visit will be discussed in further detail at your follow- up appointment, if applicable. Discharge Plan Admission Admit Date/Time: 02/14/23 05:19 Attending Provider: Sim Fontaine Primary Care Provider: Alin Mueller Consulting Providers: Gloria Felix; Guzman Lanza Discharge Orders/Prescriptions Prescriptions: New amoxicillin-pot clavulanate 875-125 mg Tablet 1 tab PO BID 6 Days Qty: 12 0RF guaifenesin [Mucus Relief ER] 1,200 mg Tablet Extended Release 12hr 1,200 mg PO BID 7 Days Qty: 14 0RF Continued diltiazem HCl 120 mg capsule,extended release 24hr 120 mg PO DAILY Qty: 90 2RF baclofen 10 mg Tablet 10 mg PO TID trazodone 50 mg tablet 50 mg PO QHS Patient Comments: TAKE 1 TABLET BY MOUTH EVERYDAY AT BEDTIME albuterol sulfate 90 mcg/actuation HFA aerosol inhaler 90 mcg INHALATION PRN PRN (Reason: asthma) 30 Days Qty: 8.5 0RF mometasone-formoterol 200-5 mcg/actuation HFA aerosol inhaler 2 inh inhalation Q12H 30 Days Qty: 13 0RF Rx Instructions: 2 inhalations twice daily for 7 days albuterol sulfate 2.5 mg /3 mL (0.083 %) solution for nebulization 2.5 mg inhalation Q4H PRN Qty: 25 2RF Rx Instructions: Use q4 hours and PRN for wheezing ipratropium bromide 0.02 % solution 2.5 ml inhalation Q6H PRN (Reason: shortness of breath or wheezing) Qty: 62.5 1RF Trelegy Ellipta 100-62.5-25 mcg blister with device 1 inh inhalation DAILY Qty: 60 0RF albuterol sulfate 2.5 mg /3 mL (0.083 %) solution for nebulization 2.5 mg inhalation Q4H PRN Qty: 25 0RF Rx Instructions: Use q4 hours and PRN for wheezing fluticasone propionate [Flovent HFA] 110 mcg/actuation HFA aerosol inhaler 1 puff inhalation BID Qty: 12 0RF gabapentin 600 mg tablet 800 mg PO TID Qty: 7 0RF Patient Comments: TAKE 1 TABLET BY MOUTH THREE TIMES DAILY Rx Instructions: Take it as recommended. Hold for lethargy/sedation Discontinued prednisone 20 mg tablet 40 mg PO DAILY 7 Days Qty: 10 0RF Referrals / Follow Up: Alin Mueller MD [Primary Care Provider] - Joaquim Lance DO [Med Staff - Active Staff] - Within 1 Month Disposition Disposition (needs filled in before D/C Order can be placed): Home Health Service
[2023-02-15] MEDS: Baclofen 10 MG Tablet PO ×2 (09:54→11:24)
[2023-02-15] MEDS: guaiFENesin 1,200 MG Tablet 1200 MG PO (09:54)
[2023-02-15] MEDS: Azithromycin 500 MG in Dextrose 5%-Water (250mL Bag) 250 ML 250 MG IV (09:54)
[2023-02-15] MEDS: dilTIAZem CD 120 MG Capsule PO (09:54)
[2023-02-15] MEDS: Ondansetron 4 MG/2 ML Vial IV (09:57)
[2023-02-15] MEDS: Amox/Clavulanate 875 MG Tablet PO (11:23)
[2023-02-15 12:58] LABS: Pathologist Review Reviewed
[2023-02-15 12:58] LABS: Pathologist Review Reviewed
--- NOTE | 2023-02-15 15:01 | PCM.DC.SUM ---
Providers Date of Admission: 02/14/23 Date of Discharge: 02/15/23 Primary Care Physician: Dr. Alin Mueller MD Reason For Visit: SHOTNESS OF BREATH Diagnosis Discharge Diagnosis (1) Accidental overdose of gabapentin: Status: Acute Code(s): T42.6X1A - Poisoning by other antiepileptic and sedative-hypnotic drugs, accidental (unintentional), initial encounter Plan Ms Guaman, 42 year female with history of for stroke status post mild Broca's aphasia, left-sided weakness is admitted with gabapentin overdose and worsening cough and shortness of breath. Patient is stated she might have aspirated in the context of vomiting. 1.Right-sided aspiration pneumonia with mild hypoxia: Patient had nausea and vomiting and probably aspirated. Patient is still on 2 L of oxygen. Patient not on home oxygen. She has leukocytosis but she was on prednisone 40 therefore probably steroid effect. She did not had any fever. There is no significant increase in the oxygenation. Patient is started on IV Unasyn. Prescription given to complete a total of 8 days of antibiotic. Continue incentive spirometry and PEP. Prescription given for Mucinex. Patient had a speech therapy evaluation on diet and swallow maneuvers as suggested by speech therapist. Cardiomegaly on chest x-ray. Follow-up with PCP. - 2. Accidental gabapentin overdose: No features of somnolence, agitation hallucination or rhabdomyolysis present. Continue supportive measures. Will hold off gabapentin at this time and gradually reintroduce tomorrow. No concerns of renal injury. Patient had mild hypokalemia which was corrected. 3. Prior stroke with right-sided weakness/paresis with contractures and mild aphasia: No acute neurological issues. 4. Asthma: Continue home medications, no concerns of asthma exacerbation at this time Microbiology Past 72 Hours 02/14/23 08:06 Mucosa - Nasopharyngeal Influenza Types A,B Direct FA (MIGUEL ANGEL) - Final Laboratory Results 02/14/23 02:10: Diff Path Review Reviewed 02/14/23 06:17: Diff Path Review Reviewed Medications at Discharge Home Medications baclofen 10 mg tablet 10 mg PO TID spasms 05/02/22 trazodone 50 mg tablet 50 mg PO QHS Check with primary doctor 06/25/22 albuterol sulfate 90 mcg/actuation aerosol inhaler 90 mcg inhalation PRN PRN asthma 30 days #8.5 grams 07/01/22 mometasone-formoterol HFA 200 mcg-5 mcg/actuation aerosol inhaler 2 inh inhalation Q12H Check with primary doctor 30 days #13 grams 07/01/22 albuterol sulfate 2.5 mg/3 mL (0.083 %) solution for nebulization 2.5 mg (3 mL) inhalation Q4H PRN #25 vials 09/05/22 ipratropium bromide 0.02 % solution for inhalation 2.5 ml inhalation Q6H PRN shortness of breath or wheezing #62.5 mL 09/05/22 fluticasone fur. 100 mcg-umeclid 62.5 mcg-vilant 25 mcg inhalat.powder (Trelegy Ellipta) 1 inh inhalation DAILY #60 ea 09/19/22 albuterol sulfate 2.5 mg/3 mL (0.083 %) solution for nebulization 2.5 mg (3 mL) inhalation Q4H PRN #25 vials 10/11/22 fluticasone propionate 110 mcg/actuation HFA aerosol inhaler (Flovent HFA) 1 puff inhalation BID #12 grams 10/11/22 diltiazem HCl 120 mg capsule,extended release 24 hr 120 mg PO DAILY #90 caps 10/30/22 amoxicillin 875 mg-potassium clavulanate 125 mg tablet 1 tab PO BID 6 days #12 tabs 02/15/23 gabapentin 600 mg tablet 800 mg (1.3333 x 600 mg) PO TID nerve pain #7 tabs 02/15/23 guaifenesin 1,200 mg tablet, extended release 12 hr (Mucus Relief ER) 1,200 mg PO BID 1 week #14 tabs 02/15/23 Physical Exam Narrative Seen and examined. No fever. No acute shortness of breath. Patient has mild aphasia chronic. Physical exam General: Alert, Oriented x3, Cooperative HEENT: Atraumatic, PERRLA, EOMI, Normocephalic Oral: No Gingival or Mucosal Lesions/ Ulcerations Neck: Supple, No JVD, Negative Carotid Bruits Lungs: Air entry diminished in right lung base. Mild coarse crepitations. Cardiovascular: Regular rate, Regular Rhythm, Normal S1, Normal S2, No murmurs Abdomen: Bowel Sounds Present, Soft, Non Tender, Non-Distended : No renal angle tenderness. No suprapubic tenderness. Extremities: No edema, Capillary Refill Less than 3 Seconds Skin: No rashes, No breakdown Musculoskeletal: No Tenderness to Palpation of Joints or Extremities Neurological: Residual weakness on the right upper extremity and right lower extremity with contracture at knee, wrist and ankle joint. Mild aphasia. Psych/Mental Status: Flat affect Weight / BMI Weight Weight: 162 lb 7.691 oz Body Mass Index (BMI) 25.4 ABG / Lab / Microbiology Data 02/14/23 06:17 02/14/23 06:17 Laboratory: Laboratory Results - last 24 hr 02/14/23 02:10: Diff Path Review Reviewed 02/14/23 06:17: Diff Path Review Reviewed Microbiology: Microbiology 02/14/23 08:06 Mucosa - Nasopharyngeal Influenza Types A,B Direct FA (MIGUEL ANGEL) - Final D/C Instructions Discharge Diet: Soft diet (staff assist w/ tray set up-cut food into small bitesized pieces-straws OK) Weight Bearing Status: Weight bearing as tolerated Call your doctor if you observe: Fever of 101 or Higher, Coldness, Increased Pain, Numbness or Tingling, Change in Color, Inability to urinate, Inability to have a bowel movement, Using more than 1 pad per hour, Shortness of breath, Dizziness, Fainting spells, Swelling in the ankles, Chest pain, Prolonged hiccupping, Increased palpitations (irregular heartbeat) and Calf discomfort When: IN 2 WEEKS Meaningful Use Info Meaningful Use Diagnoses (Choose all that apply): None applicable Discharge Plan Admission Admit Date/Time: 02/14/23 05:19 Primary Reason for Your Visit: Aspiration pneumonia. Attending Provider: Sim Fontaine Primary Care Provider: Alin Mueller Consulting Providers: Gloria Felix; Guzman Lanza Instructions Additional Instructions / Restrictions: Continue incentive spirometry and PEP for 1 more week. Discharge Orders/Prescriptions Prescriptions: New amoxicillin-pot clavulanate 875-125 mg Tablet 1 tab PO BID 6 Days Qty: 12 0RF guaifenesin [Mucus Relief ER] 1,200 mg Tablet Extended Release 12hr 1,200 mg PO BID 7 Days Qty: 14 0RF Continued diltiazem HCl 120 mg capsule,extended release 24hr 120 mg PO DAILY Qty: 90 2RF baclofen 10 mg Tablet 10 mg PO TID trazodone 50 mg tablet 50 mg PO QHS Patient Comments: TAKE 1 TABLET BY MOUTH EVERYDAY AT BEDTIME albuterol sulfate 90 mcg/actuation HFA aerosol inhaler 90 mcg INHALATION PRN PRN (Reason: asthma) 30 Days Qty: 8.5 0RF mometasone-formoterol 200-5 mcg/actuation HFA aerosol inhaler 2 inh inhalation Q12H 30 Days Qty: 13 0RF Rx Instructions: 2 inhalations twice daily for 7 days albuterol sulfate 2.5 mg /3 mL (0.083 %) solution for nebulization 2.5 mg inhalation Q4H PRN Qty: 25 2RF Rx Instructions: Use q4 hours and PRN for wheezing ipratropium bromide 0.02 % solution 2.5 ml inhalation Q6H PRN (Reason: shortness of breath or wheezing) Qty: 62.5 1RF Trelegy Ellipta 100-62.5-25 mcg blister with device 1 inh inhalation DAILY Qty: 60 0RF albuterol sulfate 2.5 mg /3 mL (0.083 %) solution for nebulization 2.5 mg inhalation Q4H PRN Qty: 25 0RF Rx Instructions: Use q4 hours and PRN for wheezing fluticasone propionate [Flovent HFA] 110 mcg/actuation HFA aerosol inhaler 1 puff inhalation BID Qty: 12 0RF gabapentin 600 mg tablet 800 mg PO TID Qty: 7 0RF Patient Comments: TAKE 1 TABLET BY MOUTH THREE TIMES DAILY Rx Instructions: Take it as recommended. Hold for lethargy/sedation Discontinued prednisone 20 mg tablet 40 mg PO DAILY 7 Days Qty: 10 0RF Referrals / Follow Up: Alin Mueller MD [Primary Care Provider] - Joaquim Lance DO [Med Staff - Active Staff] - 03/27/23 10:45 am Disposition Disposition (needs filled in before D/C Order can be placed): Home Health Service Charges/Coding Visit Charges Inpatient E&M: 25993 Disch Hosp >30min
--- NOTE | 2023-02-15 16:19 | PHA.DC.MC.R ---
Pharmacy [facility] Service has performed discharge medication reconciliation and counseling for this patient. 1. AMOXICILLIN/CLAVULANATE 875/125MG 1T PO BID X 6 DAYS 2. GUAIFENESIN 1200MG PO BID X 7 DAYS The patient's discharge medication list was reviewed for discrepancies and discrepancies were resolved. The patient was counseled on the following discharge medications and changes in medications for homegoing were reviewed. The Reason for Use, instructions for use, and potential side effects were reviewed for all new medications. The patient's questions regarding all of their medications were answered. The patient was able to verbally demonstrate an understanding of their discharge medications. Medications at Discharge Home Medications baclofen 10 mg tablet 10 mg PO TID spasms 05/02/22 trazodone 50 mg tablet 50 mg PO QHS Check with primary doctor 06/25/22 albuterol sulfate 90 mcg/actuation aerosol inhaler 90 mcg inhalation PRN PRN asthma 30 days #8.5 grams 07/01/22 mometasone-formoterol HFA 200 mcg-5 mcg/actuation aerosol inhaler 2 inh inhalation Q12H Check with primary doctor 30 days #13 grams 07/01/22 albuterol sulfate 2.5 mg/3 mL (0.083 %) solution for nebulization 2.5 mg (3 mL) inhalation Q4H PRN #25 vials 09/05/22 ipratropium bromide 0.02 % solution for inhalation 2.5 ml inhalation Q6H PRN shortness of breath or wheezing #62.5 mL 09/05/22 fluticasone fur. 100 mcg-umeclid 62.5 mcg-vilant 25 mcg inhalat.powder (Trelegy Ellipta) 1 inh inhalation DAILY #60 ea 09/19/22 albuterol sulfate 2.5 mg/3 mL (0.083 %) solution for nebulization 2.5 mg (3 mL) inhalation Q4H PRN #25 vials 10/11/22 fluticasone propionate 110 mcg/actuation HFA aerosol inhaler (Flovent HFA) 1 puff inhalation BID #12 grams 10/11/22 diltiazem HCl 120 mg capsule,extended release 24 hr 120 mg PO DAILY #90 caps 10/30/22 amoxicillin 875 mg-potassium clavulanate 125 mg tablet 1 tab PO BID 6 days #12 tabs 12/28/23 gabapentin 600 mg tablet 800 mg (1.3333 x 600 mg) PO TID nerve pain #7 tabs 02/15/23 guaifenesin 1,200 mg tablet, extended release 12 hr (Mucus Relief ER) 1,200 mg PO BID 1 week #14 tabs 02/15/23
--- NOTE | 2023-02-15 16:32 | CASEMGMT ---
BUBBA COOPER NOTE: Therapy has worked w/pt today. Per Jordyn, no therapy recommended, as pt is close to her baseline. She does state that hospital bed is recommended. Discharge order is in. Pt also qualifies for home O2 @ 2 l/m contin. BUBBA COOPER to room. Pt denies having preference of DME co for O2 and hospital bed, made aware [facility] is affiliated w/[facility], and she states to use [employer]. Script for O2 sent to [facility] via [employer] and Nat from [facility] to deliver portable O2 tank to pt's room today. Script for hospital bed along w/physician supporting documentation and therapy's notes also sent to [facility] via [employer]. Call to Malik @ [facility]. He states they do have hospital beds available and made aware to contact pt's sig other, Gael, for f/u and to arrange for delivery per pt's request. Pt is aware that insurance approval would be needed for the hospital bed before they can deliver it. She told this RN ALLISON she is comfortable w/discharging home w/out the hospital bed being delivered yet. Pt denies having other discharge planning needs or concerns. Elyse LAMB RN, CM
== END 2023-02-15 17:37 | disposition home or self-care (01) | DRG 917 ==
LOC: ED 02-14 04:36 → MS3 02-14 05:13 → PCU 02-14 05:41
PROVIDERS: Admitting Provider Internal Medicine; Emergency Provider Emergency Medicine; PCP Internal Medicine; Visit Provider Internal Medicine
DX: T42.6X1A Poisoning by other antiepileptic and sedative-hypnotic drugs, accidental (unintentional), initial encounter (principal); J69.0 Pneumonitis due to inhalation of food and vomit; I69.354 Hemiplegia and hemiparesis following cerebral infarction affecting left non-dominant side; I42.9 Cardiomyopathy, unspecified; I10 Essential (primary) hypertension; J45.909 Unspecified asthma, uncomplicated; E87.6 Hypokalemia; I69.320 Aphasia following cerebral infarction; R09.02 Hypoxemia; Z79.51 Long term (current) use of inhaled steroids; Z79.899 Other long term (current) drug therapy; Z87.891 Personal history of nicotine dependence
CPT/HCPCS: 36415; 71046; 80048; 80053; 80307; 80320; 80329; 81001; 81025; 82248; 83735; 84100; 84443; 85025; 85610; 87804; 92610; 93005; 94640; 97162; 97166; 99282; J7030; A4216; G0480; J0295; J2405

== ENCOUNTER 2023-03-09 09:12 | Emergency (ER) | payer MEDICARE, MEDICAID, SELFPAY ==
[2023-03-09] VITALS (8 sets, daily range): BP systolic 116–138; BP diastolic 77–98; PULSE 98–126; RESP 16–32; TEMP 35.8–36.4; O2SAT 85–99; BMI 26.4
--- NOTE | 2023-03-09 09:25 | EDS_ITS ---
HPI History of Present Illness Chief Complaint: Shortness of Breath Informant: patient and EMS Associated Symptoms cough Chest Pain: Positive for None Narrative Narrative: Patient called EMS because of shortness of breath saying that she was recently diagnosed with pneumonia, was on antibiotics for an unknown period of time and finished them 2 days ago and also finished prednisone 2 days ago and has been getting more short of breath since. She has oxygen 2 L at home since being admitted to the hospital for aspiration pneumonia at the end of the year 3 weeks ago. On her home oxygen she was 89% for EMS who gave her a duo nebulizer treatment that did not help so they brought her to the hospital. She still is very short of breath and wheezing. She denies any chest pain other than feeling generally tight throughout her lungs. She denies any leg swelling. No new fevers. She is still coughing. She has a history of a stroke and left-sided hemiplegia as a result. [facility] Medical History Asthma Asthma exacerbation Cardiac tamponade Embolic stroke involving middle cerebral artery Essential hypertension Former tobacco use Hemiplegia and hemiparesis following cerebral infarction affecting left non- dominant side Hepatitis History of embolic stroke History of endocarditis History of noncompliance with medical treatment History of substance abuse Holosystolic murmur Hypoxia Insomnia MRSA (methicillin resistant Staphylococcus aureus) Neuropathy Opioid dependence Polyarthritis Rheumatic tricuspid insufficiency Right sided cerebral hemisphere cerebrovascular accident (CVA) Home Medications baclofen 10 mg tablet 10 mg PO TID spasms 05/02/22 [History Last Taken 06/24/22] trazodone 50 mg tablet 50 mg PO QHS Check with primary doctor 06/25/22 [History Last Taken Unknown] albuterol sulfate 90 mcg/actuation aerosol inhaler 90 mcg inhalation PRN PRN asthma 30 days #8.5 grams 07/01/22 [Rx Last Taken Unknown] mometasone-formoterol HFA 200 mcg-5 mcg/actuation aerosol inhaler 2 inh inhalation Q12H Check with primary doctor 30 days #13 grams 07/01/22 [Rx Last Taken Unknown] albuterol sulfate 2.5 mg/3 mL (0.083 %) solution for nebulization 2.5 mg (3 mL) inhalation Q4H PRN #25 vials 09/05/22 [Rx Last Taken Unknown] ipratropium bromide 0.02 % solution for inhalation 2.5 ml inhalation Q6H PRN shortness of breath or wheezing #62.5 mL 09/05/22 [Rx Last Taken Unknown] fluticasone fur. 100 mcg-umeclid 62.5 mcg-vilant 25 mcg inhalat.powder (Trelegy Ellipta) 1 inh inhalation DAILY #60 ea 09/19/22 [Rx Last Taken Unknown] albuterol sulfate 2.5 mg/3 mL (0.083 %) solution for nebulization 2.5 mg (3 mL) inhalation Q4H PRN #25 vials 10/11/22 [Rx Last Taken Unknown] fluticasone propionate 110 mcg/actuation HFA aerosol inhaler (Flovent HFA) 1 puff inhalation BID #12 grams 10/11/22 [Rx Last Taken Unknown] diltiazem HCl 120 mg capsule,extended release 24 hr 120 mg PO DAILY #90 caps 10/30/22 [Rx Last Taken Unknown] amoxicillin 875 mg-potassium clavulanate 125 mg tablet 1 tab PO BID 6 days #12 tabs 02/15/23 [Rx Last Taken Unknown] gabapentin 600 mg tablet 800 mg (1.3333 x 600 mg) PO TID nerve pain #7 tabs 02/15/23 [Rx Last Taken 06/24/22] guaifenesin 1,200 mg tablet, extended release 12 hr (Mucus Relief ER) 1,200 mg PO BID 1 week #14 tabs 02/15/23 [Rx Last Taken Unknown] prednisone 10 mg tablet 10 mg PO UD #33 tabs 03/09/23 [Rx Last Taken Unknown] Allergy/AdvReac Type Severity Reaction Status Date / Time No Known Allergies Allergy Verified 02/13/23 19:29 Family History Father COPD (chronic obstructive pulmonary disease) Polysubstance abuse Mother Cancer Uterine CA. Surgical History Hx of needle biopsy Hx of tracheostomy Previous section S/P percutaneous endoscopic gastrostomy (PEG) tube placement Social History household members: none Smoking Status: Former smoker how long ago did patient quit smoking: Quit smoking 04/2022, smoked ~ 1 ppd since 19 y/o until quit recently. alcohol intake: current alcohol intake frequency: holidays/special occasions only substance use type: former substance user Date of last use: Clean x 5 years as of 06/25/22. and heroin caffeine: Yes Type: carbonated beverages Number of servings: 6 ROS ROS ED Constitutional Constitutional ED: Reports fatigue and malaise; Denies fever(s) Eyes Eyes: Denies change in vision or diplopia ENT ENT ED: Denies rhinorrhea or sore throat Cardiovascular Cardiovascular: Denies chest pain or palpitations Respiratory/Chest Respiratory/Chest: Reports cough, dyspnea and dyspnea on exertion Gastrointestinal Gastrointestinal: Denies abdominal pain, diarrhea, nausea or vomiting Genitourinary Genitourinary ED: Denies dysuria or hematuria Musculoskeletal Musculoskeletal: Denies back pain or neck pain Integumentary Denies abscess or rash Neurologic Neurologic: Reports paresthesias LUE and LLE and weakness; Denies headache(s) Psychiatric Psychiatric: Denies suicidal ideation or suicidal thoughts EXAM Physical Exam Const Vital Signs: 03/09/23 09:14 03/09/23 09:23 03/09/23 09:25 Temperature 96.5 F L Temperature Source Temporal Pulse Rate 126 H 108 H Respiratory Rate 32 H 22 H Respiratory Effort Short of Breath Accessory Muscle Use Respiratory Depth Shallow Respiratory Pattern Tachypnea Blood Pressure 138/98 H Blood Pressure Mean 111 Pulse Ox 85 98 Oxygen Delivery Method Nasal Cannula Non-Rebreather Non-Rebreather Oxygen Flow Rate (L/min) 2 03/09/23 09:36 03/09/23 09:36 03/09/23 10:38 Temperature Temperature Source Pulse Rate 105 H 101 H Respiratory Rate 24 H 20 H Respiratory Effort Respiratory Depth Respiratory Pattern Tachypnea Blood Pressure 116/85 H Blood Pressure Mean 95 Pulse Ox 98 97 Oxygen Delivery Method Nasal Cannula Nasal Cannula Oxygen Flow Rate (L/min) 6 2 03/09/23 11:09 Temperature Temperature Source Pulse Rate 101 H Respiratory Rate 19 H Respiratory Effort Respiratory Depth Respiratory Pattern Blood Pressure 120/77 Blood Pressure Mean 91 Pulse Ox 93 Oxygen Delivery Method Nasal Cannula Oxygen Flow Rate (L/min) 2 Positive well nourished and well developed Constitutional Narrative: Mild respiratory distress distress General Appearance ED: well developed and NAD HEENT Reports moist mucous membranes normocephalic and atraumatic Eyes PERRL and EOMs intact bilaterally Neck full ROM, no lymphadenopathy, supple and no JVD Resp Resp Narrative: Mild respiratory distress, diffuse expiratory wheezes and prolonged expiratory phase no rales or rhonchi. Trachea midline. Equal breath sounds bilaterally. Cardio regular rate and regular rhythm Rate: tachycardic GI non-tender and non-distended Auscultation: normoactive bowel sounds Palpation: soft Back/Spine no CVA tenderness General Back: other FROM Extremity normal to inspection and no calf tenderness General Extremety ED: Negative for edema, pulses abnormal or tenderness General Extremity: Negative for edema or pulses abnormal Neuro oriented x3 and CN's II-XII intact bilaterally Neuro Narrative: Weak and decreased sensation left side at baseline according to patient Sensorium / Orientation: awake and alert Psych mental status grossly normal Skin no rashes or lesions noted and no wounds MDM MDM MDM Narrative Medical decision making narrative: Patient was given Solu-Medrol 125 mg IV as well as a series of 3 albuterol treatments, she is breathing much better on reevaluation, I turned her oxygen down to 2 L and she is satting well into the 90s and doing well clinically with decrease in her heart rate to around 100. Chest x-ray 2 views of my interpretation show improvement versus resolution of her recent pneumonia on comparison views. Her labs look improved as well. Her potassium was 5.6 but there is moderate hemolysis and she has no EKG changes of hyperkalemia on her EKG which is otherwise unremarkable and unchanged, so I do not think this needs to be emergently repeated. After nebulizer treatments, she is wheezing less and although she slept for couple hours, she did not have any hypoxemia on her home oxygen. Reevaluating her several times, she was difficult to arouse until early afternoon. She stated she was doing better and comfortable going home, she did not sleep at all overnight which is why she was sleepy. I was able to have a conversation with her while she remained keenly alert. Therefore I am comfortable with her going home on an extended course of steroids with a taper for her asthma. She will get another nebulizer treatment before she goes home, she indicates that she does have a machine at home with medications that she can continue doing treatments at home as needed. History & Record Review Discussion w/independent historian: EMS personnel and Patient Additional record(s) reviewed:: Prior inpatient record, Prior ED visit and Prior labs Lab Data Attestation: I reviewed the patient's lab results. Labs: Laboratory Results - last 24 hr 03/09/23 09:35 WBC 10.7 RBC 4.72 Hgb 14.1 Hct 42.8 MCV 90.7 MCH 29.9 MCHC 32.9 RDW Std Deviation 46.1 H RDW Coeff of Min 14.0 Plt Count 157 MPV 10.3 Immature Gran % (Auto) 1.300 H Neut % (Auto) 50.8 Lymph % (Auto) 24.8 Mcpherson % (Auto) 10.6 H Eos % (Auto) 11.6 H Baso % (Auto) 0.9 Absolute Neuts (auto) 5.4 Absolute Lymphs (auto) 2.65 Nucleated RBC % 0 Sodium 139 Potassium 5.6 H Chloride 107 Carbon Dioxide 33.0 H Anion Gap -1 L BUN 12 Creatinine 0.66 Estim Creat Clear Calc 120.85 Est GFR (MDRD) Af Amer 128 Est GFR (MDRD) Non-Af 106 BUN/Creatinine Ratio 18.3 Glucose 117 H Calcium 9.1 Troponin I High Sens 12 Radiography Diagnostic Testing: Clinical Impression(s) from Imaging Studies Chest X-Ray 03/09/23 10:20 IMPRESSION: No acute pulmonary abnormality. Stable mild cardiomegaly. Electronically Signed: Keyshawn Turpin MD at 11:31 EST , Rhythm Strip Rhythm Strip: Sinus Tach Rate: 110 Ectopy: None EKG Initial EKG: Attestation: I personally reviewed and interpreted this EKG as follows: Interpretation: Sinus Rhythm, No Acute Injury Pattern and RBBB Prior EKG tracings: available for review Prior: Unchanged Discharge Plan Triage Chief Complaint: Shortness of Breath ED Provider: Stuart Lanier Dx/Rx/DC Orders Clinical Impression: Acute asthma exacerbation Instructions: ED Asthma, Acute (Adult) Prescriptions: New prednisone 10 mg tablet 10 mg PO UD Qty: 33 0RF Rx Instructions: Take 4 tablets daily for 3 days, then 3 daily for 3 days, then 2 daily for 3 days, then 1 a day for 3 days then 1 QOD for 3 doses. No Action diltiazem HCl 120 mg capsule,extended release 24hr 120 mg PO DAILY Qty: 90 2RF baclofen 10 mg Tablet 10 mg PO TID trazodone 50 mg tablet 50 mg PO QHS Patient Comments: TAKE 1 TABLET BY MOUTH EVERYDAY AT BEDTIME albuterol sulfate 90 mcg/actuation HFA aerosol inhaler 90 mcg INHALATION PRN PRN (Reason: asthma) 30 Days Qty: 8.5 0RF mometasone-formoterol 200-5 mcg/actuation HFA aerosol inhaler 2 inh inhalation Q12H 30 Days Qty: 13 0RF Rx Instructions: 2 inhalations twice daily for 7 days albuterol sulfate 2.5 mg /3 mL (0.083 %) solution for nebulization 2.5 mg inhalation Q4H PRN Qty: 25 2RF Rx Instructions: Use q4 hours and PRN for wheezing ipratropium bromide 0.02 % solution 2.5 ml inhalation Q6H PRN (Reason: shortness of breath or wheezing) Qty: 62.5 1RF Trelegy Ellipta 100-62.5-25 mcg blister with device 1 inh inhalation DAILY Qty: 60 0RF albuterol sulfate 2.5 mg /3 mL (0.083 %) solution for nebulization 2.5 mg inhalation Q4H PRN Qty: 25 0RF Rx Instructions: Use q4 hours and PRN for wheezing fluticasone propionate [Flovent HFA] 110 mcg/actuation HFA aerosol inhaler 1 puff inhalation BID Qty: 12 0RF amoxicillin-pot clavulanate 875-125 mg Tablet 1 tab PO BID 6 Days Qty: 12 0RF guaifenesin [Mucus Relief ER] 1,200 mg Tablet Extended Release 12hr 1,200 mg PO BID 7 Days Qty: 14 0RF gabapentin 600 mg tablet 800 mg PO TID Qty: 7 0RF Patient Comments: TAKE 1 TABLET BY MOUTH THREE TIMES DAILY Rx Instructions: Take it as recommended. Hold for lethargy/sedation Primary Care Provider: Alin Mueller Referrals: Alin Mueller MD [Primary Care Provider] - 3-5 Days Activity Restrictions/Additional Instructions: Your x-ray showed that your pneumonia has cleared up. You likely are still dealing with a flareup of your asthma, and since you were on prednisone recently, we are going to restart you on it but then taper you off so you can be on it longer, which hopefully will help. You may not notice a big difference with the initial dose of steroid which she received in the ER until this evening since it takes a while to start working. Use your breathing treatments at home as needed for wheezing/shortness of breath as needed in the meantime and subsequently. Disposition Disposition: Home, Self Care
[2023-03-09] MEDS: Albuterol 2.5 MG/3 ML VIAL.NEB. INHALATION ×3 (09:37)
[2023-03-09] MEDS: MethylPREDNISolone 125 MG/2 ML Vial IV (09:40)
[2023-03-09 09:41] LABS: Absolute Lymphocyte Count 2.65 X10^3/uL (0.83-4.51); Absolute Neutrophil Count 5.4 X10^3/uL (2.0-7.7); Basophil% 0.9 % (0-1); Eosinophil# 1.24 X10^3/uL; Eosinophils% 11.6 % (0-5); Hematocrit 42.8 % (37-47); Hemoglobin 14.1 g/dL (12.0-15.0); Lymphocyte # 2.65 X10^3/ul (0.83-4.51); Lymphocyte % 24.8 % (19-41); Mean Corp Hgb Conc 32.9 g/dL (32-36); Mean Corpuscular Hgb 29.9 pg (27.0-32.0); Mean Corpuscular Volume 90.7 fL (81-99); Mean Platelet Vol. 10.3 fl (6.2-12.0); Monocyte# 1.13 X10^3/uL; Monocyte% 10.6 % (0-10); NRBC Flagged by Analyzer 0 % (0-5); Neutrophil # 5.41 X10^3/uL (2.7-7.7); Neutrophil % 50.8 % (47-70); Platelet Count 157 K/mm3 (150-450); RBC Distribution Width SD 46.1 fl (35.1-43.9); Red Blood Count 4.72 M/mm3 (4.2-5.4); White Blood Count 10.7 K/mm3 (4.4-11.0)
[2023-03-09] MEDS: 0.9% Normal Saline (1000mL) 1,000 ML 150 ML IV (09:41)
[2023-03-09 10:09] LABS: Anion Gap -1 (5-15); BUN 12 mg/dL (7-18); BUN/Creat Ratio 18.3 RATIO (10-20); Calcium,Total 9.1 mg/dL (8.5-10.1); Chloride 107 mmol/L (98-107); Creatinine, Serum 0.66 mg/dL (0.55-1.02); EST Glomerular Filtration Rate 106 mL/min (>60); Est Glom Filt Rate - Afr Amer 128 mL/min (>60); Estimated Creatinine Clearance 120.85 ml/min; Glucose 117 mg/dL (74-106); Potassium 5.6 mmol/L (3.5-5.1); Sodium Level 139 mmol/L (136-145); Troponin-I HS 12 pg/mL (3.0-54.0)
--- NOTE | 2023-03-09 10:20 | RAD_ITS ---
EXAM: XR CHEST, 2 VIEWS CLINICAL INDICATION: cough, sob, recent pneumonia TECHNIQUE: Frontal and lateral views of the chest. COMPARISON: XR Chest dated 02/13/2023 FINDINGS: LUNGS AND PLEURAL SPACES: Resolving right lower lobe infiltrate/atelectasis. HEART: Stable mild cardiomegaly. MEDIASTINUM: No mediastinal or hilar mass. BONES/JOINTS: No acute abnormality. RAD/Chest PA and Lateral IMPRESSION: No acute pulmonary abnormality. Stable mild cardiomegaly. Electronically Signed: Keyshawn Turpin MD at 11:31 EST ,
[2023-03-09] MEDS: Ipratropium/Albuterol Sulfate 3 ML AMPUL.NEB INHALATION (13:53)
== END 2023-03-09 14:01 | disposition home or self-care (01) ==
PROVIDERS: Emergency Provider Emergency Medicine; PCP Internal Medicine; Visit Provider Emergency Medicine
DX: J45.901 Unspecified asthma with (acute) exacerbation (principal); Z87.891 Personal history of nicotine dependence; Z86.73 Personal history of transient ischemic attack (TIA), and cerebral infarction without residual deficits
CPT/HCPCS: 71046; 80048; 84484; 85025; 93005; 94640; 96361; 96374; 99284; J7030